=== PATIENT | male | born 1960 | race Two or more races ===

== ENCOUNTER 2018-09-21 10:54 | Inpatient (IN) | payer OTHER ==
[2018-09-21 16:00] VITALS: BMI 31.1
--- NOTE | 2018-09-21 17:25 | HP ---
CIWA Score Nausea/Vomitin-Mild Nausea/No Vomiting Muscle Tremors: 4-Moderate,w/Arms Extend Anxiety: 4-Mod. Anxious/Guarded Agitation: 4-Moderately Restless Paroxysmal Sweats: 3 Orientation: 0-Oriented Tacttile Disturbances: 0-None Auditory Disturbances: 0-None Visual Disturbances: 0-None Headache: 1-Very Mild CIWA-Ar Total Score: 17 - Admission Criteria OASAS Guidelines: Admission for Medically Managed Detox: Requires at least one of the followin. CIWA greater than 12 2. Seizures within the past 24 hours 3. Delirium tremens within the past 24 hours 4. Hallucinations within the past 24 hours 5. Acute intervention needed for co occurring medical disorder 6. Acute intervention needed for co occurring psychiatric disorder 7. Severe withdrawal that cannot be handled at a lower level of care (continued vomiting, continued diarrhea, abnormal vital signs) requiring intravenous medication and/or fluids 8. Admission ROS S - HPI Chief Complaint: I need help with stopping the drinking. Allergies/Adverse Reactions: Allergies Allergy/AdvReac Type Severity Reaction Status Date / Time No Known Allergies Allergy Verified 09/21/18 15:33 History of Present Illness: pt is a 58yrold male with a history of alcohol dependence seeking detox for treatment. Pt is on a MMTP last medicated with 50mg; pending verification. Exam Limitations: No Limitations - Ebola screening Have you traveled outside of the country in the last 21 days: No (N) Have you had contact with anyone from an Ebola affected area: No Have you been sick,other than usual withdrawal symptoms: No Do you have a fever: No - Review of Systems Constitutional: Chills, Diaphoresis, Night Sweats EENT: reports: Tearing, Nose Congestion Respiratory: reports: No Symptoms reported Cardiac: reports: Syncope GI: reports: Diarrhea, Nausea, Poor Appetite, Poor Fluid Intake, Indigestion, Abdominal cramping : reports: No Symptoms Reported Musculoskeletal: reports: Back Pain Integumentary: reports: Flushing, Sweating, Other (two open lesion to left lower leg. pt has some swelling and has clear fluid seeping out.) Neuro: reports: Tingling, Tremors Endocrine: reports: Excessive Sweating, Flushing Hematology: reports: No Symptoms Reported Psychiatric: reports: Judgement Intact, Mood/Affect Appropiate, Orientated x3, Agitated, Anxious Other Systems: Reviewed and Negative Patient History - Patient Medical History Hx Anemia: No Hx Asthma: No Hx Chronic Obstructive Pulmonary Disease (COPD): No Hx Cancer: No Hx Cardiac Disorders: No Hx Congestive Heart Failure: No Hx Hypertension: Yes (ON MEDS.) Hx Hypercholesterolemia: No Hx Pacemaker: No HX Cerebrovascular Accident: No Hx Seizures: No Hx Dementia: No Hx Diabetes: Yes (on metformin ) Hx Gastrointestinal Disorders: Yes (perforated peptic ulcer) Hx Liver Disease: No Hx Genitourinary Disorders: No Hx Sexually Transmitted Disorders: No Hx Renal Disease (ESRD): No Hx Thyroid Disease: No Hx Human Immunodeficiency Virus (HIV): No (negative ) Hx Hepatitis C: Yes (undetectable) Hx Depression: Yes Hx Suicide Attempt: No (pt denies) Hx Bipolar Disorder: Yes (ON SEROQUEL, PAXIL) Hx Schizophrenia: No - Patient Surgical History Past Surgical History: Yes Hx Neurologic Surgery: No Hx Cataract Extraction: No Hx Cardiac Surgery: No Hx Lung Surgery: No Hx Breast Surgery: No Hx Breast Biopsy: No Hx Abdominal Surgery: Yes (surgery for perforated ulcer in 1993) Hx Appendectomy: No Hx Cholecystectomy: No Hx Genitourinary Surgery: No Hx Section: No Hx Orthopedic Surgery: No Anesthesia Reaction: No - PPD History Previous Implant?: Yes Documented Results: Negative w/o proof PPD to be Administered?: Yes - Reproductive History Patient is a Female of Child Bearing Age (11 -55 yrs old): No - Smoking Cessation Smoking history: Current every day smoker Have you smoked in the past 12 months: Yes Aproximately how many cigarettes per day: 20 Cigars Per Day: 0 Hx Chewing Tobacco Use: No Initiated information on smoking cessation: Yes 'Breaking Loose' booklet given: 09/21/18 - Substance & Tx. History Hx Alcohol Use: Yes Hx Substance Use: Yes Substance Use Type: Alcohol, Heroin Hx Substance Use Treatment: Yes (last detox 2 months ago at [place] [facility]; cannot remember name) - Substances abused Alcohol Substance route: Oral Frequency: Daily Amount used: three 6 packs beer Age of first use: 17 Date of last use: 09/21/18 Heroin Substance route: Inhalation Frequency: Daily Amount used: 2 bags Age of first use: 17 Date of last use: 09/21/18 Family Disease History - Family Disease History Family Disease History: Other: Father (alcohol) Admission Physical Exam BHS - Vital Signs Vital Signs: Vital Signs - 24 hr 09/21/18 15:51 Temperature 97.2 F L Pulse Rate 95 H Respiratory 18 Rate Blood Pressure 121/71 - Physical General Appearance: Yes: Appropriately Dressed, Moderate Distress, Obese, Tremorous, Irritable, Sweating, Anxious HEENTM: Yes: Hearing grossly Normal, Normal Voice, Nasal Congestion, Rhinorrhea Respiratory: Yes: Lungs Clear, Normal Breath Sounds, No Respiratory Distress Neck: Yes: No masses,lesions,Nodules Breast: Yes: Breast Exam Deferred Cardiology: Yes: Regular Rhythm, Regular Rate, S1, S2 Abdominal: Yes: Normal Bowel Sounds, Non Tender, Soft Genitourinary: Yes: Within Normal Limits Back: Yes: Normal Inspection Musculoskeletal: Yes: full range of Motion Extremities: Yes: Normal Capillary Refill, Non-Tender, Tremors Neurological: Yes: Fully Oriented, Alert, Normal Response Integumentary: Yes: Normal Color, Diaphoresis Lymphatic: Yes: Within Normal Limits - Diagnostic (1) Essential hypertension Current Visit: Yes Status: Chronic (2) Hepatitis C carrier Current Visit: Yes Status: Chronic (3) mmtp Current Visit: Yes Status: Chronic Comment: pt is on 50mg of methadone; pending verification (4) s/p surgry for perforated peptic ulcer with peritonitis Current Visit: No Status: Chronic (5) syncope alcohol related Current Visit: No Status: Chronic (6) Bipolar I disorder, single manic episode, moderate Current Visit: No Status: Acute (7) Gastroesophageal reflux disease Current Visit: Yes Status: Chronic Qualifiers: Esophagitis presence: without esophagitis Qualified Code(s): K21.9 - Gastro -esophageal reflux disease without esophagitis (8) Nicotine dependence Current Visit: Yes Status: Chronic Qualifiers: Nicotine product type: cigarettes Substance use status: uncomplicated Qualified Code(s): F17.210 - Nicotine dependence, cigarettes, uncomplicated (9) Alcohol dependence with uncomplicated withdrawal Current Visit: Yes Status: Chronic Cleared for Admission [facility] - Detox or Rehab [facility] Level of Care: Medically Managed Detox Regimen/Protocol: Librium Breathalyzer - Breathalyzer Breathalyzer: 0.210 Urine Drug Screen - Test Device Lot number: [id number] Expiration date: 05/26/20 - Control Is test valid?: Yes - Results Drug screen NEGATIVE: No Urine drug screen results: FEN-Fentanyl, MOP-Opiates, MTD-Methadone, BZO- Benzodiazepines Inpatient Rehab Admission - Rehab Decision to Admit Inpatient rehab admission?: No
[2018-09-21] MEDS ORDERED: ACETAMINOPHEN 325 MG TABLET (FP) PO PRN ×2 (17:39)
[2018-09-21] MEDS ORDERED: P-EPHED 60MG/TRIPROLIDI 2.5MG TABLET PO PRN (17:39)
[2018-09-21] MEDS ORDERED: chlordiazePOXIDE HCL 25 MG CAPSULE PO PRN (17:39)
[2018-09-21] MEDS ORDERED: NICOTINE POLACRILEX 4 MG GUM BUC PRN (17:39)
[2018-09-21] MEDS ORDERED: MAGNESIUM HYDROX 2400MG/30ML ORAL SUSPENSION 30 ML CUP PO PRN (17:39)
[2018-09-21] MEDS ORDERED: DICYCLOMINE HCL 10 MG CAPSULE PO PRN (17:39)
[2018-09-21] MEDS ORDERED: MENTHOL/PHENOL 1 EACH UD MM PRN (17:39)
[2018-09-21] MEDS ORDERED: MAGNESIUM CITRATE 300 ML BOTTLE PO PRN (17:39)
[2018-09-21] MEDS ORDERED: hydrOXYzine PAMOATE 25 MG CAPSULE (FP) PO PRN ×2 (17:39→17:43)
[2018-09-21] MEDS ORDERED: BISMUTH SUBSALICYLATE 524 MG/30 ML UD PO PRN (17:39)
[2018-09-21] MEDS ORDERED: IBUPROFEN 400 MG TABLET (FP) PO PRN (17:39)
[2018-09-21] MEDS ORDERED: ONDANSETRON *ODT* 4 MG TABLET SL PRN (17:39)
[2018-09-21] MEDS ORDERED: MAG HYDROX/AL HYDROX/SIMETH 30 ML UNIT-DOSE CUP PO PRN (17:39)
[2018-09-21] MEDS ORDERED: MELATONIN 5 MG TABLETS PO PRN (17:39)
[2018-09-21] MEDS ORDERED: chlordiazePOXIDE HCL 25 MG CAPSULE PO ONE (18:15)
[2018-09-21] MEDS ORDERED: TUBERCULIN PPD 5 TU/0.1ML VIAL ID ONE (18:51)
[2018-09-21] MEDS: BACLOFEN 10 MG TABLET (FP) PO PRN (22:14)
[2018-09-21] MEDS: THIAMINE HCL 100 MG TABLET (FP) PO SCH (22:14)
[2018-09-21] MEDS: chlordiazePOXIDE HCL 25 MG CAPSULE PO SCH (22:14)
[2018-09-21] MEDS: BUDESONIDE/FORMETEROL FUMARATE 160/4.5 mcg INHALER IH SCH (22:15)
[2018-09-21] MEDS: BACITRACIN 0.9 GM PACKET TP SCH (22:15)
[2018-09-22] MEDS: CEPHALEXIN MONOHYDRATE 500 MG CAPSULE (UD) PO SCH ×6 (05:32→23:10)
[2018-09-22] MEDS: chlordiazePOXIDE HCL 25 MG CAPSULE PO SCH ×4 (05:32→22:01)
[2018-09-22] MEDS ORDERED: cloNIDine HCL 0.1 MG TABLET PO ONE (06:42)
--- NOTE | 2018-09-22 06:45 | PN ---
S Progress Note Note: Patient's blood pressure is B/P 161/94. patient is asymptomatic Vital Signs Temperature 97.4 F L 09/22/18 06:34 Pulse Rate 86 09/22/18 06:34 Respiratory Rate 18 09/22/18 06:34 Blood Pressure 161/94 09/22/18 06:34 O2 Sat by Pulse Oximetry (%) action: Clonidine 0.1mg tablet oral ordered
[2018-09-22] MEDS ORDERED: METHADONE HCL 10 MG TABLET PO SCH (07:15)
[2018-09-22] MEDS ORDERED: METHADONE HCL 10 MG TABLET ONE (07:27)
[2018-09-22] MEDS ORDERED: METHADONE HCL 40 MG DISPERSABLE TABLET ONE (07:27)
[2018-09-22] MEDS: METHADONE 40 MG, METHADONE 10 MG PO SCH (07:30)
[2018-09-22] MEDS: metFORMIN HCL 500 MG TABLET (FP) PO SCH ×2 (07:33→17:12)
--- NOTE | 2018-09-22 09:36 | CONSULT ---
[facility] Psychiatric Consult - Data Date of interview: 09/22/18 Admission source: [facility] Identifying data: Patient is a 58 year old male, without children, unemployed, homeless, and is supported by public assistance. This is one of multiple admissions for patient. Patient admitted to for alcohol, opiate, and benzodiazepine dependence. Substance Abuse History: - Smoking Cessation. Smoking history: Current every day smoker. Have you smoked in the past 12 months: Yes. Aproximately how many cigarettes per day: 20. Cigars Per Day: 0. Hx Chewing Tobacco Use: No. Initiated information on smoking cessation: Yes. 'Breaking Loose' booklet given : 09/21/18. - Substance & Tx. History. Hx Alcohol Use: Yes. Hx Substance Use : Yes. Substance Use Type: Alcohol, Heroin. Hx Substance Use Treatment: Yes ( last detox 2 months ago at [facility], [place]; cannot remember name). - Substances abused. Alcohol. Substance route: Oral. Frequency: Daily. Amount used: three 6 packs beer. Age of first use: 17. Date of last use: 09/21. Heroin. Substance route: Inhalation. Frequency: Daily. Amount used: 2 bags. Age of first use: 17. Date of last use: 09/21/18 Psychiatric History: Patient denies h/o psychiatric hospitalization and suicide attempt. He reports h/o outpatient care most recently at the [facility]. States he is prescribed paxil 40mg + Seroquel 100mg. Self reports diagnosis of Depression. Mr. Soto reports most taking his medications two days ago. At present, he reports difficulty sleeping. Physical/Sexual Abuse/Trauma History: denies. Mental Status Exam - Mental Status Exam Alert and Oriented to: Time, Place, Person Cognitive Function: Good Patient Appearance: Well Groomed Mood: Euthymic Affect: Mood Congruent Patient Behavior: Fatigued, Cooperative Speech Pattern: Appropriate Voice Loudness: Moderately Soft/Quiet Thought Process: Goal Oriented Thought Disorder: Not Present Hallucinations: Denies Suicidal Ideation: Denies Homicidal Ideation: Denies Insight/Judgement: Poor Sleep: Poorly Appetite: Fair Muscle strength/Tone: Normal Gait/Station: Normal Psychiatric Findings - Problem List ([place] 1, 2,3) (1) Alcohol dependence with uncomplicated withdrawal Current Visit: Yes Status: Acute (2) Nicotine dependence Current Visit: Yes Status: Chronic Qualifiers: Nicotine product type: cigarettes Substance use status: uncomplicated Qualified Code(s): F17.210 - Nicotine dependence, cigarettes, uncomplicated (3) Mood disorder Current Visit: Yes Status: Chronic - Initial Treatment Plan Initial Treatment Plan: Psychoeducation provided. Detox in progress. Will order Paxil 40mg + Seroquel 100mg HS. Benefits and side effects discussed. Verbal consent given.
[2018-09-22] MEDS: BACITRACIN 0.9 GM PACKET TP SCH ×2 (10:36→21:42)
[2018-09-22] MEDS: NICOTINE 21 MG/24 HOURS TOPICAL PATCH TD SCH (10:36)
[2018-09-22] MEDS: PANTOPRAZOLE 40 MG TABLET (FP) PO SCH (10:36)
[2018-09-22] MEDS: LISINOPRIL 10 MG TABLET (FP) PO SCH (10:36)
[2018-09-22] MEDS: BUDESONIDE/FORMETEROL FUMARATE 160/4.5 mcg INHALER IH SCH ×2 (10:36→21:43)
[2018-09-22] MEDS: PRENATAL VITAMINS W/ FOLIC ACID TABLET (FP) PO SCH (10:36)
[2018-09-22 11:10] LABS: BILIRUBIN,TOTAL 0.3 mg/dL (0.2-1); BLOOD UREA NITROGEN 7.7 mg/dL (7-18); CALCIUM 7.8 mg/dL (8.5-10.1); CREATININE 0.6 mg/dL (0.55-1.3); TOT PROT 6.5 g/dl (6.4-8.2)
[2018-09-22 11:14] LABS: HEMATOCRIT 34.4 % (35.4-49); HEMOGLOBIN 10.9 GM/dL (11.7-16.9); MCH 23.9 pg (25.7-33.7); MCHC 31.7 g/dl (32.0-35.9); MEAN CELL VOLUME 75.4 fl (80-96); MEAN PLT VOLUME 8.5 fl (7.5-11.1); PLATELET COUNT 159 K/MM3 (134-434); RBC 4.56 M/mm3 (4.00-5.60); WHITE BLOOD COUNT 5.1 K/mm3 (4.0-10.0)
--- NOTE | 2018-09-22 13:41 | EKG ---
Test Reason : Blood Pressure : / mmHG Vent. Rate : 078 BPM Atrial Rate : 078 BPM P-R Int : 128 ms QRS Dur : 112 ms QT Int : 416 ms P-R-T Axes : 074 033 060 degrees QTc Int : 474 ms NORMAL SINUS RHYTHM NONSPECIFIC ST AND T WAVE ABNORMALITY PROLONGED QT ABNORMAL ECG NO PREVIOUS ECGS AVAILABLE Confirmed by MARLENI BLAKE, DONELL ([id number]) on 09/22/2018 1:40:59 PM Referred By: CHRISTOPHER ESPAÑA Confirmed By:DONELL YEPEZ MD
--- NOTE | 2018-09-22 14:37 | PN ---
S CIWA - CIWA Score Nausea/Vomitin Muscle Tremors: 2 Anxiety: 2 Agitation: 2 Paroxysmal Sweats: 1-Minimal Palms Moist Orientation: 0-Oriented Tacttile Disturbances: 1-Very Mild Itch/Numbness Auditory Disturbances: 1-Very Mild Visual Disturbances: 0-None Headache: 2-Mild CIWA-Ar Total Score: 13 S Progress Note (SOAP) Subjective: -alert,irritable,anxious,interrupted sleep,tremor Objective: 09/22/18 14:35 Vital Signs Temperature 96.7 F L 09/22/18 13:07 Pulse Rate 87 09/22/18 13:07 Respiratory Rate 16 09/22/18 13:07 Blood Pressure 159/95 09/22/18 13:07 O2 Sat by Pulse Oximetry (%) Laboratory Last Values WBC 5.1 K/mm3 (4.0-10.0) 09/22/18 07:30 RBC 4.56 M/mm3 (4.00-5.60) 09/22/18 07:30 Hgb 10.9 GM/dL (11.7-16.9) L 09/22/18 07:30 Hct 34.4 % (35.4-49) L 09/22/18 07:30 MCV 75.4 fl (80-96) L 09/22/18 07:30 MCH 23.9 pg (25.7-33.7) L D 09/22/18 07:30 MCHC 31.7 g/dl (32.0-35.9) L 09/22/18 07:30 RDW 17.0 % (11.9-15.9) H 09/22/18 07:30 Plt Count 159 K/MM3 (134-434) D 09/22/18 07:30 MPV 8.5 fl (7.5-11.1) D 09/22/18 07:30 Sodium 141 mmol/L (136-145) 09/22/18 07:30 Potassium 4.0 mmol/L (3.5-5.1) 09/22/18 07:30 Chloride 104 mmol/L (98-107) 09/22/18 07:30 Carbon Dioxide 30 mmol/L (21-32) 09/22/18 07:30 Anion Gap 7 MMOL/L (8-16) L 09/22/18 07:30 BUN 7.7 mg/dL (7-18) 09/22/18 07:30 Creatinine 0.6 mg/dL (0.55-1.3) 09/22/18 07:30 Est GFR (CKD-EPI)AfAm 130.27 09/22/18 07:30 Est GFR (CKD-EPI)NonAf 112.40 09/22/18 07:30 POC Glucometer 89 UNITS (80-120) 09/22/18 05:31 Random Glucose 70 mg/dL (74-106) L 09/22/18 07:30 Calcium 7.8 mg/dL (8.5-10.1) L 09/22/18 07:30 Total Bilirubin 0.3 mg/dL (0.2-1) 09/22/18 07:30 AST 106 U/L (15-37) H 09/22/18 07:30 ALT 81 U/L (13-61) H 09/22/18 07:30 Alkaline Phosphatase 131 U/L (45-117) H 09/22/18 07:30 Total Protein 6.5 g/dl (6.4-8.2) 09/22/18 07:30 Albumin 3.0 g/dl (3.4-5.0) L 09/22/18 07:30 RPR Titer Nonreactive (NONREACTIVE) 09/22/18 07:30 Assessment: 09/22/18 14:36 withdrawal symptom Plan: continue detox
[2018-09-22] MEDS: QUEtiapine FUMARATE 100 MG TABLET (FP) PO SCH (21:39)
[2018-09-22] MEDS: THIAMINE HCL 100 MG TABLET (FP) PO SCH (21:39)
[2018-09-22] MEDS: BACLOFEN 10 MG TABLET (FP) PO PRN (21:39)
[2018-09-23] MEDS ORDERED: METHADONE HCL 10 MG TABLET ONE (05:03)
[2018-09-23] MEDS ORDERED: METHADONE HCL 40 MG DISPERSABLE TABLET ONE (05:03)
[2018-09-23] MEDS: METHADONE 40 MG, METHADONE 10 MG PO SCH (05:13)
[2018-09-23] MEDS: CEPHALEXIN MONOHYDRATE 500 MG CAPSULE (UD) PO SCH ×4 (05:13→23:24)
[2018-09-23] MEDS: chlordiazePOXIDE HCL 25 MG CAPSULE PO SCH ×3 (05:13→17:01)
[2018-09-23] MEDS: metFORMIN HCL 500 MG TABLET (FP) PO SCH ×2 (08:05→17:01)
[2018-09-23] MEDS: PRENATAL VITAMINS W/ FOLIC ACID TABLET (FP) PO SCH (10:16)
[2018-09-23] MEDS: PANTOPRAZOLE 40 MG TABLET (FP) PO SCH (10:16)
[2018-09-23] MEDS: BACITRACIN 0.9 GM PACKET TP SCH ×2 (10:16→22:01)
[2018-09-23] MEDS: NICOTINE 21 MG/24 HOURS TOPICAL PATCH TD SCH (10:16)
[2018-09-23] MEDS: BUDESONIDE/FORMETEROL FUMARATE 160/4.5 mcg INHALER IH SCH ×2 (10:18→22:00)
[2018-09-23] MEDS: LISINOPRIL 10 MG TABLET (FP) PO SCH (10:20)
[2018-09-23] MEDS: PARoxetine HCL 20 MG TABLET PO SCH (10:49)
--- NOTE | 2018-09-23 13:52 | PN ---
S CIWA - CIWA Score Nausea/Vomitin Muscle Tremors: 2 Anxiety: 2 Agitation: 1-Slight > Activity Paroxysmal Sweats: No Perspiration Orientation: 0-Oriented Tacttile Disturbances: 1-Very Mild Itch/Numbness Auditory Disturbances: 1-Very Mild Visual Disturbances: 0-None Headache: 1-Very Mild CIWA-Ar Total Score: 10 BHS Progress Note (SOAP) Subjective: alert,irritable,anxious,interrupted sleep,tremor Objective: 09/23/18 13:51 Vital Signs Temperature 98.4 F 09/23/18 09:12 Pulse Rate 120 H 09/23/18 09:12 Respiratory Rate 18 09/23/18 09:12 Blood Pressure 149/91 09/23/18 09:12 O2 Sat by Pulse Oximetry (%) Assessment: 09/23/18 13:51 withdrawal symptom Plan: continue detox
[2018-09-23] MEDS: THIAMINE HCL 100 MG TABLET (FP) PO SCH (22:00)
[2018-09-23] MEDS: chlordiazePOXIDE HCL 10 MG CAPSULE PO SCH (22:00)
[2018-09-23] MEDS: QUEtiapine FUMARATE 100 MG TABLET (FP) PO SCH (22:00)
[2018-09-23] MEDS: BACLOFEN 10 MG TABLET (FP) PO PRN (22:00)
[2018-09-24] MEDS ORDERED: METHADONE HCL 40 MG DISPERSABLE TABLET ONE (04:59)
[2018-09-24] MEDS ORDERED: METHADONE HCL 10 MG TABLET ONE (04:59)
[2018-09-24] MEDS: CEPHALEXIN MONOHYDRATE 500 MG CAPSULE (UD) PO SCH ×3 (05:16→17:53)
[2018-09-24] MEDS: chlordiazePOXIDE HCL 10 MG CAPSULE PO SCH ×4 (05:16→22:06)
[2018-09-24] MEDS: METHADONE 40 MG, METHADONE 10 MG PO SCH (05:16)
[2018-09-24] MEDS: metFORMIN HCL 500 MG TABLET (FP) PO SCH ×2 (06:25→17:05)
[2018-09-24] MEDS: PARoxetine HCL 20 MG TABLET PO SCH (10:03)
[2018-09-24] MEDS: PRENATAL VITAMINS W/ FOLIC ACID TABLET (FP) PO SCH (10:03)
[2018-09-24] MEDS: PANTOPRAZOLE 40 MG TABLET (FP) PO SCH (10:03)
[2018-09-24] MEDS: LISINOPRIL 10 MG TABLET (FP) PO SCH (10:03)
[2018-09-24] MEDS: BUDESONIDE/FORMETEROL FUMARATE 160/4.5 mcg INHALER IH SCH ×2 (10:04→22:10)
[2018-09-24] MEDS: NICOTINE 21 MG/24 HOURS TOPICAL PATCH TD SCH (10:06)
[2018-09-24] MEDS: BACITRACIN 0.9 GM PACKET TP SCH ×2 (10:53→22:06)
--- NOTE | 2018-09-24 15:54 | PN ---
S CIWA - CIWA Score Nausea/Vomitin-No Nausea/No Vomiting Muscle Tremors: 3 Anxiety: 3 Agitation: 1-Slight > Activity Paroxysmal Sweats: No Perspiration Orientation: 0-Oriented Tacttile Disturbances: 2-Mild Itch/Numbness/Burn Auditory Disturbances: 0-None Visual Disturbances: 2-Mild Sensitivity Headache: 0-None Present CIWA-Ar Total Score: 11 BHS Progress Note (SOAP) Subjective: Anxious, Tremors, Fatigue, Poor Appetite. Objective: PATIENT A & O X 3, OBSERVED AMBULATING ON UNIT UNASSISTED. IN NO ACUTE DISTRESS. 09/24/18 15:50 Vital Signs Temperature 96.7 F L 09/24/18 13:10 Pulse Rate 115 H 09/24/18 13:10 Respiratory Rate 18 09/24/18 13:10 Blood Pressure 126/75 09/24/18 13:10 O2 Sat by Pulse Oximetry (%) Laboratory Tests 09/21/18 09/22/18 09/22/18 18:15 05:31 07:30 WBC 5.1 RBC 4.56 Hgb 10.9 L Hct 34.4 L MCV 75.4 L MCH 23.9 L D MCHC 31.7 L RDW 17.0 H Plt Count 159 D MPV 8.5 D Sodium Potassium Chloride Carbon Dioxide Anion Gap BUN Creatinine Est GFR (CKD-EPI)AfAm Est GFR (CKD-EPI)NonAf POC Glucometer 79 89 Random Glucose Calcium Total Bilirubin AST ALT Alkaline Phosphatase Total Protein Albumin RPR Titer 09/22/18 09/22/18 09/22/18 07:30 07:30 16:20 WBC RBC Hgb Hct MCV MCH MCHC RDW Plt Count MPV Sodium 141 Potassium 4.0 Chloride 104 Carbon Dioxide 30 Anion Gap 7 L BUN 7.7 Creatinine 0.6 Est GFR (CKD-EPI)AfAm 130.27 Est GFR (CKD-EPI)NonAf 112.40 POC Glucometer 89 Random Glucose 70 L Calcium 7.8 L Total Bilirubin 0.3 AST 106 H ALT 81 H Alkaline Phosphatase 131 H Total Protein 6.5 Albumin 3.0 L RPR Titer Nonreactive 09/23/18 09/23/18 09/24/18 05:12 16:22 05:15 WBC RBC Hgb Hct MCV MCH MCHC RDW Plt Count MPV Sodium Potassium Chloride Carbon Dioxide Anion Gap BUN Creatinine Est GFR (CKD-EPI)AfAm Est GFR (CKD-EPI)NonAf POC Glucometer 76 105 87 Random Glucose Calcium Total Bilirubin AST ALT Alkaline Phosphatase Total Protein Albumin RPR Titer LABS NOTED. Assessment: 09/24/18 15:52 WITHDRAWAL SYMPTOMS. ELEVATED LIVER ENZYMES. HYPOCALCEMIA. ANEMIA. Plan: CONTINUE DETOX. OSCAL, 500 MG PO BID FOR LOW ADMISSION CALCIUM LEVEL. FEOSOL, 325 MG PO TIDCM FOR ANEMIA NOTED ON DETOX ADMISSION LABORATORY ASSESSMENT.
[2018-09-24] MEDS: FERROUS SO4 325 MG TABLET (FP) PO SCH (17:52)
[2018-09-24] MEDS: BACLOFEN 10 MG TABLET (FP) PO PRN (22:06)
[2018-09-24] MEDS: CALCIUM 500MG/VIT-D 200 UNITS COMBO TABLET (FP) PO SCH (22:06)
[2018-09-24] MEDS: QUEtiapine FUMARATE 100 MG TABLET (FP) PO SCH (22:10)
[2018-09-24] MEDS: THIAMINE HCL 100 MG TABLET (FP) PO SCH (22:26)
[2018-09-25] MEDS: CEPHALEXIN MONOHYDRATE 500 MG CAPSULE (UD) PO SCH ×5 (00:03→23:34)
[2018-09-25] MEDS ORDERED: METHADONE HCL 40 MG DISPERSABLE TABLET ONE (04:59)
[2018-09-25] MEDS ORDERED: METHADONE HCL 10 MG TABLET ONE (04:59)
[2018-09-25] MEDS: METHADONE 40 MG, METHADONE 10 MG PO SCH (05:14)
[2018-09-25] MEDS: metFORMIN HCL 500 MG TABLET (FP) PO SCH ×2 (07:30→17:47)
[2018-09-25] MEDS: FERROUS SO4 325 MG TABLET (FP) PO SCH ×3 (09:04→17:47)
[2018-09-25] MEDS: LISINOPRIL 10 MG TABLET (FP) PO SCH (10:01)
[2018-09-25] MEDS: BUDESONIDE/FORMETEROL FUMARATE 160/4.5 mcg INHALER IH SCH ×2 (10:01→22:09)
[2018-09-25] MEDS: PARoxetine HCL 20 MG TABLET PO SCH (10:01)
[2018-09-25] MEDS: PRENATAL VITAMINS W/ FOLIC ACID TABLET (FP) PO SCH (10:01)
[2018-09-25] MEDS: CALCIUM 500MG/VIT-D 200 UNITS COMBO TABLET (FP) PO SCH ×2 (10:01→22:09)
[2018-09-25] MEDS: PANTOPRAZOLE 40 MG TABLET (FP) PO SCH (10:01)
[2018-09-25] MEDS: BACITRACIN 0.9 GM PACKET TP SCH ×2 (10:01→22:33)
[2018-09-25] MEDS: NICOTINE 21 MG/24 HOURS TOPICAL PATCH TD SCH (10:01)
[2018-09-25] MEDS: chlordiazePOXIDE HCL 10 MG CAPSULE PO SCH ×2 (10:02→22:09)
--- NOTE | 2018-09-25 12:54 | PN ---
S CIWA - CIWA Score Nausea/Vomitin-No Nausea/No Vomiting Muscle Tremors: 2 Anxiety: 4-Mod. Anxious/Guarded Agitation: 3 Paroxysmal Sweats: 1-Minimal Palms Moist Orientation: 0-Oriented Tacttile Disturbances: 0-None Auditory Disturbances: 0-None Visual Disturbances: 0-None Headache: 0-None Present CIWA-Ar Total Score: 10 BHS Progress Note (SOAP) Subjective: Pt c/o anxiety, sweats, leg pain. Pt has hx chronic lower leg edema on/off. Reports right resolved but left slower to resolve. Pt had some redness and abrasion on left lower leg and on antibiotics therapy and bacitracin ointment. Objective: 09/25/18 13:56 Vital Signs 09/25/18 09/25/18 09/25/18 06:23 09:29 13:10 Temperature 98.3 F 97.8 F 97.3 F L Pulse Rate 83 118 H 98 H Respiratory 18 20 20 Rate Blood Pressure 143/88 120/82 117/80 Laboratory Tests 09/21/18 09/22/18 09/22/18 18:15 05:31 07:30 WBC 5.1 RBC 4.56 Hgb 10.9 L Hct 34.4 L MCV 75.4 L MCH 23.9 L D MCHC 31.7 L RDW 17.0 H Plt Count 159 D MPV 8.5 D Sodium Potassium Chloride Carbon Dioxide Anion Gap BUN Creatinine Est GFR (CKD-EPI)AfAm Est GFR (CKD-EPI)NonAf POC Glucometer 79 89 Random Glucose Calcium Total Bilirubin AST ALT Alkaline Phosphatase Total Protein Albumin RPR Titer 09/22/18 09/22/18 09/22/18 07:30 07:30 16:20 WBC RBC Hgb Hct MCV MCH MCHC RDW Plt Count MPV Sodium 141 Potassium 4.0 Chloride 104 Carbon Dioxide 30 Anion Gap 7 L BUN 7.7 Creatinine 0.6 Est GFR (CKD-EPI)AfAm 130.27 Est GFR (CKD-EPI)NonAf 112.40 POC Glucometer 89 Random Glucose 70 L Calcium 7.8 L Total Bilirubin 0.3 AST 106 H ALT 81 H Alkaline Phosphatase 131 H Total Protein 6.5 Albumin 3.0 L RPR Titer Nonreactive 09/23/18 09/23/18 09/24/18 05:12 16:22 05:15 WBC RBC Hgb Hct MCV MCH MCHC RDW Plt Count MPV Sodium Potassium Chloride Carbon Dioxide Anion Gap BUN Creatinine Est GFR (CKD-EPI)AfAm Est GFR (CKD-EPI)NonAf POC Glucometer 76 105 87 Random Glucose Calcium Total Bilirubin AST ALT Alkaline Phosphatase Total Protein Albumin RPR Titer 09/24/18 09/25/18 17:05 05:14 WBC RBC Hgb Hct MCV MCH MCHC RDW Plt Count MPV Sodium Potassium Chloride Carbon Dioxide Anion Gap BUN Creatinine Est GFR (CKD-EPI)AfAm Est GFR (CKD-EPI)NonAf POC Glucometer 115 170 Random Glucose Calcium Total Bilirubin AST ALT Alkaline Phosphatase Total Protein Albumin RPR Titer Assessment: 09/25/18 13:57 withdrawal sx Cellulitis Plan: continue detox elevate left leg in bed continue antibiotics therapy
[2018-09-25] MEDS: THIAMINE HCL 100 MG TABLET (FP) PO SCH (22:09)
[2018-09-25] MEDS: QUEtiapine FUMARATE 100 MG TABLET (FP) PO SCH (22:09)
[2018-09-26] MEDS ORDERED: METHADONE HCL 10 MG TABLET ONE (04:45)
[2018-09-26] MEDS ORDERED: METHADONE HCL 40 MG DISPERSABLE TABLET ONE (04:45)
[2018-09-26] MEDS: CEPHALEXIN MONOHYDRATE 500 MG CAPSULE (UD) PO SCH ×2 (05:07→12:44)
[2018-09-26] MEDS: METHADONE 40 MG, METHADONE 10 MG PO SCH (05:07)
[2018-09-26] MEDS: FERROUS SO4 325 MG TABLET (FP) PO SCH ×2 (07:55→12:44)
[2018-09-26] MEDS: metFORMIN HCL 500 MG TABLET (FP) PO SCH (07:55)
[2018-09-26 09:18] VITALS: BP 118/78; PULSE 125; TEMP 96.6
[2018-09-26] MEDS: CALCIUM 500MG/VIT-D 200 UNITS COMBO TABLET (FP) PO SCH (10:11)
[2018-09-26] MEDS: PARoxetine HCL 20 MG TABLET PO SCH (10:12)
[2018-09-26] MEDS: LISINOPRIL 10 MG TABLET (FP) PO SCH (10:12)
[2018-09-26] MEDS: NICOTINE 21 MG/24 HOURS TOPICAL PATCH TD SCH (10:12)
[2018-09-26] MEDS: PRENATAL VITAMINS W/ FOLIC ACID TABLET (FP) PO SCH (10:12)
[2018-09-26] MEDS: BUDESONIDE/FORMETEROL FUMARATE 160/4.5 mcg INHALER IH SCH (10:12)
[2018-09-26] MEDS: PANTOPRAZOLE 40 MG TABLET (FP) PO SCH (10:12)
[2018-09-26] MEDS: BACITRACIN 0.9 GM PACKET TP SCH (10:13)
--- NOTE | 2018-09-26 13:24 | DS ---
[facility] Detox Discharge Summary Admission Date: 09/21/18 Discharge Date: 09/26/18 - History Present History: Alcohol Dependence, Opioid Dependence, MMTP Additional Comments: PATIENT [facility] ANTIBIOTIC (KEFLEX) STARTED WHILE PATIENT WAS ADMITTED FOR DETOX FOR TREATMENT OF BILATERAL LEG CELLULITIS AND FEOSOL SUPPLEMENT START DURING DETOX ADMISSION FOR TREATMENT OF ANEMIA TO BE CONTINUED FOR FIRST FEW DAYS OF REHAB ADMISSION. PATIENT WAS DISCHARGED FORM DETOX UNIT IN STABLE MEDICAL CONDITION. Pertinent Past History: M.M.T.P., Hep C, History Of Syncope (Alcohol-Related), G.E.R.D., Bipolar I Disorder, Nicotine Dependence, History of Suergery For Treatment of Perforated Peptic Ulcer with Consequent Peritonitis, HTN, Depression, Type II DM, Hypocalcemia, Anemia, Elevated Liver Enzymes, History Of Mood Disorder. - Physical Exam Results Vital Signs: Vital Signs Temperature 96.6 F L 09/26/18 09:18 Pulse Rate 125 H 09/26/18 09:18 Respiratory Rate 18 09/26/18 09:18 Blood Pressure 118/78 09/26/18 09:18 O2 Sat by Pulse Oximetry (%) Pertinent Admission Physical Exam Findings: WITHDRAWAL SYMPTOMS. Laboratory Tests 09/21/18 09/22/18 09/22/18 18:15 05:31 07:30 WBC 5.1 RBC 4.56 Hgb 10.9 L Hct 34.4 L MCV 75.4 L MCH 23.9 L D MCHC 31.7 L RDW 17.0 H Plt Count 159 D MPV 8.5 D Sodium Potassium Chloride Carbon Dioxide Anion Gap BUN Creatinine Est GFR (CKD-EPI)AfAm Est GFR (CKD-EPI)NonAf POC Glucometer 79 89 Random Glucose Calcium Total Bilirubin AST ALT Alkaline Phosphatase Total Protein Albumin RPR Titer 09/22/18 09/22/18 09/22/18 07:30 07:30 16:20 WBC RBC Hgb Hct MCV MCH MCHC RDW Plt Count MPV Sodium 141 Potassium 4.0 Chloride 104 Carbon Dioxide 30 Anion Gap 7 L BUN 7.7 Creatinine 0.6 Est GFR (CKD-EPI)AfAm 130.27 Est GFR (CKD-EPI)NonAf 112.40 POC Glucometer 89 Random Glucose 70 L Calcium 7.8 L Total Bilirubin 0.3 AST 106 H ALT 81 H Alkaline Phosphatase 131 H Total Protein 6.5 Albumin 3.0 L RPR Titer Nonreactive 09/23/18 09/23/18 09/24/18 05:12 16:22 05:15 WBC RBC Hgb Hct MCV MCH MCHC RDW Plt Count MPV Sodium Potassium Chloride Carbon Dioxide Anion Gap BUN Creatinine Est GFR (CKD-EPI)AfAm Est GFR (CKD-EPI)NonAf POC Glucometer 76 105 87 Random Glucose Calcium Total Bilirubin AST ALT Alkaline Phosphatase Total Protein Albumin RPR Titer 09/24/18 09/25/18 09/25/18 17:05 05:14 16:48 WBC RBC Hgb Hct MCV MCH MCHC RDW Plt Count MPV Sodium Potassium Chloride Carbon Dioxide Anion Gap BUN Creatinine Est GFR (CKD-EPI)AfAm Est GFR (CKD-EPI)NonAf POC Glucometer 115 170 113 Random Glucose Calcium Total Bilirubin AST ALT Alkaline Phosphatase Total Protein Albumin RPR Titer 09/26/18 05:12 WBC RBC Hgb Hct MCV MCH MCHC RDW Plt Count MPV Sodium Potassium Chloride Carbon Dioxide Anion Gap BUN Creatinine Est GFR (CKD-EPI)AfAm Est GFR (CKD-EPI)NonAf POC Glucometer 85 Random Glucose Calcium Total Bilirubin AST ALT Alkaline Phosphatase Total Protein Albumin RPR Titer LABS NOTED. - Treatment Hospital Course: Detox Protocol Followed, Detoxed Safely, Responded well, Discharged Condition Good, Rehab Referral Accepted Patient has Accepted a Re[facility] to: [facility] ([place], [place]). - Medication Discharge Medications: Ambulatory Orders Pantoprazole Sodium [Protonix -] 40 mg PO DAILY #30 tablet.ec 12/05/12 Budesonide/Formeterol Fumarate [SYMBICORT 160/4.5mcg -] 1 inh PO BID 09/21/18 Hydroxyzine HCl 50 mg PO PRN 09/21/18 Lisinopril 10 mg PO DAILY 09/21/18 Metformin HCl [Glucophage] 500 mg PO BID 09/21/18 Paroxetine HCl [Paxil -] 40 mg PO DAILY 09/21/18 Quetiapine Fumarate [Seroquel] 100 tab PO HS 09/21/18 - Diagnosis (1) Alcohol dependence with uncomplicated withdrawal Status: Acute (2) Anemia Status: Acute Qualifiers: Anemia type: unspecified type Qualified Code(s): D64.9 - Anemia, unspecified (3) Bipolar I disorder, single manic episode, moderate Status: Acute (4) Elevated liver enzymes Status: Acute (5) Essential hypertension Status: Chronic (6) Hepatitis C carrier Status: Chronic (7) Nicotine dependence Status: Chronic Qualifiers: Nicotine product type: cigarettes Substance use status: uncomplicated Qualified Code(s): F17.210 - Nicotine dependence, cigarettes, uncomplicated (8) mmtp Status: Chronic (9) s/p surgry for perforated peptic ulcer with peritonitis Status: Chronic (10) syncope alcohol related Status: Chronic (11) Hypocalcemia Status: Acute (12) Gastroesophageal reflux disease Status: Chronic Qualifiers: Esophagitis presence: without esophagitis Qualified Code(s): K21.9 - Gastro -esophageal reflux disease without esophagitis (13) Mood disorder Status: Chronic - AMA Did Patient Leave Against Medical Advice: No
== END 2018-09-26 11:22 | disposition other institution (70) | DRG 773 ==
LOC: YASAS 10:54 → Y3N 18:06
PROVIDERS: ADMIT Surgery; ATTEND Surgery
PROC: HZ2ZZZZ Detoxification Services for Substance Abuse Treatment (ICD-10-PCS; principal; 2018-09-21)
DX: F10.230 Alcohol dependence with withdrawal, uncomplicated (principal); F11.20 Opioid dependence, uncomplicated; F17.210 Nicotine dependence, cigarettes, uncomplicated; F31.12 Bipolar disorder, current episode manic without psychotic features, moderate; F39 Unspecified mood [affective] disorder; I10 Essential (primary) hypertension; D64.9 Anemia, unspecified; B18.2 Chronic viral hepatitis C; E83.51 Hypocalcemia; K21.9 Gastro-esophageal reflux disease without esophagitis; L03.116 Cellulitis of left lower limb; R94.5 Abnormal results of liver function studies; E11.9 Type 2 diabetes mellitus without complications; Z68.31 Body mass index [BMI] 31.0-31.9, adult; Z79.84 Long term (current) use of oral hypoglycemic drugs; Z87.11 Personal history of peptic ulcer disease
CPT/HCPCS: 36415; 80053; 82962; 85027; 86593; 93005; 93010; J0475; J0735

== ENCOUNTER 2018-09-26 11:28 | Inpatient (IN) | payer OTHER ==
[2018-09-26] MEDS ORDERED: LOPERAMIDE HCL 2 MG CAPSULE PO PRN (13:34)
[2018-09-26] MEDS ORDERED: MENTHOL/PHENOL 1 EACH UD MM PRN (13:34)
[2018-09-26] MEDS ORDERED: MAGNESIUM CITRATE 300 ML BOTTLE PO PRN (13:34)
[2018-09-26] MEDS ORDERED: MAGNESIUM HYDROX 2400MG/30ML ORAL SUSPENSION 30 ML CUP PO PRN (13:34)
[2018-09-26] MEDS ORDERED: IBUPROFEN 400 MG TABLET (FP) PO PRN (13:34)
[2018-09-26] MEDS ORDERED: MAG HYDROX/AL HYDROX/SIMETH 30 ML UNIT-DOSE CUP PO PRN (13:34)
[2018-09-26] MEDS ORDERED: NICOTINE POLACRILEX 4 MG GUM BUC PRN (13:34)
[2018-09-26] MEDS ORDERED: P-EPHED 60MG/TRIPROLIDI 2.5MG TABLET PO PRN (13:34)
[2018-09-26] MEDS ORDERED: guaiFENesin 200 MG/10 ML 10 ML UNIT-DOSE CUPS PO PRN (13:34)
--- NOTE | 2018-09-26 13:42 | HP ---
[facility] Rehab Assess/Revision - Admission History Ad[facility]hab [facility]: [facility] Date of Admission to Rehab: 09/26/2018 - Vital signs Vital Signs: NOTED; STABLE. - Findings Detox History & Physical reviewed: Yes Concur with findings: Yes Comments/Additional Findings: PATIENT'S MEDICAL / MEDICATION HISTORY REVIEWED PRIOR TO HIS GOING OVER TO REHAB UNIT. ANTIBIOTIC (KEFLEX) STARTED WHILE PATIENT WAS ADMITTED FOR DETOX FOR TREATMENT OF BILATERAL LEG CELLULITIS AND FEOSOL SUPPLEMENT START DURING DETOX ADMISSION FOR TREATMENT OF ANEMIA AND OSCAL SUPPLEMENT STARTED DURING DETOX ADMISSION FOR TREATMENT OF HYPOCALCEMIA TO BE CONTINUED FOR FIRST FEW DAYS OF REHAB ADMISSION. PATIENT WAS DISCHARGED FROM DETOX UNIT TO BE TAKEN OVER TO REHAB UNIT IN STABLE MEDICAL CONITION. Inpatient Rehab Admission - Rehab Decision to Admit Inpatient rehab admission?: Yes - Initial Determination Are CD services needed?: Yes Free of communicable disease: Yes Not in need of hospitalization: Yes - Rehab Admission Criteria Previous failed treatment: Yes Poor recovery environment: Yes Comorbidities: Yes Lacks judgement: No Patient is meeting Inpatient Rehab admission criteria:: Yes
[2018-09-26] MEDS: metFORMIN HCL 500 MG TABLET (FP) PO SCH (16:51)
[2018-09-26] MEDS: FERROUS SO4 325 MG TABLET (FP) PO SCH (17:52)
[2018-09-26] MEDS: CEPHALEXIN MONOHYDRATE 500 MG CAPSULE (UD) PO SCH ×2 (17:54→23:40)
[2018-09-26] MEDS: BUDESONIDE/FORMETEROL FUMARATE 160/4.5 mcg INHALER IH SCH (21:42)
[2018-09-26] MEDS: BACITRACIN 15 GM TUBE TOPICAL OINTMENT TP SCH (21:42)
[2018-09-26] MEDS: THIAMINE HCL 100 MG TABLET (FP) PO SCH (21:44)
[2018-09-26] MEDS: CALCIUM 500MG/VIT-D 200 UNITS COMBO TABLET (FP) PO SCH (21:45)
[2018-09-26] MEDS: MELATONIN 5 MG TABLETS PO PRN (21:45)
[2018-09-27] MEDS ORDERED: METHADONE HCL 40 MG DISPERSABLE TABLET ONE (05:52)
[2018-09-27] MEDS ORDERED: METHADONE HCL 10 MG TABLET ONE (05:52)
[2018-09-27] MEDS: METHADONE 40 MG, METHADONE 10 MG PO SCH (06:00)
[2018-09-27] MEDS: CEPHALEXIN MONOHYDRATE 500 MG CAPSULE (UD) PO SCH ×4 (06:00→23:55)
[2018-09-27] MEDS ORDERED: METHADONE HCL 10 MG TABLET PO SCH (06:00)
[2018-09-27] MEDS: metFORMIN HCL 500 MG TABLET (FP) PO SCH ×2 (07:05→16:53)
[2018-09-27] MEDS: FERROUS SO4 325 MG TABLET (FP) PO SCH ×3 (07:06→18:10)
[2018-09-27] MEDS: CALCIUM 500MG/VIT-D 200 UNITS COMBO TABLET (FP) PO SCH ×2 (09:40→21:51)
[2018-09-27] MEDS: PRENATAL VITAMINS W/ FOLIC ACID TABLET (FP) PO SCH (09:40)
[2018-09-27] MEDS: PANTOPRAZOLE 40 MG TABLET (FP) PO SCH (09:40)
[2018-09-27] MEDS: LISINOPRIL 10 MG TABLET (FP) PO SCH (09:40)
[2018-09-27] MEDS: BUDESONIDE/FORMETEROL FUMARATE 160/4.5 mcg INHALER IH SCH ×2 (09:43→21:51)
[2018-09-27] MEDS ORDERED: PT OWN MED DRAWER 7, Y5N ONE (09:43)
[2018-09-27] MEDS: BACITRACIN 15 GM TUBE TOPICAL OINTMENT TP SCH ×2 (09:44→21:51)
[2018-09-27] MEDS: NICOTINE 21 MG/24 HOURS TOPICAL PATCH TD SCH (09:44)
--- NOTE | 2018-09-27 15:22 | PN ---
[facility] Progress Note Note: Patient was admitted from detox on 09/26/18. He was seen by DAYSI Mathis on 09/22/18 while in detox. He was prescribed Paxil 40 mg/day and Seroquel 100 mg/hs. will continue both medications
[2018-09-27] MEDS ORDERED: PARoxetine HCL 20 MG TABLET PO ONE (15:40)
[2018-09-27] MEDS: THIAMINE HCL 100 MG TABLET (FP) PO SCH (21:51)
[2018-09-27] MEDS: QUEtiapine FUMARATE 100 MG TABLET (FP) PO SCH (21:52)
[2018-09-28] MEDS ORDERED: METHADONE HCL 40 MG DISPERSABLE TABLET ONE (05:44)
[2018-09-28] MEDS ORDERED: METHADONE HCL 10 MG TABLET ONE (05:44)
[2018-09-28] MEDS: METHADONE 40 MG, METHADONE 10 MG PO SCH (06:17)
[2018-09-28] MEDS: CEPHALEXIN MONOHYDRATE 500 MG CAPSULE (UD) PO SCH ×4 (06:17→23:01)
[2018-09-28] MEDS: metFORMIN HCL 500 MG TABLET (FP) PO SCH ×2 (07:06→17:06)
[2018-09-28] MEDS: FERROUS SO4 325 MG TABLET (FP) PO SCH ×3 (07:06→17:06)
[2018-09-28] MEDS: NICOTINE 21 MG/24 HOURS TOPICAL PATCH TD SCH (09:45)
[2018-09-28] MEDS: PANTOPRAZOLE 40 MG TABLET (FP) PO SCH (09:45)
[2018-09-28] MEDS: PARoxetine HCL 20 MG TABLET PO SCH (09:45)
[2018-09-28] MEDS: CALCIUM 500MG/VIT-D 200 UNITS COMBO TABLET (FP) PO SCH ×2 (09:45→21:35)
[2018-09-28] MEDS: LISINOPRIL 10 MG TABLET (FP) PO SCH (09:45)
[2018-09-28] MEDS: PRENATAL VITAMINS W/ FOLIC ACID TABLET (FP) PO SCH (09:45)
[2018-09-28] MEDS: BUDESONIDE/FORMETEROL FUMARATE 160/4.5 mcg INHALER IH SCH ×2 (09:46→21:34)
[2018-09-28] MEDS: BACITRACIN 15 GM TUBE TOPICAL OINTMENT TP SCH ×2 (09:47→21:34)
[2018-09-28] MEDS ORDERED: PT OWN MED DRAWER 7, Y5N ONE ×3 (09:48→20:07)
[2018-09-28] MEDS ORDERED: PNEUMOCOCCAL 23 VACCINE 0.5 ML VIAL IM ONE ×2 (10:59→12:00)
--- NOTE | 2018-09-28 15:56 | CONSULT ---
[facility] Psychiatric Consult - Data Date of interview: 09/28/18 Admission source: [facility] Identifying data: Discussed with RENATO Matta. No new issues or concerns. Request for consult was entered in error. Medications have already been ordered. Refer to notes from Dr Mortensen (09/27/18) and [employer] appliance tech Diana Mathis ( 09/22/18) for details. Brief meeting with the patient : no complaints; benign hospital course; medications are well tolerated; stable mental status; Mr Ybarra expresses motivation for rehabilitative care.
[2018-09-28] MEDS: QUEtiapine FUMARATE 100 MG TABLET (FP) PO SCH (21:35)
[2018-09-28] MEDS: THIAMINE HCL 100 MG TABLET (FP) PO SCH (21:35)
[2018-09-29] MEDS ORDERED: METHADONE HCL 40 MG DISPERSABLE TABLET ONE (03:44)
[2018-09-29] MEDS ORDERED: METHADONE HCL 10 MG TABLET ONE (03:44)
[2018-09-29] MEDS: METHADONE 40 MG, METHADONE 10 MG PO SCH (06:13)
[2018-09-29] MEDS: CEPHALEXIN MONOHYDRATE 500 MG CAPSULE (UD) PO SCH ×3 (06:14→17:42)
[2018-09-29] MEDS: metFORMIN HCL 500 MG TABLET (FP) PO SCH ×2 (06:15→16:51)
[2018-09-29] MEDS: FERROUS SO4 325 MG TABLET (FP) PO SCH ×3 (07:27→17:42)
[2018-09-29] MEDS ORDERED: PT OWN MED DRAWER 7, Y5N ONE (08:38)
[2018-09-29] MEDS: PARoxetine HCL 20 MG TABLET PO SCH (09:40)
[2018-09-29] MEDS: PANTOPRAZOLE 40 MG TABLET (FP) PO SCH (09:40)
[2018-09-29] MEDS: BUDESONIDE/FORMETEROL FUMARATE 160/4.5 mcg INHALER IH SCH ×2 (09:40→21:08)
[2018-09-29] MEDS: LISINOPRIL 10 MG TABLET (FP) PO SCH (09:40)
[2018-09-29] MEDS: NICOTINE 21 MG/24 HOURS TOPICAL PATCH TD SCH (09:41)
[2018-09-29] MEDS: PRENATAL VITAMINS W/ FOLIC ACID TABLET (FP) PO SCH (09:41)
[2018-09-29] MEDS: BACITRACIN 15 GM TUBE TOPICAL OINTMENT TP SCH ×2 (09:41→21:07)
[2018-09-29] MEDS: CALCIUM 500MG/VIT-D 200 UNITS COMBO TABLET (FP) PO SCH ×2 (09:41→21:07)
[2018-09-29] MEDS: MELATONIN 5 MG TABLETS PO PRN (21:07)
[2018-09-29] MEDS: THIAMINE HCL 100 MG TABLET (FP) PO SCH (21:07)
[2018-09-29] MEDS: QUEtiapine FUMARATE 100 MG TABLET (FP) PO SCH (21:07)
[2018-09-30] MEDS: CEPHALEXIN MONOHYDRATE 500 MG CAPSULE (UD) PO SCH ×5 (00:10→23:45)
[2018-09-30] MEDS ORDERED: METHADONE HCL 10 MG TABLET ONE (03:32)
[2018-09-30] MEDS ORDERED: METHADONE HCL 40 MG DISPERSABLE TABLET ONE (03:32)
[2018-09-30] MEDS: METHADONE 40 MG, METHADONE 10 MG PO SCH (06:19)
[2018-09-30] MEDS: metFORMIN HCL 500 MG TABLET (FP) PO SCH ×2 (06:20→16:57)
[2018-09-30] MEDS: FERROUS SO4 325 MG TABLET (FP) PO SCH ×2 (07:40→11:48)
[2018-09-30] MEDS: PANTOPRAZOLE 40 MG TABLET (FP) PO SCH (09:36)
[2018-09-30] MEDS: PRENATAL VITAMINS W/ FOLIC ACID TABLET (FP) PO SCH (09:36)
[2018-09-30] MEDS: LISINOPRIL 10 MG TABLET (FP) PO SCH (09:36)
[2018-09-30] MEDS: PARoxetine HCL 20 MG TABLET PO SCH (09:36)
[2018-09-30] MEDS: NICOTINE 21 MG/24 HOURS TOPICAL PATCH TD SCH (09:37)
[2018-09-30] MEDS: CALCIUM 500MG/VIT-D 200 UNITS COMBO TABLET (FP) PO SCH ×2 (09:37→21:25)
[2018-09-30] MEDS: BACITRACIN 15 GM TUBE TOPICAL OINTMENT TP SCH ×2 (09:38→21:26)
[2018-09-30] MEDS ORDERED: PT OWN MED DRAWER 7, Y5N ONE ×2 (09:38→11:48)
[2018-09-30] MEDS: BUDESONIDE/FORMETEROL FUMARATE 160/4.5 mcg INHALER IH SCH ×2 (09:39→21:25)
[2018-09-30 10:27] LABS: BASO % 0.5 % (0-2.0); EOS % 0.5 % (0-4.5); HEMATOCRIT 37.5 % (35.4-49); HEMOGLOBIN 11.7 GM/dL (11.7-16.9); LYMPH % 16.8 % (8-40); MCHC 31.1 g/dl (32.0-35.9); MEAN CELL VOLUME 77.3 fl (80-96); MEAN PLT VOLUME 8.6 fl (7.5-11.1); MONO % 14.5 % (3.8-10.2); NEUT % 67.7 % (42.8-82.8); PLATELET COUNT 339 K/MM3 (134-434); RBC 4.86 M/mm3 (4.00-5.60); WHITE BLOOD COUNT 7.2 K/mm3 (4.0-10.0)
--- NOTE | 2018-09-30 13:12 | PN ---
S Progress Note (SOAP) Subjective: Bilateral leg swelling, left >right; on Keflex at the present time for bilateral cellulitis. Objective: non-pitting edema, slight redness from ankle to mid-calf. Full weight bearing; ambulating with ease. 09/30/18 13:11 09/30/18 13:11 09/30/18 13:13 Assessment: Cellulitis, lower extremities 09/30/18 13:13 Plan: Continue Keflex. Continue to monitor.
[2018-09-30] MEDS: THIAMINE HCL 100 MG TABLET (FP) PO SCH (21:25)
[2018-09-30] MEDS: MELATONIN 5 MG TABLETS PO PRN (21:25)
[2018-09-30] MEDS: QUEtiapine FUMARATE 100 MG TABLET (FP) PO SCH (21:25)
[2018-10-01] MEDS ORDERED: METHADONE HCL 10 MG TABLET ONE (04:50)
[2018-10-01] MEDS ORDERED: METHADONE HCL 40 MG DISPERSABLE TABLET ONE (04:50)
[2018-10-01] MEDS: CEPHALEXIN MONOHYDRATE 500 MG CAPSULE (UD) PO SCH ×4 (06:09→23:10)
[2018-10-01] MEDS: METHADONE 40 MG, METHADONE 10 MG PO SCH (06:09)
[2018-10-01] MEDS: metFORMIN HCL 500 MG TABLET (FP) PO SCH ×2 (07:12→17:03)
[2018-10-01] MEDS: PARoxetine HCL 20 MG TABLET PO SCH (09:43)
[2018-10-01] MEDS: PANTOPRAZOLE 40 MG TABLET (FP) PO SCH (09:43)
[2018-10-01] MEDS: CALCIUM 500MG/VIT-D 200 UNITS COMBO TABLET (FP) PO SCH (09:43)
[2018-10-01] MEDS: LISINOPRIL 10 MG TABLET (FP) PO SCH (09:43)
[2018-10-01] MEDS: BUDESONIDE/FORMETEROL FUMARATE 160/4.5 mcg INHALER IH SCH ×2 (09:43→21:36)
[2018-10-01] MEDS: PRENATAL VITAMINS W/ FOLIC ACID TABLET (FP) PO SCH (09:43)
[2018-10-01] MEDS: NICOTINE 21 MG/24 HOURS TOPICAL PATCH TD SCH (09:44)
[2018-10-01] MEDS: BACITRACIN 15 GM TUBE TOPICAL OINTMENT TP SCH (09:45)
[2018-10-01] MEDS: MELATONIN 5 MG TABLETS PO PRN (21:37)
[2018-10-01] MEDS: QUEtiapine FUMARATE 100 MG TABLET (FP) PO SCH (21:37)
[2018-10-01] MEDS: THIAMINE HCL 100 MG TABLET (FP) PO SCH (21:37)
[2018-10-02] MEDS ORDERED: METHADONE HCL 10 MG TABLET ONE (04:30)
[2018-10-02] MEDS ORDERED: METHADONE HCL 40 MG DISPERSABLE TABLET ONE (04:30)
[2018-10-02] MEDS: METHADONE 40 MG, METHADONE 10 MG PO SCH (06:02)
[2018-10-02] MEDS: CEPHALEXIN MONOHYDRATE 500 MG CAPSULE (UD) PO SCH ×2 (06:02→13:47)
[2018-10-02] MEDS: metFORMIN HCL 500 MG TABLET (FP) PO SCH ×2 (07:28→17:38)
[2018-10-02] MEDS: LISINOPRIL 10 MG TABLET (FP) PO SCH (10:08)
[2018-10-02] MEDS: NICOTINE 21 MG/24 HOURS TOPICAL PATCH TD SCH (10:08)
[2018-10-02] MEDS: PRENATAL VITAMINS W/ FOLIC ACID TABLET (FP) PO SCH (10:09)
[2018-10-02] MEDS: PARoxetine HCL 20 MG TABLET PO SCH (10:09)
[2018-10-02] MEDS: PANTOPRAZOLE 40 MG TABLET (FP) PO SCH (10:09)
[2018-10-02] MEDS: BUDESONIDE/FORMETEROL FUMARATE 160/4.5 mcg INHALER IH SCH ×2 (10:10→21:19)
[2018-10-02] MEDS: QUEtiapine FUMARATE 100 MG TABLET (FP) PO SCH (21:19)
[2018-10-02] MEDS: MELATONIN 5 MG TABLETS PO PRN (21:19)
[2018-10-02] MEDS: THIAMINE HCL 100 MG TABLET (FP) PO SCH (21:20)
[2018-10-03] MEDS ORDERED: METHADONE HCL 10 MG TABLET ONE (05:59)
[2018-10-03] MEDS ORDERED: METHADONE HCL 40 MG DISPERSABLE TABLET ONE (05:59)
[2018-10-03] MEDS: METHADONE 40 MG, METHADONE 10 MG PO SCH (06:05)
[2018-10-03] MEDS: metFORMIN HCL 500 MG TABLET (FP) PO SCH ×2 (07:40→16:31)
[2018-10-03] MEDS: BUDESONIDE/FORMETEROL FUMARATE 160/4.5 mcg INHALER IH SCH ×2 (09:40→22:38)
[2018-10-03] MEDS: PANTOPRAZOLE 40 MG TABLET (FP) PO SCH (09:41)
[2018-10-03] MEDS: PARoxetine HCL 20 MG TABLET PO SCH (09:41)
[2018-10-03] MEDS: LISINOPRIL 10 MG TABLET (FP) PO SCH (09:41)
[2018-10-03] MEDS: NICOTINE 21 MG/24 HOURS TOPICAL PATCH TD SCH (09:41)
[2018-10-03] MEDS: PRENATAL VITAMINS W/ FOLIC ACID TABLET (FP) PO SCH (09:41)
--- NOTE | 2018-10-03 11:36 | PN ---
[facility] Progress Note Note: PATIENT SEEN TO REVIEW LABS. PATIENT ALSO C/O LBP AND MUSCLE SPASMS. CURRENTLY IN TREATMENT FOR ETOH DEPENDENCE AND HAS HX OF HEP C- NOT TREATED BUT PATIENT REPORTS VIRUS CLEARED ON ITS OWN. Laboratory Tests 09/26/18 09/27/18 09/27/18 16:50 05:59 08:41 WBC RBC Hgb Hct MCV MCH MCHC RDW Plt Count MPV Absolute Neuts (auto) Neutrophils % Lymphocytes % Monocytes % Eosinophils % Basophils % Nucleated RBC % POC Glucometer 94 73 TB (QFT) Incubation TB Test (QFT) Nil 0.03 TB Test (QFT) Mitogen >10.00 TB Test (QFT) Antigen 0.17 TB Test (QFT) Negative TB Positive Criteria 09/27/18 09/27/18 09/28/18 08:45 16:52 06:16 WBC RBC Hgb Hct MCV MCH MCHC RDW Plt Count MPV Absolute Neuts (auto) Neutrophils % Lymphocytes % Monocytes % Eosinophils % Basophils % Nucleated RBC % POC Glucometer 108 75 TB (QFT) Incubation TB Test (QFT) Nil Cancelled TB Test (QFT) Mitogen Cancelled TB Test (QFT) Antigen Cancelled TB Test (QFT) Cancelled TB Positive Criteria Cancelled 09/28/18 09/29/18 09/29/18 17:03 06:14 16:50 WBC RBC Hgb Hct MCV MCH MCHC RDW Plt Count MPV Absolute Neuts (auto) Neutrophils % Lymphocytes % Monocytes % Eosinophils % Basophils % Nucleated RBC % POC Glucometer 101 92 110 TB (QFT) Incubation TB Test (QFT) Nil TB Test (QFT) Mitogen TB Test (QFT) Antigen TB Test (QFT) TB Positive Criteria 09/30/18 09/30/18 09/30/18 06:19 08:30 16:56 WBC 7.2 RBC 4.86 Hgb 11.7 Hct 37.5 MCV 77.3 L MCH 24.0 L MCHC 31.1 L RDW 18.0 H Plt Count 339 D MPV 8.6 Absolute Neuts (auto) 4.9 Neutrophils % 67.7 Lymphocytes % 16.8 Monocytes % 14.5 H Eosinophils % 0.5 Basophils % 0.5 Nucleated RBC % 0 POC Glucometer 83 95 TB (QFT) Incubation TB Test (QFT) Nil TB Test (QFT) Mitogen TB Test (QFT) Antigen TB Test (QFT) TB Positive Criteria 10/01/18 10/01/18 10/02/18 06:08 17:02 06:01 WBC RBC Hgb Hct MCV MCH MCHC RDW Plt Count MPV Absolute Neuts (auto) Neutrophils % Lymphocytes % Monocytes % Eosinophils % Basophils % Nucleated RBC % POC Glucometer 74 88 83 TB (QFT) Incubation TB Test (QFT) Nil TB Test (QFT) Mitogen TB Test (QFT) Antigen TB Test (QFT) TB Positive Criteria 10/03/18 06:06 WBC RBC Hgb Hct MCV MCH MCHC RDW Plt Count MPV Absolute Neuts (auto) Neutrophils % Lymphocytes % Monocytes % Eosinophils % Basophils % Nucleated RBC % POC Glucometer 78 TB (QFT) Incubation TB Test (QFT) Nil TB Test (QFT) Mitogen TB Test (QFT) Antigen TB Test (QFT) TB Positive Criteria Vital Signs Temperature 98.2 F 10/03/18 06:50 Pulse Rate 84 10/03/18 06:50 Respiratory Rate 18 10/03/18 06:50 Blood Pressure 113/79 10/03/18 06:50 O2 Sat by Pulse Oximetry (%) PE: ALERT AND ORIENTED X 3 SKIN WARM AND DRY +PERRLA EOMS INTACT BL LS SPINE + TACTILE TENDERNESS EXT FULL ROM, AMB AD GEOFF AST/ALT ELEVATED (DETOX LABS) 106, 85 A/P: LBP ELEVATED LFTS WILL ORDER LIDOCAINE PATCH 5% DAILY AND REMOVE HS ENCOURAGE ORAL FLUIDS REPEAT CMP IN AM
[2018-10-03] MEDS: LIDOCAINE 5% TOPICAL PATCH TP SCH (13:29)
[2018-10-03] MEDS: MELATONIN 5 MG TABLETS PO PRN (21:29)
[2018-10-03] MEDS: THIAMINE HCL 100 MG TABLET (FP) PO SCH (21:29)
[2018-10-03] MEDS: QUEtiapine FUMARATE 100 MG TABLET (FP) PO SCH (21:29)
[2018-10-03] MEDS: LIDOCAINE PATCH REMOVAL MC SCH (21:30)
[2018-10-04] MEDS ORDERED: METHADONE HCL 10 MG TABLET ONE (03:10)
[2018-10-04] MEDS ORDERED: METHADONE HCL 40 MG DISPERSABLE TABLET ONE (03:10)
[2018-10-04] MEDS: METHADONE 40 MG, METHADONE 10 MG PO SCH (06:24)
[2018-10-04] MEDS: metFORMIN HCL 500 MG TABLET (FP) PO SCH ×2 (06:25→16:25)
[2018-10-04] MEDS: LIDOCAINE 5% TOPICAL PATCH TP SCH (09:44)
[2018-10-04] MEDS: PRENATAL VITAMINS W/ FOLIC ACID TABLET (FP) PO SCH (09:44)
[2018-10-04] MEDS: LISINOPRIL 10 MG TABLET (FP) PO SCH (09:44)
[2018-10-04] MEDS: PARoxetine HCL 20 MG TABLET PO SCH (09:44)
[2018-10-04] MEDS: NICOTINE 21 MG/24 HOURS TOPICAL PATCH TD SCH (09:44)
[2018-10-04] MEDS: PANTOPRAZOLE 40 MG TABLET (FP) PO SCH (09:44)
[2018-10-04] MEDS: BUDESONIDE/FORMETEROL FUMARATE 160/4.5 mcg INHALER IH SCH ×2 (09:45→21:15)
[2018-10-04 12:47] LABS: ALBUMIN 3.5 g/dl (3.4-5.0); BILIRUBIN,TOTAL 0.2 mg/dL (0.2-1); BLOOD UREA NITROGEN 15.8 mg/dL (7-18); CALCIUM 8.9 mg/dL (8.5-10.1); CREATININE 0.8 mg/dL (0.55-1.3); POTASSIUM 4.3 mmol/L (3.5-5.1); TOT PROT 7.3 g/dl (6.4-8.2)
--- NOTE | 2018-10-04 15:47 | PN ---
[facility] Progress Note (SOAP) Subjective: patient wants to discuss lab results. Objective: A+O x3, no neurological deficits noted. 10/04/18 15:45 CBC, BMP 09/30/18 08:30 10/04/18 08:10 10/04/18 15:46 Vital Signs - 24 hr 10/04/18 10/04/18 10/04/18 00:30 03:30 07:10 Temperature 96 F L Pulse Rate 84 Respiratory 18 18 18 Rate Blood Pressure 115/80 Assessment: Review of lab results. 10/04/18 15:46 Plan: Lab results discussed with patient. All questions answered, patient accepted information.
[2018-10-04] MEDS: THIAMINE HCL 100 MG TABLET (FP) PO SCH (21:14)
[2018-10-04] MEDS: LIDOCAINE PATCH REMOVAL MC SCH (21:14)
[2018-10-04] MEDS: QUEtiapine FUMARATE 100 MG TABLET (FP) PO SCH (21:15)
[2018-10-04] MEDS: MELATONIN 5 MG TABLETS PO PRN (21:15)
[2018-10-05] MEDS ORDERED: METHADONE HCL 40 MG DISPERSABLE TABLET ONE (02:46)
[2018-10-05] MEDS ORDERED: METHADONE HCL 10 MG TABLET ONE (02:46)
[2018-10-05] MEDS: METHADONE 40 MG, METHADONE 10 MG PO SCH (06:17)
[2018-10-05] MEDS: metFORMIN HCL 500 MG TABLET (FP) PO SCH ×2 (07:12→18:09)
[2018-10-05] MEDS: LISINOPRIL 10 MG TABLET (FP) PO SCH (10:05)
[2018-10-05] MEDS: PRENATAL VITAMINS W/ FOLIC ACID TABLET (FP) PO SCH (10:05)
[2018-10-05] MEDS: PANTOPRAZOLE 40 MG TABLET (FP) PO SCH (10:05)
[2018-10-05] MEDS: LIDOCAINE 5% TOPICAL PATCH TP SCH (10:06)
[2018-10-05] MEDS: PARoxetine HCL 20 MG TABLET PO SCH (10:06)
[2018-10-05] MEDS: NICOTINE 21 MG/24 HOURS TOPICAL PATCH TD SCH (10:06)
[2018-10-05] MEDS: BUDESONIDE/FORMETEROL FUMARATE 160/4.5 mcg INHALER IH SCH ×2 (10:53→22:13)
[2018-10-05] MEDS: QUEtiapine FUMARATE 100 MG TABLET (FP) PO SCH (22:13)
[2018-10-05] MEDS: MELATONIN 5 MG TABLETS PO PRN (22:13)
[2018-10-05] MEDS: LIDOCAINE PATCH REMOVAL MC SCH (22:13)
[2018-10-05] MEDS: THIAMINE HCL 100 MG TABLET (FP) PO SCH (22:13)
[2018-10-06] MEDS ORDERED: METHADONE HCL 40 MG DISPERSABLE TABLET ONE (05:17)
[2018-10-06] MEDS ORDERED: METHADONE HCL 10 MG TABLET ONE (05:17)
[2018-10-06] MEDS: METHADONE 40 MG, METHADONE 10 MG PO SCH (06:03)
[2018-10-06] MEDS: metFORMIN HCL 500 MG TABLET (FP) PO SCH ×2 (06:57→17:01)
[2018-10-06] MEDS: PRENATAL VITAMINS W/ FOLIC ACID TABLET (FP) PO SCH (09:51)
[2018-10-06] MEDS: PANTOPRAZOLE 40 MG TABLET (FP) PO SCH (09:51)
[2018-10-06] MEDS: LISINOPRIL 10 MG TABLET (FP) PO SCH (09:51)
[2018-10-06] MEDS: PARoxetine HCL 20 MG TABLET PO SCH (09:51)
[2018-10-06] MEDS: BUDESONIDE/FORMETEROL FUMARATE 160/4.5 mcg INHALER IH SCH ×2 (09:52→21:31)
[2018-10-06] MEDS: LIDOCAINE 5% TOPICAL PATCH TP SCH (09:52)
[2018-10-06] MEDS: NICOTINE 21 MG/24 HOURS TOPICAL PATCH TD SCH (09:52)
[2018-10-06] MEDS: QUEtiapine FUMARATE 100 MG TABLET (FP) PO SCH (21:31)
[2018-10-06] MEDS: THIAMINE HCL 100 MG TABLET (FP) PO SCH (21:31)
[2018-10-06] MEDS: MELATONIN 5 MG TABLETS PO PRN (21:31)
[2018-10-06] MEDS: LIDOCAINE PATCH REMOVAL MC SCH (21:33)
[2018-10-07] MEDS ORDERED: METHADONE HCL 10 MG TABLET ONE (03:15)
[2018-10-07] MEDS ORDERED: METHADONE HCL 40 MG DISPERSABLE TABLET ONE (03:15)
[2018-10-07] MEDS: METHADONE 40 MG, METHADONE 10 MG PO SCH (06:06)
[2018-10-07] MEDS: metFORMIN HCL 500 MG TABLET (FP) PO SCH ×2 (07:43→18:12)
[2018-10-07] MEDS: PARoxetine HCL 20 MG TABLET PO SCH (09:39)
[2018-10-07] MEDS: BUDESONIDE/FORMETEROL FUMARATE 160/4.5 mcg INHALER IH SCH ×2 (09:39→21:51)
[2018-10-07] MEDS: PRENATAL VITAMINS W/ FOLIC ACID TABLET (FP) PO SCH (09:39)
[2018-10-07] MEDS: LISINOPRIL 10 MG TABLET (FP) PO SCH (09:39)
[2018-10-07] MEDS: LIDOCAINE 5% TOPICAL PATCH TP SCH (09:40)
[2018-10-07] MEDS: PANTOPRAZOLE 40 MG TABLET (FP) PO SCH (09:40)
[2018-10-07] MEDS: NICOTINE 21 MG/24 HOURS TOPICAL PATCH TD SCH (09:41)
[2018-10-07] MEDS: THIAMINE HCL 100 MG TABLET (FP) PO SCH (21:50)
[2018-10-07] MEDS: QUEtiapine FUMARATE 100 MG TABLET (FP) PO SCH (21:50)
[2018-10-07] MEDS: LIDOCAINE PATCH REMOVAL MC SCH (21:50)
[2018-10-07] MEDS: MELATONIN 5 MG TABLETS PO PRN (21:51)
[2018-10-08] MEDS ORDERED: METHADONE HCL 10 MG TABLET ONE (03:22)
[2018-10-08] MEDS ORDERED: METHADONE HCL 40 MG DISPERSABLE TABLET ONE (03:22)
[2018-10-08] MEDS: METHADONE 40 MG, METHADONE 10 MG PO SCH (06:02)
[2018-10-08] MEDS: metFORMIN HCL 500 MG TABLET (FP) PO SCH ×2 (06:47→17:00)
[2018-10-08] MEDS: BUDESONIDE/FORMETEROL FUMARATE 160/4.5 mcg INHALER IH SCH ×2 (10:30→21:21)
[2018-10-08] MEDS: PARoxetine HCL 20 MG TABLET PO SCH (10:31)
[2018-10-08] MEDS: PRENATAL VITAMINS W/ FOLIC ACID TABLET (FP) PO SCH (10:31)
[2018-10-08] MEDS: LISINOPRIL 10 MG TABLET (FP) PO SCH (10:31)
[2018-10-08] MEDS: LIDOCAINE 5% TOPICAL PATCH TP SCH ×2 (10:31→10:54)
[2018-10-08] MEDS: NICOTINE 21 MG/24 HOURS TOPICAL PATCH TD SCH (10:31)
[2018-10-08] MEDS: PANTOPRAZOLE 40 MG TABLET (FP) PO SCH (10:31)
[2018-10-08] MEDS: THIAMINE HCL 100 MG TABLET (FP) PO SCH (21:21)
[2018-10-08] MEDS: LIDOCAINE PATCH REMOVAL MC SCH (21:21)
[2018-10-08] MEDS: QUEtiapine FUMARATE 100 MG TABLET (FP) PO SCH (21:21)
[2018-10-08] MEDS: MELATONIN 5 MG TABLETS PO PRN (21:22)
[2018-10-09] MEDS ORDERED: METHADONE HCL 10 MG TABLET ONE (05:53)
[2018-10-09] MEDS ORDERED: METHADONE HCL 40 MG DISPERSABLE TABLET ONE (05:53)
[2018-10-09] MEDS: METHADONE 40 MG, METHADONE 10 MG PO SCH (06:16)
[2018-10-09] MEDS: metFORMIN HCL 500 MG TABLET (FP) PO SCH ×2 (07:01→17:05)
[2018-10-09] MEDS: LIDOCAINE 5% TOPICAL PATCH TP SCH (09:49)
[2018-10-09] MEDS: NICOTINE 21 MG/24 HOURS TOPICAL PATCH TD SCH (09:50)
[2018-10-09] MEDS: PARoxetine HCL 20 MG TABLET PO SCH (09:50)
[2018-10-09] MEDS: BUDESONIDE/FORMETEROL FUMARATE 160/4.5 mcg INHALER IH SCH ×2 (09:51→22:21)
[2018-10-09] MEDS: PRENATAL VITAMINS W/ FOLIC ACID TABLET (FP) PO SCH (09:51)
[2018-10-09] MEDS: LISINOPRIL 10 MG TABLET (FP) PO SCH (09:51)
[2018-10-09] MEDS: PANTOPRAZOLE 40 MG TABLET (FP) PO SCH (09:51)
--- NOTE | 2018-10-09 16:27 | PN ---
[facility] Progress Note Note: Patient is scheduled for discharge tomorrow. Scripts for 30 days supply of medications(Paxil 40 mg/day, Seroquel 100 mg/hs) will be electronically transmitted to [facility] at [address] [place] [id number]
[2018-10-09] MEDS: QUEtiapine FUMARATE 100 MG TABLET (FP) PO SCH (22:21)
[2018-10-09] MEDS: LIDOCAINE PATCH REMOVAL MC SCH (22:21)
[2018-10-09] MEDS: THIAMINE HCL 100 MG TABLET (FP) PO SCH (22:21)
[2018-10-09] MEDS: MELATONIN 5 MG TABLETS PO PRN (22:22)
[2018-10-10] MEDS ORDERED: METHADONE HCL 40 MG DISPERSABLE TABLET ONE (03:41)
[2018-10-10] MEDS ORDERED: METHADONE HCL 10 MG TABLET ONE (03:41)
[2018-10-10] MEDS: METHADONE 40 MG, METHADONE 10 MG PO SCH (06:22)
[2018-10-10 07:10] VITALS: BP 126/79; PULSE 89; TEMP 97.8
[2018-10-10] MEDS: metFORMIN HCL 500 MG TABLET (FP) PO SCH (07:57)
[2018-10-10] MEDS: BUDESONIDE/FORMETEROL FUMARATE 160/4.5 mcg INHALER IH SCH (09:26)
[2018-10-10] MEDS: PANTOPRAZOLE 40 MG TABLET (FP) PO SCH (09:26)
[2018-10-10] MEDS: NICOTINE 21 MG/24 HOURS TOPICAL PATCH TD SCH (09:27)
[2018-10-10] MEDS: LIDOCAINE 5% TOPICAL PATCH TP SCH (09:27)
[2018-10-10] MEDS: PARoxetine HCL 20 MG TABLET PO SCH (09:27)
[2018-10-10] MEDS: LISINOPRIL 10 MG TABLET (FP) PO SCH (09:27)
[2018-10-10] MEDS: PRENATAL VITAMINS W/ FOLIC ACID TABLET (FP) PO SCH (09:27)
--- NOTE | 2018-10-10 10:26 | PN ---
[facility] Progress Note Note: PATIENT DISCHARGED FROM REHAB TODAY AND IS SCHEDULED TO FOLLOW UP WITH METHADONE PROGRAM Billy TOMORROW, 10/11/18 AT 8AM. PATIENT STATES HE ACCOMPLISHED ALL REHAB GOALS AND IS MOTIVATED TO MAINTAIN SOBRIETY. PATIENT ENCOURAGED TO CONTINUE GROUP MEETINGS TO PREVENT RELAPSE AND TO FOLLOW UP WITH PCP WITHIN 72 HOURS TO CONTINUE MEDICAL MANAGEMENT AND MONITORING. PATIENT IS MEDICALLY STABLE AND DENIES SI/HI. ALL MEDICAL PRESCRIPTIONS SENT TO PREFERRED PHARMACY. Laboratory Tests 09/26/18 09/27/18 09/27/18 16:50 05:59 08:41 WBC RBC Hgb Hct MCV MCH MCHC RDW Plt Count MPV Absolute Neuts (auto) Neutrophils % Lymphocytes % Monocytes % Eosinophils % Basophils % Nucleated RBC % Sodium Potassium Chloride Carbon Dioxide Anion Gap BUN Creatinine Est GFR (CKD-EPI)AfAm Est GFR (CKD-EPI)NonAf POC Glucometer 94 73 Random Glucose Calcium Total Bilirubin AST ALT Alkaline Phosphatase Total Protein Albumin TB (QFT) Incubation TB Test (QFT) Nil 0.03 TB Test (QFT) Mitogen >10.00 TB Test (QFT) Antigen 0.17 TB Test (QFT) Negative TB Positive Criteria 09/27/18 09/27/18 09/28/18 08:45 16:52 06:16 WBC RBC Hgb Hct MCV MCH MCHC RDW Plt Count MPV Absolute Neuts (auto) Neutrophils % Lymphocytes % Monocytes % Eosinophils % Basophils % Nucleated RBC % Sodium Potassium Chloride Carbon Dioxide Anion Gap BUN Creatinine Est GFR (CKD-EPI)AfAm Est GFR (CKD-EPI)NonAf POC Glucometer 108 75 Random Glucose Calcium Total Bilirubin AST ALT Alkaline Phosphatase Total Protein Albumin TB (QFT) Incubation TB Test (QFT) Nil Cancelled TB Test (QFT) Mitogen Cancelled TB Test (QFT) Antigen Cancelled TB Test (QFT) Cancelled TB Positive Criteria Cancelled 09/28/18 09/29/18 09/29/18 17:03 06:14 16:50 WBC RBC Hgb Hct MCV MCH MCHC RDW Plt Count MPV Absolute Neuts (auto) Neutrophils % Lymphocytes % Monocytes % Eosinophils % Basophils % Nucleated RBC % Sodium Potassium Chloride Carbon Dioxide Anion Gap BUN Creatinine Est GFR (CKD-EPI)AfAm Est GFR (CKD-EPI)NonAf POC Glucometer 101 92 110 Random Glucose Calcium Total Bilirubin AST ALT Alkaline Phosphatase Total Protein Albumin TB (QFT) Incubation TB Test (QFT) Nil TB Test (QFT) Mitogen TB Test (QFT) Antigen TB Test (QFT) TB Positive Criteria 09/30/18 09/30/18 09/30/18 06:19 08:30 16:56 WBC 7.2 RBC 4.86 Hgb 11.7 Hct 37.5 MCV 77.3 L MCH 24.0 L MCHC 31.1 L RDW 18.0 H Plt Count 339 D MPV 8.6 Absolute Neuts (auto) 4.9 Neutrophils % 67.7 Lymphocytes % 16.8 Monocytes % 14.5 H Eosinophils % 0.5 Basophils % 0.5 Nucleated RBC % 0 Sodium Potassium Chloride Carbon Dioxide Anion Gap BUN Creatinine Est GFR (CKD-EPI)AfAm Est GFR (CKD-EPI)NonAf POC Glucometer 83 95 Random Glucose Calcium Total Bilirubin AST ALT Alkaline Phosphatase Total Protein Albumin TB (QFT) Incubation TB Test (QFT) Nil TB Test (QFT) Mitogen TB Test (QFT) Antigen TB Test (QFT) TB Positive Criteria 10/01/18 10/01/18 10/02/18 06:08 17:02 06:01 WBC RBC Hgb Hct MCV MCH MCHC RDW Plt Count MPV Absolute Neuts (auto) Neutrophils % Lymphocytes % Monocytes % Eosinophils % Basophils % Nucleated RBC % Sodium Potassium Chloride Carbon Dioxide Anion Gap BUN Creatinine Est GFR (CKD-EPI)AfAm Est GFR (CKD-EPI)NonAf POC Glucometer 74 88 83 Random Glucose Calcium Total Bilirubin AST ALT Alkaline Phosphatase Total Protein Albumin TB (QFT) Incubation TB Test (QFT) Nil TB Test (QFT) Mitogen TB Test (QFT) Antigen TB Test (QFT) TB Positive Criteria 10/03/18 10/04/18 10/04/18 06:06 06:24 08:10 WBC RBC Hgb Hct MCV MCH MCHC RDW Plt Count MPV Absolute Neuts (auto) Neutrophils % Lymphocytes % Monocytes % Eosinophils % Basophils % Nucleated RBC % Sodium 140 Potassium 4.3 Chloride 105 Carbon Dioxide 27 Anion Gap 9 BUN 15.8 Creatinine 0.8 Est GFR (CKD-EPI)AfAm 115.74 Est GFR (CKD-EPI)NonAf 99.86 POC Glucometer 78 88 Random Glucose 93 Calcium 8.9 Total Bilirubin 0.2 AST 23 ALT 41 Alkaline Phosphatase 105 Total Protein 7.3 Albumin 3.5 TB (QFT) Incubation TB Test (QFT) Nil TB Test (QFT) Mitogen TB Test (QFT) Antigen TB Test (QFT) TB Positive Criteria 10/04/18 10/05/18 10/06/18 16:41 06:18 06:02 WBC RBC Hgb Hct MCV MCH MCHC RDW Plt Count MPV Absolute Neuts (auto) Neutrophils % Lymphocytes % Monocytes % Eosinophils % Basophils % Nucleated RBC % Sodium Potassium Chloride Carbon Dioxide Anion Gap BUN Creatinine Est GFR (CKD-EPI)AfAm Est GFR (CKD-EPI)NonAf POC Glucometer 98 76 84 Random Glucose Calcium Total Bilirubin AST ALT Alkaline Phosphatase Total Protein Albumin TB (QFT) Incubation TB Test (QFT) Nil TB Test (QFT) Mitogen TB Test (QFT) Antigen TB Test (QFT) TB Positive Criteria 10/06/18 10/07/18 10/07/18 17:00 06:06 16:36 WBC RBC Hgb Hct MCV MCH MCHC RDW Plt Count MPV Absolute Neuts (auto) Neutrophils % Lymphocytes % Monocytes % Eosinophils % Basophils % Nucleated RBC % Sodium Potassium Chloride Carbon Dioxide Anion Gap BUN Creatinine Est GFR (CKD-EPI)AfAm Est GFR (CKD-EPI)NonAf POC Glucometer 86 78 89 Random Glucose Calcium Total Bilirubin AST ALT Alkaline Phosphatase Total Protein Albumin TB (QFT) Incubation TB Test (QFT) Nil TB Test (QFT) Mitogen TB Test (QFT) Antigen TB Test (QFT) TB Positive Criteria 10/08/18 10/09/18 10/09/18 06:03 06:17 16:58 WBC RBC Hgb Hct MCV MCH MCHC RDW Plt Count MPV Absolute Neuts (auto) Neutrophils % Lymphocytes % Monocytes % Eosinophils % Basophils % Nucleated RBC % Sodium Potassium Chloride Carbon Dioxide Anion Gap BUN Creatinine Est GFR (CKD-EPI)AfAm Est GFR (CKD-EPI)NonAf POC Glucometer 70 74 78 Random Glucose Calcium Total Bilirubin AST ALT Alkaline Phosphatase Total Protein Albumin TB (QFT) Incubation TB Test (QFT) Nil TB Test (QFT) Mitogen TB Test (QFT) Antigen TB Test (QFT) TB Positive Criteria 10/10/18 06:21 WBC RBC Hgb Hct MCV MCH MCHC RDW Plt Count MPV Absolute Neuts (auto) Neutrophils % Lymphocytes % Monocytes % Eosinophils % Basophils % Nucleated RBC % Sodium Potassium Chloride Carbon Dioxide Anion Gap BUN Creatinine Est GFR (CKD-EPI)AfAm Est GFR (CKD-EPI)NonAf POC Glucometer 81 Random Glucose Calcium Total Bilirubin AST ALT Alkaline Phosphatase Total Protein Albumin TB (QFT) Incubation TB Test (QFT) Nil TB Test (QFT) Mitogen TB Test (QFT) Antigen TB Test (QFT) TB Positive Criteria Vital Signs Temperature 97.8 F 10/10/18 07:09 Pulse Rate 89 10/10/18 07:09 Respiratory Rate 18 10/10/18 07:09 Blood Pressure 126/79 10/10/18 07:09 O2 Sat by Pulse Oximetry (%) Ambulatory Orders Pantoprazole Sodium [Protonix -] 40 mg PO DAILY #30 tablet.ec 12/05/12 Hydroxyzine HCl 50 mg PO PRN 09/21/18 Paroxetine HCl [Paxil -] 40 mg PO DAILY 09/21/18 Quetiapine Fumarate [Seroquel] 100 tab PO HS 09/21/18 Paroxetine HCl [Paxil] 40 mg PO DAILY #30 tablet 10/09/18 Quetiapine Fumarate [Seroquel] 100 mg PO HS #30 tablet 10/09/18 Budesonide/Formeterol Fumarate [SYMBICORT 160/4.5mcg -] 1 inh PO BID #1 inhaler 10/10/18 Lisinopril 10 mg PO DAILY #14 tablet 10/10/18 Metformin HCl [Glucophage] 500 mg PO BID #30 tablet 10/10/18
== END 2018-10-10 09:45 | disposition home or self-care (01) | DRG 772 ==
LOC: YASAS 11:28 → Y3W 11:29
PROVIDERS: ADMIT Neuromusculoskeletal Medicine & OMM; ATTEND Neuromusculoskeletal Medicine & OMM
PROC: HZ42ZZZ Group Counseling for Substance Abuse Treatment, Cognitive-Behavioral (ICD-10-PCS; principal; 2018-09-26)
DX: F10.20 Alcohol dependence, uncomplicated (principal); F11.20 Opioid dependence, uncomplicated; F17.210 Nicotine dependence, cigarettes, uncomplicated; I10 Essential (primary) hypertension; K21.9 Gastro-esophageal reflux disease without esophagitis; R74.0 Nonspecific elevation of levels of transaminase and lactic acid dehydrogenase [LDH]; R94.5 Abnormal results of liver function studies; E11.9 Type 2 diabetes mellitus without complications; E66.9 Obesity, unspecified; Z68.31 Body mass index [BMI] 31.0-31.9, adult; B18.2 Chronic viral hepatitis C; Z79.4 Long term (current) use of insulin
CPT/HCPCS: 36415; 80053; 82962; 85025; 86480; 90732; G0009

== ENCOUNTER 2018-11-09 16:41 | Inpatient (IN) | payer OTHER ==
[2018-11-09 17:11] VITALS: BMI 31.1
--- NOTE | 2018-11-09 20:12 | HP ---
CIWA Score Nausea/Vomitin Muscle Tremors: 2 Anxiety: 2 Agitation: 1-Slight > Activity Paroxysmal Sweats: 2 Orientation: 1-Uncertain about Date Tacttile Disturbances: 1-Very Mild Itch/Numbness Auditory Disturbances: 1-Very Mild Visual Disturbances: 1-Very Mild Sensitivity Headache: 2-Mild CIWA-Ar Total Score: 15 - Admission Criteria OASAS Guidelines: Admission for Medically Managed Detox: Requires at least one of the followin. CIWA greater than 12 2. Seizures within the past 24 hours 3. Delirium tremens within the past 24 hours 4. Hallucinations within the past 24 hours 5. Acute intervention needed for co occurring medical disorder 6. Acute intervention needed for co occurring psychiatric disorder 7. Severe withdrawal that cannot be handled at a lower level of care (continued vomiting, continued diarrhea, abnormal vital signs) requiring intravenous medication and/or fluids 8. Admission ROS S - HPI Chief Complaint: WITHDRAWAL SYMPTOMS Allergies/Adverse Reactions: Allergies Allergy/AdvReac Type Severity Reaction Status Date / Time No Known Allergies Allergy Verified 11/09/18 16:54 History of Present Illness: 58 Y.O. MAN WITH AN EXTENSIVE HISTORY OF ALCOHOL DEPENDENCE IS HERE SEEKING DETOX. HE LAST COMPLETED DETOX HERE ON 09/26/18 AND REHAB ON 10/10/18. LONGEST PERIOD OF SOBRIETY HAS BEEN 1.5 YEARS. HE REPORTS HE'S CURRENTLY [facility] AND STATES HE WAS LAST MEDICATED WITH 80MG OF METHADONE TODAY () AT 80MG (VERIFICATION PENDING). Exam Limitations: No Limitations - Ebola screening Have you traveled outside of the country in the last 21 days: No (N) Have you had contact with anyone from an Ebola affected area: No Do you have a fever: No - Review of Systems Constitutional: Chills, Diaphoresis, Unintentional Wgt. Loss EENT: reports: Blurred Vision, Tearing Respiratory: reports: No Symptoms reported Cardiac: reports: No Symptoms Reported GI: reports: Diarrhea, Nausea : reports: Burning Musculoskeletal: reports: Back Pain Integumentary: reports: No Symptoms Reported Neuro: reports: Headache, Numbness, Other (H/O BLACKOUTS R/T ETOH) Endocrine: reports: Other (PRE-DIABETES) Hematology: reports: Anemia Psychiatric: reports: Anxious, Depressed, other (BIPOLAR, SCHIZOPHRENIA) Other Systems: Reviewed and Negative Patient History - Patient Medical History Hx Anemia: No Hx Asthma: No (DENIES ASTHMA; REPORTS DIFFICULTY BREATHING WHEN HAVING PANIC ATTACKS ) Hx Chronic Obstructive Pulmonary Disease (COPD): No Hx Cancer: No Hx Cardiac Disorders: No Hx Congestive Heart Failure: No Hx Hypertension: Yes Hx Hypercholesterolemia: No Hx Pacemaker: No HX Cerebrovascular Accident: No Hx Seizures: No Hx Dementia: No Hx Diabetes: Yes (PRE-DIABETES) Hx Gastrointestinal Disorders: Yes (PEPTIC ULCER) Hx Liver Disease: No Hx Genitourinary Disorders: No Hx Sexually Transmitted Disorders: No Hx Renal Disease (ESRD): No Hx Thyroid Disease: No Hx Human Immunodeficiency Virus (HIV): No (negative ) Hx Hepatitis C: Yes (undetectable) Hx Depression: Yes Hx Suicide Attempt: No Hx Bipolar Disorder: Yes (ON SEROQUEL, PAXIL) Hx Schizophrenia: Yes - Patient Surgical History Past Surgical History: Yes Hx Neurologic Surgery: No Hx Cataract Extraction: No Hx Cardiac Surgery: No Hx Lung Surgery: No Hx Breast Surgery: No Hx Breast Biopsy: No Hx Abdominal Surgery: Yes (surgery for perforated ulcer in 1993) Hx Appendectomy: No Hx Cholecystectomy: No Hx Genitourinary Surgery: No Hx Section: No Hx Orthopedic Surgery: No Anesthesia Reaction: No - PPD History Previous Implant?: Yes Documented Results: Positive w/o proof Results: TREATED IN 1994 PPD to be Administered?: No - Reproductive History Patient is a Female of Child Bearing Age (11 -55 yrs old): No - Smoking Cessation Smoking history: Current every day smoker Have you smoked in the past 12 months: Yes Aproximately how many cigarettes per day: 20 Cigars Per Day: 0 Hx Chewing Tobacco Use: No Initiated information on smoking cessation: Yes 'Breaking Loose' booklet given: 11/09/18 - Substance & Tx. History Hx Alcohol Use: Yes - Substances abused Alcohol Substance route: Oral Frequency: Daily Amount used: 3x 6 packs 24oz beer Age of first use: 17 Date of last use: 11/09/18 Heroin Substance route: Inhalation Frequency: Daily Amount used: 2 bags Age of first use: 17 Date of last use: 09/21/18 Family Disease History - Family Disease History Family Disease History: Other: Father (alcohol) Admission Physical Exam [facility] - Vital Signs Vital Signs: Vital Signs - 24 hr 11/09/18 16:53 Temperature 100.4 F H Pulse Rate 107 H Respiratory 18 Rate Blood Pressure 83/53 L - Physical General Appearance: Yes: Obese, Tremorous, Irritable, Sweating, Anxious HEENTM: Yes: Hearing grossly Normal, Normocephalic, Normal Voice Respiratory: Yes: Chest Non-Tender, Lungs Clear, Normal Breath Sounds, No Respiratory Distress, No Accessory Muscle Use Neck: Yes: No masses,lesions,Nodules Breast: Yes: Breast Exam Deferred Cardiology: Yes: Regular Rhythm, Tachycardia Abdominal: Yes: Normal Bowel Sounds, Non Tender, Flat, Surgical Scar (NO COMPLAINTS REPORTED) Genitourinary: Yes: Other Back: Yes: Normal Inspection Musculoskeletal: Yes: Gait Steady, Pelvis Stable Extremities: Yes: Normal Capillary Refill, Normal Inspection, Tremors Neurological: Yes: Alert, Normal Mood/Affect, Normal Response Integumentary: Yes: Normal Color, Dry, Warm Lymphatic: Yes: Within Normal Limits - Diagnostic (1) Opioid dependence on agonist therapy Current Visit: Yes Status: Chronic (2) Alcohol dependence with uncomplicated withdrawal Current Visit: Yes Status: Chronic (3) Anemia Current Visit: Yes Status: Suspected Qualifiers: Anemia type: unspecified type Qualified Code(s): D64.9 - Anemia, unspecified (4) Essential hypertension Current Visit: Yes Status: Chronic (5) Gastroesophageal reflux disease Current Visit: Yes Status: Chronic Qualifiers: Esophagitis presence: without esophagitis Qualified Code(s): K21.9 - Gastro -esophageal reflux disease without esophagitis (6) Hepatitis C carrier Current Visit: No Status: Chronic (7) Nicotine dependence Current Visit: Yes Status: Chronic Qualifiers: Nicotine product type: cigarettes Substance use status: uncomplicated Qualified Code(s): F17.210 - Nicotine dependence, cigarettes, uncomplicated (8) syncope alcohol related Current Visit: No Status: Acute (9) Prediabetes Current Visit: Yes Status: Chronic Cleared for Admission S - Detox or Rehab S Level of Care: Medically Managed Detox Regimen/Protocol: Librium Breathalyzer - Breathalyzer Breathalyzer: 0.042 Urine Drug Screen - Test Device Lot number: [id number] Expiration date: 07/27/19 - Control Is test valid?: Yes - Results Drug screen NEGATIVE: No Urine drug screen results: MTD-Methadone, BZO-Benzodiazepines Inpatient Rehab Admission - Rehab Decision to Admit Inpatient rehab admission?: No
[2018-11-09] MEDS ORDERED: NICOTINE POLACRILEX 2 MG GUM BUC PRN (20:19)
[2018-11-09] MEDS ORDERED: MAGNESIUM CITRATE 300 ML BOTTLE PO PRN (20:19)
[2018-11-09] MEDS ORDERED: MENTHOL/PHENOL 1 EACH UD MM PRN (20:19)
[2018-11-09] MEDS ORDERED: MAGNESIUM HYDROX 2400MG/30ML ORAL SUSPENSION 30 ML CUP PO PRN (20:19)
[2018-11-09] MEDS ORDERED: METHOCARBAMOL 500 MG TABLET PO PRN (20:19)
[2018-11-09] MEDS ORDERED: ACETAMINOPHEN 325 MG TABLET (FP) PO PRN ×2 (20:19)
[2018-11-09] MEDS ORDERED: MAG HYDROX/AL HYDROX/SIMETH 30 ML UNIT-DOSE CUP PO PRN (20:19)
[2018-11-09] MEDS ORDERED: hydrOXYzine PAMOATE 25 MG CAPSULE (FP) PO PRN (20:19)
[2018-11-09] MEDS ORDERED: chlordiazePOXIDE HCL 25 MG CAPSULE PO ONE (20:19)
[2018-11-09] MEDS ORDERED: IBUPROFEN 400 MG TABLET (FP) PO PRN (20:19)
[2018-11-09] MEDS ORDERED: chlordiazePOXIDE HCL 25 MG CAPSULE PO PRN (20:19)
[2018-11-09] MEDS ORDERED: MELATONIN 5 MG TABLETS PO PRN (20:19)
[2018-11-09] MEDS ORDERED: ONDANSETRON *ODT* 4 MG TABLET SL PRN (20:19)
[2018-11-09] MEDS ORDERED: BISMUTH SUBSALICYLATE 262 MG/15 ML BTL PO PRN (20:19)
[2018-11-09] MEDS ORDERED: hydrOXYzine HCL 50 MG TABLET PO SCH (20:30)
[2018-11-09] MEDS ORDERED: QUEtiapine FUMARATE 50 MG TABLET PO SCH (22:00)
[2018-11-09] MEDS: BUDESONIDE/FORMETEROL FUMARATE 160/4.5 mcg INHALER IH SCH (22:09)
[2018-11-09] MEDS: RANITIDINE HCL 150 MG TABLET (FP) PO SCH (22:10)
[2018-11-09] MEDS: THIAMINE HCL 100 MG TABLET (FP) PO SCH (22:11)
[2018-11-09] MEDS: metFORMIN HCL 500 MG TABLET (FP) PO SCH (22:11)
[2018-11-09] MEDS: chlordiazePOXIDE HCL 25 MG CAPSULE PO SCH (22:11)
[2018-11-10] MEDS: chlordiazePOXIDE HCL 25 MG CAPSULE PO SCH ×4 (06:42→22:07)
[2018-11-10] MEDS: metFORMIN HCL 500 MG TABLET (FP) PO SCH ×2 (06:42→16:54)
[2018-11-10] MEDS ORDERED: PANTOPRAZOLE 40 MG TABLET (FP) PO SCH (10:00)
[2018-11-10 10:08] LABS: HEMATOCRIT 30.6 % (35.4-49); HEMOGLOBIN 9.9 GM/dL (11.7-16.9); MCH 24.5 pg (25.7-33.7); MCHC 32.4 g/dl (32.0-35.9); MEAN CELL VOLUME 75.5 fl (80-96); MEAN PLT VOLUME 8.1 fl (7.5-11.1); PLATELET COUNT 216 K/MM3 (134-434); RBC 4.06 M/mm3 (4.00-5.60); RDW 21.2 % (11.9-15.9); WHITE BLOOD COUNT 12.5 K/mm3 (4.0-10.0)
[2018-11-10 10:14] LABS: ALBUMIN 2.8 g/dl (3.4-5.0); BILIRUBIN,TOTAL 0.6 mg/dL (0.2-1); BLOOD UREA NITROGEN 12.8 mg/dL (7-18); CALCIUM 8.3 mg/dL (8.5-10.1); CREATININE 0.6 mg/dL (0.55-1.3); TOT PROT 6.5 g/dl (6.4-8.2)
[2018-11-10] MEDS: PRENATAL VITAMINS W/ FOLIC ACID TABLET (FP) PO SCH (10:40)
[2018-11-10] MEDS: METHADONE HCL 40 MG DISPERSABLE TABLET PO SCH (10:40)
[2018-11-10] MEDS: RANITIDINE HCL 150 MG TABLET (FP) PO SCH ×2 (10:41→22:07)
[2018-11-10] MEDS: NICOTINE 14 MG/24 HOURS TOPICAL PATCH TD SCH (10:41)
[2018-11-10] MEDS: LISINOPRIL 10 MG TABLET (FP) PO SCH (10:41)
[2018-11-10] MEDS: BUDESONIDE/FORMETEROL FUMARATE 160/4.5 mcg INHALER IH SCH ×2 (10:41→22:41)
--- NOTE | 2018-11-10 10:42 | PN ---
S CIWA - CIWA Score Nausea/Vomitin-No Nausea/No Vomiting Muscle Tremors: 2 Anxiety: 3 Agitation: 0-Normal Activity Paroxysmal Sweats: 4-Forehead w/Sweat Beads Orientation: 0-Oriented Tacttile Disturbances: 0-None Auditory Disturbances: 0-None Visual Disturbances: 0-None Headache: 2-Mild CIWA-Ar Total Score: 11 S Progress Note (SOAP) Subjective: c/o anxiety, headache, and sweats. Objective: 11/10/18 10:38 Vital Signs 11/10/18 11/10/18 11/10/18 03:34 08:22 09:45 Temperature 102 F H 97.2 F L Pulse Rate 83 94 H Respiratory 18 18 20 Rate Blood Pressure 128/63 142/62 Lab Results WBC 12.5 K/mm3 (4.0-10.0) H 11/10/18 07:00 RBC 4.06 M/mm3 (4.00-5.60) 11/10/18 07:00 Hgb 9.9 GM/dL (11.7-16.9) L 11/10/18 07:00 Hct 30.6 % (35.4-49) L D 11/10/18 07:00 MCV 75.5 fl (80-96) L 11/10/18 07:00 MCHC 32.4 g/dl (32.0-35.9) 11/10/18 07:00 RDW 21.2 % (11.9-15.9) H 11/10/18 07:00 Plt Count 216 K/MM3 (134-434) D 11/10/18 07:00 Sodium 137 mmol/L (136-145) 11/10/18 07:00 Potassium 4.0 mmol/L (3.5-5.1) 11/10/18 07:00 Chloride 105 mmol/L (98-107) 11/10/18 07:00 Carbon Dioxide 25 mmol/L (21-32) 11/10/18 07:00 Anion Gap 7 MMOL/L (8-16) L 11/10/18 07:00 BUN 12.8 mg/dL (7-18) 11/10/18 07:00 Creatinine 0.6 mg/dL (0.55-1.3) 11/10/18 07:00 Random Glucose 99 mg/dL (74-106) 11/10/18 07:00 Calcium 8.3 mg/dL (8.5-10.1) L 11/10/18 07:00 Labs noted. Assessment: 11/10/18 10:38 AOX3, in no respiratory distress. Full ROM, ambulating in the unit. withdrawal symptoms. BILLY 11/10/18 10:41 Plan: continue detox. Ferrous sulfate 325mg po 3times/day Ascorbic acid 500mg po daily
[2018-11-10] MEDS: FERROUS SO4 325 MG TABLET (FP) PO SCH ×2 (11:59→16:54)
--- NOTE | 2018-11-10 12:19 | CONSULT ---
[facility] Psychiatric Consult - Data Date of interview: 11/10/18 Admission source: Self-referred Identifying data: Mr Soto is a 58 years old male, unemployed on public assistance, homeless seeking detox treatment for alcohol and opioid Substance Abuse History: Reports history of alcohol and heroin use. Refer to addiction counselor's summary for further information Medical History: Significant for hypertension, diabetes mellitus, hepatitis C, history of surgery for perforated peptic ulcer. Smokes cigarettes1 ppd Psychiatric History: Patient reports being diagnosed with Bipolar Schizophrenia years ago. Reports that he currently receives outpatient psychiatric treatment at [facility] and he is prescribed Paxil 40 mg/day and Seroquel 100 mg/hs. Denies previous psychiatric hospitalization or suicide attempt. At present, denies experiencing psychotic, manic or depressive symptoms, S/H ideations. However, he reports feeling anxious and sleeping poorly Physical/Sexual Abuse/Trauma History: Denies history of abuse of any type as well as DV relationship Additional Comment: Reports history of previous arrest for "steering" Mental Status Exam - Mental Status Exam Alert and Oriented to: Time, Person Cognitive Function: Fair Patient Appearance: Well Groomed Mood: Anxious Affect: Appropriate Patient Behavior: Cooperative Speech Pattern: Clear Voice Loudness: Normal Thought Process: Intact, Goal Oriented Thought Disorder: Not Present Hallucinations: Denies Suicidal Ideation: Denies Homicidal Ideation: Denies Insight/Judgement: Fair Sleep: Poorly Appetite: Good Muscle strength/Tone: Normal Gait/Station: Normal Psychiatric Findings - Problem List ([place] 1, 2,3) (1) Bipolar disorder Current Visit: Yes Status: Chronic (2) Substance-induced anxiety disorder Current Visit: Yes Status: Acute (3) Substance-induced sleep disorder Current Visit: Yes Status: Acute (4) Alcohol dependence with uncomplicated withdrawal Current Visit: Yes Status: Acute (5) Opioid dependence on agonist therapy Current Visit: Yes Status: Chronic (6) Nicotine dependence Current Visit: Yes Status: Chronic Qualifiers: Nicotine product type: cigarettes Substance use status: uncomplicated Qualified Code(s): F17.210 - Nicotine dependence, cigarettes, uncomplicated (7) Essential hypertension Current Visit: Yes Status: Chronic (8) Gastroesophageal reflux disease Current Visit: Yes Status: Chronic Qualifiers: Esophagitis presence: without esophagitis Qualified Code(s): K21.9 - Gastro -esophageal reflux disease without esophagitis (9) Prediabetes Current Visit: Yes Status: Chronic (10) Anemia Current Visit: Yes Status: Suspected Qualifiers: Anemia type: unspecified type Qualified Code(s): D64.9 - Anemia, unspecified (11) Hepatitis C carrier Current Visit: No Status: Chronic (12) s/p surgry for perforated peptic ulcer with peritonitis Current Visit: No Status: Resolved - Initial Treatment Plan Initial Treatment Plan: 1) Continue Paxil 40 mg po daily and Seroquel 100 mg po HS. 2) Continue inpatient detoxification
[2018-11-10] MEDS: PARoxetine HCL 20 MG TABLET PO SCH (16:16)
[2018-11-10] MEDS: QUEtiapine FUMARATE 100 MG TABLET (FP) PO SCH (22:07)
[2018-11-10] MEDS: THIAMINE HCL 100 MG TABLET (FP) PO SCH (22:08)
[2018-11-11] MEDS: chlordiazePOXIDE HCL 25 MG CAPSULE PO SCH ×4 (05:50→22:18)
[2018-11-11] MEDS: METHADONE HCL 40 MG DISPERSABLE TABLET PO SCH (05:50)
[2018-11-11] MEDS: FERROUS SO4 325 MG TABLET (FP) PO SCH ×3 (07:32→17:23)
[2018-11-11] MEDS: metFORMIN HCL 500 MG TABLET (FP) PO SCH ×2 (07:32→17:23)
[2018-11-11] MEDS: LISINOPRIL 10 MG TABLET (FP) PO SCH (10:08)
[2018-11-11] MEDS: RANITIDINE HCL 150 MG TABLET (FP) PO SCH ×2 (10:08→22:18)
[2018-11-11] MEDS: PARoxetine HCL 20 MG TABLET PO SCH (10:09)
[2018-11-11] MEDS: NICOTINE 14 MG/24 HOURS TOPICAL PATCH TD SCH (10:09)
[2018-11-11] MEDS: PRENATAL VITAMINS W/ FOLIC ACID TABLET (FP) PO SCH (10:09)
[2018-11-11] MEDS: BUDESONIDE/FORMETEROL FUMARATE 160/4.5 mcg INHALER IH SCH ×2 (10:09→22:19)
[2018-11-11] MEDS: ASCORBIC ACID 500 MG TABLET (FP) PO SCH (10:10)
--- NOTE | 2018-11-11 11:45 | PN ---
S CIWA - CIWA Score Nausea/Vomitin-No Nausea/No Vomiting Muscle Tremors: None Anxiety: 3 Agitation: 0-Normal Activity Paroxysmal Sweats: 2 Orientation: 0-Oriented Tacttile Disturbances: 0-None Auditory Disturbances: 0-None Visual Disturbances: 0-None Headache: 1-Very Mild CIWA-Ar Total Score: 6 BHS Progress Note (SOAP) Subjective: c/o sweats, mild headache, and anxiety. Objective: 11/11/18 11:43 Vital Signs 11/11/18 11/11/18 06:00 09:43 Temperature 98.2 F 96.4 F L Pulse Rate 75 128 H Respiratory 18 17 Rate Blood Pressure 125/78 126/76 Assessment: AOX3, in no acute respiratory distress. Full ROM, ambulating in the unit. Plan: continue detox.
[2018-11-11] MEDS: THIAMINE HCL 100 MG TABLET (FP) PO SCH (22:19)
[2018-11-11] MEDS: QUEtiapine FUMARATE 100 MG TABLET (FP) PO SCH (22:19)
[2018-11-12] MEDS ORDERED: chlordiazePOXIDE HCL 10 MG CAPSULE PO PRN
[2018-11-12] MEDS: METHADONE HCL 40 MG DISPERSABLE TABLET PO SCH (06:21)
[2018-11-12] MEDS: metFORMIN HCL 500 MG TABLET (FP) PO SCH ×2 (06:22→17:13)
[2018-11-12] MEDS: chlordiazePOXIDE HCL 10 MG CAPSULE PO SCH ×4 (06:22→22:22)
[2018-11-12] MEDS: PARoxetine HCL 20 MG TABLET PO SCH (10:23)
[2018-11-12] MEDS: LISINOPRIL 10 MG TABLET (FP) PO SCH (10:23)
[2018-11-12] MEDS: ASCORBIC ACID 500 MG TABLET (FP) PO SCH (10:23)
[2018-11-12] MEDS: PRENATAL VITAMINS W/ FOLIC ACID TABLET (FP) PO SCH (10:23)
[2018-11-12] MEDS: RANITIDINE HCL 150 MG TABLET (FP) PO SCH ×2 (10:24→22:22)
[2018-11-12] MEDS: FERROUS SO4 325 MG TABLET (FP) PO SCH ×3 (10:57→17:13)
[2018-11-12] MEDS: BUDESONIDE/FORMETEROL FUMARATE 160/4.5 mcg INHALER IH SCH ×2 (10:57→22:22)
[2018-11-12] MEDS: NICOTINE 14 MG/24 HOURS TOPICAL PATCH TD SCH (10:57)
--- NOTE | 2018-11-12 12:09 | PN ---
S CIWA - CIWA Score Nausea/Vomitin-No Nausea/No Vomiting Muscle Tremors: None Anxiety: 2 Agitation: 0-Normal Activity Paroxysmal Sweats: 3 Orientation: 0-Oriented Tacttile Disturbances: 0-None Auditory Disturbances: 0-None Visual Disturbances: 0-None Headache: 2-Mild CIWA-Ar Total Score: 7 BHS Progress Note (SOAP) Subjective: c/o sweats, anxiety, and headache. Objective: 11/12/18 12:09 Lab Results WBC 12.5 K/mm3 (4.0-10.0) H 11/10/18 07:00 RBC 4.06 M/mm3 (4.00-5.60) 11/10/18 07:00 Hgb 9.9 GM/dL (11.7-16.9) L 11/10/18 07:00 Hct 30.6 % (35.4-49) L D 11/10/18 07:00 MCV 75.5 fl (80-96) L 11/10/18 07:00 MCHC 32.4 g/dl (32.0-35.9) 11/10/18 07:00 RDW 21.2 % (11.9-15.9) H 11/10/18 07:00 Plt Count 216 K/MM3 (134-434) D 11/10/18 07:00 Sodium 137 mmol/L (136-145) 11/10/18 07:00 Potassium 4.0 mmol/L (3.5-5.1) 11/10/18 07:00 Chloride 105 mmol/L (98-107) 11/10/18 07:00 Carbon Dioxide 25 mmol/L (21-32) 11/10/18 07:00 Anion Gap 7 MMOL/L (8-16) L 11/10/18 07:00 BUN 12.8 mg/dL (7-18) 11/10/18 07:00 Creatinine 0.6 mg/dL (0.55-1.3) 11/10/18 07:00 Random Glucose 99 mg/dL (74-106) 11/10/18 07:00 Calcium 8.3 mg/dL (8.5-10.1) L 11/10/18 07:00 Vital Signs 11/12/18 11/12/18 07:35 09:44 Temperature 97.9 F 97.1 F L Pulse Rate 72 115 H Respiratory 18 18 Rate Blood Pressure 143/90 115/86 Labs noted. Assessment: 11/12/18 12:09 AOX3, in no acute distress. Full ROM, ambulating in the unit. Withdrawal symptoms. Plan: continue detox.
[2018-11-12] MEDS ORDERED: cloNIDine HCL 0.1 MG TABLET PO ONE (20:52)
--- NOTE | 2018-11-12 20:53 | PN ---
S Progress Note Note: Patient's blood pressure is B/P 168/107. Patient is asymptomatic Vital Signs Temperature 99.0 F 11/12/18 20:46 Pulse Rate 78 11/12/18 20:46 Respiratory Rate 18 11/12/18 20:46 Blood Pressure 168/107 H 11/12/18 20:46 O2 Sat by Pulse Oximetry (%) Action: Clonidine 0.1mg tablet ordered
[2018-11-12] MEDS: THIAMINE HCL 100 MG TABLET (FP) PO SCH (22:22)
[2018-11-12] MEDS: QUEtiapine FUMARATE 100 MG TABLET (FP) PO SCH (22:22)
[2018-11-13] MEDS: metFORMIN HCL 500 MG TABLET (FP) PO SCH ×2 (05:59→17:11)
[2018-11-13] MEDS: METHADONE HCL 40 MG DISPERSABLE TABLET PO SCH (05:59)
[2018-11-13] MEDS: chlordiazePOXIDE HCL 10 MG CAPSULE PO SCH ×2 (05:59→17:10)
[2018-11-13] MEDS: FERROUS SO4 325 MG TABLET (FP) PO SCH ×3 (07:27→17:10)
[2018-11-13] MEDS: ASCORBIC ACID 500 MG TABLET (FP) PO SCH (10:22)
[2018-11-13] MEDS: NICOTINE 14 MG/24 HOURS TOPICAL PATCH TD SCH (10:22)
[2018-11-13] MEDS: LISINOPRIL 10 MG TABLET (FP) PO SCH (10:22)
[2018-11-13] MEDS: PRENATAL VITAMINS W/ FOLIC ACID TABLET (FP) PO SCH (10:22)
[2018-11-13] MEDS: PARoxetine HCL 20 MG TABLET PO SCH (10:22)
[2018-11-13] MEDS: RANITIDINE HCL 150 MG TABLET (FP) PO SCH ×2 (10:22→22:02)
[2018-11-13] MEDS: BUDESONIDE/FORMETEROL FUMARATE 160/4.5 mcg INHALER IH SCH ×2 (10:56→22:02)
--- NOTE | 2018-11-13 11:42 | EKG ---
Test Reason : Blood Pressure : / mmHG Vent. Rate : 077 BPM Atrial Rate : 077 BPM P-R Int : 120 ms QRS Dur : 108 ms QT Int : 400 ms P-R-T Axes : 070 047 047 degrees QTc Int : 452 ms NORMAL SINUS RHYTHM NORMAL ECG WHEN COMPARED WITH ECG OF 21-SEP-2018 17:44, NONSPECIFIC T WAVE ABNORMALITY NO LONGER EVIDENT IN ANTEROLATERAL LEADS Confirmed by BERTHA BLAKE, VALENTÍN ([id number]) on 11/13/2018 11:42:04 AM Referred By: Yassine Faulkner Confirmed By:VALENTÍN STONE MD
--- NOTE | 2018-11-13 14:04 | PN ---
S CIWA - CIWA Score Nausea/Vomitin-No Nausea/No Vomiting Muscle Tremors: 3 Anxiety: 2 Agitation: 2 Paroxysmal Sweats: 2 Orientation: 0-Oriented Tacttile Disturbances: 0-None Auditory Disturbances: 0-None Visual Disturbances: 0-None Headache: 0-None Present CIWA-Ar Total Score: 9 BHS Progress Note (SOAP) Subjective: stomach ache Objective: 11/13/18 14:03 Vital Signs Temperature 97.5 F L 11/13/18 09:56 Pulse Rate 106 H 11/13/18 09:56 Respiratory Rate 18 11/13/18 09:56 Blood Pressure 100/53 L 11/13/18 09:56 O2 Sat by Pulse Oximetry (%) aaox3 ambulating no acute distress Assessment: 11/13/18 14:03 mild withdrawal sx Plan: continue detox increase fluids MOM/mylanta prn d/c in am
[2018-11-13] MEDS: THIAMINE HCL 100 MG TABLET (FP) PO SCH (22:02)
[2018-11-13] MEDS: QUEtiapine FUMARATE 100 MG TABLET (FP) PO SCH (22:02)
[2018-11-14] MEDS ORDERED: chlordiazePOXIDE HCL 10 MG CAPSULE PO ONE (05:00)
[2018-11-14] MEDS: METHADONE HCL 40 MG DISPERSABLE TABLET PO SCH (05:24)
[2018-11-14] MEDS: FERROUS SO4 325 MG TABLET (FP) PO SCH ×3 (07:01→17:48)
[2018-11-14] MEDS: metFORMIN HCL 500 MG TABLET (FP) PO SCH ×2 (07:01→17:48)
--- NOTE | 2018-11-14 09:54 | DS ---
[facility] Detox Discharge Summary Admission Date: 11/09/18 Discharge Date: 11/14/18 - History Present History: Alcohol Dependence, MMTP - Physical Exam Results Vital Signs: Vital Signs Temperature 97.4 F L 11/14/18 09:38 Pulse Rate 93 H 11/14/18 09:38 Respiratory Rate 18 11/14/18 09:38 Blood Pressure 136/85 11/14/18 09:38 O2 Sat by Pulse Oximetry (%) Pertinent Admission Physical Exam Findings: pt arrived in [facility] Laboratory Tests 11/09/18 11/10/18 11/10/18 20:41 06:40 07:00 WBC 12.5 H RBC 4.06 Hgb 9.9 L Hct 30.6 L D MCV 75.5 L MCH 24.5 L MCHC 32.4 RDW 21.2 H Plt Count 216 D MPV 8.1 Sodium Potassium Chloride Carbon Dioxide Anion Gap BUN Creatinine Est GFR (CKD-EPI)AfAm Est GFR (CKD-EPI)NonAf POC Glucometer 87 107 Random Glucose Calcium Total Bilirubin AST ALT Alkaline Phosphatase Total Protein Albumin RPR Titer 11/10/18 11/10/18 11/10/18 07:00 07:00 16:35 WBC RBC Hgb Hct MCV MCH MCHC RDW Plt Count MPV Sodium 137 Potassium 4.0 Chloride 105 Carbon Dioxide 25 Anion Gap 7 L BUN 12.8 Creatinine 0.6 Est GFR (CKD-EPI)AfAm 130.27 Est GFR (CKD-EPI)NonAf 112.40 POC Glucometer 129 Random Glucose 99 Calcium 8.3 L Total Bilirubin 0.6 AST 87 H ALT 75 H Alkaline Phosphatase 107 Total Protein 6.5 Albumin 2.8 L RPR Titer Nonreactive 11/11/18 11/12/18 11/12/18 17:04 06:23 16:32 WBC RBC Hgb Hct MCV MCH MCHC RDW Plt Count MPV Sodium Potassium Chloride Carbon Dioxide Anion Gap BUN Creatinine Est GFR (CKD-EPI)AfAm Est GFR (CKD-EPI)NonAf POC Glucometer 81 84 109 Random Glucose Calcium Total Bilirubin AST ALT Alkaline Phosphatase Total Protein Albumin RPR Titer 11/13/18 11/13/18 11/14/18 07:54 16:41 05:26 WBC RBC Hgb Hct MCV MCH MCHC RDW Plt Count MPV Sodium Potassium Chloride Carbon Dioxide Anion Gap BUN Creatinine Est GFR (CKD-EPI)AfAm Est GFR (CKD-EPI)NonAf POC Glucometer 85 120 87 Random Glucose Calcium Total Bilirubin AST ALT Alkaline Phosphatase Total Protein Albumin RPR Titer today pt is aaox3 ambulating no acute distress no s/s of withdrawals - Treatment Hospital Course: Detox Protocol Followed, Detoxed Safely, Responded well, Discharged Condition Good, Rehab Referral Accepted Patient has Accepted a Rehab Referral to: referred to inpatient rehab - Medication Discharge Medications: Ambulatory Orders Pantoprazole Sodium [Protonix -] 40 mg PO DAILY #30 tablet.ec 12/05/12 Hydroxyzine HCl 50 mg PO PRN 09/21/18 Paroxetine HCl [Paxil -] 40 mg PO DAILY 09/21/18 Quetiapine Fumarate [Seroquel] 100 tab PO HS 09/21/18 Budesonide/Formeterol Fumarate [SYMBICORT 160/4.5mcg -] 1 inh PO BID #1 inhaler 10/10/18 Lisinopril 10 mg PO DAILY #14 tablet 10/10/18 Metformin HCl [Glucophage] 500 mg PO BID #30 tablet 10/10/18 - Diagnosis (1) Alcohol dependence with uncomplicated withdrawal Current Visit: Yes Status: Chronic (2) Substance-induced anxiety disorder Current Visit: Yes Status: Acute (3) Substance-induced sleep disorder Current Visit: Yes Status: Acute (4) Bipolar disorder Current Visit: Yes Status: Chronic (5) Essential hypertension Current Visit: Yes Status: Chronic (6) Gastroesophageal reflux disease Current Visit: Yes Status: Chronic Qualifiers: Esophagitis presence: without esophagitis Qualified Code(s): K21.9 - Gastro -esophageal reflux disease without esophagitis (7) Nicotine dependence Current Visit: Yes Status: Chronic Qualifiers: Nicotine product type: cigarettes Substance use status: uncomplicated Qualified Code(s): F17.210 - Nicotine dependence, cigarettes, uncomplicated (8) Opioid dependence on agonist therapy Current Visit: Yes Status: Chronic (9) Anemia Current Visit: Yes Status: Suspected Qualifiers: Anemia type: unspecified type Qualified Code(s): D64.9 - Anemia, unspecified (10) Bipolar I disorder, single manic episode, moderate Current Visit: No Status: Acute (11) Elevated liver enzymes Current Visit: No Status: Acute (12) Hypocalcemia Current Visit: No Status: Acute (13) syncope alcohol related Current Visit: No Status: Acute (14) Hepatitis C carrier Current Visit: No Status: Chronic (15) Mood disorder Current Visit: No Status: Chronic (16) mmtp Current Visit: Yes Status: Chronic (17) s/p surgry for perforated peptic ulcer with peritonitis Current Visit: No Status: Resolved - AMA Did Patient Leave Against Medical Advice: No
[2018-11-14] MEDS: LISINOPRIL 10 MG TABLET (FP) PO SCH (10:04)
[2018-11-14] MEDS: PARoxetine HCL 20 MG TABLET PO SCH (10:04)
[2018-11-14] MEDS: ASCORBIC ACID 500 MG TABLET (FP) PO SCH (10:04)
[2018-11-14] MEDS: NICOTINE 14 MG/24 HOURS TOPICAL PATCH TD SCH (10:04)
[2018-11-14] MEDS: PRENATAL VITAMINS W/ FOLIC ACID TABLET (FP) PO SCH (10:04)
[2018-11-14] MEDS: RANITIDINE HCL 150 MG TABLET (FP) PO SCH (10:04)
[2018-11-14] MEDS: BUDESONIDE/FORMETEROL FUMARATE 160/4.5 mcg INHALER IH SCH (10:05)
[2018-11-14 17:09] VITALS: BP 112/67; PULSE 73; TEMP 97.7
[2018-11-14] MEDS ORDERED: QUEtiapine FUMARATE 100 MG TABLET (FP) PO ONE (21:45)
== END 2018-11-14 19:20 | disposition other institution (70) | DRG 773 ==
LOC: YASAS 16:41 → Y6N 20:23
PROVIDERS: ADMIT Surgery; ATTEND Surgery
PROC: HZ2ZZZZ Detoxification Services for Substance Abuse Treatment (ICD-10-PCS; principal; 2018-11-09)
DX: F10.230 Alcohol dependence with withdrawal, uncomplicated (principal); F11.20 Opioid dependence, uncomplicated; F17.210 Nicotine dependence, cigarettes, uncomplicated; F19.280 Other psychoactive substance dependence with psychoactive substance-induced anxiety disorder; F19.282 Other psychoactive substance dependence with psychoactive substance-induced sleep disorder; F39 Unspecified mood [affective] disorder; F30.8 Other manic episodes; R73.03 Prediabetes; I10 Essential (primary) hypertension; K21.9 Gastro-esophageal reflux disease without esophagitis; D64.9 Anemia, unspecified; R94.5 Abnormal results of liver function studies; E83.51 Hypocalcemia; B18.2 Chronic viral hepatitis C; R00.0 Tachycardia, unspecified
CPT/HCPCS: 36415; 71046-TC-FY; 80053; 82962; 85027; 86593; 93005; 93010; J0735

== ENCOUNTER 2018-11-14 19:17 | Inpatient (IN) | payer OTHER ==
--- NOTE | 2018-11-14 12:02 | HP ---
[facility] Rehab Assess/Revision - Admission History Admitted to Rehab from[facility] - Findings Detox History & Physical reviewed: Yes Concur with findings: Yes Inpatient Rehab Admission - Rehab Decision to Admit Inpatient rehab admission?: Yes - Initial Determination Are CD services needed?: Yes Free of communicable disease: Yes Not in need of hospitalization: Yes - Rehab Admission Criteria Previous failed treatment: Yes Poor recovery environment: Yes Comorbidities: Yes Lacks judgement: Yes Patient is meeting Inpatient Rehab admission criteria:: Yes
[~2018-11-14 19:17] MED LIST: ACETAMINOPHEN 325 MG TABLET (FP) PO PRN; IBUPROFEN 400 MG TABLET (FP) PO PRN; LOPERAMIDE HCL 2 MG CAPSULE PO PRN; MAGNESIUM CITRATE 300 ML BOTTLE PO PRN; MAGNESIUM HYDROX 2400MG/30ML ORAL SUSPENSION 30 ML CUP PO PRN; MENTHOL/PHENOL 1 EACH UD MM PRN; NICOTINE POLACRILEX 4 MG GUM BUC PRN; P-EPHED 60MG/TRIPROLIDI 2.5MG TABLET PO PRN; guaiFENesin 200 MG/10 ML 10 ML UNIT-DOSE CUPS PO PRN
[2018-11-14] MEDS: THIAMINE HCL 100 MG TABLET (FP) PO SCH (21:34)
[2018-11-14] MEDS: MELATONIN 5 MG TABLETS PO PRN (21:35)
[2018-11-14] MEDS ORDERED: QUEtiapine FUMARATE 100 MG TABLET (FP) PO ONE (22:00)
[2018-11-15] MEDS: METHADONE HCL 40 MG DISPERSABLE TABLET PO SCH (06:06)
[2018-11-15] MEDS: NICOTINE 21 MG/24 HOURS TOPICAL PATCH TD SCH (09:52)
[2018-11-15] MEDS: PRENATAL VITAMINS W/ FOLIC ACID TABLET (FP) PO SCH (09:52)
--- NOTE | 2018-11-15 10:31 | PN ---
S Progress Note Note: Pt requesting home med lisinopril> ordered metformin- contraindicated in alcoholics> pt states he takes it at home BID, pt states not drinking now so wants at least once a day> ordered, BGM ordered wants zantac 150mg prn
[2018-11-15] MEDS: LISINOPRIL 10 MG TABLET (FP) PO SCH (11:20)
[2018-11-15] MEDS: THIAMINE HCL 100 MG TABLET (FP) PO SCH (21:07)
[2018-11-15] MEDS: MELATONIN 5 MG TABLETS PO PRN (21:08)
[2018-11-15] MEDS: QUEtiapine FUMARATE 100 MG TABLET (FP) PO SCH (21:41)
[2018-11-16] MEDS: METHADONE HCL 40 MG DISPERSABLE TABLET PO SCH (06:00)
[2018-11-16] MEDS: metFORMIN HCL 500 MG TABLET (FP) PO SCH (07:01)
[2018-11-16] MEDS: LISINOPRIL 10 MG TABLET (FP) PO SCH (09:52)
[2018-11-16] MEDS: PRENATAL VITAMINS W/ FOLIC ACID TABLET (FP) PO SCH (09:52)
[2018-11-16] MEDS: NICOTINE 21 MG/24 HOURS TOPICAL PATCH TD SCH (09:53)
--- NOTE | 2018-11-16 11:43 | PN ---
[facility] Progress Note Note: Vital Signs Temperature 98.3 F 11/16/18 06:46 Pulse Rate 87 11/16/18 09:30 Respiratory Rate 18 11/16/18 09:30 Blood Pressure 103/70 11/16/18 09:30 O2 Sat by Pulse Oximetry (%) Patient requested taking paxil at home and while in in-house detox Patient was evaluated by Dr. Ramos 11/10/18 while in detox and recommend : Continue Paxil 40 mg po daily and Seroquel 100 mg po HS, home meds reviewed. Will continue Paxil 40mg as per psych recommendation Continue to monitor
[2018-11-16] MEDS: THIAMINE HCL 100 MG TABLET (FP) PO SCH (21:09)
[2018-11-16] MEDS: QUEtiapine FUMARATE 100 MG TABLET (FP) PO SCH (21:09)
[2018-11-17] MEDS: METHADONE HCL 40 MG DISPERSABLE TABLET PO SCH (05:59)
[2018-11-17] MEDS: metFORMIN HCL 500 MG TABLET (FP) PO SCH (07:31)
[2018-11-17] MEDS: RANITIDINE HCL 150 MG TABLET (FP) PO PRN (08:59)
[2018-11-17] MEDS: LISINOPRIL 10 MG TABLET (FP) PO SCH (09:00)
[2018-11-17] MEDS: PRENATAL VITAMINS W/ FOLIC ACID TABLET (FP) PO SCH (09:00)
[2018-11-17] MEDS: PARoxetine HCL 20 MG TABLET PO SCH (09:00)
[2018-11-17] MEDS: NICOTINE 21 MG/24 HOURS TOPICAL PATCH TD SCH (09:00)
[2018-11-17] MEDS: THIAMINE HCL 100 MG TABLET (FP) PO SCH (21:30)
[2018-11-17] MEDS: QUEtiapine FUMARATE 100 MG TABLET (FP) PO SCH (21:30)
[2018-11-17] MEDS: MAG HYDROX/AL HYDROX/SIMETH 30 ML UNIT-DOSE CUP PO PRN (21:31)
[2018-11-18] MEDS: METHADONE HCL 40 MG DISPERSABLE TABLET PO SCH (06:36)
[2018-11-18] MEDS: metFORMIN HCL 500 MG TABLET (FP) PO SCH (08:07)
[2018-11-18] MEDS: LISINOPRIL 10 MG TABLET (FP) PO SCH (09:57)
[2018-11-18] MEDS: PRENATAL VITAMINS W/ FOLIC ACID TABLET (FP) PO SCH (09:57)
[2018-11-18] MEDS: PARoxetine HCL 20 MG TABLET PO SCH (09:57)
[2018-11-18] MEDS: RANITIDINE HCL 150 MG TABLET (FP) PO PRN (09:58)
[2018-11-18] MEDS: NICOTINE 21 MG/24 HOURS TOPICAL PATCH TD SCH (09:58)
--- NOTE | 2018-11-18 11:29 | PN ---
[facility] Progress Note Note: Patient requested to resume cholesterol medication, however does not know name of medicine. Preferred pharmacy, [facility] [phone] and principal technical writer spoke with pharmacist. As per pharmacy, patient has no record of cholesterol medication ordered. Patient informed by staff of pharmacy information. Vital Signs Period Temp Pulse Resp BP Sys/Mcintyre Pulse Ox Last 24 Hr 98.3 F 83-95 18-20 99-135/62-81
[2018-11-18] MEDS: QUEtiapine FUMARATE 100 MG TABLET (FP) PO SCH (21:30)
[2018-11-18] MEDS: THIAMINE HCL 100 MG TABLET (FP) PO SCH (21:30)
[2018-11-18] MEDS: MAG HYDROX/AL HYDROX/SIMETH 30 ML UNIT-DOSE CUP PO PRN (21:31)
[2018-11-19] MEDS: METHADONE HCL 40 MG DISPERSABLE TABLET PO SCH (06:02)
[2018-11-19] MEDS: metFORMIN HCL 500 MG TABLET (FP) PO SCH (08:13)
[2018-11-19] MEDS: PRENATAL VITAMINS W/ FOLIC ACID TABLET (FP) PO SCH (10:19)
[2018-11-19] MEDS: LISINOPRIL 10 MG TABLET (FP) PO SCH (10:19)
[2018-11-19] MEDS: NICOTINE 21 MG/24 HOURS TOPICAL PATCH TD SCH (10:20)
[2018-11-19] MEDS: PARoxetine HCL 20 MG TABLET PO SCH (10:20)
[2018-11-19] MEDS: RANITIDINE HCL 150 MG TABLET (FP) PO PRN (10:21)
[2018-11-19] MEDS: QUEtiapine FUMARATE 100 MG TABLET (FP) PO SCH (21:11)
[2018-11-19] MEDS: THIAMINE HCL 100 MG TABLET (FP) PO SCH (21:11)
[2018-11-20] MEDS: METHADONE HCL 40 MG DISPERSABLE TABLET PO SCH (05:59)
[2018-11-20] MEDS: metFORMIN HCL 500 MG TABLET (FP) PO SCH (07:32)
[2018-11-20] MEDS: PARoxetine HCL 20 MG TABLET PO SCH (09:21)
[2018-11-20] MEDS: NICOTINE 21 MG/24 HOURS TOPICAL PATCH TD SCH (09:21)
[2018-11-20] MEDS: LISINOPRIL 10 MG TABLET (FP) PO SCH (09:22)
[2018-11-20] MEDS: RANITIDINE HCL 150 MG TABLET (FP) PO PRN (09:22)
[2018-11-20] MEDS: PRENATAL VITAMINS W/ FOLIC ACID TABLET (FP) PO SCH (09:22)
[2018-11-20] MEDS: MELATONIN 5 MG TABLETS PO PRN (21:23)
[2018-11-20] MEDS: THIAMINE HCL 100 MG TABLET (FP) PO SCH (21:23)
[2018-11-20] MEDS: QUEtiapine FUMARATE 100 MG TABLET (FP) PO SCH (21:23)
[2018-11-21] MEDS: METHADONE HCL 40 MG DISPERSABLE TABLET PO SCH (05:51)
[2018-11-21] MEDS: metFORMIN HCL 500 MG TABLET (FP) PO SCH (08:21)
[2018-11-21] MEDS: LISINOPRIL 10 MG TABLET (FP) PO SCH (10:22)
[2018-11-21] MEDS: PRENATAL VITAMINS W/ FOLIC ACID TABLET (FP) PO SCH (10:22)
[2018-11-21] MEDS: PARoxetine HCL 20 MG TABLET PO SCH (10:25)
[2018-11-21] MEDS: NICOTINE 21 MG/24 HOURS TOPICAL PATCH TD SCH (10:28)
[2018-11-21] MEDS: RANITIDINE HCL 150 MG TABLET (FP) PO PRN (21:30)
[2018-11-21] MEDS: QUEtiapine FUMARATE 100 MG TABLET (FP) PO SCH (21:30)
[2018-11-21] MEDS: THIAMINE HCL 100 MG TABLET (FP) PO SCH (21:30)
[2018-11-22] MEDS: METHADONE HCL 40 MG DISPERSABLE TABLET PO SCH (06:01)
[2018-11-22] MEDS: metFORMIN HCL 500 MG TABLET (FP) PO SCH (07:21)
[2018-11-22] MEDS: NICOTINE 21 MG/24 HOURS TOPICAL PATCH TD SCH (09:43)
[2018-11-22] MEDS: PARoxetine HCL 20 MG TABLET PO SCH (09:44)
[2018-11-22] MEDS: PRENATAL VITAMINS W/ FOLIC ACID TABLET (FP) PO SCH (09:44)
[2018-11-22] MEDS: LISINOPRIL 10 MG TABLET (FP) PO SCH (09:44)
[2018-11-22] MEDS: QUEtiapine FUMARATE 100 MG TABLET (FP) PO SCH (21:24)
[2018-11-22] MEDS: THIAMINE HCL 100 MG TABLET (FP) PO SCH (21:24)
[2018-11-23] MEDS: METHADONE HCL 40 MG DISPERSABLE TABLET PO SCH (06:04)
[2018-11-23] MEDS: metFORMIN HCL 500 MG TABLET (FP) PO SCH (06:54)
[2018-11-23] MEDS: PARoxetine HCL 20 MG TABLET PO SCH (09:36)
[2018-11-23] MEDS: PRENATAL VITAMINS W/ FOLIC ACID TABLET (FP) PO SCH (09:36)
[2018-11-23] MEDS: LISINOPRIL 10 MG TABLET (FP) PO SCH (09:36)
[2018-11-23] MEDS: NICOTINE 21 MG/24 HOURS TOPICAL PATCH TD SCH (09:37)
[2018-11-23] MEDS: RANITIDINE HCL 150 MG TABLET (FP) PO PRN (09:37)
[2018-11-23] MEDS ORDERED: BUDESONIDE/FORMETEROL FUMARATE 160/4.5 mcg INHALER IH ONE (14:52)
[2018-11-23] MEDS ORDERED: hydrOXYzine PAMOATE 25 MG CAPSULE (FP) PO PRN (15:44)
--- NOTE | 2018-11-23 15:44 | PN ---
[facility] Progress Note Note: Patient stated he had medications in his belongings that we were not giving him. Review of those medications indicated that he was getting everything except Vistaril and symbicort. Patient claimed he was taking cholestrol medication. Ms. Lavonne NP called pharmacy, which had no record of cholesterol medication. In reviewing his medication, there was a bottle of simvastatin from 2008. Vital Signs Period Temp Pulse Resp BP Sys/Mcintyre Pulse Ox Last 24 Hr 98 F 96-98 18-20 103-111/65-67 The patient was informed that simvastatin would not be prescribed because there was no recent record of any prescription for it. We would not be dispensing the simvastatin in his belongings because of the age. Vistaril and Symbicort were ordered for the patient.
[2018-11-23] MEDS: QUEtiapine FUMARATE 100 MG TABLET (FP) PO SCH (21:21)
[2018-11-23] MEDS: THIAMINE HCL 100 MG TABLET (FP) PO SCH (21:21)
[2018-11-23] MEDS: hydrOXYzine PAMOATE 25 MG CAPSULE (FP) PO PRN (21:22)
[2018-11-24] MEDS: METHADONE HCL 40 MG DISPERSABLE TABLET PO SCH (06:03)
[2018-11-24] MEDS: metFORMIN HCL 500 MG TABLET (FP) PO SCH (06:03)
[2018-11-24] MEDS: BACITRACIN 15 GM TUBE TOPICAL OINTMENT TP SCH ×2 (10:00→10:01)
[2018-11-24] MEDS: PRENATAL VITAMINS W/ FOLIC ACID TABLET (FP) PO SCH (10:01)
[2018-11-24] MEDS: PARoxetine HCL 20 MG TABLET PO SCH (10:01)
[2018-11-24] MEDS: RANITIDINE HCL 150 MG TABLET (FP) PO PRN (10:01)
[2018-11-24] MEDS: hydrOXYzine PAMOATE 25 MG CAPSULE (FP) PO PRN ×2 (10:01→21:33)
[2018-11-24] MEDS: LISINOPRIL 10 MG TABLET (FP) PO SCH (10:01)
[2018-11-24] MEDS: NICOTINE 21 MG/24 HOURS TOPICAL PATCH TD SCH (10:01)
[2018-11-24] MEDS: QUEtiapine FUMARATE 100 MG TABLET (FP) PO SCH (21:31)
[2018-11-24] MEDS: THIAMINE HCL 100 MG TABLET (FP) PO SCH (21:31)
[2018-11-24] MEDS: BUDESONIDE/FORMETEROL FUMARATE 160/4.5 mcg INHALER IH SCH (21:32)
[2018-11-25] MEDS: METHADONE HCL 40 MG DISPERSABLE TABLET PO SCH (06:23)
[2018-11-25] MEDS: metFORMIN HCL 500 MG TABLET (FP) PO SCH (07:02)
[2018-11-25] MEDS: PRENATAL VITAMINS W/ FOLIC ACID TABLET (FP) PO SCH (09:39)
[2018-11-25] MEDS: PARoxetine HCL 20 MG TABLET PO SCH (09:39)
[2018-11-25] MEDS: NICOTINE 21 MG/24 HOURS TOPICAL PATCH TD SCH (09:39)
[2018-11-25] MEDS: LISINOPRIL 10 MG TABLET (FP) PO SCH (09:39)
[2018-11-25] MEDS: BUDESONIDE/FORMETEROL FUMARATE 160/4.5 mcg INHALER IH SCH ×2 (09:40→21:23)
[2018-11-25] MEDS: hydrOXYzine PAMOATE 25 MG CAPSULE (FP) PO PRN ×2 (09:41→21:23)
[2018-11-25] MEDS: BACITRACIN 15 GM TUBE TOPICAL OINTMENT TP SCH (09:42)
[2018-11-25] MEDS: THIAMINE HCL 100 MG TABLET (FP) PO SCH (21:22)
[2018-11-25] MEDS: QUEtiapine FUMARATE 100 MG TABLET (FP) PO SCH (21:22)
[2018-11-26] MEDS: METHADONE HCL 40 MG DISPERSABLE TABLET PO SCH (05:49)
[2018-11-26] MEDS: metFORMIN HCL 500 MG TABLET (FP) PO SCH (06:51)
[2018-11-26] MEDS: PRENATAL VITAMINS W/ FOLIC ACID TABLET (FP) PO SCH (09:32)
[2018-11-26] MEDS: BACITRACIN 15 GM TUBE TOPICAL OINTMENT TP SCH (09:32)
[2018-11-26] MEDS: LISINOPRIL 10 MG TABLET (FP) PO SCH (09:33)
[2018-11-26] MEDS: hydrOXYzine PAMOATE 25 MG CAPSULE (FP) PO PRN ×2 (09:33→21:13)
[2018-11-26] MEDS: BUDESONIDE/FORMETEROL FUMARATE 160/4.5 mcg INHALER IH SCH ×2 (09:33→21:12)
[2018-11-26] MEDS: PARoxetine HCL 20 MG TABLET PO SCH (09:33)
[2018-11-26] MEDS: RANITIDINE HCL 150 MG TABLET (FP) PO PRN (09:34)
[2018-11-26] MEDS: NICOTINE 21 MG/24 HOURS TOPICAL PATCH TD SCH (09:35)
[2018-11-26] MEDS: QUEtiapine FUMARATE 100 MG TABLET (FP) PO SCH (21:13)
[2018-11-26] MEDS: THIAMINE HCL 100 MG TABLET (FP) PO SCH (21:13)
[2018-11-27] MEDS: METHADONE HCL 40 MG DISPERSABLE TABLET PO SCH (05:58)
[2018-11-27] MEDS: metFORMIN HCL 500 MG TABLET (FP) PO SCH (07:05)
[2018-11-27] MEDS: LISINOPRIL 10 MG TABLET (FP) PO SCH (09:58)
[2018-11-27] MEDS: PRENATAL VITAMINS W/ FOLIC ACID TABLET (FP) PO SCH (09:58)
[2018-11-27] MEDS: NICOTINE 21 MG/24 HOURS TOPICAL PATCH TD SCH (09:58)
[2018-11-27] MEDS: PARoxetine HCL 20 MG TABLET PO SCH (09:58)
[2018-11-27] MEDS: RANITIDINE HCL 150 MG TABLET (FP) PO PRN (09:59)
[2018-11-27] MEDS: BACITRACIN 15 GM TUBE TOPICAL OINTMENT TP SCH (10:00)
[2018-11-27] MEDS: BUDESONIDE/FORMETEROL FUMARATE 160/4.5 mcg INHALER IH SCH ×2 (10:00→21:35)
[2018-11-27] MEDS: THIAMINE HCL 100 MG TABLET (FP) PO SCH (21:34)
[2018-11-27] MEDS: QUEtiapine FUMARATE 100 MG TABLET (FP) PO SCH (21:34)
[2018-11-27] MEDS: hydrOXYzine PAMOATE 25 MG CAPSULE (FP) PO PRN (21:34)
[2018-11-28] MEDS: METHADONE HCL 40 MG DISPERSABLE TABLET PO SCH (06:03)
[2018-11-28] MEDS: metFORMIN HCL 500 MG TABLET (FP) PO SCH (06:06)
[2018-11-28] MEDS: NICOTINE 21 MG/24 HOURS TOPICAL PATCH TD SCH (09:28)
[2018-11-28] MEDS: PARoxetine HCL 20 MG TABLET PO SCH (09:28)
[2018-11-28] MEDS: RANITIDINE HCL 150 MG TABLET (FP) PO PRN (09:29)
[2018-11-28] MEDS: BACITRACIN 15 GM TUBE TOPICAL OINTMENT TP SCH (09:29)
[2018-11-28] MEDS: PRENATAL VITAMINS W/ FOLIC ACID TABLET (FP) PO SCH (09:29)
[2018-11-28] MEDS: LISINOPRIL 10 MG TABLET (FP) PO SCH (09:29)
[2018-11-28] MEDS: hydrOXYzine PAMOATE 25 MG CAPSULE (FP) PO PRN ×2 (09:30→21:02)
[2018-11-28] MEDS: BUDESONIDE/FORMETEROL FUMARATE 160/4.5 mcg INHALER IH SCH ×2 (09:31→21:02)
[2018-11-28] MEDS: THIAMINE HCL 100 MG TABLET (FP) PO SCH (21:01)
[2018-11-28] MEDS: QUEtiapine FUMARATE 100 MG TABLET (FP) PO SCH (21:01)
[2018-11-29] MEDS: METHADONE HCL 40 MG DISPERSABLE TABLET PO SCH (06:13)
[2018-11-29] MEDS: metFORMIN HCL 500 MG TABLET (FP) PO SCH (06:14)
[2018-11-29] MEDS: PARoxetine HCL 20 MG TABLET PO SCH (09:41)
[2018-11-29] MEDS: hydrOXYzine PAMOATE 25 MG CAPSULE (FP) PO PRN ×2 (09:41→21:23)
[2018-11-29] MEDS: LISINOPRIL 10 MG TABLET (FP) PO SCH (09:41)
[2018-11-29] MEDS: PRENATAL VITAMINS W/ FOLIC ACID TABLET (FP) PO SCH (09:41)
[2018-11-29] MEDS: BACITRACIN 15 GM TUBE TOPICAL OINTMENT TP SCH (09:41)
[2018-11-29] MEDS: NICOTINE 21 MG/24 HOURS TOPICAL PATCH TD SCH (09:41)
[2018-11-29] MEDS: BUDESONIDE/FORMETEROL FUMARATE 160/4.5 mcg INHALER IH SCH ×2 (09:42→21:22)
[2018-11-29] MEDS: THIAMINE HCL 100 MG TABLET (FP) PO SCH (21:22)
[2018-11-29] MEDS: QUEtiapine FUMARATE 100 MG TABLET (FP) PO SCH (21:22)
[2018-11-30] MEDS: METHADONE HCL 40 MG DISPERSABLE TABLET PO SCH (05:57)
[2018-11-30 06:46] VITALS: TEMP 98.4
[2018-11-30] MEDS: metFORMIN HCL 500 MG TABLET (FP) PO SCH (07:36)
[2018-11-30] MEDS: PARoxetine HCL 20 MG TABLET PO SCH (09:43)
[2018-11-30] MEDS: NICOTINE 21 MG/24 HOURS TOPICAL PATCH TD SCH (09:43)
[2018-11-30] MEDS: LISINOPRIL 10 MG TABLET (FP) PO SCH (09:43)
[2018-11-30] MEDS: PRENATAL VITAMINS W/ FOLIC ACID TABLET (FP) PO SCH (09:43)
[2018-11-30] MEDS: hydrOXYzine PAMOATE 25 MG CAPSULE (FP) PO PRN ×2 (09:45→21:06)
[2018-11-30] MEDS: RANITIDINE HCL 150 MG TABLET (FP) PO PRN (09:45)
[2018-11-30] MEDS: BUDESONIDE/FORMETEROL FUMARATE 160/4.5 mcg INHALER IH SCH ×2 (09:46→23:18)
[2018-11-30] MEDS: BACITRACIN 15 GM TUBE TOPICAL OINTMENT TP SCH (10:53)
--- NOTE | 2018-11-30 14:01 | DS ---
[facility] Rehab Discharge Summary - [facility] Rehab Discharge Summary Admission Date: 11/14/18 Discharge Date: 12/01/18 - History Present History: Alcohol dependence, Opioid dependence Pertinent Past History: 58 Y.O. MAN WITH AN EXTENSIVE HISTORY OF ALCOHOL DEPENDENCE HE LAST COMPLETED DETOX HERE ON 09/26/18 AND REHAB ON 10/10/18. LONGEST PERIOD OF SOBRIETY HAS BEEN 1.5 YEARS. HE REPORTS HE'S CURRENTLY ENROLLED AT [facility]S [facility]. - Discharge Physical Exam Vital Signs: Vital Signs Temperature 98.4 F 11/30/18 06:45 Pulse Rate 95 H 11/30/18 09:30 Respiratory Rate 18 11/30/18 09:30 Blood Pressure 110/79 11/30/18 09:30 O2 Sat by Pulse Oximetry (%) Pertinent Admission Physical Exam Findings: General Appearance: No apparent distress HEENTM: Normocephalic,PERRLA Respiratory: Lungs Clear, Neck:supple Cardiology: s1 s2 Abdominal:+Bowel Sounds Musculoskeletal: Gait Steady, Pelvis Stable, full ROM, full weight bearing Neurological: CN 2-12 intact, no neurological deficits noted Integumentary: Color consistent throughout trunk and extremities, good turgor - Treatment Discharge Condition: Outpatient referral accepted (Patient will return to [facility] for MMTP and [facility] for counseling and social director.) Hospital Course: Patient attended groups, met 1:1 with counselor, was adherent to treatment plan and medication regimen. During his stay in rehab had no significant medical issues. Medically stable for discharge. - Medication Discharge Medications: Ambulatory Orders Hydroxyzine HCl 50 mg PO PRN 09/21/18 Paroxetine HCl [Paxil -] 40 mg PO DAILY 09/21/18 Metformin HCl [Glucophage] 500 mg PO BID #30 tablet 10/10/18 Budesonide/Formeterol Fumarate [SYMBICORT 160/4.5mcg -] 1 inh PO BID #1 inhaler 12/01/18 Lisinopril 10 mg PO DAILY #14 tablet 12/01/18 Pantoprazole Sodium [Protonix -] 40 mg PO DAILY #30 tablet.ec 12/01/18 Paroxetine HCl [Paxil] 40 mg PO DAILY #30 tablet 12/01/18 Quetiapine Fumarate [Seroquel] 100 tab PO HS #30 tablet 12/01/18 - Medication-Assisted Treatment (MAT) Medication-Assisted Treatment (MAT): No MAT Follow-up Referral: Patient will return to [facility] for MMTP - Discharge Instructions Diet, activity, other medical instructions: Diet: as tolerated Activity: as tolerated Other medical instructions: Please keep appointment with aftercare program and make an appointment with PCP within 2 weeks of discharge from rehab. - Diagnosis (1) Alcohol dependence with uncomplicated withdrawal Current Visit: No Status: Chronic - Follow-up Referral Minutes to complete discharge: 20 - AMA Did Patient Leave Against Medical Advice: No
[2018-11-30] MEDS: QUEtiapine FUMARATE 100 MG TABLET (FP) PO SCH (21:06)
[2018-11-30] MEDS: THIAMINE HCL 100 MG TABLET (FP) PO SCH (21:06)
[2018-11-30] MEDS: MELATONIN 5 MG TABLETS PO PRN (21:06)
[2018-12-01] MEDS ORDERED: METHADONE HCL 40 MG DISPERSABLE TABLET PO SCH (06:00)
[2018-12-01 06:39] VITALS: BP 100/66; PULSE 110
[2018-12-01] MEDS: metFORMIN HCL 500 MG TABLET (FP) PO SCH (07:21)
[2018-12-01] MEDS ORDERED: PT OWN MED DRAWER 7, Y5N ONE (08:55)
--- NOTE | 2018-12-01 09:32 | PN ---
[facility] Progress Note Note: Patient is discharged today. Scripts for 30 days supply of medications(Paxil 40 mg/day, Seroquel 100 mg/hs) are electronically transmitted to [facility] [id number] [place] [address]
[2018-12-01] MEDS: PRENATAL VITAMINS W/ FOLIC ACID TABLET (FP) PO SCH (09:36)
[2018-12-01] MEDS: LISINOPRIL 10 MG TABLET (FP) PO SCH (09:36)
[2018-12-01] MEDS: hydrOXYzine PAMOATE 25 MG CAPSULE (FP) PO PRN (09:36)
[2018-12-01] MEDS: BUDESONIDE/FORMETEROL FUMARATE 160/4.5 mcg INHALER IH SCH (09:36)
[2018-12-01] MEDS: PARoxetine HCL 20 MG TABLET PO SCH (09:36)
[2018-12-01] MEDS: BACITRACIN 15 GM TUBE TOPICAL OINTMENT TP SCH (09:37)
[2018-12-01] MEDS: NICOTINE 21 MG/24 HOURS TOPICAL PATCH TD SCH (09:38)
== END 2018-12-01 09:55 | disposition home or self-care (01) | DRG 772 ==
LOC: YASAS 19:17 → Y3W 19:18
PROVIDERS: ADMIT Neuromusculoskeletal Medicine & OMM; ATTEND Neuromusculoskeletal Medicine & OMM
PROC: HZ42ZZZ Group Counseling for Substance Abuse Treatment, Cognitive-Behavioral (ICD-10-PCS; principal; 2018-11-14)
DX: F10.20 Alcohol dependence, uncomplicated (principal); F11.20 Opioid dependence, uncomplicated; F17.210 Nicotine dependence, cigarettes, uncomplicated; D64.9 Anemia, unspecified; K21.9 Gastro-esophageal reflux disease without esophagitis; B18.2 Chronic viral hepatitis C; E66.9 Obesity, unspecified; Z68.31 Body mass index [BMI] 31.0-31.9, adult
CPT/HCPCS: 82962

== ENCOUNTER 2019-04-10 14:02 | Inpatient (IN) | payer OTHER ==
[2019-04-10 15:56] VITALS: BMI 30.5
--- NOTE | 2019-04-10 21:59 | HP ---
CIWA Score Nausea/Vomitin-Mild Nausea/No Vomiting Muscle Tremors: 5 Anxiety: 3 Agitation: 3 Paroxysmal Sweats: 2 Orientation: 3-Disoriented Date>2 days Tacttile Disturbances: 0-None Auditory Disturbances: 0-None Visual Disturbances: 0-None Headache: 3-Moderate CIWA-Ar Total Score: 20 - Admission Criteria OASAS Guidelines: Admission for Medically Managed Detox: Requires at least one of the followin. CIWA greater than 12 2. Seizures within the past 24 hours 3. Delirium tremens within the past 24 hours 4. Hallucinations within the past 24 hours 5. Acute intervention needed for co occurring medical disorder 6. Acute intervention needed for co occurring psychiatric disorder 7. Severe withdrawal that cannot be handled at a lower level of care (continued vomiting, continued diarrhea, abnormal vital signs) requiring intravenous medication and/or fluids 8. Admitting History and Physical - Smoking History Smoking history: Current every day smoker Have you smoked in the past 12 months: Yes Aproximately how many cigarettes per day: 20 - Alcohol/Substance Use Hx Alcohol Use: Yes Admission ROS [facility] - [facility] Chief Complaint: Alcohol withdrawal symptoms Allergies/Adverse Reactions: Allergies Allergy/AdvReac Type Severity Reaction Status Date / Time No Known Allergies Allergy Verified 04/10/19 15:42 History of Present Illness: 58 years old male with a long history of alcohol dependence is seeking admission to detox. Patient reports multiple detox admissions, last at [facility]. His last admission to [facility] was for the period 11/09/2018 - 2018 and he reports insignificant period of sobriety. He has medical history of hypertension, Hep. C, Diabetes Type 2, Anemia, GERD and Psych. history of Bipolar disorder, schizophrenia and depression. He reports intermittent blackouts and denies seizures. His bilateral lower extremities and hands are swollen. Patient reports that he is on methadone 80mg tablet oral daily with [facility]. Dose is yet to be confirmed by the nurse. Exam Limitations: Intoxication - Ebola screening Have you traveled outside of the country in the last 21 days: No Have you had contact with anyone from an Ebola affected area: No Do you have a fever: No - Review of Systems Constitutional: Chills, Diaphoresis, Malaise, Night Sweats EENT: reports: No Symptoms Reported Respiratory: reports: No Symptoms reported Cardiac: reports: No Symptoms Reported GI: reports: Nausea, Poor Fluid Intake, Abdominal cramping : reports: No Symptoms Reported Musculoskeletal: reports: Joint Swelling, Other (bilateral leg pain) Integumentary: reports: Dryness, Flushing Neuro: reports: Headache, Tremors Endocrine: reports: No Symptoms Reported Hematology: reports: No Symptoms Reported Psychiatric: reports: Anxious, Depressed Other Systems: Reviewed and Negative Patient History - Patient Medical History Hx Anemia: No Hx Asthma: No Hx Chronic Obstructive Pulmonary Disease (COPD): No Hx Cancer: No Hx Cardiac Disorders: No Hx Congestive Heart Failure: No Hx Hypertension: Yes (Lisinopril) Hx Hypercholesterolemia: No Hx Pacemaker: No HX Cerebrovascular Accident: No Hx Seizures: No Hx Dementia: No Hx Diabetes: Yes (Metformin) Hx Gastrointestinal Disorders: No Hx Liver Disease: No Hx Genitourinary Disorders: No Hx Sexually Transmitted Disorders: No Hx Renal Disease (ESRD): No Hx Thyroid Disease: No Hx Human Immunodeficiency Virus (HIV): No (Negative 2019) Hx Hepatitis C: Yes (Not treated) Hx Depression: Yes Hx Suicide Attempt: No Hx Bipolar Disorder: Yes (ON SEROQUEL, PAXIL) Hx Schizophrenia: Yes - Patient Surgical History Past Surgical History: Yes Hx Neurologic Surgery: No Hx Cataract Extraction: No Hx Cardiac Surgery: No Hx Lung Surgery: No Hx Breast Surgery: No Hx Breast Biopsy: No Hx Abdominal Surgery: Yes (surgery for perforated ulcer in 1993) Hx Appendectomy: No Hx Cholecystectomy: No Hx Genitourinary Surgery: No Hx Section: No Hx Orthopedic Surgery: No Anesthesia Reaction: No - PPD History Previous Implant?: Yes (PPD POSITIVE. TREATED WITH INH 1994) Implanted On Prior [facility] Admission?: No Results: TREATED IN 1994 PPD to be Administered?: No - Reproductive History Patient is a Female of Child Bearing Age (11 -55 yrs old): No (Male) - Smoking Cessation Smoking history: Current every day smoker Have you smoked in the past 12 months: Yes Aproximately how many cigarettes per day: 20 Cigars Per Day: 0 Hx Chewing Tobacco Use: No Initiated information on smoking cessation: Yes 'Breaking Loose' booklet given: 04/10/19 - Substance & Tx. History Hx Alcohol Use: Yes Hx Substance Use: No Substance Use Type: Alcohol, Prescribed Hx Substance Use Treatment: Yes ([facility]) - Substances abused Alcohol Substance route: Oral Frequency: Daily Amount used: (3) 6 packs 24oz beer Age of first use: 17 Date of last use: 04/10/19 Heroin Substance route: Inhalation Frequency: Daily Amount used: 2 bags Age of first use: 17 Date of last use: 09/21/18 Alprazolam (Xanax) Substance route: Oral Frequency: Daily Amount used: 2 pills Age of first use: 19 Date of last use: 04/09/19 Admission Physical Exam [facility] - Vital Signs Vital Signs: Vital Signs - 24 hr 04/10/19 15:41 Temperature 97.3 F L Pulse Rate 95 H Respiratory 20 Rate Blood Pressure 100/71 - Physical General Appearance: Yes: Moderate Distress, Intoxicated, Tremorous, Irritable, Sweating HEENTM: Yes: Nasal Congestion Respiratory: Yes: Lungs Clear, Normal Breath Sounds, No Respiratory Distress Neck: Yes: Within Normal Limits Breast: Yes: Breast Exam Deferred Cardiology: Yes: Tachycardia Abdominal: Yes: Normal Bowel Sounds, Soft Genitourinary: Yes: Within Normal Limits Back: Yes: Normal Inspection Musculoskeletal: Yes: Joint swelling Extremities: Yes: Tremors, Swelling Neurological: Yes: Confused (unable to remember date and name of present President) Integumentary: Yes: Warm Lymphatic: Yes: Within Normal Limits - Diagnostic (1) Methadone maintenance therapy patient Current Visit: Yes Status: Chronic (2) Alcohol dependence with uncomplicated withdrawal Current Visit: Yes Status: Acute (3) Essential hypertension Current Visit: Yes Status: Chronic (4) Gastroesophageal reflux disease Current Visit: Yes Status: Chronic Qualifiers: Esophagitis presence: without esophagitis Qualified Code(s): K21.9 - Gastro -esophageal reflux disease without esophagitis (5) Hepatitis C carrier Current Visit: Yes Status: Chronic (6) Nicotine dependence Current Visit: Yes Status: Chronic Qualifiers: Nicotine product type: cigarettes Substance use status: in withdrawal Qualified Code(s): F17.213 - Nicotine dependence, cigarettes, with withdrawal (7) Anemia Current Visit: Yes Status: Chronic Qualifiers: Anemia type: unspecified type Qualified Code(s): D64.9 - Anemia, unspecified Cleared for Admission S - Detox or Rehab [facility] Level of Care: Medically Managed Detox Regimen/Protocol: Librium Breathalyzer - Breathalyzer Breathalyzer: 0.183 Urine Drug Screen - Test Device Lot number: [id number] Expiration date: 10/26/20 - Control Is test valid?: Yes - Results Drug screen NEGATIVE: No Urine drug screen results: MTD-Methadone Inpatient Rehab Admission - Rehab Decision to Admit Inpatient rehab admission?: No
[2019-04-10] MEDS ORDERED: MAGNESIUM HYDROX 2400MG/30ML ORAL SUSPENSION 30 ML CUP PO PRN (22:19)
[2019-04-10] MEDS ORDERED: ACETAMINOPHEN 325 MG TABLET (FP) PO PRN ×2 (22:19)
[2019-04-10] MEDS ORDERED: chlordiazePOXIDE HCL 10 MG CAPSULE PO PRN (22:19)
[2019-04-10] MEDS ORDERED: MAG HYDROX/AL HYDROX/SIMETH 30 ML UNIT-DOSE CUP PO PRN (22:19)
[2019-04-10] MEDS ORDERED: MENTHOL/PHENOL 1 EACH UD MM PRN (22:19)
[2019-04-10] MEDS ORDERED: NICOTINE POLACRILEX 2 MG GUM BUC PRN (22:19)
[2019-04-10] MEDS ORDERED: IBUPROFEN 400 MG TABLET (FP) PO PRN (22:19)
[2019-04-10] MEDS ORDERED: METHOCARBAMOL 500 MG TABLET PO PRN (22:19)
[2019-04-10] MEDS ORDERED: MELATONIN 5 MG TABLETS PO PRN (22:19)
[2019-04-10] MEDS ORDERED: MAGNESIUM CITRATE 300 ML BOTTLE PO PRN (22:19)
[2019-04-10] MEDS: chlordiazePOXIDE HCL 25 MG CAPSULE PO SCH (23:33)
[2019-04-11] MEDS: chlordiazePOXIDE HCL 25 MG CAPSULE PO SCH (05:24)
[2019-04-11] MEDS: metFORMIN HCL 500 MG TABLET (FP) PO SCH ×2 (06:13→17:50)
--- NOTE | 2019-04-11 08:10 | CONSULT ---
[facility] Psychiatric Consult - Data Date of interview: 04/11/19 Admission source: Self-referred Identifying data: Mr Soto is a 58 years old male, father of a 22 years old son, unemployed on public assistance, domiciled seeking detox treatment for alcohol, opioid and benzodiazepine Substance Abuse History: Reports history of alcohol and heroin use. Refer to addiction counselor's summary for further information Medical History: Significant for hypertension, diabetes mellitus, hepatitis C, history of surgery for perforated peptic ulcer. Smokes cigarettes1 ppd Psychiatric History: Patient reports being diagnosed with Bipolar Schizophrenia years ago. Reports that he currently receives outpatient psychiatric treatment at [facility] and he is prescribed Paxil, Seroquel, Gabapentin and Ambien. [facility] at [address] [place] [address] in [facility] contacted)[phone]. According to pharmacist, scripts for Paxil 40 mg/day, Gabapentin 600 mg/tid, Seroquel 50 mg/hs, Ambien 10 mg.hs and Vistaril were filled on 03/07/19. Denies previous psychiatric hospitalization or suicide attempt. At present, denies experiencing psychotic, manic symptoms, S/H ideations. However, he reports feeling depressed and sleeping poorly. Patient told procedure writer that he hardly takes Paxil and does not want to take it and Vistaril during this admission Physical/Sexual Abuse/Trauma History: Denies history of abuse of any type as well as DV relationship Additional Comment: Reports history of previous arrest for "steering" Mental Status Exam - Mental Status Exam Alert and Oriented to: Time, Place, Person Cognitive Function: Fair Mood: Depressed Affect: Appropriate Patient Behavior: Cooperative Speech Pattern: Clear Voice Loudness: Normal Thought Process: Intact, Goal Oriented Thought Disorder: Not Present Hallucinations: Denies Suicidal Ideation: Denies Homicidal Ideation: Denies Insight/Judgement: Poor Sleep: Poorly Appetite: Poor Muscle strength/Tone: Normal Gait/Station: Normal Psychiatric Findings - Problem List ([place] 1, 2,3) (1) Bipolar disorder Current Visit: No Status: Chronic (2) Schizoaffective disorder Current Visit: Yes Status: Ruled-out (3) Substance induced mood disorder Current Visit: Yes Status: Acute (4) Substance-induced sleep disorder Current Visit: No Status: Acute (5) Sedative, hypnotic or anxiolytic abuse Current Visit: Yes Status: Acute (6) Alcohol dependence with uncomplicated withdrawal Current Visit: Yes Status: Acute (7) Opioid dependence on agonist therapy Current Visit: No Status: Chronic (8) Nicotine dependence Current Visit: Yes Status: Chronic Qualifiers: Nicotine product type: cigarettes Substance use status: in withdrawal Qualified Code(s): F17.213 - Nicotine dependence, cigarettes, with withdrawal (9) Diabetes mellitus Current Visit: Yes Status: Chronic (10) Anemia Current Visit: Yes Status: Chronic Qualifiers: Anemia type: unspecified type Qualified Code(s): D64.9 - Anemia, unspecified (11) Essential hypertension Current Visit: Yes Status: Chronic (12) Gastroesophageal reflux disease Current Visit: Yes Status: Chronic Qualifiers: Esophagitis presence: without esophagitis Qualified Code(s): K21.9 - Gastro -esophageal reflux disease without esophagitis (13) Hepatitis C carrier Current Visit: Yes Status: Chronic (14) s/p surgry for perforated peptic ulcer with peritonitis Current Visit: No Status: Resolved - Initial Treatment Plan Initial Treatment Plan: 1) Resume Seroquel 50 mg po HS, Gabapentin 600 mg po TID. 2) Start Belsomra 10 mg po HS prn for insomnia. 3) Continue inpatient detoxification
[2019-04-11] MEDS ORDERED: METHADONE HCL 40 MG DISPERSABLE TABLET PO ONE (09:06)
[2019-04-11 09:43] LABS: HEMATOCRIT 35.8 % (35.4-49); HEMOGLOBIN 11.7 GM/dL (11.7-16.9); MCH 26.4 pg (25.7-33.7); MCHC 32.7 g/dl (32.0-35.9); MEAN CELL VOLUME 80.8 fl (80-96); MEAN PLT VOLUME 7.9 fl (7.5-11.1); PLATELET COUNT 233 K/MM3 (134-434); RBC 4.44 M/mm3 (4.00-5.60); RDW 17.1 % (11.9-15.9); WHITE BLOOD COUNT 3.4 K/mm3 (4.0-10.0)
[2019-04-11 10:01] LABS: ALBUMIN 3.2 g/dl (3.4-5.0); BILIRUBIN,TOTAL 0.4 mg/dL (0.2-1); BLOOD UREA NITROGEN 8.2 mg/dL (7-18); CALCIUM 8.5 mg/dL (8.5-10.1); CREATININE 0.6 mg/dL (0.55-1.3); POTASSIUM 4.3 mmol/L (3.5-5.1); TOT PROT 7.3 g/dl (6.4-8.2)
[2019-04-11] MEDS: PANTOPRAZOLE 40 MG TABLET PO SCH (10:08)
[2019-04-11] MEDS: PRENATAL VITAMINS W/ FOLIC ACID TABLET (FP) PO SCH (10:08)
[2019-04-11] MEDS: NICOTINE 21 MG/24 HOURS TOPICAL PATCH TD SCH (10:08)
[2019-04-11] MEDS: LISINOPRIL 10 MG TABLET (FP) PO SCH (10:08)
[2019-04-11] MEDS: BISMUTH SUBSALICYLATE 524 MG/30 ML UD PO PRN (11:01)
--- NOTE | 2019-04-11 11:12 | PN ---
S CIWA - CIWA Score Nausea/Vomitin Muscle Tremors: 2 Anxiety: 2 Agitation: 2 Paroxysmal Sweats: No Perspiration Orientation: 0-Oriented Tacttile Disturbances: 1-Very Mild Itch/Numbness Auditory Disturbances: 0-None Visual Disturbances: 0-None Headache: 2-Mild CIWA-Ar Total Score: 11 S Progress Note (SOAP) Subjective: alert,irritable,anxious,interrupted sleep,tremor,pain in the body and back Objective: 04/11/19 11:08 Vital Signs Temperature 97.9 F 04/11/19 05:00 Pulse Rate 90 04/11/19 05:00 Respiratory Rate 20 04/11/19 05:00 Blood Pressure 160/91 04/11/19 05:00 O2 Sat by Pulse Oximetry (%) Laboratory Last Values WBC 3.4 K/mm3 (4.0-10.0) L 04/11/19 07:20 RBC 4.44 M/mm3 (4.00-5.60) 04/11/19 07:20 Hgb 11.7 GM/dL (11.7-16.9) 04/11/19 07:20 Hct 35.8 % (35.4-49) D 04/11/19 07:20 MCV 80.8 fl (80-96) 04/11/19 07:20 MCH 26.4 pg (25.7-33.7) 04/11/19 07:20 MCHC 32.7 g/dl (32.0-35.9) 04/11/19 07:20 RDW 17.1 % (11.9-15.9) H 04/11/19 07:20 Plt Count 233 K/MM3 (134-434) 04/11/19 07:20 MPV 7.9 fl (7.5-11.1) 04/11/19 07:20 Sodium 134 mmol/L (136-145) L 04/11/19 07:20 Potassium 4.3 mmol/L (3.5-5.1) 04/11/19 07:20 Chloride 99 mmol/L (98-107) 04/11/19 07:20 Carbon Dioxide 29 mmol/L (21-32) 04/11/19 07:20 Anion Gap 7 MMOL/L (8-16) L 04/11/19 07:20 BUN 8.2 mg/dL (7-18) 04/11/19 07:20 Creatinine 0.6 mg/dL (0.55-1.3) 04/11/19 07:20 Est GFR (CKD-EPI)AfAm 130.27 04/11/19 07:20 Est GFR (CKD-EPI)NonAf 112.40 04/11/19 07:20 POC Glucometer 86 UNITS (80-120) 04/11/19 05:26 Random Glucose 75 mg/dL (74-106) 04/11/19 07:20 Calcium 8.5 mg/dL (8.5-10.1) 04/11/19 07:20 Total Bilirubin 0.4 mg/dL (0.2-1) 04/11/19 07:20 AST 76 U/L (15-37) H 04/11/19 07:20 ALT 62 U/L (13-61) H 04/11/19 07:20 Alkaline Phosphatase 151 U/L (45-117) H 04/11/19 07:20 Total Protein 7.3 g/dl (6.4-8.2) 04/11/19 07:20 Albumin 3.2 g/dl (3.4-5.0) L 04/11/19 07:20 RPR Titer Nonreactive (NONREACTIVE) 04/11/19 07:20 Assessment: 04/11/19 11:10 withdrawal symptom Plan: detox changed from librium to ativan regimen due elevation of ast,alt,alkaline phosphatase and history of hepatitis c
--- NOTE | 2019-04-11 12:44 | EKG ---
Test Reason : Blood Pressure : / mmHG Vent. Rate : 089 BPM Atrial Rate : 089 BPM P-R Int : 118 ms QRS Dur : 102 ms QT Int : 392 ms P-R-T Axes : -12 016 015 degrees QTc Int : 476 ms NORMAL SINUS RHYTHM MODERATE VOLTAGE CRITERIA FOR LVH, MAY BE NORMAL VARIANT NONSPECIFIC ST ABNORMALITY ABNORMAL ECG Confirmed by MD MARY, KOFFI ([id number]) on 04/11/2019 12:44:08 PM Referred By: DR DUMONT Confirmed By:KOFFI HERNANDEZ MD
[2019-04-11] MEDS: GABAPENTIN 300 MG CAPSULE PO SCH ×2 (14:17→22:02)
[2019-04-11] MEDS: LORazepam 1 MG TABLET PO PRN (15:08)
[2019-04-11] MEDS: LORazepam 2 MG TABLET PO SCH ×2 (17:49→22:03)
[2019-04-11] MEDS: QUEtiapine FUMARATE 50 MG TABLET PO SCH (22:02)
[2019-04-11] MEDS: THIAMINE HCL 100 MG TABLET (FP) PO SCH (22:02)
[2019-04-11] MEDS: SUVOREXANT 10 MG TABLET PO PRN (22:03)
[2019-04-12] MEDS ORDERED: chlordiazePOXIDE 5 MG CAPSULE PO SCH (05:00)
[2019-04-12] MEDS: GABAPENTIN 300 MG CAPSULE PO SCH ×3 (06:25→21:41)
[2019-04-12] MEDS: LORazepam 2 MG TABLET PO SCH ×4 (06:25→22:34)
[2019-04-12] MEDS: metFORMIN HCL 500 MG TABLET (FP) PO SCH ×2 (06:26→17:43)
[2019-04-12] MEDS: METHADONE HCL 40 MG DISPERSABLE TABLET PO SCH (06:26)
[2019-04-12] MEDS: NICOTINE 21 MG/24 HOURS TOPICAL PATCH TD SCH (10:50)
[2019-04-12] MEDS: PANTOPRAZOLE 40 MG TABLET PO SCH (10:51)
[2019-04-12] MEDS: PRENATAL VITAMINS W/ FOLIC ACID TABLET (FP) PO SCH (10:51)
[2019-04-12] MEDS: LISINOPRIL 10 MG TABLET (FP) PO SCH (10:51)
[2019-04-12] MEDS ORDERED: ALBUTEROL SO4 HFA INHALER IH PRN (14:12)
--- NOTE | 2019-04-12 14:16 | PN ---
S CIWA - CIWA Score Nausea/Vomitin-Mild Nausea/No Vomiting Muscle Tremors: 2 Anxiety: 2 Agitation: 2 Paroxysmal Sweats: No Perspiration Orientation: 0-Oriented Tacttile Disturbances: 1-Very Mild Itch/Numbness Auditory Disturbances: 0-None Visual Disturbances: 0-None Headache: 1-Very Mild CIWA-Ar Total Score: 9 [facility] Progress Note (SOAP) Subjective: alert,irritable,anxious,interrupted sleep,history of bronchitis on albuterol inhaler Objective: 04/12/19 14:15 Vital Signs Temperature 97.5 F L 04/12/19 10:00 Pulse Rate 120 H 04/12/19 10:00 Respiratory Rate 20 04/12/19 10:00 Blood Pressure 144/96 04/12/19 10:00 O2 Sat by Pulse Oximetry (%) Assessment: 04/12/19 14:15 withdrawal symptom Plan: continue detox ativan regimen,albuterol inhaler 2 puffs q 4 hrs prn for wheezing
[2019-04-12] MEDS: QUEtiapine FUMARATE 50 MG TABLET PO SCH (21:41)
[2019-04-12] MEDS: THIAMINE HCL 100 MG TABLET (FP) PO SCH (21:41)
[2019-04-12] MEDS: BISMUTH SUBSALICYLATE 524 MG/30 ML UD PO PRN (21:49)
[2019-04-13] MEDS ORDERED: chlordiazePOXIDE HCL 10 MG CAPSULE PO PRN
[2019-04-13] MEDS ORDERED: chlordiazePOXIDE HCL 10 MG CAPSULE PO SCH (05:00)
[2019-04-13] MEDS: LISINOPRIL 10 MG TABLET (FP) PO SCH ×2 (05:36→09:56)
[2019-04-13] MEDS: LORazepam 1 MG TABLET PO SCH ×4 (05:41→22:18)
[2019-04-13] MEDS: METHADONE HCL 40 MG DISPERSABLE TABLET PO SCH (05:41)
[2019-04-13] MEDS: GABAPENTIN 300 MG CAPSULE PO SCH ×3 (05:43→22:18)
[2019-04-13] MEDS: metFORMIN HCL 500 MG TABLET (FP) PO SCH ×2 (06:10→16:45)
[2019-04-13] MEDS ORDERED: LISINOPRIL 10 MG TABLET (FP) PO ONE (09:25)
--- NOTE | 2019-04-13 09:27 | PN ---
S CIWA - CIWA Score Nausea/Vomitin Muscle Tremors: 2 Anxiety: 2 Agitation: 1-Slight > Activity Paroxysmal Sweats: 2 Orientation: 1-Uncertain about Date Tacttile Disturbances: 2-Mild Itch/Numbness/Burn Auditory Disturbances: 0-None Visual Disturbances: 1-Very Mild Sensitivity Headache: 0-None Present CIWA-Ar Total Score: 13 [facility]HS Progress Note (SOAP) Subjective: Patient c/o of fatigue, interrupted sleep, sweats Objective: 04/13/19 09:27 Vital Signs Temperature 96.6 F L 04/13/19 07:07 Pulse Rate 120 H 04/13/19 07:07 Respiratory Rate 20 04/13/19 07:07 Blood Pressure 156/113 H 04/13/19 07:07 O2 Sat by Pulse Oximetry (%) Laboratory Last Values WBC 3.4 K/mm3 (4.0-10.0) L 04/11/19 07:20 RBC 4.44 M/mm3 (4.00-5.60) 04/11/19 07:20 Hgb 11.7 GM/dL (11.7-16.9) 04/11/19 07:20 Hct 35.8 % (35.4-49) D 04/11/19 07:20 MCV 80.8 fl (80-96) 04/11/19 07:20 MCH 26.4 pg (25.7-33.7) 04/11/19 07:20 MCHC 32.7 g/dl (32.0-35.9) 04/11/19 07:20 RDW 17.1 % (11.9-15.9) H 04/11/19 07:20 Plt Count 233 K/MM3 (134-434) 04/11/19 07:20 MPV 7.9 fl (7.5-11.1) 04/11/19 07:20 Sodium 134 mmol/L (136-145) L 04/11/19 07:20 Potassium 4.3 mmol/L (3.5-5.1) 04/11/19 07:20 Chloride 99 mmol/L (98-107) 04/11/19 07:20 Carbon Dioxide 29 mmol/L (21-32) 04/11/19 07:20 Anion Gap 7 MMOL/L (8-16) L 04/11/19 07:20 BUN 8.2 mg/dL (7-18) 04/11/19 07:20 Creatinine 0.6 mg/dL (0.55-1.3) 04/11/19 07:20 Est GFR (CKD-EPI)AfAm 130.27 04/11/19 07:20 Est GFR (CKD-EPI)NonAf 112.40 04/11/19 07:20 POC Glucometer 116 UNITS (80-120) 04/13/19 05:38 Random Glucose 75 mg/dL (74-106) 04/11/19 07:20 Calcium 8.5 mg/dL (8.5-10.1) 04/11/19 07:20 Total Bilirubin 0.4 mg/dL (0.2-1) 04/11/19 07:20 AST 76 U/L (15-37) H 04/11/19 07:20 ALT 62 U/L (13-61) H 04/11/19 07:20 Alkaline Phosphatase 151 U/L (45-117) H 04/11/19 07:20 Total Protein 7.3 g/dl (6.4-8.2) 04/11/19 07:20 Albumin 3.2 g/dl (3.4-5.0) L 04/11/19 07:20 RPR Titer Nonreactive (NONREACTIVE) 04/11/19 07:20 Assessment: 04/13/19 09:28 Patient is Aox3 no acute distress EENT WNL Full ROM no gait disturbance elevated BP d/t ETOH withdrawal Plan: increase fluids continue detox one time additional dose of lisinopril 10 mg stat Patient to follow upon discharge continue to monitor
[2019-04-13] MEDS: PRENATAL VITAMINS W/ FOLIC ACID TABLET (FP) PO SCH (09:56)
[2019-04-13] MEDS: PANTOPRAZOLE 40 MG TABLET PO SCH (09:56)
[2019-04-13] MEDS: NICOTINE 21 MG/24 HOURS TOPICAL PATCH TD SCH (09:59)
[2019-04-13] MEDS: LORazepam 1 MG TABLET PO PRN ×2 (13:44→21:06)
[2019-04-13] MEDS ORDERED: cloNIDine HCL 0.1 MG TABLET PO ONE (14:03)
[2019-04-13] MEDS ORDERED: METOPROLOL TARTRATE 25 MG TABLET (FP) PO ONE (16:30)
[2019-04-13] MEDS: THIAMINE HCL 100 MG TABLET (FP) PO SCH (22:18)
[2019-04-13] MEDS: QUEtiapine FUMARATE 50 MG TABLET PO SCH (22:18)
[2019-04-14] MEDS ORDERED: LORazepam 0.5 MG TABLET PO PRN
[2019-04-14] MEDS ORDERED: chlordiazePOXIDE HCL 10 MG CAPSULE PO ONE (05:00)
[2019-04-14] MEDS: METHADONE HCL 40 MG DISPERSABLE TABLET PO SCH (05:12)
[2019-04-14] MEDS: LORazepam 0.5 MG TABLET PO SCH ×4 (05:12→22:01)
[2019-04-14] MEDS: GABAPENTIN 300 MG CAPSULE PO SCH ×3 (05:12→21:57)
[2019-04-14] MEDS: metFORMIN HCL 500 MG TABLET (FP) PO SCH ×2 (06:45→17:22)
[2019-04-14] MEDS: NICOTINE 21 MG/24 HOURS TOPICAL PATCH TD SCH (10:11)
[2019-04-14] MEDS: PANTOPRAZOLE 40 MG TABLET PO SCH (10:11)
[2019-04-14] MEDS: PRENATAL VITAMINS W/ FOLIC ACID TABLET (FP) PO SCH (10:11)
[2019-04-14] MEDS: LISINOPRIL 10 MG TABLET (FP) PO SCH (10:11)
--- NOTE | 2019-04-14 11:05 | PN ---
S CIWA - CIWA Score Nausea/Vomitin-No Nausea/No Vomiting Muscle Tremors: 2 Anxiety: 1-Mildly Anxious Agitation: 1-Slight > Activity Paroxysmal Sweats: No Perspiration Orientation: 0-Oriented Tacttile Disturbances: 0-None Auditory Disturbances: 0-None Visual Disturbances: 0-None Headache: 0-None Present CIWA-Ar Total Score: 4 [facility] Progress Note (SOAP) Subjective: tired sweats Objective: 04/14/19 11:04 Vital Signs Temperature 96.9 F L 04/14/19 09:29 Pulse Rate 97 H 04/14/19 09:29 Respiratory Rate 16 04/14/19 09:29 Blood Pressure 144/93 04/14/19 09:29 O2 Sat by Pulse Oximetry (%) aaox3 ambulating no acute distress Assessment: 04/14/19 11:05 withdrawals Plan: continue detox d/c in am
[2019-04-14] MEDS: THIAMINE HCL 100 MG TABLET (FP) PO SCH (21:58)
[2019-04-14] MEDS: QUEtiapine FUMARATE 50 MG TABLET PO SCH (21:58)
[2019-04-14] MEDS: SUVOREXANT 10 MG TABLET PO PRN (21:59)
[2019-04-15] MEDS ORDERED: LORazepam 0.5 MG TABLET PO ONE (05:00)
[2019-04-15] MEDS: GABAPENTIN 300 MG CAPSULE PO SCH (05:37)
[2019-04-15] MEDS: METHADONE HCL 40 MG DISPERSABLE TABLET PO SCH (05:37)
[2019-04-15] MEDS: metFORMIN HCL 500 MG TABLET (FP) PO SCH (06:19)
[2019-04-15 09:25] VITALS: BP 127/94; PULSE 95; TEMP 97.7
--- NOTE | 2019-04-15 18:18 | DS ---
[facility] Detox Discharge Summary Admission Date: 04/10/19 Discharge Date: 04/15/19 - History Present History: Alcohol Dependence, Opioid Dependence, Sedative Dependence, MMTP Additional Comments: PATIENT WILL RETURN TO [facility] ([place], [place]), WHERE HE HAS PREVIOUSLY BEEN A CLIENT, FOR AFTERCARE. PATIENT ALSO REFERRED TO [facility] ([place], [place]) FOR AFTERCARE. PATIENT WAS DISCHARGED FROM DETOX UNIT IN STABLE MEDICAL CONDITION. Pertinent Past History: Hypertension, Hep C, Diabetes Type 2, Anemia, GERD, Bipolar Disorder, Schizophrenia, Depression, MMTP, Nicotine Dependence, Anemia, History of Surgery to Repair Perforated Ulcer with Peritonitis. - Physical Exam Results Vital Signs: Vital Signs Temperature 97.7 F 04/15/19 09:22 Pulse Rate 95 H 04/15/19 09:22 Respiratory Rate 17 04/15/19 09:22 Blood Pressure 127/94 04/15/19 09:22 O2 Sat by Pulse Oximetry (%) Pertinent Admission Physical Exam Findings: WITHDRAWAL SYMPTOMS. Laboratory Tests 04/11/19 04/11/19 04/11/19 05:26 07:20 07:20 WBC 3.4 L RBC 4.44 Hgb 11.7 Hct 35.8 D MCV 80.8 MCH 26.4 MCHC 32.7 RDW 17.1 H Plt Count 233 MPV 7.9 Sodium 134 L Potassium 4.3 Chloride 99 Carbon Dioxide 29 Anion Gap 7 L BUN 8.2 Creatinine 0.6 Est GFR (CKD-EPI)AfAm 130.27 Est GFR (CKD-EPI)NonAf 112.40 POC Glucometer 86 Random Glucose 75 Calcium 8.5 Total Bilirubin 0.4 AST 76 H ALT 62 H Alkaline Phosphatase 151 H Total Protein 7.3 Albumin 3.2 L RPR Titer 04/11/19 04/11/19 04/12/19 07:20 16:36 06:24 WBC RBC Hgb Hct MCV MCH MCHC RDW Plt Count MPV Sodium Potassium Chloride Carbon Dioxide Anion Gap BUN Creatinine Est GFR (CKD-EPI)AfAm Est GFR (CKD-EPI)NonAf POC Glucometer 79 93 Random Glucose Calcium Total Bilirubin AST ALT Alkaline Phosphatase Total Protein Albumin RPR Titer Nonreactive 04/12/19 04/13/19 04/13/19 16:24 05:38 16:37 WBC RBC Hgb Hct MCV MCH MCHC RDW Plt Count MPV Sodium Potassium Chloride Carbon Dioxide Anion Gap BUN Creatinine Est GFR (CKD-EPI)AfAm Est GFR (CKD-EPI)NonAf POC Glucometer 147 116 119 Random Glucose Calcium Total Bilirubin AST ALT Alkaline Phosphatase Total Protein Albumin RPR Titer 04/14/19 04/14/19 04/15/19 05:15 16:37 05:35 WBC RBC Hgb Hct MCV MCH MCHC RDW Plt Count MPV Sodium Potassium Chloride Carbon Dioxide Anion Gap BUN Creatinine Est GFR (CKD-EPI)AfAm Est GFR (CKD-EPI)NonAf POC Glucometer 76 117 96 Random Glucose Calcium Total Bilirubin AST ALT Alkaline Phosphatase Total Protein Albumin RPR Titer LABS NOTED. - Treatment Hospital Course: Detox Protocol Followed, Detoxed Safely, Responded well, Discharged Condition Good Patient has Accepted a Rehab Referral to: [facility] ([place], [place]); [facility] ([place], [place]). - Medication Discharge Medications: Ambulatory Orders Hydroxyzine HCl 50 mg PO PRN PRN 09/21/18 Metformin HCl [Glucophage] 500 mg PO BID #30 tablet 10/10/18 Budesonide/Formeterol Fumarate [SYMBICORT 160/4.5mcg -] 1 inh PO BID #1 inhaler 12/01/18 Lisinopril 10 mg PO DAILY #14 tablet 12/01/18 Pantoprazole Sodium [Protonix -] 40 mg PO DAILY #30 tablet.ec 12/01/18 Paroxetine HCl [Paxil] 40 mg PO DAILY #30 tablet 12/01/18 Quetiapine Fumarate [Seroquel -] 100 tab PO HS #30 tablet 12/01/18 - Diagnosis (1) Alcohol dependence with uncomplicated withdrawal Status: Acute (2) Sedative, hypnotic or anxiolytic abuse Status: Acute (3) Substance-induced anxiety disorder Status: Acute (4) Substance-induced sleep disorder Status: Acute (5) Anemia Status: Chronic Qualifiers: Anemia type: unspecified type Qualified Code(s): D64.9 - Anemia, unspecified (6) Diabetes mellitus Status: Chronic Qualifiers: Diabetes mellitus type: type 2 Diabetes mellitus mcc insulin use: without mcc use Diabetes mellitus complication status: with other specified complication Qualified Code(s): E11.69 - Type 2 diabetes mellitus with other specified complication (7) Essential hypertension Status: Chronic (8) Gastroesophageal reflux disease Status: Chronic Qualifiers: Esophagitis presence: without esophagitis Qualified Code(s): K21.9 - Gastro -esophageal reflux disease without esophagitis (9) Hepatitis C carrier Status: Chronic (10) Methadone maintenance therapy patient Status: Chronic (11) Nicotine dependence Status: Chronic Qualifiers: Nicotine product type: cigarettes Substance use status: in withdrawal Qualified Code(s): F17.213 - Nicotine dependence, cigarettes, with withdrawal (12) s/p surgry for perforated peptic ulcer with peritonitis Status: Resolved (13) Schizoaffective disorder Status: Ruled-out Qualifiers: Schizoaffective disorder type: unspecified Qualified Code(s): F25.9 - Schizoaffective disorder, unspecified - AMA Did Patient Leave Against Medical Advice: No
== END 2019-04-15 09:06 | disposition home or self-care (01) | DRG 773 ==
LOC: YASAS 14:02 → Y6N 22:52
PROVIDERS: ADMIT Allergy & Immunology; ATTEND Allergy & Immunology
PROC: HZ2ZZZZ Detoxification Services for Substance Abuse Treatment (ICD-10-PCS; principal; 2019-04-10)
DX: F10.230 Alcohol dependence with withdrawal, uncomplicated (principal); F10.220 Alcohol dependence with intoxication, uncomplicated; F11.20 Opioid dependence, uncomplicated; F13.10 Sedative, hypnotic or anxiolytic abuse, uncomplicated; F17.213 Nicotine dependence, cigarettes, with withdrawal; F19.24 Other psychoactive substance dependence with psychoactive substance-induced mood disorder; F19.280 Other psychoactive substance dependence with psychoactive substance-induced anxiety disorder; F19.282 Other psychoactive substance dependence with psychoactive substance-induced sleep disorder; F31.9 Bipolar disorder, unspecified; I10 Essential (primary) hypertension; D64.9 Anemia, unspecified; E11.69 Type 2 diabetes mellitus with other specified complication; B18.2 Chronic viral hepatitis C; R00.0 Tachycardia, unspecified; K21.9 Gastro-esophageal reflux disease without esophagitis; Z79.84 Long term (current) use of oral hypoglycemic drugs
CPT/HCPCS: 36415; 71046-TC-FY; 80053; 82962; 85027; 86593; 93005; 93010; J0735

== ENCOUNTER 2019-08-30 10:05 | Inpatient (IN) | payer OTHER ==
[2019-08-30] MEDS ORDERED: LOPERAMIDE HCL 2 MG CAPSULE PO PRN (11:56)
[2019-08-30] MEDS ORDERED: MAG HYDROX/AL HYDROX/SIMETH 30 ML UNIT-DOSE CUP PO PRN (11:56)
[2019-08-30] MEDS ORDERED: MAGNESIUM HYDROX 2400MG/30ML ORAL SUSPENSION 30 ML CUP PO PRN (11:56)
[2019-08-30] MEDS ORDERED: NICOTINE POLACRILEX 2 MG GUM BUC PRN (11:56)
[2019-08-30] MEDS ORDERED: MAGNESIUM CITRATE 300 ML BOTTLE PO PRN (11:56)
[2019-08-30] MEDS ORDERED: P-EPHED 60MG/TRIPROLIDI 2.5MG TABLET PO PRN (11:56)
[2019-08-30] MEDS ORDERED: ACETAMINOPHEN 325 MG TABLET (FP) PO PRN (11:56)
[2019-08-30] MEDS ORDERED: guaiFENesin 200 MG/10 ML 10 ML UNIT-DOSE CUPS PO PRN (11:56)
--- NOTE | 2019-08-30 11:56 | HP ---
[facility] Rehab Assess/Revision - Admission History Admitted to Rehab from: [facility] Date of Admission to Rehab: 08/30/19 - Vital signs Vital Signs: Vital Signs Period Temp Pulse Resp BP Sys/Mcintyre Pulse Ox Last 24 Hr 98.2 F 116 18 93/56 95 - Findings Detox History & Physical reviewed: Yes Concur with findings: Yes Comments/Additional Findings: transferred from detox to rehab admission as per protocol Inpatient Rehab Admission - Rehab Decision to Admit Inpatient rehab admission?: Yes - Initial Determination Are CD services needed?: Yes Free of communicable disease: Yes Not in need of hospitalization: Yes - Rehab Admission Criteria Previous failed treatment: Yes Poor recovery environment: Yes Comorbidities: Yes Lacks judgement: Yes Patient is meeting Inpatient Rehab admission criteria:: Yes
--- NOTE | 2019-08-30 13:22 | PN ---
[facility] Progress Note Note: patient admitted to rehab. PMHx: 59 Y.O. 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 DENIES SEIZURES. DENIES ANY SIGNIFICANT PERIOD OF CLEAN TIME IN THE PAST 12 MONTHS.PMHx: HTN, BiPolar (?), Schizophrenia, Chronic ulcer, left lower leg Vital Signs Period Temp Pulse Resp BP Sys/Mcintyre Pulse Ox Last 24 Hr 98.2 F 116 18 93/56 95 General: no apparent distress Neck: supple Resp: unlabored MSK: Full weight bearing, steady ETOH Rehab Continue rehab treatment Maintain safety Hydration
--- NOTE | 2019-08-30 13:22 | CONSULT ---
[facility] Psychiatric Consult - Data Date of interview: 08/30/19 Admission source: Transfer from [address] [place] [address]. Identifying data: Transition to [address] for this 59 y/o male who sought continuity of care in rehabilitation treatment ([facility] issues : alcohol, opioid, nicotine) that includes management of schizoaffective disorder. Patient is single, no dependents, domiciled, unemployed and supported on Public Assistance. Substance Abuse History: Rediscussed with the patient. [place] profile as follows : Smoking history: Current every day smoker. Have you smoked in the past 12 months: Yes. Aproximately how many cigarettes per day: 10. Cigars Per Day: 0. Hx Chewing Tobacco Use: No. Initiated information on smoking cessation: Yes. 'Breaking Loose' booklet given: 08/25/19. - Substance & Tx. History. Hx Alcohol Use: Yes. Hx Substance Use: Yes. Substance Use Type: Alcohol, Prescribed (MMTP). Hx Substance Use Treatment: Yes ([facility]). - Substances abused. Alcohol. Substance route: Oral. Frequency: Daily. Amount used: 1 CASE BEER -1L VODKA. Age of first use: 17. Date of last use: 08/25/19 Medical History: Medical profile is remarkable for hypertension, diabetes mellitus, hepatitis C and history of abdominal surgery (perforated peptic ulcer + peritonitis) in 1993. No known allergies. Psychiatric History: No change in longitudinal history since my examination of 08/26/19. History remains as follows : no history of psychiatric hospitalizations. He, however, endorses OPD care at [facility] + methadone maintenance (80 mg/day) at [facility] ([facility] in [facility]. Mr Soto states that he has been diagnosed with Bipolar Disorder, Major Depression and Schizophrenia (years ago). He is reportedly prescribed Paxil 40 mg/day + seroquel 100 mg/hs. No history of suicide attempts. Physical/Sexual Abuse/Trauma History: Patient denies history of abuse. Additional Comment: Urine drug screen results: MTD-Methadone. Noted. Mental Status Exam - Mental Status Exam Alert and Oriented to: Time, Place, Person Cognitive Function: Good Patient Appearance: Well Groomed Mood: Hopeful, Euthymic Affect: Appropriate, Normal Range Patient Behavior: Appropriate, Cooperative Speech Pattern: Clear, Appropriate Voice Loudness: Normal Thought Process: Intact, Goal Oriented Thought Disorder: Not Present Hallucinations: Denies Suicidal Ideation: Denies Homicidal Ideation: Denies Insight/Judgement: Fair Sleep: Poorly, Difficulty falling asleep Appetite: Good Gait/Station: Normal Psychiatric Findings - Problem List ([place] 1, 2,3) (1) Alcohol use disorder Current Visit: Yes Status: Chronic (2) Opioid dependence on agonist therapy Current Visit: Yes Status: Chronic (3) Nicotine dependence Current Visit: Yes Status: Chronic Qualifiers: Nicotine product type: cigarettes Substance use status: uncomplicated Qualified Code(s): F17.210 - Nicotine dependence, cigarettes, uncomplicated (4) Substance induced mood disorder Current Visit: Yes Status: Chronic (5) Schizoaffective disorder Current Visit: Yes Status: Chronic Qualifiers: Schizoaffective disorder type: unspecified Qualified Code(s): F25.9 - Schizoaffective disorder, unspecified (6) Insomnia Current Visit: Yes Status: Chronic - Initial Treatment Plan Initial Treatment Plan: Psychoeducation. Group therapy (in accordance with current COVID-19 guidelines : social distancing, hand washing). Supportive and recreational therapy. Motivational counseling. AA/NA meetings. Medications resumed : paxil 20 mg po daily + seroquel 100 mg po hs. Side effects/benefits discussed with patient. Informed consent granted to MD. Viera.
[2019-08-30] MEDS: metFORMIN HCL 500 MG TABLET (FP) PO SCH (16:23)
[2019-08-30] MEDS: THIAMINE HCL 100 MG TABLET (FP) PO SCH (21:01)
[2019-08-30] MEDS: MELATONIN 5 MG TABLETS PO SCH (21:01)
[2019-08-30] MEDS: BACITRACIN 0.9 GM PACKET TP SCH (21:02)
[2019-08-30] MEDS: QUEtiapine FUMARATE 100 MG TABLET (FP) PO SCH (21:02)
[2019-08-30] MEDS: LISINOPRIL 10 MG TABLET (FP) PO SCH (21:02)
[2019-08-30] MEDS ORDERED: QUEtiapine FUMARATE 100 MG TABLET (FP) PO SCH (22:00)
[2019-08-31] MEDS: METHADONE HCL 40 MG DISPERSABLE TABLET PO SCH (06:00)
[2019-08-31] MEDS: metFORMIN HCL 500 MG TABLET (FP) PO SCH ×2 (07:00→16:37)
[2019-08-31] MEDS: LISINOPRIL 10 MG TABLET (FP) PO SCH ×2 (09:51→21:07)
[2019-08-31] MEDS: PARoxetine HCL 20 MG TABLET PO SCH (09:51)
[2019-08-31] MEDS: PRENATAL VITAMINS W/ FOLIC ACID TABLET (FP) PO SCH (09:51)
[2019-08-31] MEDS: BACITRACIN 0.9 GM PACKET TP SCH ×2 (09:51→21:07)
[2019-08-31] MEDS: NICOTINE 21 MG/24 HOURS TOPICAL PATCH TD SCH (09:51)
[2019-08-31] MEDS: hydrOXYzine PAMOATE 25 MG CAPSULE (FP) PO PRN (09:52)
--- NOTE | 2019-08-31 14:15 | PN ---
[facility] Progress Note Note: Pt requesting to see psych for med adjustment - restart Gabapentin 600 mg po tid. Last time taken here on 04/11/19 while in treatment. Vital Signs - 24 hr 08/30/19 08/30/19 08/31/19 20:30 20:57 00:20 Temperature 98.7 F Pulse Rate 85 Respiratory 18 18 Rate Blood Pressure 140/87 O2 Sat by Pulse 95 Oximetry (%) 08/31/19 08/31/19 08/31/19 03:30 06:31 08:15 Temperature 98.7 F 98.6 F Pulse Rate 98 H 92 H Respiratory 18 20 Rate Blood Pressure 133/87 93/54 L O2 Sat by Pulse 96 Oximetry (%) 08/31/19 14:01 Temperature Pulse Rate Respiratory Rate Blood Pressure O2 Sat by Pulse 96 Oximetry (%) alert o x 3 nad oob ambulating with steady gait A:hx Depression P:follow up with psych MD for re-eval. increase po fluids
--- NOTE | 2019-08-31 15:54 | PN ---
Psychiatric Progress Note Vital Signs: Vital Signs Period Temp Pulse Resp BP Sys/Mcintyre Pulse Ox Last 24 Hr 98.6 F-98.7 F 85-98 18-20 93-140/54-87 95-96 Date of Session: 08/31/19 Chief Complaint:: " I take gabapentin 600mg TID." HPI: Patient admitted to [facility] for treatment of alcohol, opioid, and nicotine dependence. Consultation ordered as patient reports taking gabapentin 600mg TID. ROS: Patient is alert +oriented X3. Current Medications: Active Medications Generic Name Dose Route Start Last Admin Trade Name Freq PRN Reason Stop Dose Admin Acetaminophen 650 mg 08/30/19 11:56 Tylenol - PO Q4H PRN FEVER Al Hydroxide/Mg Hydroxide 30 ml 08/30/19 11:56 Mylanta Oral Suspension - PO Q6H PRN DYSPEPSIA Bacitracin 0.9 gm 08/30/19 22:00 08/31/19 09:51 Bacitracin - TP 0.9 gm BID TOYA Administration Guaifenesin 10 ml 08/30/19 11:56 Robitussin - PO Q6H PRN COUGH Hydroxyzine Pamoate 25 mg 08/30/19 11:56 08/31/19 09:52 Vistaril - PO 25 mg Q4H PRN Administration ANXIETY Ibuprofen 400 mg 08/30/19 11:56 Motrin - PO Q6H PRN Pain level 4-6 Lisinopril 10 mg 08/30/19 22:00 08/31/19 09:51 Prinivil PO Not Given BID TOYA Loperamide HCl 4 mg 08/30/19 11:56 Imodium - PO Q6H PRN DIARRHEA Magnesium Citrate 300 ml 08/30/19 11:56 Citroma - PO Q48H PRN CONSTIPATION Magnesium Hydroxide 30 ml 08/30/19 11:56 Milk Of Magnesia - PO DAILY PRN CONSTIPATION Melatonin 5 mg 08/30/19 22:00 08/30/19 21:01 Melatonin PO 5 mg HS TOYA Administration Metformin HCl 500 mg 08/30/19 16:30 08/31/19 07:00 Glucophage - PO 500 mg BIDAC TOYA Administration Methadone HCl 80 mg 08/31/19 06:00 08/31/19 06:00 Dolophine - PO 09/06/19 05:59 80 mg DAILY@0600 TOYA Administration Nicotine 21 mg 08/31/19 10:00 08/31/19 09:51 Nicoderm Patch - TD 21 mg DAILY TOYA Administration Nicotine Polacrilex 2 mg 08/30/19 11:56 Nicorette Gum - BUC Q2H PRN NICOTINE REPLACEMENT RX Paroxetine HCl 20 mg 08/31/19 10:00 08/31/19 09:51 Paxil - PO 20 mg DAILY TOYA Administration Multivit/Folic Acid/Iron 1 tab 08/31/19 10:00 08/31/19 09:51 Vitamins (Sjr) - PO 1 tab DAILY TOYA Administration Pseudoephedrine/Triprolidine 1 combo 08/30/19 11:56 Actifed - PO TID PRN NASAL CONGESTION Quetiapine Fumarate 100 mg 08/30/19 22:00 08/30/19 21:02 Seroquel - PO 100 mg HS TOYA Administration Thiamine HCl 100 mg 08/30/19 22:00 08/30/19 21:01 Vitamin B1 - PO 100 mg HS TOYA Administration Medication(s) Change(s): Yes. Will add Gabapentin 600mg TID. Current Side Effect: No Lab tests ordered: No Lab tests reviewed: Yes Provider note:: Mr. Soto states that he is prescribed gabapentin 600mg TID from his PCP at the [facility] for anxiety, bipolar disorder and back pain. Patient reports taking medications prior to admission and is requsting to resume medications while in rehab. Will order Gabapentin 600mg TID. Benefits and side effects discussed. Verbal consent given. Total face to face time:: 25 Mental Status Exam - Mental Status Exam Alert and Oriented to: Time, Place, Person Cognitive Function: Good Patient Appearance: Well Groomed Mood: Hopeful Affect: Appropriate Patient Behavior: Appropriate, Cooperative Speech Pattern: Appropriate Voice Loudness: Normal Thought Process: Goal Oriented Thought Disorder: Not Present Hallucinations: Denies Suicidal Ideation: Denies Homicidal Ideation: Denies Insight/Judgement: Poor Sleep: Fair Appetite: Fair Muscle strength/Tone: Normal Gait/Station: Normal Psychiatric Treatment Plan - Problem List (1) Alcohol use disorder Current Visit: Yes (2) Nicotine dependence Current Visit: Yes Qualifiers: Nicotine product type: cigarettes Substance use status: uncomplicated Qualified Code(s): F17.210 - Nicotine dependence, cigarettes, uncomplicated (3) Opioid dependence on agonist therapy Current Visit: Yes (4) Schizoaffective disorder Current Visit: Yes Qualifiers: Schizoaffective disorder type: unspecified Qualified Code(s): F25.9 - Schizoaffective disorder, unspecified (5) Insomnia Current Visit: Yes
[2019-08-31] MEDS: QUEtiapine FUMARATE 100 MG TABLET (FP) PO SCH (21:07)
[2019-08-31] MEDS: THIAMINE HCL 100 MG TABLET (FP) PO SCH (21:07)
[2019-08-31] MEDS: MELATONIN 5 MG TABLETS PO SCH (21:07)
[2019-08-31] MEDS: GABAPENTIN 300 MG CAPSULE PO SCH (21:08)
[2019-09-01] MEDS: METHADONE HCL 40 MG DISPERSABLE TABLET PO SCH (06:07)
[2019-09-01] MEDS: GABAPENTIN 300 MG CAPSULE PO SCH ×3 (06:07→21:14)
[2019-09-01] MEDS: metFORMIN HCL 500 MG TABLET (FP) PO SCH ×2 (07:11→17:37)
[2019-09-01] MEDS: NICOTINE 21 MG/24 HOURS TOPICAL PATCH TD SCH (09:37)
[2019-09-01] MEDS: PARoxetine HCL 20 MG TABLET PO SCH (09:38)
[2019-09-01] MEDS: hydrOXYzine PAMOATE 25 MG CAPSULE (FP) PO PRN ×2 (09:38→14:30)
[2019-09-01] MEDS: BACITRACIN 0.9 GM PACKET TP SCH ×2 (09:38→21:15)
[2019-09-01] MEDS: PRENATAL VITAMINS W/ FOLIC ACID TABLET (FP) PO SCH (09:38)
[2019-09-01] MEDS: LISINOPRIL 10 MG TABLET (FP) PO SCH ×2 (09:39→21:14)
[2019-09-01] MEDS: QUEtiapine FUMARATE 100 MG TABLET (FP) PO SCH (21:14)
[2019-09-01] MEDS: MELATONIN 5 MG TABLETS PO SCH (21:14)
[2019-09-01] MEDS: THIAMINE HCL 100 MG TABLET (FP) PO SCH (21:15)
[2019-09-02] MEDS: GABAPENTIN 300 MG CAPSULE PO SCH ×3 (06:26→21:05)
[2019-09-02] MEDS: METHADONE HCL 40 MG DISPERSABLE TABLET PO SCH (06:26)
[2019-09-02] MEDS: metFORMIN HCL 500 MG TABLET (FP) PO SCH ×2 (07:24→16:45)
[2019-09-02] MEDS: BACITRACIN 0.9 GM PACKET TP SCH ×2 (09:35→21:06)
[2019-09-02] MEDS: hydrOXYzine PAMOATE 25 MG CAPSULE (FP) PO PRN ×2 (09:35→13:34)
[2019-09-02] MEDS: PRENATAL VITAMINS W/ FOLIC ACID TABLET (FP) PO SCH (09:36)
[2019-09-02] MEDS: NICOTINE 21 MG/24 HOURS TOPICAL PATCH TD SCH (09:38)
[2019-09-02] MEDS ORDERED: PT OWN MED DRAWER 7, Y5N ONE (09:38)
[2019-09-02] MEDS: LISINOPRIL 10 MG TABLET (FP) PO SCH ×2 (09:54→21:05)
[2019-09-02] MEDS: PARoxetine HCL 20 MG TABLET PO SCH (10:35)
[2019-09-02] MEDS: MELATONIN 5 MG TABLETS PO SCH (21:05)
[2019-09-02] MEDS: QUEtiapine FUMARATE 100 MG TABLET (FP) PO SCH (21:05)
[2019-09-02] MEDS: THIAMINE HCL 100 MG TABLET (FP) PO SCH (21:05)
[2019-09-03] MEDS: METHADONE HCL 40 MG DISPERSABLE TABLET PO SCH (05:55)
[2019-09-03] MEDS: GABAPENTIN 300 MG CAPSULE PO SCH ×3 (05:55→21:01)
[2019-09-03] MEDS: metFORMIN HCL 500 MG TABLET (FP) PO SCH ×2 (07:00→16:17)
[2019-09-03] MEDS: hydrOXYzine PAMOATE 25 MG CAPSULE (FP) PO PRN (09:29)
[2019-09-03] MEDS: BACITRACIN 0.9 GM PACKET TP SCH ×2 (09:29→21:02)
[2019-09-03] MEDS: NICOTINE 21 MG/24 HOURS TOPICAL PATCH TD SCH (09:29)
[2019-09-03] MEDS: PARoxetine HCL 20 MG TABLET PO SCH (09:29)
[2019-09-03] MEDS: PRENATAL VITAMINS W/ FOLIC ACID TABLET (FP) PO SCH (09:30)
[2019-09-03] MEDS: LISINOPRIL 10 MG TABLET (FP) PO SCH ×2 (09:31→21:01)
[2019-09-03] MEDS: QUEtiapine FUMARATE 100 MG TABLET (FP) PO SCH (21:01)
[2019-09-03] MEDS: THIAMINE HCL 100 MG TABLET (FP) PO SCH (21:01)
[2019-09-03] MEDS: MELATONIN 5 MG TABLETS PO SCH (21:01)
[2019-09-04] MEDS: METHADONE HCL 40 MG DISPERSABLE TABLET PO SCH (06:14)
[2019-09-04] MEDS: GABAPENTIN 300 MG CAPSULE PO SCH ×3 (06:14→21:01)
[2019-09-04] MEDS: metFORMIN HCL 500 MG TABLET (FP) PO SCH ×2 (07:01→16:32)
[2019-09-04] MEDS: PRENATAL VITAMINS W/ FOLIC ACID TABLET (FP) PO SCH (09:42)
[2019-09-04] MEDS: PARoxetine HCL 20 MG TABLET PO SCH (09:43)
[2019-09-04] MEDS: BACITRACIN 0.9 GM PACKET TP SCH ×2 (09:43→21:01)
[2019-09-04] MEDS: LISINOPRIL 10 MG TABLET (FP) PO SCH ×2 (09:43→21:01)
[2019-09-04] MEDS: NICOTINE 21 MG/24 HOURS TOPICAL PATCH TD SCH (09:43)
[2019-09-04] MEDS: hydrOXYzine PAMOATE 25 MG CAPSULE (FP) PO PRN (09:44)
[2019-09-04] MEDS: PANTOPRAZOLE 40 MG TABLET PO SCH (10:15)
[2019-09-04] MEDS: TOLNAFTATE 1% CREAM 15 GM TUBE TP SCH ×2 (10:15→21:02)
--- NOTE | 2019-09-04 10:16 | PN ---
JEAN PIERRE Progress Note Note: Patient reported to provider he has hx of acid reflux and is treated with Omeprazole for symptoms. Patient denies nausea, vomiting and diarrhea. He reports having indigestion and having GI surgery years ago. Also c/o dry, itchy feet. Vital Signs Temperature 98.5 F 09/04/19 08:37 Pulse Rate 91 H 09/04/19 09:33 Respiratory Rate 18 09/04/19 09:33 Blood Pressure 110/96 09/04/19 09:33 O2 Sat by Pulse Oximetry (%) 98 09/04/19 06:14 Laboratory Tests 08/30/19 08/31/19 08/31/19 16:22 06:01 16:38 POC Glucometer 104 91 86 09/01/19 09/01/19 09/02/19 06:05 17:06 06:25 POC Glucometer 77 80 84 09/02/19 09/03/19 09/03/19 16:48 05:54 16:15 POC Glucometer 93 65 86 09/04/19 06:18 POC Glucometer 74 PE alert and oriented x 3 skin afebrile, dry in no apparent distress gi non-distended +mid abdominal surgical scar-site intact ext full rom, amb ad sandra no visible tremors A/P GERD Pruritis/dryness of feet will start protonix 40mg po daily tinactin cream bid to feet monitor clinically
[2019-09-04] MEDS: MELATONIN 5 MG TABLETS PO SCH (21:01)
[2019-09-04] MEDS: QUEtiapine FUMARATE 100 MG TABLET (FP) PO SCH (21:01)
[2019-09-04] MEDS: THIAMINE HCL 100 MG TABLET (FP) PO SCH (21:01)
[2019-09-05] MEDS: METHADONE HCL 40 MG DISPERSABLE TABLET PO SCH (06:06)
[2019-09-05] MEDS: GABAPENTIN 300 MG CAPSULE PO SCH ×3 (06:07→21:03)
[2019-09-05] MEDS: metFORMIN HCL 500 MG TABLET (FP) PO SCH ×2 (06:25→16:34)
[2019-09-05] MEDS: BACITRACIN 0.9 GM PACKET TP SCH ×2 (09:56→21:03)
[2019-09-05] MEDS: PRENATAL VITAMINS W/ FOLIC ACID TABLET (FP) PO SCH (09:56)
[2019-09-05] MEDS: NICOTINE 21 MG/24 HOURS TOPICAL PATCH TD SCH (09:57)
[2019-09-05] MEDS: TOLNAFTATE 1% CREAM 15 GM TUBE TP SCH ×2 (09:57→21:04)
[2019-09-05] MEDS: PANTOPRAZOLE 40 MG TABLET PO SCH (09:57)
[2019-09-05] MEDS: LISINOPRIL 10 MG TABLET (FP) PO SCH ×2 (09:57→21:03)
[2019-09-05] MEDS: hydrOXYzine PAMOATE 25 MG CAPSULE (FP) PO PRN (09:57)
[2019-09-05] MEDS: QUEtiapine FUMARATE 100 MG TABLET (FP) PO SCH (21:03)
[2019-09-05] MEDS: THIAMINE HCL 100 MG TABLET (FP) PO SCH (21:03)
[2019-09-05] MEDS: MELATONIN 5 MG TABLETS PO SCH (21:03)
[2019-09-06] MEDS: METHADONE HCL 40 MG DISPERSABLE TABLET PO SCH (05:58)
[2019-09-06] MEDS: GABAPENTIN 300 MG CAPSULE PO SCH ×3 (05:58→21:04)
[2019-09-06] MEDS: metFORMIN HCL 500 MG TABLET (FP) PO SCH ×2 (09:38→16:58)
[2019-09-06] MEDS: PANTOPRAZOLE 40 MG TABLET PO SCH (09:38)
[2019-09-06] MEDS: PRENATAL VITAMINS W/ FOLIC ACID TABLET (FP) PO SCH (09:38)
[2019-09-06] MEDS: LISINOPRIL 10 MG TABLET (FP) PO SCH ×2 (09:39→21:04)
[2019-09-06] MEDS: TOLNAFTATE 1% CREAM 15 GM TUBE TP SCH ×2 (09:39→21:05)
[2019-09-06] MEDS: BACITRACIN 0.9 GM PACKET TP SCH ×2 (09:39→21:04)
[2019-09-06] MEDS: NICOTINE 21 MG/24 HOURS TOPICAL PATCH TD SCH (09:39)
--- NOTE | 2019-09-06 10:25 | PN ---
S Progress Note (SOAP) Subjective: Patient reports hx of anemia, requesting vitamins. Presently on a vitamin as part of his rehab regimen. His labs were taken on 08/25 Hgb/Hct=10.5/32.6 No c/o SOB, thirst, cravings, fatigue. Objective: P/E: General: no apparent distress Skin/Mucous membranes: slightly pale Neuro: no cognitive deficits Lungs: clear Heart: s1 s2 ABD: +BS, non-tender, non-distended 09/06/19 10:26 Assessment: anemia 09/06/19 10:28 Plan: Will repeat CBC, has been on a pre- multivitamin for 2 weeks. If his HGB/HCT is decreased, will start iron.
[2019-09-06] MEDS: MELATONIN 5 MG TABLETS PO SCH (21:04)
[2019-09-06] MEDS: QUEtiapine FUMARATE 100 MG TABLET (FP) PO SCH (21:04)
[2019-09-06] MEDS: THIAMINE HCL 100 MG TABLET (FP) PO SCH (21:04)
[2019-09-07] MEDS: METHADONE HCL 40 MG DISPERSABLE TABLET PO SCH (05:59)
[2019-09-07] MEDS: GABAPENTIN 300 MG CAPSULE PO SCH ×3 (05:59→21:05)
[2019-09-07] MEDS: metFORMIN HCL 500 MG TABLET (FP) PO SCH ×2 (07:26→16:55)
[2019-09-07] MEDS: PANTOPRAZOLE 40 MG TABLET PO SCH (09:34)
[2019-09-07] MEDS: TOLNAFTATE 1% CREAM 15 GM TUBE TP SCH ×2 (09:34→21:50)
[2019-09-07] MEDS: PRENATAL VITAMINS W/ FOLIC ACID TABLET (FP) PO SCH (09:34)
[2019-09-07] MEDS: NICOTINE 21 MG/24 HOURS TOPICAL PATCH TD SCH (09:35)
[2019-09-07] MEDS: LISINOPRIL 10 MG TABLET (FP) PO SCH (09:35)
[2019-09-07] MEDS: BACITRACIN 0.9 GM PACKET TP SCH ×2 (09:35→21:04)
[2019-09-07 10:02] LABS: HEMATOCRIT 37.9 % (35.4-49); HEMOGLOBIN 12.1 GM/dL (11.7-16.9); MCH 26.4 pg (25.7-33.7); MCHC 31.9 g/dl (32.0-35.9); MEAN CELL VOLUME 82.7 fl (80-96); MEAN PLT VOLUME 8.7 fl (7.5-11.1); PLATELET COUNT 620 K/MM3 (134-434); RBC 4.58 M/mm3 (4.00-5.60); RDW 17.7 % (11.9-15.9); WHITE BLOOD COUNT 9.6 K/mm3 (4.0-10.0)
--- NOTE | 2019-09-07 14:30 | PN ---
BHS Progress Note Note: Bp is consistently low in the AM. on Lisinopril b10 mg. BID. Changed to once a day. Will continue to monitor Vital Signs Period Temp Pulse Resp BP Sys/Mcintyre Pulse Ox Last 24 Hr 98 F-98.7 F 88-91 18-20 88-139/50-91 95-98
[2019-09-07] MEDS ORDERED: PT OWN MED DRAWER 7, Y5N ONE (19:23)
[2019-09-07] MEDS: THIAMINE HCL 100 MG TABLET (FP) PO SCH (21:05)
[2019-09-07] MEDS: MELATONIN 5 MG TABLETS PO SCH (21:05)
[2019-09-07] MEDS: QUEtiapine FUMARATE 100 MG TABLET (FP) PO SCH (21:05)
[2019-09-07] MEDS: hydrOXYzine PAMOATE 25 MG CAPSULE (FP) PO PRN (21:05)
[2019-09-08] MEDS: METHADONE HCL 40 MG DISPERSABLE TABLET PO SCH (06:02)
[2019-09-08] MEDS: GABAPENTIN 300 MG CAPSULE PO SCH ×3 (06:02→21:00)
[2019-09-08] MEDS: metFORMIN HCL 500 MG TABLET (FP) PO SCH ×2 (07:26→16:33)
[2019-09-08] MEDS: LISINOPRIL 10 MG TABLET (FP) PO SCH (09:45)
[2019-09-08] MEDS: hydrOXYzine PAMOATE 25 MG CAPSULE (FP) PO PRN ×2 (09:45→13:58)
[2019-09-08] MEDS: PANTOPRAZOLE 40 MG TABLET PO SCH (09:45)
[2019-09-08] MEDS: PRENATAL VITAMINS W/ FOLIC ACID TABLET (FP) PO SCH (09:45)
[2019-09-08] MEDS: BACITRACIN 0.9 GM PACKET TP SCH ×2 (09:46→21:00)
[2019-09-08] MEDS: NICOTINE 21 MG/24 HOURS TOPICAL PATCH TD SCH (09:47)
[2019-09-08] MEDS: TOLNAFTATE 1% CREAM 15 GM TUBE TP SCH ×2 (09:49→21:02)
--- NOTE | 2019-09-08 11:32 | EKG ---
Test Reason : Blood Pressure : / mmHG Vent. Rate : 082 BPM Atrial Rate : 082 BPM P-R Int : 126 ms QRS Dur : 102 ms QT Int : 384 ms P-R-T Axes : 079 032 000 degrees QTc Int : 448 ms NORMAL SINUS RHYTHM NORMAL ECG WHEN COMPARED WITH ECG OF 11-APR-2019 10:04, NONSPECIFIC T WAVE ABNORMALITY NOW EVIDENT IN ANTERIOR LEADS Confirmed by DONELL YEPEZ MD ([id number]) on 09/08/2019 11:31:49 AM Referred By: Confirmed By:DONELL YEPEZ MD
[2019-09-08] MEDS: MELATONIN 5 MG TABLETS PO SCH (21:00)
[2019-09-08] MEDS: QUEtiapine FUMARATE 100 MG TABLET (FP) PO SCH (21:00)
[2019-09-08] MEDS: THIAMINE HCL 100 MG TABLET (FP) PO SCH (21:00)
[2019-09-09] MEDS: METHADONE HCL 40 MG DISPERSABLE TABLET PO SCH (06:13)
[2019-09-09] MEDS: GABAPENTIN 300 MG CAPSULE PO SCH ×3 (06:13→21:00)
[2019-09-09] MEDS: metFORMIN HCL 500 MG TABLET (FP) PO SCH ×2 (07:32→17:09)
[2019-09-09] MEDS: PRENATAL VITAMINS W/ FOLIC ACID TABLET (FP) PO SCH (09:44)
[2019-09-09] MEDS: TOLNAFTATE 1% CREAM 15 GM TUBE TP SCH ×2 (09:44→21:26)
[2019-09-09] MEDS: PANTOPRAZOLE 40 MG TABLET PO SCH (09:44)
[2019-09-09] MEDS: BACITRACIN 0.9 GM PACKET TP SCH ×2 (09:44→21:01)
[2019-09-09] MEDS: NICOTINE 21 MG/24 HOURS TOPICAL PATCH TD SCH (09:46)
[2019-09-09] MEDS: LISINOPRIL 10 MG TABLET (FP) PO SCH (11:48)
[2019-09-09] MEDS: QUEtiapine FUMARATE 100 MG TABLET (FP) PO SCH (21:00)
[2019-09-09] MEDS: THIAMINE HCL 100 MG TABLET (FP) PO SCH (21:00)
[2019-09-09] MEDS: MELATONIN 5 MG TABLETS PO SCH (21:00)
[2019-09-10] MEDS: GABAPENTIN 300 MG CAPSULE PO SCH ×3 (06:09→21:02)
[2019-09-10] MEDS: METHADONE HCL 40 MG DISPERSABLE TABLET PO SCH (06:09)
[2019-09-10] MEDS: metFORMIN HCL 500 MG TABLET (FP) PO SCH ×2 (07:20→17:04)
[2019-09-10] MEDS: PRENATAL VITAMINS W/ FOLIC ACID TABLET (FP) PO SCH (09:23)
[2019-09-10] MEDS: LISINOPRIL 10 MG TABLET (FP) PO SCH (09:23)
[2019-09-10] MEDS: BACITRACIN 0.9 GM PACKET TP SCH ×2 (09:23→21:02)
[2019-09-10] MEDS: TOLNAFTATE 1% CREAM 15 GM TUBE TP SCH ×2 (09:23→21:04)
[2019-09-10] MEDS: PANTOPRAZOLE 40 MG TABLET PO SCH (09:23)
[2019-09-10] MEDS: NICOTINE 21 MG/24 HOURS TOPICAL PATCH TD SCH (09:24)
[2019-09-10] MEDS: hydrOXYzine PAMOATE 25 MG CAPSULE (FP) PO PRN (14:14)
[2019-09-10] MEDS: MELATONIN 5 MG TABLETS PO SCH (21:02)
[2019-09-10] MEDS: QUEtiapine FUMARATE 100 MG TABLET (FP) PO SCH (21:02)
[2019-09-10] MEDS: THIAMINE HCL 100 MG TABLET (FP) PO SCH (21:02)
[2019-09-11] MEDS: GABAPENTIN 300 MG CAPSULE PO SCH ×3 (06:02→21:03)
[2019-09-11] MEDS: METHADONE HCL 40 MG DISPERSABLE TABLET PO SCH (06:02)
[2019-09-11] MEDS: metFORMIN HCL 500 MG TABLET (FP) PO SCH ×2 (07:21→16:43)
[2019-09-11] MEDS: BACITRACIN 0.9 GM PACKET TP SCH ×2 (09:32→21:02)
[2019-09-11] MEDS: PRENATAL VITAMINS W/ FOLIC ACID TABLET (FP) PO SCH (09:32)
[2019-09-11] MEDS: LISINOPRIL 10 MG TABLET (FP) PO SCH (09:32)
[2019-09-11] MEDS: PANTOPRAZOLE 40 MG TABLET PO SCH (09:32)
[2019-09-11] MEDS: hydrOXYzine PAMOATE 25 MG CAPSULE (FP) PO PRN (09:32)
[2019-09-11] MEDS: NICOTINE 21 MG/24 HOURS TOPICAL PATCH TD SCH (09:33)
[2019-09-11] MEDS: TOLNAFTATE 1% CREAM 15 GM TUBE TP SCH ×2 (09:33→21:03)
--- NOTE | 2019-09-11 11:54 | PN ---
S Progress Note Note: Patient evaluated for dry cracked skin of left foot. Vital Signs Temperature 96.5 F L 09/11/19 08:30 Pulse Rate 106 H 09/11/19 08:30 Respiratory Rate 18 09/11/19 08:30 Blood Pressure 135/75 09/11/19 08:30 O2 Sat by Pulse Oximetry (%) 96 09/11/19 06:37 PE left foot, plantar aspect with dry cracked skin and callous. No active bleeding, redness or swelling A/P Dry skin left foot callous Bacitracin TP bid to callous as patient noted picking at skin continue tinactin cream to feet as ordered monitor clinically
[2019-09-11] MEDS: MELATONIN 5 MG TABLETS PO SCH (21:02)
[2019-09-11] MEDS: THIAMINE HCL 100 MG TABLET (FP) PO SCH (21:03)
[2019-09-11] MEDS: QUEtiapine FUMARATE 100 MG TABLET (FP) PO SCH (21:03)
[2019-09-12] MEDS: METHADONE HCL 40 MG DISPERSABLE TABLET PO SCH (05:55)
[2019-09-12] MEDS: GABAPENTIN 300 MG CAPSULE PO SCH ×3 (05:55→21:09)
[2019-09-12] MEDS: metFORMIN HCL 500 MG TABLET (FP) PO SCH ×2 (06:45→16:36)
[2019-09-12] MEDS: BACITRACIN 0.9 GM PACKET TP SCH ×2 (09:36→21:09)
[2019-09-12] MEDS: PANTOPRAZOLE 40 MG TABLET PO SCH (09:36)
[2019-09-12] MEDS: hydrOXYzine PAMOATE 25 MG CAPSULE (FP) PO PRN ×2 (09:36→14:22)
[2019-09-12] MEDS: PRENATAL VITAMINS W/ FOLIC ACID TABLET (FP) PO SCH (09:37)
[2019-09-12] MEDS: NICOTINE 21 MG/24 HOURS TOPICAL PATCH TD SCH (09:37)
[2019-09-12] MEDS: LISINOPRIL 10 MG TABLET (FP) PO SCH (09:39)
[2019-09-12] MEDS: TOLNAFTATE 1% CREAM 15 GM TUBE TP SCH ×2 (09:40→21:10)
[2019-09-12] MEDS: THIAMINE HCL 100 MG TABLET (FP) PO SCH (21:09)
[2019-09-12] MEDS: QUEtiapine FUMARATE 100 MG TABLET (FP) PO SCH (21:09)
[2019-09-12] MEDS: MELATONIN 5 MG TABLETS PO SCH (21:09)
[2019-09-13] MEDS: METHADONE HCL 40 MG DISPERSABLE TABLET PO SCH (06:12)
[2019-09-13] MEDS: GABAPENTIN 300 MG CAPSULE PO SCH ×3 (06:13→21:00)
[2019-09-13] MEDS: metFORMIN HCL 500 MG TABLET (FP) PO SCH ×2 (07:03→16:30)
[2019-09-13] MEDS: PRENATAL VITAMINS W/ FOLIC ACID TABLET (FP) PO SCH (09:50)
[2019-09-13] MEDS: BACITRACIN 0.9 GM PACKET TP SCH ×2 (09:50→21:00)
[2019-09-13] MEDS: LISINOPRIL 10 MG TABLET (FP) PO SCH (09:50)
[2019-09-13] MEDS: PANTOPRAZOLE 40 MG TABLET PO SCH (09:50)
[2019-09-13] MEDS: hydrOXYzine PAMOATE 25 MG CAPSULE (FP) PO PRN ×2 (09:50→13:25)
[2019-09-13] MEDS: TOLNAFTATE 1% CREAM 15 GM TUBE TP SCH ×2 (09:50→21:01)
[2019-09-13] MEDS: NICOTINE 21 MG/24 HOURS TOPICAL PATCH TD SCH (09:50)
[2019-09-13] MEDS: MELATONIN 5 MG TABLETS PO SCH (21:00)
[2019-09-13] MEDS: QUEtiapine FUMARATE 100 MG TABLET (FP) PO SCH (21:00)
[2019-09-13] MEDS: THIAMINE HCL 100 MG TABLET (FP) PO SCH (21:00)
[2019-09-14] MEDS: METHADONE HCL 40 MG DISPERSABLE TABLET PO SCH (06:17)
[2019-09-14] MEDS: GABAPENTIN 300 MG CAPSULE PO SCH ×3 (06:18→21:09)
[2019-09-14] MEDS: metFORMIN HCL 500 MG TABLET (FP) PO SCH ×2 (06:20→16:27)
[2019-09-14] MEDS: PANTOPRAZOLE 40 MG TABLET PO SCH (09:51)
[2019-09-14] MEDS: NICOTINE 21 MG/24 HOURS TOPICAL PATCH TD SCH (09:51)
[2019-09-14] MEDS: PRENATAL VITAMINS W/ FOLIC ACID TABLET (FP) PO SCH (09:51)
[2019-09-14] MEDS: hydrOXYzine PAMOATE 25 MG CAPSULE (FP) PO PRN ×2 (09:51→14:25)
[2019-09-14] MEDS: LISINOPRIL 10 MG TABLET (FP) PO SCH (09:51)
[2019-09-14] MEDS: BACITRACIN 0.9 GM PACKET TP SCH ×2 (09:51→21:08)
[2019-09-14] MEDS: TOLNAFTATE 1% CREAM 15 GM TUBE TP SCH ×2 (09:52→21:09)
[2019-09-14] MEDS ORDERED: PT OWN MED DRAWER 7, Y5N ONE (12:22)
[2019-09-14] MEDS: THIAMINE HCL 100 MG TABLET (FP) PO SCH (21:08)
[2019-09-14] MEDS: MELATONIN 5 MG TABLETS PO SCH (21:08)
[2019-09-14] MEDS: QUEtiapine FUMARATE 100 MG TABLET (FP) PO SCH (21:09)
[2019-09-15] MEDS: GABAPENTIN 300 MG CAPSULE PO SCH ×3 (06:24→21:03)
[2019-09-15] MEDS: METHADONE HCL 40 MG DISPERSABLE TABLET PO SCH (06:24)
[2019-09-15] MEDS: metFORMIN HCL 500 MG TABLET (FP) PO SCH ×2 (06:58→16:51)
[2019-09-15] MEDS: PRENATAL VITAMINS W/ FOLIC ACID TABLET (FP) PO SCH (09:32)
[2019-09-15] MEDS: NICOTINE 21 MG/24 HOURS TOPICAL PATCH TD SCH (09:33)
[2019-09-15] MEDS: PANTOPRAZOLE 40 MG TABLET PO SCH (09:33)
[2019-09-15] MEDS: hydrOXYzine PAMOATE 25 MG CAPSULE (FP) PO PRN ×2 (09:33→13:49)
[2019-09-15] MEDS: BACITRACIN 0.9 GM PACKET TP SCH ×2 (09:33→21:03)
[2019-09-15] MEDS: LISINOPRIL 10 MG TABLET (FP) PO SCH (10:05)
[2019-09-15] MEDS: TOLNAFTATE 1% CREAM 15 GM TUBE TP SCH ×2 (10:29→21:05)
[2019-09-15] MEDS: IBUPROFEN 400 MG TABLET (FP) PO PRN ×2 (13:49→21:03)
[2019-09-15] MEDS: THIAMINE HCL 100 MG TABLET (FP) PO SCH (21:03)
[2019-09-15] MEDS: QUEtiapine FUMARATE 100 MG TABLET (FP) PO SCH (21:03)
[2019-09-15] MEDS: MELATONIN 5 MG TABLETS PO SCH (21:03)
[2019-09-16] MEDS: METHADONE HCL 40 MG DISPERSABLE TABLET PO SCH (06:22)
[2019-09-16] MEDS: GABAPENTIN 300 MG CAPSULE PO SCH ×3 (06:22→21:00)
[2019-09-16] MEDS: metFORMIN HCL 500 MG TABLET (FP) PO SCH ×2 (07:05→17:07)
[2019-09-16] MEDS: hydrOXYzine PAMOATE 25 MG CAPSULE (FP) PO PRN ×2 (10:08→14:57)
[2019-09-16] MEDS: PRENATAL VITAMINS W/ FOLIC ACID TABLET (FP) PO SCH (10:09)
[2019-09-16] MEDS: BACITRACIN 0.9 GM PACKET TP SCH ×2 (10:09→21:00)
[2019-09-16] MEDS: PANTOPRAZOLE 40 MG TABLET PO SCH (10:09)
[2019-09-16] MEDS: IBUPROFEN 400 MG TABLET (FP) PO PRN (10:11)
[2019-09-16] MEDS ORDERED: PT OWN MED DRAWER 7, Y5N ONE (10:11)
[2019-09-16] MEDS: TOLNAFTATE 1% CREAM 15 GM TUBE TP SCH ×2 (10:13→21:00)
[2019-09-16] MEDS: LISINOPRIL 10 MG TABLET (FP) PO SCH (10:13)
[2019-09-16] MEDS: NICOTINE 21 MG/24 HOURS TOPICAL PATCH TD SCH (10:53)
[2019-09-16] MEDS: THIAMINE HCL 100 MG TABLET (FP) PO SCH (20:59)
[2019-09-16] MEDS: MELATONIN 5 MG TABLETS PO SCH (21:00)
[2019-09-16] MEDS: QUEtiapine FUMARATE 100 MG TABLET (FP) PO SCH (21:00)
[2019-09-17] MEDS: METHADONE HCL 40 MG DISPERSABLE TABLET PO SCH (06:06)
[2019-09-17] MEDS: GABAPENTIN 300 MG CAPSULE PO SCH ×3 (06:06→21:05)
[2019-09-17] MEDS: metFORMIN HCL 500 MG TABLET (FP) PO SCH ×2 (07:14→16:53)
[2019-09-17] MEDS: PRENATAL VITAMINS W/ FOLIC ACID TABLET (FP) PO SCH (09:31)
[2019-09-17] MEDS: BACITRACIN 0.9 GM PACKET TP SCH ×2 (09:31→21:05)
[2019-09-17] MEDS: hydrOXYzine PAMOATE 25 MG CAPSULE (FP) PO PRN ×2 (09:31→14:10)
[2019-09-17] MEDS: LISINOPRIL 10 MG TABLET (FP) PO SCH (09:31)
[2019-09-17] MEDS: TOLNAFTATE 1% CREAM 15 GM TUBE TP SCH ×2 (09:32→21:05)
[2019-09-17] MEDS: NICOTINE 21 MG/24 HOURS TOPICAL PATCH TD SCH (09:32)
[2019-09-17] MEDS: PANTOPRAZOLE 40 MG TABLET PO SCH (09:32)
[2019-09-17] MEDS: IBUPROFEN 400 MG TABLET (FP) PO PRN (09:32)
[2019-09-17] MEDS: MELATONIN 5 MG TABLETS PO SCH (21:05)
[2019-09-17] MEDS: QUEtiapine FUMARATE 100 MG TABLET (FP) PO SCH (21:05)
[2019-09-17] MEDS: THIAMINE HCL 100 MG TABLET (FP) PO SCH (21:05)
[2019-09-18] MEDS: METHADONE HCL 40 MG DISPERSABLE TABLET PO SCH (06:02)
[2019-09-18] MEDS: GABAPENTIN 300 MG CAPSULE PO SCH ×3 (06:02→21:43)
[2019-09-18] MEDS: metFORMIN HCL 500 MG TABLET (FP) PO SCH ×2 (07:03→16:26)
--- NOTE | 2019-09-18 09:00 | PN ---
S Progress Note Note: Patient is scheduled for discharge on 09/20/19. Scripts for 30 days supply of Gabapentin 600 mg/tid will be electronically transmitted to [facility], [address] [place] [id number]
[2019-09-18] MEDS: hydrOXYzine PAMOATE 25 MG CAPSULE (FP) PO PRN ×2 (09:48→14:19)
[2019-09-18] MEDS: PANTOPRAZOLE 40 MG TABLET PO SCH (09:48)
[2019-09-18] MEDS: PRENATAL VITAMINS W/ FOLIC ACID TABLET (FP) PO SCH (09:48)
[2019-09-18] MEDS: BACITRACIN 0.9 GM PACKET TP SCH ×2 (09:48→21:43)
[2019-09-18] MEDS: NICOTINE 21 MG/24 HOURS TOPICAL PATCH TD SCH (09:48)
[2019-09-18] MEDS: LISINOPRIL 10 MG TABLET (FP) PO SCH (09:48)
[2019-09-18] MEDS: IBUPROFEN 400 MG TABLET (FP) PO PRN (09:48)
[2019-09-18] MEDS: TOLNAFTATE 1% CREAM 15 GM TUBE TP SCH ×2 (09:49→21:44)
[2019-09-18] MEDS: MELATONIN 5 MG TABLETS PO SCH (21:43)
[2019-09-18] MEDS: THIAMINE HCL 100 MG TABLET (FP) PO SCH (21:43)
[2019-09-18] MEDS: QUEtiapine FUMARATE 100 MG TABLET (FP) PO SCH (21:43)
[2019-09-19] MEDS: METHADONE HCL 40 MG DISPERSABLE TABLET PO SCH (06:13)
[2019-09-19] MEDS: GABAPENTIN 300 MG CAPSULE PO SCH ×3 (06:13→21:17)
[2019-09-19] MEDS: metFORMIN HCL 500 MG TABLET (FP) PO SCH ×2 (07:02→16:30)
--- NOTE | 2019-09-19 09:24 | DS ---
[facility] Rehab Discharge Summary - [facility] Rehab Discharge Summary Admission Date: 08/30/19 Discharge Date: 09/19/19 - History Present History: Alcohol dependence, Opioid dependence Pertinent Past History: 59 Y.O. MALE WITH ALCOHOLISM HERE. CLIENT REFERRED BY ANDIE AFTER BEING SEEN AND CLEARED FOR FALL, FACIAL TRAUMA DUE TO INTOXICATION. CT SCAN NEGATIVE FOR FX. CLIENT REPORTS DAILY ALCOHOL INTAKE. 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 DENIES SEIZURES. DENIES ANY SIGNIFICANT PERIOD OF CLEAN TIME IN THE PAST 12 MONTHS. HE IS ON MMTP AT [employer] REPORTED DOSE 80 MG. LIVES ALONE, UNEMPLOYED, DENIES LEGALS. - Discharge Physical Exam Vital Signs: Vital Signs Temperature 98.6 F 09/19/19 08:13 Pulse Rate 102 H 09/19/19 08:13 Respiratory Rate 18 09/19/19 08:13 Blood Pressure 107/70 09/19/19 08:13 O2 Sat by Pulse Oximetry (%) 96 09/19/19 06:47 Pertinent Admission Physical Exam Findings: Physical General Appearance: No apparent distress HEENTM: EDENTULOUS, normocephalic Respiratory:No Respiratory Distress, No Accessory Muscle Use Neck: Supple, Cardiology:S1, S2 Abdominal: +Bowel Sounds, Musculoskeletal:full range of Motion Neurological: no neurological deficits noted, Motor Strength 5/5 - Treatment Discharge Condition: Outpatient referral accepted (Patient will go to [facility] according to counselor's note. Medically stable for discharge.) Hospital Course: patient attended groups, had 1:1 with his counselor, was seen by the psychiatric service. He was adherent to his medicine regiment and treatment plan. His BP medication was adjusted to prevent hypotension. He was treated for tinea pedis. He also stated he had anemia; although his HCT/HGB were slightly low upon admission, repeat CBC indicated that they were within normal limits and treatment with a vitamin and nutrition was sufficient. - Medication Discharge Medications: Ambulatory Orders Gabapentin 600 mg PO TID #90 tablet 09/18/19 Quetiapine Fumarate [Seroquel -] 100 tab PO HS #30 tablet 09/18/19 Lisinopril 10 mg PO DAILY #30 tablet 09/19/19 Metformin HCl [Glucophage] 500 mg PO BID #60 tablet 09/19/19 Tolnaftate 1% Cream [Tinactin 1% Cream -] 1 applic TP BID #1 tube 09/19/19 - Discharge Instructions Diet, activity, other medical instructions: Diet: as tolerated Activity: as tolerated Other medical instructions: Please follow up with discharge referral. - Diagnosis (1) Alcohol use disorder Current Visit: Yes Status: Chronic - AMA Did Patient Leave Against Medical Advice: No
[2019-09-19] MEDS: NICOTINE 21 MG/24 HOURS TOPICAL PATCH TD SCH (09:49)
[2019-09-19] MEDS: LISINOPRIL 10 MG TABLET (FP) PO SCH (09:49)
[2019-09-19] MEDS: hydrOXYzine PAMOATE 25 MG CAPSULE (FP) PO PRN ×2 (09:49→14:07)
[2019-09-19] MEDS: PANTOPRAZOLE 40 MG TABLET PO SCH (09:49)
[2019-09-19] MEDS: PRENATAL VITAMINS W/ FOLIC ACID TABLET (FP) PO SCH (09:49)
[2019-09-19] MEDS: BACITRACIN 0.9 GM PACKET TP SCH ×2 (09:50→21:17)
[2019-09-19] MEDS: TOLNAFTATE 1% CREAM 15 GM TUBE TP SCH ×2 (09:50→21:17)
[2019-09-19] MEDS: QUEtiapine FUMARATE 100 MG TABLET (FP) PO SCH (21:17)
[2019-09-19] MEDS: THIAMINE HCL 100 MG TABLET (FP) PO SCH (21:17)
[2019-09-19] MEDS: MELATONIN 5 MG TABLETS PO SCH (21:17)
[2019-09-20] MEDS ORDERED: METHADONE HCL 40 MG DISPERSABLE TABLET PO SCH (06:00)
[2019-09-20] MEDS: GABAPENTIN 300 MG CAPSULE PO SCH (06:09)
[2019-09-20] MEDS: metFORMIN HCL 500 MG TABLET (FP) PO SCH (08:26)
[2019-09-20] MEDS: hydrOXYzine PAMOATE 25 MG CAPSULE (FP) PO PRN (09:01)
[2019-09-20] MEDS: PANTOPRAZOLE 40 MG TABLET PO SCH (09:01)
[2019-09-20] MEDS: PRENATAL VITAMINS W/ FOLIC ACID TABLET (FP) PO SCH (09:01)
[2019-09-20] MEDS: LISINOPRIL 10 MG TABLET (FP) PO SCH (09:02)
[2019-09-20] MEDS: TOLNAFTATE 1% CREAM 15 GM TUBE TP SCH (09:03)
[2019-09-20] MEDS: NICOTINE 21 MG/24 HOURS TOPICAL PATCH TD SCH (09:03)
[2019-09-20] MEDS: BACITRACIN 0.9 GM PACKET TP SCH (09:04)
[2019-09-20] MEDS ORDERED: PT OWN MED DRAWER 7, Y5N ONE (09:05)
[2019-09-20 09:20] VITALS: BP 134/70; PULSE 106; TEMP 97.9
== END 2019-09-20 09:25 | disposition home or self-care (01) | DRG 772 ==
LOC: YASAS 10:05 → Y3W 10:08
PROVIDERS: ADMIT Allergy & Immunology; ATTEND Allergy & Immunology
PROC: HZ42ZZZ Group Counseling for Substance Abuse Treatment, Cognitive-Behavioral (ICD-10-PCS; principal; 2019-08-30)
DX: F10.20 Alcohol dependence, uncomplicated (principal); F11.20 Opioid dependence, uncomplicated; F17.210 Nicotine dependence, cigarettes, uncomplicated; F25.9 Schizoaffective disorder, unspecified; F19.24 Other psychoactive substance dependence with psychoactive substance-induced mood disorder; K21.9 Gastro-esophageal reflux disease without esophagitis; I10 Essential (primary) hypertension; E11.9 Type 2 diabetes mellitus without complications; Z79.84 Long term (current) use of oral hypoglycemic drugs; G47.00 Insomnia, unspecified; D64.9 Anemia, unspecified; L85.3 Xerosis cutis; L29.8 Other pruritus; L84 Corns and callosities; B18.2 Chronic viral hepatitis C
CPT/HCPCS: 36415; 82962; 85027; 93005; 93010

== ENCOUNTER 2019-10-30 09:36 | Inpatient (IN) | payer OTHER ==
--- NOTE | 2019-10-30 09:47 | BHS.RME ---
Substance Use & Tx History - Substance Use History Alcohol Substance amount: 3 six packs beers + 1 pint vodka at times Frequency of use: Daily Substance route: Oral Date of Last Use: 10/30/19 Nicotine Substance amount: 1 pack Frequency of use: Daily Substance route: Smoking Date of Last Use: 10/30/19 Physical/Psych/Mental Status - Behavior General Behavior: Increased activity (restlessness, agitation) Eye Contact: Normal - Cooperativeness Cooperativeness: Cooperative - Thinking Thought Processes: Tight, Logical, Goal Directed - Physical Health Problems Is patient presently having any pain?: No Does patient presently have any injuries (include location): No Does patient currently have a fever: No Is patient : No CIWA Nausea/Vomitin-Int. Nausea w/Dry Heave Muscle Tremors: 3 Anxiety: 3 Agitation: 3 Paroxysmal Sweats: 4-Forehead w/Sweat Beads Orientation: 0-Oriented Tacttile Disturbances: 0-None Auditory Disturbances: 0-None Visual Disturbances: 0-None Headache: 2-Mild CIWA-Ar Total Score: 19
[2019-10-30 10:17] VITALS: BMI 28.5
--- NOTE | 2019-10-30 10:18 | HP ---
CIWA Score Nausea/Vomitin-Int. Nausea w/Dry Heave Muscle Tremors: 3 Anxiety: 3 Agitation: 3 Paroxysmal Sweats: 4-Forehead w/Sweat Beads Orientation: 0-Oriented Tacttile Disturbances: 0-None Auditory Disturbances: 0-None Visual Disturbances: 0-None Headache: 2-Mild CIWA-Ar Total Score: 19 - Admission Criteria OASAS Guidelines: Admission for Medically Managed Detox: Requires at least one of the followin. CIWA greater than 12 2. Seizures within the past 24 hours 3. Delirium tremens within the past 24 hours 4. Hallucinations within the past 24 hours 5. Acute intervention needed for co occurring medical disorder 6. Acute intervention needed for co occurring psychiatric disorder 7. Severe withdrawal that cannot be handled at a lower level of care (continued vomiting, continued diarrhea, abnormal vital signs) requiring intravenous medication and/or fluids 8. Admitting History and Physical - Admission Chief Complaint: "I want to go to detox and finish with alcohol. I want to stop." History of Present Illness: 59 year old male with history of alcohol dependence with intoxication. He completed detox and rehab here at [facility] from 08/24-09/19/19 and referred to [facility] for OTP. He is now on opiate agonist therapy at [facility]. He was last medicated there at methadone 100mg daily on 10/30/19. Substance Use & Tx History - Substance Use History Alcohol Substance amount: 3 six packs beers + 1 pint vodka at times Frequency of use: Daily Substance route: Oral Date of Last Use: 10/30/19 Nicotine Substance amount: 1 pack Frequency of use: Daily Substance route: Smoking Date of Last Use: 10/30/19 PMH: HTN, DM, HCV+ Psurg: perforated ulcer 1993 Psych: Depression, Bipolar, Schizophrenia ( Seroquel and Paxil) He is living in [facility] shared with roommate. He has no legal issues. 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 He has poor insight into his alcohol use disorder and lacks judgment. History Source: Patient Limitations to Obtaining History: No Limitations - Past Medical History Cardiovascular: Yes: HTN Hepatobiliary: Yes: Hepatitis C Endocrine: Yes: Diabetes Mellitus - Past Surgical History Additional Past Surgical History: Ulcer Surgery 1993 - Smoking History Smoking history: Current every day smoker Have you smoked in the past 12 months: Yes Aproximately how many cigarettes per day: 10 - Alcohol/Substance Use Hx Alcohol Use: Yes - Social History Usual Living Arrangement: Yes: Other Do you think of yourself as: Straight/Heterosexual ADL: Independent Occupation: Unemployed on [employer] History of Recent Travel: No Admission ROS BHS - HPI Allergies/Adverse Reactions: Allergies Allergy/AdvReac Type Severity Reaction Status Date / Time No Known Allergies Allergy Verified 08/24/19 12:13 Exam Limitations: No Limitations - Ebola screening Have you traveled outside of the country in the last 21 days: No Have you had contact with anyone from an Ebola affected area: No Have you been sick,other than usual withdrawal symptoms: No Do you have a fever: No - Review of Systems Constitutional: Diaphoresis, Unintentional Wgt. Loss EENT: reports: No Symptoms Reported Respiratory: reports: No Symptoms reported Cardiac: reports: No Symptoms Reported GI: reports: No Symptoms Reported : reports: No Symptoms Reported Musculoskeletal: reports: No Symptoms Reported Integumentary: reports: No Symptoms Reported Neuro: reports: No Symptoms reported Endocrine: reports: No Symptoms Reported Hematology: reports: No Symptoms Reported Psychiatric: reports: Judgement Intact, Mood/Affect Appropiate, Orientated x3, Agitated, Anxious Other Systems: Reviewed and Negative Patient History - Patient Medical History Hx Anemia: No Hx Asthma: No Hx Chronic Obstructive Pulmonary Disease (COPD): No Hx Cancer: No Hx Cardiac Disorders: No Hx Congestive Heart Failure: No Hx Hypertension: Yes Hx Hypercholesterolemia: No Hx Pacemaker: No HX Cerebrovascular Accident: No Hx Seizures: No Hx Dementia: No Hx Diabetes: Yes Hx Gastrointestinal Disorders: No Hx Liver Disease: No Hx Genitourinary Disorders: No Hx Sexually Transmitted Disorders: No Hx Renal Disease (ESRD): No Hx Thyroid Disease: No Hx Human Immunodeficiency Virus (HIV): No (Negative 2018) Hx Hepatitis C: Yes (UNDECTABLE W/O TXMENT) Hx Depression: Yes Hx Suicide Attempt: No Hx Bipolar Disorder: Yes (ON SEROQUEL, PAXIL) Hx Schizophrenia: Yes - Patient Surgical History Past Surgical History: Yes Hx Neurologic Surgery: No Hx Cataract Extraction: No Hx Cardiac Surgery: No Hx Lung Surgery: No Hx Breast Surgery: No Hx Breast Biopsy: No Hx Abdominal Surgery: Yes (surgery for perforated ulcer in 1993) Hx Appendectomy: No Hx Cholecystectomy: No Hx Genitourinary Surgery: No Hx Section: No Hx Orthopedic Surgery: No Anesthesia Reaction: No - PPD History Previous Implant?: Yes Documented Results: Negative w/proof Implanted On Prior [facility] Admission?: Yes Date: 09/27/18 Results: 0 mm PPD to be Administered?: Yes - Smoking Cessation Smoking history: Current every day smoker Have you smoked in the past 12 months: Yes Aproximately how many cigarettes per day: 20 Cigars Per Day: 0 Hx Chewing Tobacco Use: No Initiated information on smoking cessation: Yes 'Breaking Loose' booklet given: 10/30/19 - Substances abused Alcohol Substance route: Oral Frequency: Daily Amount used: 3 six pack beers + 1 pint vodka at times Age of first use: 17 Date of last use: 10/30/19 (6AM) Admission Physical Exam S - Physical General Appearance: Yes: Disheveled, Tremorous, Irritable, Sweating, Anxious HEENTM: Yes: EOMI, Hearing grossly Normal, Normal ENT Inspection, Normocephalic, Normal Voice, KEENAN, Pharynx Normal, Tm's normal Respiratory: Yes: Chest Non-Tender, Lungs Clear, Normal Breath Sounds, No Respiratory Distress, No Accessory Muscle Use Neck: Yes: No masses,lesions,Nodules, Supple, Trachea in good position Breast: Yes: Within Normal Limits Cardiology: Yes: Regular Rhythm, Regular Rate, S1, S2 Abdominal: Yes: Normal Bowel Sounds, Non Tender, Soft, Protuberent, Surgical Scar Genitourinary: Yes: Within Normal Limits Back: Yes: Normal Inspection Musculoskeletal: Yes: full range of Motion, Gait Steady, Pelvis Stable Extremities: Yes: Normal Capillary Refill, Normal Inspection, Normal Range of Motion, Non-Tender, Erythema, Other (#3 pitting edema) Neurological: Yes: isotope technologist II-XII NML intact, Fully Oriented, Alert, Motor Strength 5/5, Normal Mood/Affect, Normal Response Integumentary: Yes: Normal Color, Dry, Warm Lymphatic: Yes: Within Normal Limits - Diagnostic (1) Alcohol intoxication Current Visit: No Status: Acute Qualifiers: Complication of substance-induced condition: uncomplicated Qualified Code(s): F10.920 - Alcohol use, unspecified with intoxication, uncomplicated (2) Bipolar I disorder, single manic episode, moderate Current Visit: Yes Status: Acute (3) Edema of all four extremities Current Visit: Yes Status: Acute (4) Elevated liver enzymes Current Visit: Yes Status: Acute (5) Facial pain Current Visit: Yes Status: Acute (6) Facial trauma Current Visit: No Status: Acute Qualifiers: Encounter type: subsequent encounter Qualified Code(s): S09.93XD - Unspecified injury of face, subsequent encounter (7) Diabetes mellitus type II, controlled Current Visit: Yes Status: Chronic Qualifiers: Diabetes mellitus assisted insulin use: without assisted use Diabetes mellitus complication status: without complication Qualified Code(s): E11.9 - Type 2 diabetes mellitus without complications (8) Essential hypertension Current Visit: Yes Status: Chronic (9) Hepatitis C carrier Current Visit: No Status: Chronic (10) History of treatment for tuberculosis Current Visit: No Status: Chronic (11) Methadone maintenance therapy patient Current Visit: Yes Status: Chronic (12) Nicotine dependence Current Visit: Yes Status: Chronic Qualifiers: Nicotine product type: cigarettes Substance use status: uncomplicated Qualified Code(s): F17.210 - Nicotine dependence, cigarettes, uncomplicated (13) s/p surgry for perforated peptic ulcer with peritonitis Current Visit: No Status: Resolved Cleared for Admission S - Detox or Rehab [facility] Level of Care: Medically Managed Detox Regimen/Protocol: Librium Claeared for Rehab Admission: No Screened but not Admitted - Documentation of Visit Screened but not Admitted: No Breathalyzer - Breathalyzer Breathalyzer: 0.187 Urine Drug Screen - Test Device Lot number: [id number] Expiration date: 11/26/20 - Control Is test valid?: Yes - Results Drug screen NEGATIVE: No Urine drug screen results: MTD-Methadone Inpatient Rehab Admission - Rehab Decision to Admit Inpatient rehab admission?: No
[2019-10-30] MEDS ORDERED: ACETAMINOPHEN 325 MG TABLET (FP) PO PRN ×2 (10:29)
[2019-10-30] MEDS ORDERED: NICOTINE POLACRILEX 2 MG GUM BUC PRN (10:29)
[2019-10-30] MEDS ORDERED: MAG HYDROX/AL HYDROX/SIMETH 30 ML UNIT-DOSE CUP PO PRN (10:29)
[2019-10-30] MEDS ORDERED: IBUPROFEN 400 MG TABLET (FP) PO PRN (10:29)
[2019-10-30] MEDS ORDERED: MENTHOL/PHENOL 1 EACH UD MM PRN (10:29)
[2019-10-30] MEDS ORDERED: ONDANSETRON *ODT* 4 MG TABLET SL ONE (10:29)
[2019-10-30] MEDS ORDERED: MAGNESIUM HYDROX 2400MG/30ML ORAL SUSPENSION 30 ML CUP PO PRN (10:29)
[2019-10-30] MEDS ORDERED: BISMUTH SUBSALICYLATE 262 MG/15 ML BTL PO PRN (10:29)
[2019-10-30] MEDS ORDERED: chlordiazePOXIDE HCL 25 MG CAPSULE PO PRN (10:29)
[2019-10-30] MEDS ORDERED: MAGNESIUM CITRATE 300 ML BOTTLE PO PRN (10:29)
[2019-10-30] MEDS: PRENATAL VITAMINS W/ FOLIC ACID TABLET (FP) PO SCH (12:33)
[2019-10-30] MEDS: chlordiazePOXIDE HCL 25 MG CAPSULE PO SCH ×3 (12:33→22:18)
[2019-10-30] MEDS: NICOTINE 7 MG/24 HOURS TOPICAL PATCH TD SCH (12:34)
[2019-10-30] MEDS: BACITRACIN 0.9 GM PACKET TP SCH ×2 (12:34→22:20)
--- NOTE | 2019-10-30 14:24 | CONSULT ---
[facility] Psychiatric Consult - Data Date of interview: 10/30/19 Admission source: [facility] Identifying data: Readmission to [address] [place] [address] for this 59 y/o male, self- referred for detoxification treatment. SOLEDAD issues : alcohol, opioid, nicotine. Patient is single, father of one (21 y/o son living in [facility]), domiciled, unemployed and supported on Public Assistance. Substance Abuse History: Discussed with the patient. SOLEDAD profile as follows : Smoking history: Current every day smoker. Have you smoked in the past 12 months: Yes. Aproximately how many cigarettes per day: 20. Cigars Per Day: 0. Hx Chewing Tobacco Use: No. Initiated information on smoking cessation: Yes. 'Breaking Loose' booklet given: 10/30/19. - Substances abused. Alcohol. Substance route: Oral. Frequency: Daily. Amount used: 3 six pack beers + 1 pint vodka at times. Age of first use: 17. Date of last use: 10/30/19 (6AM) Medical History: Medical profile is remarkable for hypertension, diabetes mellitus, hepatitis C and history of abdominal surgery (perforated peptic ulcer + peritonitis) in 1993. No known allergies. Psychiatric History: Patient denies history of psychiatric hospitalizations. Mr Tate is currently seeing Dr Pimentel at [facility] for medication management (paxil 40 mg/day + seroquel 100 mg/hs). He is also on methadone maintenance (100 mg/day) at [facility] in [facility]. Diagnosed with Bipolar Disorder, Major Depression and Schizophrenia (years ago). No history of suicide attempts. Physical/Sexual Abuse/Trauma History: Patient denies. Additional Comment: Urine drug screen results: MTD-Methadone. Noted. Mental Status Exam - Mental Status Exam Alert and Oriented to: Time, Place, Person Cognitive Function: Good Patient Appearance: Unkempt, Disheveled Mood: Nervous Affect: Mood Congruent, Constricted Patient Behavior: Fatigued, Appropriate, Cooperative Speech Pattern: Clear, Appropriate Voice Loudness: Normal Thought Process: Goal Oriented Thought Disorder: Not Present Hallucinations: Denies Suicidal Ideation: Denies Homicidal Ideation: Denies Insight/Judgement: Poor Sleep: Poorly, Difficulty falling asleep Appetite: Good Gait/Station: Normal Psychiatric Findings - Problem List (New Site 1, 2,3) (1) Alcohol dependence with uncomplicated withdrawal Current Visit: Yes Status: Acute (2) Opioid dependence on agonist therapy Current Visit: Yes Status: Chronic (3) Nicotine dependence Current Visit: Yes Status: Chronic Qualifiers: Nicotine product type: cigarettes Substance use status: uncomplicated Qualified Code(s): F17.210 - Nicotine dependence, cigarettes, uncomplicated (4) Schizoaffective disorder Current Visit: Yes Status: Chronic Qualifiers: Schizoaffective disorder type: unspecified Qualified Code(s): F25.9 - Schizoaffective disorder, unspecified Comment: By history. (5) Insomnia Current Visit: Yes Status: Chronic - Initial Treatment Plan Initial Treatment Plan: Psychoeducation. Sleep hygiene. Detoxification. Resumed, with patient's consent : paxil 20 mg po daily + seroquel 100 mg po hs. Side effects/benefits discussed with patient. Observation.
[2019-10-30] MEDS: hydrOXYzine PAMOATE 25 MG CAPSULE (FP) PO SCH ×3 (15:01→22:17)
[2019-10-30 16:17] LABS: HEMATOCRIT 36.5 % (35.4-49); HEMOGLOBIN 11.7 GM/dL (11.7-16.9); MCH 27.1 pg (25.7-33.7); MEAN CELL VOLUME 84.6 fl (80-96); MEAN PLT VOLUME 8.5 fl (7.5-11.1); PLATELET COUNT 140 K/MM3 (134-434); RBC 4.32 M/mm3 (4.00-5.60); RDW 19.9 % (11.9-15.9)
[2019-10-30 16:33] LABS: ALBUMIN 3.8 g/dl (3.4-5.0); BILIRUBIN,TOTAL 0.7 mg/dL (0.2-1); CALCIUM 8.7 mg/dL (8.5-10.1); CREATININE 0.7 mg/dL (0.55-1.3); TOT PROT 8.2 g/dl (6.4-8.2)
[2019-10-30] MEDS: metFORMIN HCL 500 MG TABLET (FP) PO SCH (16:57)
[2019-10-30] MEDS ORDERED: QUEtiapine FUMARATE 50 MG TABLET ONE (20:45)
[2019-10-30] MEDS ORDERED: METOPROLOL TARTRATE 25 MG TABLET (FP) PO ONE (21:19)
--- NOTE | 2019-10-30 21:19 | PN ---
BHS Progress Note Note: CALL FROM NURSING RE : ELEVATED BP Vital Signs - 24 hr 10/30/19 10/30/19 10/30/19 10:15 11:42 12:30 Temperature 97.8 F 96.8 F L 96.8 F L Pulse Rate 78 77 96 H Respiratory 18 18 18 Rate Blood Pressure 148/90 152/96 162/96 O2 Sat by Pulse 96 Oximetry (%) 10/30/19 16:45 Temperature 97.7 F Pulse Rate 98 H Respiratory 18 Rate Blood Pressure 168/94 O2 Sat by Pulse Oximetry (%) p : METOPROLOL 25 MG X ONCE
[2019-10-30] MEDS: MELATONIN 5 MG TABLETS PO SCH (22:18)
[2019-10-30] MEDS: THIAMINE HCL 100 MG TABLET (FP) PO SCH (22:18)
[2019-10-30] MEDS: TOLNAFTATE 1% CREAM 15 GM TUBE TP SCH (22:21)
[2019-10-30] MEDS: QUEtiapine FUMARATE 100 MG TABLET (FP) PO SCH (22:21)
[2019-10-31] MEDS ORDERED: METHADONE HCL 40 MG DISPERSABLE TABLET ONE (04:10)
[2019-10-31] MEDS ORDERED: METHADONE HCL 10 MG TABLET ONE (04:10)
[2019-10-31] MEDS: hydrOXYzine PAMOATE 25 MG CAPSULE (FP) PO SCH ×5 (05:18→22:31)
[2019-10-31] MEDS: chlordiazePOXIDE HCL 25 MG CAPSULE PO SCH ×2 (05:18→10:04)
[2019-10-31] MEDS: METHADONE 80 MG, METHADONE 20 MG PO SCH (05:18)
[2019-10-31] MEDS ORDERED: METHADONE HCL 10 MG TABLET PO SCH (06:00)
[2019-10-31] MEDS: metFORMIN HCL 500 MG TABLET (FP) PO SCH ×2 (06:16→17:32)
[2019-10-31] MEDS ORDERED: LISINOPRIL 10 MG TABLET (FP) PO SCH (10:00)
[2019-10-31] MEDS: BACITRACIN 0.9 GM PACKET TP SCH ×2 (10:04→22:31)
[2019-10-31] MEDS: NICOTINE 7 MG/24 HOURS TOPICAL PATCH TD SCH (10:04)
[2019-10-31] MEDS: PRENATAL VITAMINS W/ FOLIC ACID TABLET (FP) PO SCH (10:04)
--- NOTE | 2019-10-31 10:47 | PN ---
S CIWA - CIWA Score Nausea/Vomitin-Mild Nausea/No Vomiting Muscle Tremors: 3 Anxiety: 3 Agitation: 1-Slight > Activity Paroxysmal Sweats: 2 Orientation: 0-Oriented Tacttile Disturbances: 1-Very Mild Itch/Numbness Auditory Disturbances: 0-None Visual Disturbances: 2-Mild Sensitivity Headache: 1-Very Mild CIWA-Ar Total Score: 14 BHS Progress Note (SOAP) Subjective: 59 years old male admitted on 10/30/19 for alcohol withdrawal sx management treating with librium detox regiment discontinue isolation precaution discontinue duplication of dietary order received nurse requests for bgm bgm bid ac conjunction with metformin mr lester is non insulin dependent diabetes report to MD or [employer] if needed Objective: 10/31/19 10:50 Vital Signs - 24 hr 10/30/19 10/30/19 10/30/19 11:42 12:30 16:45 Temperature 96.8 F L 96.8 F L 97.7 F Pulse Rate 77 96 H 98 H Respiratory 18 18 18 Rate Blood Pressure 152/96 162/96 168/94 O2 Sat by Pulse 96 Oximetry (%) 10/30/19 10/31/19 10/31/19 20:39 06:08 08:38 Temperature 97.5 F L 97.3 F L 97.1 F L Pulse Rate 115 H 78 80 Respiratory 18 18 18 Rate Blood Pressure 172/93 H 152/91 153/89 O2 Sat by Pulse 94 L 99 Oximetry (%) Laboratory Tests 10/30/19 10/30/19 10/30/19 11:30 11:30 11:30 WBC 4.0 RBC 4.32 Hgb 11.7 Hct 36.5 MCV 84.6 MCH 27.1 MCHC 32.0 RDW 19.9 H Plt Count 140 D MPV 8.5 Sodium 137 Potassium 4.0 Chloride 100 Carbon Dioxide 28 Anion Gap 9 BUN 6.0 L Creatinine 0.7 Est GFR (CKD-EPI)AfAm 121.41 Est GFR (CKD-EPI)NonAf 104.76 POC Glucometer Random Glucose 80 Calcium 8.7 Total Bilirubin 0.7 AST 154 H ALT 88 H Alkaline Phosphatase 199 H Total Protein 8.2 Albumin 3.8 Syphilis Serology Non-reactive COVID-19 (KRISTINA) 10/30/19 10/30/19 10/31/19 11:40 16:20 05:17 WBC RBC Hgb Hct MCV MCH MCHC RDW Plt Count MPV Sodium Potassium Chloride Carbon Dioxide Anion Gap BUN Creatinine Est GFR (CKD-EPI)AfAm Est GFR (CKD-EPI)NonAf POC Glucometer 110 100 Random Glucose Calcium Total Bilirubin AST ALT Alkaline Phosphatase Total Protein Albumin Syphilis Serology COVID-19 (KRISTINA) Not detected ast elevation 10/31/19 10:51 discontinue librium begin ativan for alcohol withdrawal Assessment: 10/31/19 10:52 alcohol withdrawal hypertension non insulin dependent diabetes II 10/31/19 10:53 methadone maintenance program Plan: ativan regiment bgm ordered received methadone 100mg po
[2019-10-31] MEDS ORDERED: LORazepam 1 MG TABLET PO PRN (10:58)
[2019-10-31] MEDS: PARoxetine HCL 20 MG TABLET PO SCH (12:13)
[2019-10-31] MEDS: TOLNAFTATE 1% CREAM 15 GM TUBE TP SCH ×2 (12:14→22:30)
[2019-10-31] MEDS: LORazepam 2 MG TABLET PO SCH ×2 (17:05→22:31)
[2019-10-31] MEDS: QUEtiapine FUMARATE 100 MG TABLET (FP) PO SCH (22:31)
[2019-10-31] MEDS: LISINOPRIL 10 MG TABLET (FP) PO SCH (22:31)
[2019-10-31] MEDS: MELATONIN 5 MG TABLETS PO SCH (22:31)
[2019-10-31] MEDS: THIAMINE HCL 100 MG TABLET (FP) PO SCH (22:31)
[2019-11-01] MEDS ORDERED: METHADONE HCL 40 MG DISPERSABLE TABLET ONE (04:13)
[2019-11-01] MEDS ORDERED: METHADONE HCL 10 MG TABLET ONE (04:13)
[2019-11-01] MEDS ORDERED: chlordiazePOXIDE HCL 25 MG CAPSULE PO SCH (05:00)
[2019-11-01] MEDS: METHADONE 80 MG, METHADONE 20 MG PO SCH (06:27)
[2019-11-01] MEDS: hydrOXYzine PAMOATE 25 MG CAPSULE (FP) PO SCH ×5 (06:27→22:14)
[2019-11-01] MEDS: LORazepam 2 MG TABLET PO SCH ×4 (06:27→22:32)
[2019-11-01] MEDS: metFORMIN HCL 500 MG TABLET (FP) PO SCH ×2 (07:13→17:05)
[2019-11-01] MEDS: LISINOPRIL 10 MG TABLET (FP) PO SCH ×2 (10:55→22:14)
[2019-11-01] MEDS: PARoxetine HCL 20 MG TABLET PO SCH (10:55)
[2019-11-01] MEDS: TOLNAFTATE 1% CREAM 15 GM TUBE TP SCH ×2 (10:56→22:15)
[2019-11-01] MEDS: BACITRACIN 0.9 GM PACKET TP SCH ×2 (10:56→22:14)
[2019-11-01] MEDS: PRENATAL VITAMINS W/ FOLIC ACID TABLET (FP) PO SCH (10:56)
[2019-11-01] MEDS: NICOTINE 7 MG/24 HOURS TOPICAL PATCH TD SCH (10:56)
--- NOTE | 2019-11-01 11:13 | PN ---
S CIWA - CIWA Score Nausea/Vomitin-Mild Nausea/No Vomiting Muscle Tremors: 1-None Visible, but [place] Anxiety: 1-Mildly Anxious Agitation: 1-Slight > Activity Paroxysmal Sweats: 1-Minimal Palms Moist Orientation: 0-Oriented Tacttile Disturbances: 1-Very Mild Itch/Numbness Auditory Disturbances: 0-None Visual Disturbances: 2-Mild Sensitivity Headache: 1-Very Mild CIWA-Ar Total Score: 9 BHS Progress Note (SOAP) Subjective: 59 years old male admitted on 10/30/19 for alcohol withdrawal sx management treating with ativan detox regiment feeling ok today ate breakfast in room tolerating food well mr batista is considering to methadone program for behavior and psychosocial therapies Objective: 11/01/19 11:15 Vital Signs - 24 hr 10/31/19 10/31/19 10/31/19 12:51 16:35 20:33 Temperature 97.3 F L 97.5 F L 97.1 F L Pulse Rate 82 102 H 109 H Respiratory 18 18 18 Rate Blood Pressure 150/94 143/91 156/98 O2 Sat by Pulse 99 98 Oximetry (%) 11/01/19 11/01/19 06:40 08:58 Temperature 97.7 F 97.1 F L Pulse Rate 74 99 H Respiratory 18 18 Rate Blood Pressure 127/88 135/88 O2 Sat by Pulse 97 Oximetry (%) mr batista tolerates lisinopril well and bp appears within acceptable range Laboratory Tests 10/30/19 10/30/19 10/30/19 11:30 11:30 11:30 WBC 4.0 RBC 4.32 Hgb 11.7 Hct 36.5 MCV 84.6 MCH 27.1 MCHC 32.0 RDW 19.9 H Plt Count 140 D MPV 8.5 Sodium 137 Potassium 4.0 Chloride 100 Carbon Dioxide 28 Anion Gap 9 BUN 6.0 L Creatinine 0.7 Est GFR (CKD-EPI)AfAm 121.41 Est GFR (CKD-EPI)NonAf 104.76 POC Glucometer Random Glucose 80 Calcium 8.7 Total Bilirubin 0.7 AST 154 H ALT 88 H Alkaline Phosphatase 199 H Total Protein 8.2 Albumin 3.8 Syphilis Serology Non-reactive COVID-19 (KRISTINA) 10/30/19 10/30/19 10/31/19 11:40 16:20 05:17 WBC RBC Hgb Hct MCV MCH MCHC RDW Plt Count MPV Sodium Potassium Chloride Carbon Dioxide Anion Gap BUN Creatinine Est GFR (CKD-EPI)AfAm Est GFR (CKD-EPI)NonAf POC Glucometer 110 100 Random Glucose Calcium Total Bilirubin AST ALT Alkaline Phosphatase Total Protein Albumin Syphilis Serology COVID-19 (KRISTINA) Not detected 10/31/19 11/01/19 16:36 06:25 WBC RBC Hgb Hct MCV MCH MCHC RDW Plt Count MPV Sodium Potassium Chloride Carbon Dioxide Anion Gap BUN Creatinine Est GFR (CKD-EPI)AfAm Est GFR (CKD-EPI)NonAf POC Glucometer 84 76 Random Glucose Calcium Total Bilirubin AST ALT Alkaline Phosphatase Total Protein Albumin Syphilis Serology COVID-19 (KRISTINA) 11/01/19 11:16 Assessment: 11/01/19 11:17 alcohol withdrawal Plan: ativan regiment
[2019-11-01] MEDS: MELATONIN 5 MG TABLETS PO SCH (22:14)
[2019-11-01] MEDS: QUEtiapine FUMARATE 100 MG TABLET (FP) PO SCH (22:14)
[2019-11-01] MEDS: THIAMINE HCL 100 MG TABLET (FP) PO SCH (22:14)
[2019-11-02] MEDS ORDERED: chlordiazePOXIDE HCL 10 MG CAPSULE PO PRN
[2019-11-02] MEDS ORDERED: METHADONE HCL 40 MG DISPERSABLE TABLET ONE (03:45)
[2019-11-02] MEDS ORDERED: METHADONE HCL 10 MG TABLET ONE (03:45)
[2019-11-02] MEDS ORDERED: chlordiazePOXIDE HCL 10 MG CAPSULE PO SCH (05:00)
[2019-11-02] MEDS: hydrOXYzine PAMOATE 25 MG CAPSULE (FP) PO SCH (05:50)
[2019-11-02] MEDS: LORazepam 1 MG TABLET PO SCH ×4 (05:51→22:23)
[2019-11-02] MEDS: METHADONE 80 MG, METHADONE 20 MG PO SCH (05:51)
--- NOTE | 2019-11-02 06:00 | PN ---
[facility] Progress Note Note: Patient reports that he got up from bed, slipped and fell. Fall was not witnessed. Fall protocol #1 initiated. No injury, bruises, swelling, laceration or redness noted or reported. Patient denies pain or discomfort. Rates pain at 0/10. He is alert and oriented x 3, in no acute distress, ambulates independently and able to move all extremities. Patient refused to go to ER and signed the AMA form. Patient instructed to report pain or discomfort. Vital Signs Temperature 97.1 F L 11/02/19 05:20 Pulse Rate 112 H 11/02/19 05:20 Respiratory Rate 18 11/02/19 05:20 Blood Pressure 152/87 11/02/19 05:20 O2 Sat by Pulse Oximetry (%) 99 11/02/19 05:20 Laboratory Last Values WBC 4.0 K/mm3 (4.0-10.0) 10/30/19 11:30 RBC 4.32 M/mm3 (4.00-5.60) 10/30/19 11:30 Hgb 11.7 GM/dL (11.7-16.9) 10/30/19 11:30 Hct 36.5 % (35.4-49) 10/30/19 11:30 MCV 84.6 fl (80-96) 10/30/19 11:30 MCH 27.1 pg (25.7-33.7) 10/30/19 11:30 MCHC 32.0 g/dl (32.0-35.9) 10/30/19 11:30 RDW 19.9 % (11.9-15.9) H 10/30/19 11:30 Plt Count 140 K/MM3 (134-434) D 10/30/19 11:30 MPV 8.5 fl (7.5-11.1) 10/30/19 11:30 Sodium 137 mmol/L (136-145) 10/30/19 11:30 Potassium 4.0 mmol/L (3.5-5.1) 10/30/19 11:30 Chloride 100 mmol/L (98-107) 10/30/19 11:30 Carbon Dioxide 28 mmol/L (21-32) 10/30/19 11:30 Anion Gap 9 MMOL/L (8-16) 10/30/19 11:30 BUN 6.0 mg/dL (7-18) L 10/30/19 11:30 Creatinine 0.7 mg/dL (0.55-1.3) 10/30/19 11:30 Est GFR (CKD-EPI)AfAm 121.41 10/30/19 11:30 Est GFR (CKD-EPI)NonAf 104.76 10/30/19 11:30 POC Glucometer 99 UNITS (80-120) 11/02/19 05:50 Random Glucose 80 mg/dL (74-106) 10/30/19 11:30 Calcium 8.7 mg/dL (8.5-10.1) 10/30/19 11:30 Total Bilirubin 0.7 mg/dL (0.2-1) 10/30/19 11:30 AST 154 U/L (15-37) H 10/30/19 11:30 ALT 88 U/L (13-61) H 10/30/19 11:30 Alkaline Phosphatase 199 U/L (45-117) H 10/30/19 11:30 Total Protein 8.2 g/dl (6.4-8.2) 10/30/19 11:30 Albumin 3.8 g/dl (3.4-5.0) 10/30/19 11:30 Syphilis Serology Non-reactive (NONREACTIVE) 10/30/19 11:30 COVID-19 (KRISTINA) Not detected (Not Detected) 10/30/19 11:40 Action: Tylenol 650mg tablet oral Q6H prn. Maintain fall and safety precaution
[2019-11-02] MEDS: metFORMIN HCL 500 MG TABLET (FP) PO SCH ×2 (06:05→17:30)
[2019-11-02] MEDS: PARoxetine HCL 20 MG TABLET PO SCH (10:10)
[2019-11-02] MEDS: PRENATAL VITAMINS W/ FOLIC ACID TABLET (FP) PO SCH (10:11)
[2019-11-02] MEDS: LISINOPRIL 10 MG TABLET (FP) PO SCH ×2 (10:11→22:23)
[2019-11-02] MEDS: NICOTINE 7 MG/24 HOURS TOPICAL PATCH TD SCH (10:12)
[2019-11-02] MEDS: TOLNAFTATE 1% CREAM 15 GM TUBE TP SCH ×2 (10:12→22:23)
[2019-11-02] MEDS: BACITRACIN 0.9 GM PACKET TP SCH ×2 (10:12→22:24)
[2019-11-02] MEDS: METHOCARBAMOL 500 MG TABLET PO PRN (11:47)
--- NOTE | 2019-11-02 12:28 | PN ---
[facility] CIWA - CIWA Score Nausea/Vomitin-Mild Nausea/No Vomiting Muscle Tremors: 1-None Visible, but [place] Anxiety: 1-Mildly Anxious Agitation: 1-Slight > Activity Paroxysmal Sweats: 1-Minimal Palms Moist Orientation: 0-Oriented Tacttile Disturbances: 1-Very Mild Itch/Numbness Auditory Disturbances: 0-None Visual Disturbances: 1-Very Mild Sensitivity Headache: 0-None Present CIWA-Ar Total Score: 7 BHS Progress Note (SOAP) Subjective: 59 years old male admitted on 10/30/19 for alcohol withdrawal sx management treating with ativan detox regiment mr batista denies pain from fall No visible injury noted , bruises, swelling, la ceration or redness continue fall protocol ate breakfast and lunch in room tolerated food well Objective: 11/02/19 13:00 Vital Signs - 24 hr 11/01/19 11/01/19 11/02/19 16:35 20:41 05:20 Temperature 97.3 F L 97.3 F L 97.1 F L Pulse Rate 121 H 116 H 112 H Respiratory 18 18 18 Rate Blood Pressure 144/95 146/95 152/87 O2 Sat by Pulse 98 99 Oximetry (%) 11/02/19 11/02/19 11/02/19 07:20 09:20 11:20 Temperature 97.3 F L 97.5 F L 98.2 F Pulse Rate 83 98 H 84 Respiratory 18 18 18 Rate Blood Pressure 148/87 133/84 152/90 O2 Sat by Pulse 98 Oximetry (%) 11/02/19 13:01 bp elevation additional amlodipine 10mg po daily as bp management continue lisinopril 10 mg po bid Laboratory Tests 10/30/19 10/30/19 10/30/19 11:30 11:30 11:30 WBC 4.0 RBC 4.32 Hgb 11.7 Hct 36.5 MCV 84.6 MCH 27.1 MCHC 32.0 RDW 19.9 H Plt Count 140 D MPV 8.5 Sodium 137 Potassium 4.0 Chloride 100 Carbon Dioxide 28 Anion Gap 9 BUN 6.0 L Creatinine 0.7 Est GFR (CKD-EPI)AfAm 121.41 Est GFR (CKD-EPI)NonAf 104.76 POC Glucometer Random Glucose 80 Calcium 8.7 Total Bilirubin 0.7 AST 154 H ALT 88 H Alkaline Phosphatase 199 H Total Protein 8.2 Albumin 3.8 Syphilis Serology Non-reactive COVID-19 (KRISTINA) 10/30/19 10/30/19 10/31/19 11:40 16:20 05:17 WBC RBC Hgb Hct MCV MCH MCHC RDW Plt Count MPV Sodium Potassium Chloride Carbon Dioxide Anion Gap BUN Creatinine Est GFR (CKD-EPI)AfAm Est GFR (CKD-EPI)NonAf POC Glucometer 110 100 Random Glucose Calcium Total Bilirubin AST ALT Alkaline Phosphatase Total Protein Albumin Syphilis Serology COVID-19 (KRISTINA) Not detected 10/31/19 11/01/19 11/01/19 16:36 06:25 16:30 WBC RBC Hgb Hct MCV MCH MCHC RDW Plt Count MPV Sodium Potassium Chloride Carbon Dioxide Anion Gap BUN Creatinine Est GFR (CKD-EPI)AfAm Est GFR (CKD-EPI)NonAf POC Glucometer 84 76 106 Random Glucose Calcium Total Bilirubin AST ALT Alkaline Phosphatase Total Protein Albumin Syphilis Serology COVID-19 (KRISTINA) 11/02/19 05:50 WBC RBC Hgb Hct MCV MCH MCHC RDW Plt Count MPV Sodium Potassium Chloride Carbon Dioxide Anion Gap BUN Creatinine Est GFR (CKD-EPI)AfAm Est GFR (CKD-EPI)NonAf POC Glucometer 99 Random Glucose Calcium Total Bilirubin AST ALT Alkaline Phosphatase Total Protein Albumiren Syphilis Serology COVID-19 (KRISTINA) repeat ast pending 11/02/19 13:05 Assessment: 11/02/19 13:05 alcohol withdrawal Plan: ativan regiment fall precaution #1
[2019-11-02] MEDS: amLODIPine BESYLATE 10 MG TABLET (FP) PO SCH (13:26)
[2019-11-02] MEDS: THIAMINE HCL 100 MG TABLET (FP) PO SCH (22:23)
[2019-11-02] MEDS: QUEtiapine FUMARATE 100 MG TABLET (FP) PO SCH (22:23)
[2019-11-02] MEDS: MELATONIN 5 MG TABLETS PO SCH (22:37)
[2019-11-03] MEDS ORDERED: LORazepam 0.5 MG TABLET PO PRN
[2019-11-03] MEDS ORDERED: METHADONE HCL 10 MG TABLET ONE (03:51)
[2019-11-03] MEDS ORDERED: METHADONE HCL 40 MG DISPERSABLE TABLET ONE (03:51)
[2019-11-03] MEDS ORDERED: chlordiazePOXIDE HCL 10 MG CAPSULE PO SCH (05:00)
[2019-11-03] MEDS: METHADONE 80 MG, METHADONE 20 MG PO SCH (05:58)
[2019-11-03] MEDS: LORazepam 0.5 MG TABLET PO SCH ×4 (05:58→22:13)
[2019-11-03] MEDS: metFORMIN HCL 500 MG TABLET (FP) PO SCH ×2 (06:46→17:39)
--- NOTE | 2019-11-03 09:37 | PN ---
[facility] CIWA - CIWA Score Nausea/Vomitin-No Nausea/No Vomiting Muscle Tremors: None Anxiety: 0-No Anxiety, at Ease Agitation: 0-Normal Activity Paroxysmal Sweats: No Perspiration Orientation: 2-Disoriented Date<2 days Tacttile Disturbances: 0-None Auditory Disturbances: 0-None Visual Disturbances: 0-None Headache: 0-None Present CIWA-Ar Total Score: 2 S Progress Note (SOAP) Subjective: Mr. Soto is doing well. Normal mentation, requesting cane. Will order. Objective: 11/03/19 09:33 Vitals: 146/94, Pulse 84, RR 18, T 97.3 General: No acute distress HEENT: Normocephalic, PERRL, oral mucosa normal appearing Neuro: Oriented to person, place, and to month (not day) MSK: Ambulating slowly and with caution Assessment: 11/03/19 09:37 1. Alcohol detox Day 5, admitted 10/29: Plan for discharge today. Plan: Alcohol detox Day 5, admitted 10/29: Plan for discharge today.
[2019-11-03] MEDS: PARoxetine HCL 20 MG TABLET PO SCH (10:07)
[2019-11-03] MEDS: PRENATAL VITAMINS W/ FOLIC ACID TABLET (FP) PO SCH (10:07)
[2019-11-03] MEDS: LISINOPRIL 10 MG TABLET (FP) PO SCH ×2 (10:07→22:13)
[2019-11-03] MEDS: amLODIPine BESYLATE 10 MG TABLET (FP) PO SCH (10:07)
[2019-11-03] MEDS: BACITRACIN 0.9 GM PACKET TP SCH ×2 (10:08→22:12)
[2019-11-03] MEDS: TOLNAFTATE 1% CREAM 15 GM TUBE TP SCH ×2 (10:08→22:12)
[2019-11-03] MEDS: NICOTINE 7 MG/24 HOURS TOPICAL PATCH TD SCH (10:08)
[2019-11-03] MEDS: QUEtiapine FUMARATE 100 MG TABLET (FP) PO SCH (22:13)
[2019-11-03] MEDS: THIAMINE HCL 100 MG TABLET (FP) PO SCH (22:13)
[2019-11-03] MEDS: MELATONIN 5 MG TABLETS PO SCH (22:13)
[2019-11-04] MEDS ORDERED: METHADONE HCL 10 MG TABLET ONE (03:56)
[2019-11-04] MEDS ORDERED: METHADONE HCL 40 MG DISPERSABLE TABLET ONE (03:57)
[2019-11-04] MEDS ORDERED: LORazepam 0.5 MG TABLET PO ONE (05:00)
[2019-11-04] MEDS ORDERED: chlordiazePOXIDE HCL 10 MG CAPSULE PO ONE (05:00)
[2019-11-04] MEDS: METHADONE 80 MG, METHADONE 20 MG PO SCH (05:18)
[2019-11-04] MEDS: metFORMIN HCL 500 MG TABLET (FP) PO SCH ×2 (06:24→17:31)
[2019-11-04] MEDS: amLODIPine BESYLATE 10 MG TABLET (FP) PO SCH (10:34)
[2019-11-04] MEDS: PRENATAL VITAMINS W/ FOLIC ACID TABLET (FP) PO SCH (10:34)
[2019-11-04] MEDS: TOLNAFTATE 1% CREAM 15 GM TUBE TP SCH ×2 (10:34→22:27)
[2019-11-04] MEDS: LISINOPRIL 10 MG TABLET (FP) PO SCH ×2 (10:34→21:50)
[2019-11-04] MEDS: PARoxetine HCL 20 MG TABLET PO SCH (10:34)
[2019-11-04] MEDS: BACITRACIN 0.9 GM PACKET TP SCH ×2 (10:35→21:51)
[2019-11-04] MEDS: NICOTINE 7 MG/24 HOURS TOPICAL PATCH TD SCH (10:35)
--- NOTE | 2019-11-04 11:48 | PN ---
[facility] Progress Note Note: Pt was seen at bedside alert, verbally responsive, and in no acute respiratory distress. Pt's discharge to rehab today cancelled due to bed unavailability. Pt is on methadone maintenance, unable to discharge pt home at this time. No withdrawal symptoms noted. Pt to continue with his prn meds. Pt will be discharged tomorrow after methadone administration.
[2019-11-04] MEDS: QUEtiapine FUMARATE 100 MG TABLET (FP) PO SCH (21:50)
[2019-11-04] MEDS: THIAMINE HCL 100 MG TABLET (FP) PO SCH (21:50)
[2019-11-04] MEDS: MELATONIN 5 MG TABLETS PO SCH (21:51)
[2019-11-04] MEDS: METHOCARBAMOL 500 MG TABLET PO PRN (22:29)
[2019-11-05] MEDS ORDERED: METHADONE HCL 40 MG DISPERSABLE TABLET ONE (04:09)
[2019-11-05] MEDS ORDERED: METHADONE HCL 10 MG TABLET ONE (04:09)
[2019-11-05] MEDS: METHADONE 80 MG, METHADONE 20 MG PO SCH (05:21)
[2019-11-05] MEDS: metFORMIN HCL 500 MG TABLET (FP) PO SCH (06:20)
--- NOTE | 2019-11-05 08:21 | DS ---
[facility] Detox Discharge Summary Admission Date: 10/30/19 Discharge Date: 11/05/19 - History Present History: Alcohol Dependence Additional Comments: 59 years old male admitted on 10/30/19 for alcohol withdrawal sx management treated with ativan detox regiment seen by psychiatrist gera mccain and alfie taking methadone 100 mg po daily medical history of hypertension treated with lisinopril and amlodipine alert oriented to person and place reoriented to date of week ambulating with cane slow steady General Appearance: Yes: Disheveled, Tremorous, Irritable, Sweating, Anxious HEENTM: Yes: EOMI, Hearing grossly Normal, Normal ENT Inspection, Normocephalic, Normal Voice, KEENAN, Pharynx Normal, Tm's normal Respiratory: Yes: Chest Non-Tender, Lungs Clear, Normal Breath Sounds, No Respiratory Distress, No Accessory Muscle Use Neck: Yes: No masses,lesions,Nodules, Supple, Trachea in good position Breast: Yes: Within Normal Limits Cardiology: Yes: Regular Rhythm, Regular Rate, S1, S2 Abdominal: Yes: Normal Bowel Sounds, Non Tender, Soft, Protuberent, Surgical Scar Genitourinary: Yes: Within Normal Limits Back: Yes: Normal Inspection Musculoskeletal: Yes: full range of Motion, Gait Steady, Pelvis Stable Extremities: Yes: Normal Capillary Refill, Normal Inspection, Normal Range of Motion, Non-Tender, Erythema, Other (#3 pitting edema) Neurological: Yes: switchboard inspector II-XII NML intact, Fully Oriented, Alert, Motor Strength 5/5, Normal Mood/Affect, Normal Response Integumentary: Yes: Normal Color, Dry, Warm Lymphatic: Yes: Within Normal Limits Pertinent Past History: time for discharge 45 minutes transferred order sent from detox to rehab - Physical Exam Results Vital Signs: Vital Signs Temperature 97.6 F 11/05/19 05:33 Pulse Rate 69 11/05/19 05:33 Respiratory Rate 18 11/05/19 05:33 Blood Pressure 148/89 11/05/19 05:33 O2 Sat by Pulse Oximetry (%) 96 11/05/19 05:33 Pertinent Admission Physical Exam Findings: alcohol withdrawal Vital Signs - 24 hr 11/04/19 11/04/19 11/04/19 12:54 16:35 20:35 Temperature 97.3 F L 97.3 F L 97.5 F L Pulse Rate 80 125 H 102 H Respiratory 18 18 18 Rate Blood Pressure 107/71 104/73 102/73 O2 Sat by Pulse 97 97 Oximetry (%) 11/05/19 11/05/19 05:33 08:43 Temperature 97.6 F 97.1 F L Pulse Rate 69 114 H Respiratory 18 20 Rate Blood Pressure 148/89 93/68 O2 Sat by Pulse 96 Oximetry (%) Home Medication List Medication Instructions Recorded Confirmed Type Paroxetine HCl [Paxil -] 40 mg PO DAILY 10/30/19 10/30/19 History Active Medications Generic Name Dose Route Start Last Admin Trade Name Freq PRN Reason Stop Dose Admin Al Hydroxide/Mg Hydroxide 30 ml 10/30/19 10:29 Mylanta Oral Suspension - PO Q6H PRN DYSPEPSIA Amlodipine Besylate 10 mg 11/02/19 13:15 11/05/19 10:10 Norvasc - PO 10 mg DAILY TOYA Administration Bacitracin 0.9 gm 10/30/19 10:45 11/05/19 10:11 Bacitracin - TP 0.9 gm BID TOYA Administration Bismuth Subsalicylate 30 ml 10/30/19 10:29 Pepto-Bismol Liquid - PO Q1H PRN DIARRHEA Eucalyptus/Menthol/Phenol/Sorbitol 1 each 10/30/19 10:29 Cepastat Lozenge - MM 11/05/19 10:30 Q4H PRN SORE THROAT Ibuprofen 400 mg 10/30/19 10:29 11/03/19 11:39 Motrin - PO 400 mg Q6H PRN Administration PAIN LEVEL 1 - 3 Lisinopril 10 mg 10/31/19 22:00 11/05/19 10:10 Prinivil PO 10 mg BID TOYA Administration Magnesium Citrate 300 ml 10/30/19 10:29 Citroma - PO Q48H PRN CONSTIPATION Magnesium Hydroxide 30 ml 10/30/19 10:29 Milk Of Magnesia - PO PRN PRN CONSTIPATION Melatonin 5 mg 10/30/19 22:00 11/04/19 21:51 Melatonin PO 5 mg HS TOYA Administration Metformin HCl 500 mg 10/30/19 16:30 11/05/19 06:20 Glucophage - PO 500 mg BID@0700,1630 TOYA Administration Methadone HCl 80 mg/ Methadone 100 mg 10/31/19 06:00 11/05/19 05:21 HCl 20 mg PO 11/06/19 05:59 100 mg DAILY@0600 TOYA Administration Methocarbamol 500 mg 10/30/19 10:29 11/04/19 22:29 Robaxin - PO 11/05/19 10:30 500 mg Q6H PRN Administration MUSCLE SPASMS Nicotine 7 mg 10/30/19 10:30 11/05/19 10:11 Nicoderm Patch - TD Not Given DAILY TOYA Nicotine Polacrilex 2 mg 10/30/19 10:29 Nicorette Gum - BUC Q2H PRN NICOTINE REPLACEMENT RX Paroxetine HCl 20 mg 10/31/19 10:00 11/05/19 10:11 Paxil - PO 20 mg DAILY TOYA Administration Multivit/Folic Acid/Iron 1 tab 10/30/19 10:30 11/05/19 10:10 Vitamins (Sjr) - PO 1 tab DAILY TOYA Administration Quetiapine Fumarate 100 mg 10/30/19 22:00 11/04/19 21:50 Seroquel - PO 100 mg HS TOYA Administration Thiamine HCl 100 mg 10/30/19 22:00 11/04/19 21:50 Vitamin B1 - PO 100 mg HS TOYA Administration Tolnaftate 1 applic 10/30/19 22:00 11/05/19 10:12 Tinactin 1% Cream - TP Not Given BID TOYA Laboratory Tests 10/30/19 10/30/19 10/30/19 11:30 11:30 11:30 WBC 4.0 RBC 4.32 Hgb 11.7 Hct 36.5 MCV 84.6 MCH 27.1 MCHC 32.0 RDW 19.9 H Plt Count 140 D MPV 8.5 Sodium 137 Potassium 4.0 Chloride 100 Carbon Dioxide 28 Anion Gap 9 BUN 6.0 L Creatinine 0.7 Est GFR (CKD-EPI)AfAm 121.41 Est GFR (CKD-EPI)NonAf 104.76 POC Glucometer Random Glucose 80 Calcium 8.7 Total Bilirubin 0.7 AST 154 H ALT 88 H Alkaline Phosphatase 199 H Total Protein 8.2 Albumin 3.8 Syphilis Serology Non-reactive COVID-19 (KRISTINA) 10/30/19 10/30/19 10/31/19 11:40 16:20 05:17 WBC RBC Hgb Hct MCV MCH MCHC RDW Plt Count MPV Sodium Potassium Chloride Carbon Dioxide Anion Gap BUN Creatinine Est GFR (CKD-EPI)AfAm Est GFR (CKD-EPI)NonAf POC Glucometer 110 100 Random Glucose Calcium Total Bilirubin AST ALT Alkaline Phosphatase Total Protein Albumin Syphilis Serology COVID-19 (KRISTINA) Not detected 10/31/19 11/01/19 11/01/19 16:36 06:25 16:30 WBC RBC Hgb Hct MCV MCH MCHC RDW Plt Count MPV Sodium Potassium Chloride Carbon Dioxide Anion Gap BUN Creatinine Est GFR (CKD-EPI)AfAm Est GFR (CKD-EPI)NonAf POC Glucometer 84 76 106 Random Glucose Calcium Total Bilirubin AST ALT Alkaline Phosphatase Total Protein Albumin Syphilis Serology COVID-19 (KRISTINA) 11/02/19 11/02/19 11/03/19 05:50 16:19 06:00 WBC RBC Hgb Hct MCV MCH MCHC RDW Plt Count MPV Sodium Potassium Chloride Carbon Dioxide Anion Gap BUN Creatinine Est GFR (CKD-EPI)AfAm Est GFR (CKD-EPI)NonAf POC Glucometer 99 95 100 Random Glucose Calcium Total Bilirubin AST ALT Alkaline Phosphatase Total Protein Albumin Syphilis Serology COVID-19 (KRISTINA) 11/03/19 11/04/19 11/04/19 16:44 05:17 16:27 WBC RBC Hgb Hct MCV MCH MCHC RDW Plt Count MPV Sodium Potassium Chloride Carbon Dioxide Anion Gap BUN Creatinine Est GFR (CKD-EPI)AfAm Est GFR (CKD-EPI)NonAf POC Glucometer 94 86 89 Random Glucose Calcium Total Bilirubin AST ALT Alkaline Phosphatase Total Protein Albumin Syphilis Serology COVID-19 (KRISTINA) 11/05/19 06:11 WBC RBC Hgb Hct MCV MCH MCHC RDW Plt Count MPV Sodium Potassium Chloride Carbon Dioxide Anion Gap BUN Creatinine Est GFR (CKD-EPI)AfAm Est GFR (CKD-EPI)NonAf POC Glucometer 103 Random Glucose Calcium Total Bilirubin AST ALT Alkaline Phosphatase Total Protein Albumin Syphilis Serology COVID-19 (KRISTINA) ast elevation - Treatment Hospital Course: Detox Protocol Followed, Detoxed Safely, Responded well, Discharged Condition Good, Rehab Referral Accepted Patient has Accepted [facility] Referral [facility] - Medication Discharge Medications: Ambulatory Orders Quetiapine Fumarate [Seroquel -] 100 tab PO HS #30 tablet 09/18/19 Lisinopril 10 mg PO DAILY #30 tablet 09/19/19 Metformin HCl [Glucophage] 500 mg PO BID #60 tablet 09/19/19 Tolnaftate 1% Cream [Tinactin 1% Cream -] 1 applic TP BID #1 tube 09/19/19 Paroxetine HCl [Paxil -] 40 mg PO DAILY 10/30/19 - Diagnosis (1) Alcohol dependence with uncomplicated withdrawal Current Visit: Yes Status: Acute (2) Elevated liver enzymes Current Visit: Yes Status: Chronic (3) Diabetes mellitus type II, controlled Current Visit: Yes Status: Chronic Qualifiers: Diabetes mellitus usp insulin use: without bed bug exterminator use Diabetes mellitus complication status: without complication Qualified Code(s): E11.9 - Type 2 diabetes mellitus without complications (4) Essential hypertension Current Visit: Yes Status: Chronic (5) Methadone maintenance therapy patient Current Visit: Yes Status: Chronic (6) Nicotine dependence Current Visit: Yes Status: Acute Qualifiers: Nicotine product type: cigarettes Substance use status: in withdrawal Qualified Code(s): F17.213 - Nicotine dependence, cigarettes, with withdrawal (7) Hepatitis C carrier Current Visit: Yes Status: Chronic (8) Substance induced mood disorder Current Visit: Yes Status: Suspected - AMA Did Patient Leave Against Medical Advice: No CIWA Score - CIWA Score Nausea/Vomitin-No Nausea/No Vomiting Muscle Tremors: None Anxiety: 0-No Anxiety, at Ease Agitation: 0-Normal Activity Paroxysmal Sweats: No Perspiration Orientation: 1-Uncertain about Date (date of week) Tacttile Disturbances: 0-None Auditory Disturbances: 0-None Visual Disturbances: 0-None Headache: 0-None Present CIWA-Ar Total Score: 1
[2019-11-05 09:11] VITALS: BP 93/68; PULSE 114; TEMP 97.1
[2019-11-05] MEDS: amLODIPine BESYLATE 10 MG TABLET (FP) PO SCH (10:10)
[2019-11-05] MEDS: PRENATAL VITAMINS W/ FOLIC ACID TABLET (FP) PO SCH (10:10)
[2019-11-05] MEDS: LISINOPRIL 10 MG TABLET (FP) PO SCH (10:10)
[2019-11-05] MEDS: PARoxetine HCL 20 MG TABLET PO SCH (10:11)
[2019-11-05] MEDS: NICOTINE 7 MG/24 HOURS TOPICAL PATCH TD SCH (10:11)
[2019-11-05] MEDS: BACITRACIN 0.9 GM PACKET TP SCH (10:11)
[2019-11-05] MEDS: TOLNAFTATE 1% CREAM 15 GM TUBE TP SCH (10:12)
== END 2019-11-05 11:35 | disposition other institution (70) | DRG 773 ==
LOC: YASAS 09:36 → Y3N 10:29
PROVIDERS: ADMIT Allergy & Immunology; ATTEND Allergy & Immunology
PROC: HZ2ZZZZ Detoxification Services for Substance Abuse Treatment (ICD-10-PCS; principal; 2019-10-30)
DX: F10.230 Alcohol dependence with withdrawal, uncomplicated (principal); F10.220 Alcohol dependence with intoxication, uncomplicated; F11.20 Opioid dependence, uncomplicated; F17.213 Nicotine dependence, cigarettes, with withdrawal; F19.24 Other psychoactive substance dependence with psychoactive substance-induced mood disorder; F25.9 Schizoaffective disorder, unspecified; F30.12 Manic episode without psychotic symptoms, moderate; E11.9 Type 2 diabetes mellitus without complications; I10 Essential (primary) hypertension; R94.5 Abnormal results of liver function studies; B18.2 Chronic viral hepatitis C; G47.00 Insomnia, unspecified; Z86.11 Personal history of tuberculosis; W01.0XXA Fall on same level from slipping, tripping and stumbling without subsequent striking against object, initial encounter; Y93.89 Activity, other specified; Y92.230 Patient room in hospital as the place of occurrence of the external cause
CPT/HCPCS: 36415; 80053; 82962; 85027; 86780; Q0162; U0003

== ENCOUNTER 2019-11-05 11:37 | Inpatient (IN) | payer OTHER ==
--- NOTE | 2019-11-05 10:02 | HP ---
[facility] Re[facility] Assess/Revision - Admission History Admitted to Rehab from: [facility] Date of Admission to Rehab: 11/05/19 - Findings Detox History & Physical reviewed: Yes Concur with findings: Yes Comments/Additional Findings: transferred from detox to rehab admission as per protocol Inpatient Rehab Admission - Rehab Decision to Admit Inpatient rehab admission?: Yes - Initial Determination Are CD services needed?: Yes Free of communicable disease: Yes Not in need of hospitalization: Yes - Rehab Admission Criteria Previous failed treatment: Yes Poor recovery environment: Yes Comorbidities: Yes Lacks judgement: Yes Patient is meeting Inpatient Rehab admission criteria:: Yes
[~2019-11-05 11:37] MED LIST changes: +MAG HYDROX/AL HYDROX/SIMETH 30 ML UNIT-DOSE CUP PO PRN; -MENTHOL/PHENOL 1 EACH UD MM PRN; +NICOTINE POLACRILEX 2 MG GUM BC PRN; -NICOTINE POLACRILEX 4 MG GUM BUC PRN
--- NOTE | 2019-11-05 14:08 | CONSULT ---
[facility] Psychiatric Consult - Data Date of interview: 11/05/19 Admission source: [facility] Identifying data: Patient is a 59 year old male, father of one, unemployed, domiciled, and is supported by public assistance. This is one of multiple admissions for patient. Patient admitted to for treatment of alcohol, opioid, and nicotine dependence. Substance Abuse History: Substance Use & Tx History. - Substance Use History. Alcohol. Substance amount: 3 six packs beers + 1 pint vodka at times. Frequency of use: Daily. Substance route: Oral. Date of Last Use: 10/30/19. Nicotine. Substance amount: 1 pack. Frequency of use: Daily. Substance route: Smoking. Date of Last Use: 10/30/19 Medical History: Medical profile is remarkable for hypertension, diabetes mellitus, hepatitis C and history of abdominal surgery (perforated peptic ulcer + peritonitis) in 1993. Psychiatric History: Mr. Soto denies h/o psychiatric hospitalization and suicide attempt. Patient's history remains consistent. Mr. Soto continues to receive outpatient psychiatric care at the [facility] and is prescribed Paxil 40mg + Seroquel 100mg. He reports a diagnosis of depression, bipolar disorder, and schizophrenia. Patient reports sub-optimal adherence to medications. Patient seen by Dr. Roach in detox and was ordered Paxil 20mg + Seroquel 100mg HS. Patient is requesting an increase in paxil. At present patient reports feeling sad. Physical/Sexual Abuse/Trauma History: denies. Mental Status Exam - Mental Status Exam Alert and Oriented to: Time, Place, Person Cognitive Function: Good Patient Appearance: Well Groomed Mood: Sad Affect: Mood Congruent Patient Behavior: Appropriate, Cooperative Speech Pattern: Appropriate Voice Loudness: Normal Thought Process: Goal Oriented Thought Disorder: Not Present Hallucinations: Denies Suicidal Ideation: Denies Homicidal Ideation: Denies Insight/Judgement: Poor Sleep: Fair Appetite: Fair Muscle strength/Tone: Normal Gait/Station: Normal Psychiatric Findings - Problem List (Gage 1, 2,3) (1) Alcohol use disorder Current Visit: Yes Status: Acute (2) Opioid dependence on agonist therapy Current Visit: Yes Status: Chronic (3) Schizoaffective disorder Current Visit: Yes Status: Chronic Qualifiers: Schizoaffective disorder type: unspecified Qualified Code(s): F25.9 - Schizoaffective disorder, unspecified Comment: By history. - Initial Treatment Plan Initial Treatment Plan: Psychoeducation provided. Rehab in progress. 1) Will d/c paxil 20mg. 2) Will order Paxil 30mg daily + Seroquel 100mg HS. Benefits and side effects discussed. Verbal consent given.
[2019-11-05] MEDS: metFORMIN HCL 500 MG TABLET (FP) PO SCH (16:19)
[2019-11-05] MEDS: THIAMINE HCL 100 MG TABLET (FP) PO SCH (21:05)
[2019-11-05] MEDS: MELATONIN 5 MG TABLETS PO SCH (21:05)
[2019-11-05] MEDS: BACITRACIN 0.9 GM PACKET TP SCH (21:06)
[2019-11-05] MEDS: QUEtiapine FUMARATE 100 MG TABLET (FP) PO SCH (21:06)
[2019-11-05] MEDS: LISINOPRIL 10 MG TABLET (FP) PO SCH (21:06)
[2019-11-05] MEDS: TOLNAFTATE 1% CREAM 15 GM TUBE TP SCH (21:06)
[2019-11-05] MEDS ORDERED: QUEtiapine FUMARATE 100 MG TABLET (FP) PO SCH (22:00)
[2019-11-06] MEDS ORDERED: METHADONE HCL 10 MG TABLET ONE (05:38)
[2019-11-06] MEDS ORDERED: METHADONE HCL 40 MG DISPERSABLE TABLET ONE (05:38)
[2019-11-06] MEDS ORDERED: METHADONE HCL 40 MG DISPERSABLE TABLET PO SCH (06:00)
[2019-11-06] MEDS: METHADONE 80 MG, METHADONE 20 MG PO SCH (06:22)
[2019-11-06] MEDS: metFORMIN HCL 500 MG TABLET (FP) PO SCH (08:10)
[2019-11-06] MEDS ORDERED: PT OWN MED DRAWER 7, Y5N ONE (09:06)
[2019-11-06] MEDS ORDERED: PARoxetine HCL 20 MG TABLET PO SCH (10:00)
[2019-11-06] MEDS: LISINOPRIL 10 MG TABLET (FP) PO SCH ×2 (10:36→21:27)
[2019-11-06] MEDS: amLODIPine BESYLATE 10 MG TABLET (FP) PO SCH (10:36)
[2019-11-06] MEDS: PRENATAL VITAMINS W/ FOLIC ACID TABLET (FP) PO SCH (10:37)
[2019-11-06] MEDS: BACITRACIN 0.9 GM PACKET TP SCH ×2 (10:37→21:27)
[2019-11-06] MEDS: NICOTINE 7 MG/24 HOURS TOPICAL PATCH TD SCH (10:37)
[2019-11-06] MEDS: TOLNAFTATE 1% CREAM 15 GM TUBE TP SCH ×2 (10:38→21:27)
[2019-11-06] MEDS: PARoxetine HCL 10 MG TABLET PO SCH (10:56)
--- NOTE | 2019-11-06 12:52 | PN ---
[facility] Progress Note Note: Laboratory Tests 11/05/19 11/06/19 11/06/19 16:20 06:20 07:32 POC Glucometer 89 56 158 Vital Signs Temperature 99.6 F 11/06/19 08:53 Pulse Rate 102 H 11/06/19 08:53 Respiratory Rate 18 11/06/19 08:53 Blood Pressure 136/70 11/06/19 08:53 O2 Sat by Pulse Oximetry (%) 95 11/06/19 08:53 Patient's blood sugar range 86-158. He is currently on Metformin 500mg bid. States he is noncompliant with meds as outpatient. He denies sx of polyuria, polyphagia and polydypsia. A/P: DM-controlled Will reduced metformin to 500mg po daily continue diet restrictions monitor bgm as ordered
[2019-11-06] MEDS: THIAMINE HCL 100 MG TABLET (FP) PO SCH (21:26)
[2019-11-06] MEDS: QUEtiapine FUMARATE 100 MG TABLET (FP) PO SCH (21:27)
[2019-11-06] MEDS: MELATONIN 5 MG TABLETS PO SCH (21:27)
[2019-11-07] MEDS ORDERED: METHADONE HCL 40 MG DISPERSABLE TABLET ONE (05:37)
[2019-11-07] MEDS ORDERED: METHADONE HCL 10 MG TABLET ONE (05:37)
[2019-11-07] MEDS: METHADONE 80 MG, METHADONE 20 MG PO SCH (05:58)
[2019-11-07] MEDS: metFORMIN HCL 500 MG TABLET (FP) PO SCH (08:07)
[2019-11-07] MEDS: PARoxetine HCL 10 MG TABLET PO SCH (09:52)
[2019-11-07] MEDS: PRENATAL VITAMINS W/ FOLIC ACID TABLET (FP) PO SCH (09:52)
[2019-11-07] MEDS: amLODIPine BESYLATE 10 MG TABLET (FP) PO SCH (09:52)
[2019-11-07] MEDS: BACITRACIN 0.9 GM PACKET TP SCH ×2 (09:54→21:15)
[2019-11-07] MEDS: NICOTINE 7 MG/24 HOURS TOPICAL PATCH TD SCH (09:54)
[2019-11-07] MEDS: LISINOPRIL 10 MG TABLET (FP) PO SCH ×2 (09:54→21:15)
[2019-11-07] MEDS: TOLNAFTATE 1% CREAM 15 GM TUBE TP SCH ×2 (09:54→22:15)
[2019-11-07] MEDS: hydrOXYzine PAMOATE 25 MG CAPSULE (FP) PO PRN ×2 (10:11→16:00)
[2019-11-07] MEDS: MELATONIN 5 MG TABLETS PO SCH (21:15)
[2019-11-07] MEDS: THIAMINE HCL 100 MG TABLET (FP) PO SCH (21:15)
[2019-11-07] MEDS: QUEtiapine FUMARATE 100 MG TABLET (FP) PO SCH (21:15)
[2019-11-08] MEDS ORDERED: METHADONE HCL 10 MG TABLET ONE (05:37)
[2019-11-08] MEDS ORDERED: METHADONE HCL 40 MG DISPERSABLE TABLET ONE (05:38)
[2019-11-08] MEDS: METHADONE 80 MG, METHADONE 20 MG PO SCH (06:26)
[2019-11-08] MEDS: metFORMIN HCL 500 MG TABLET (FP) PO SCH (07:30)
[2019-11-08] MEDS: PRENATAL VITAMINS W/ FOLIC ACID TABLET (FP) PO SCH (09:56)
[2019-11-08] MEDS: BACITRACIN 0.9 GM PACKET TP SCH ×2 (09:56→21:29)
[2019-11-08] MEDS: PARoxetine HCL 10 MG TABLET PO SCH (09:56)
[2019-11-08] MEDS: amLODIPine BESYLATE 10 MG TABLET (FP) PO SCH (09:56)
[2019-11-08] MEDS: NICOTINE 7 MG/24 HOURS TOPICAL PATCH TD SCH (09:56)
[2019-11-08] MEDS: LISINOPRIL 10 MG TABLET (FP) PO SCH ×2 (09:56→21:28)
[2019-11-08] MEDS: TOLNAFTATE 1% CREAM 15 GM TUBE TP SCH ×2 (09:57→21:29)
[2019-11-08] MEDS: hydrOXYzine PAMOATE 25 MG CAPSULE (FP) PO PRN ×2 (09:57→21:28)
[2019-11-08] MEDS: THIAMINE HCL 100 MG TABLET (FP) PO SCH (21:28)
[2019-11-08] MEDS: MELATONIN 5 MG TABLETS PO SCH (21:28)
[2019-11-08] MEDS: QUEtiapine FUMARATE 100 MG TABLET (FP) PO SCH (21:28)
[2019-11-09] MEDS ORDERED: METHADONE HCL 10 MG TABLET ONE (03:35)
[2019-11-09] MEDS ORDERED: METHADONE HCL 40 MG DISPERSABLE TABLET ONE (03:35)
[2019-11-09] MEDS: METHADONE 80 MG, METHADONE 20 MG PO SCH (06:08)
[2019-11-09] MEDS: metFORMIN HCL 500 MG TABLET (FP) PO SCH (06:43)
[2019-11-09] MEDS: LISINOPRIL 10 MG TABLET (FP) PO SCH ×2 (09:55→21:09)
[2019-11-09] MEDS: hydrOXYzine PAMOATE 25 MG CAPSULE (FP) PO PRN ×2 (09:55→14:32)
[2019-11-09] MEDS: amLODIPine BESYLATE 10 MG TABLET (FP) PO SCH (09:55)
[2019-11-09] MEDS: PRENATAL VITAMINS W/ FOLIC ACID TABLET (FP) PO SCH (09:55)
[2019-11-09] MEDS: PARoxetine HCL 10 MG TABLET PO SCH (09:55)
[2019-11-09] MEDS: BACITRACIN 0.9 GM PACKET TP SCH ×2 (09:56→21:09)
[2019-11-09] MEDS: NICOTINE 7 MG/24 HOURS TOPICAL PATCH TD SCH (09:56)
[2019-11-09] MEDS: PANTOPRAZOLE 40 MG TABLET PO SCH (09:57)
[2019-11-09] MEDS: TOLNAFTATE 1% CREAM 15 GM TUBE TP SCH ×2 (10:14→21:50)
--- NOTE | 2019-11-09 14:52 | PN ---
[facility] Progress Note (SOAP) Subjective: patient with rash on face. Objective: P/E general: no apparent distress HEENTM: normocephalic Skin: reddened area around nose, chin in the shape of the KN95 mask. 11/09/19 14:49 11/09/19 14:52 Vital Signs Period Temp Pulse Resp BP Sys/Mcintyre Pulse Ox Last 24 Hr 98 F-98.2 F 72-108 18-18 117-144/62-80 95-99 Assessment: reaction to KN95 mask 11/09/19 14:51 Plan: Hydrocortisone cream ordered surgical mask ordered
[2019-11-09] MEDS ORDERED: PT OWN MED DRAWER 7, Y5N ONE (18:48)
[2019-11-09] MEDS: QUEtiapine FUMARATE 100 MG TABLET (FP) PO SCH (21:09)
[2019-11-09] MEDS: MELATONIN 5 MG TABLETS PO SCH (21:09)
[2019-11-09] MEDS: HYDROCORTISONE 1% TOPICAL CREAM 30 GM TUBE TP PRN (21:09)
[2019-11-09] MEDS: THIAMINE HCL 100 MG TABLET (FP) PO SCH (21:50)
[2019-11-10] MEDS ORDERED: METHADONE HCL 40 MG DISPERSABLE TABLET ONE (05:40)
[2019-11-10] MEDS ORDERED: METHADONE HCL 10 MG TABLET ONE (05:40)
[2019-11-10] MEDS: METHADONE 80 MG, METHADONE 20 MG PO SCH (06:04)
[2019-11-10] MEDS: metFORMIN HCL 500 MG TABLET (FP) PO SCH (07:04)
[2019-11-10] MEDS: LISINOPRIL 10 MG TABLET (FP) PO SCH ×2 (09:52→22:00)
[2019-11-10] MEDS: amLODIPine BESYLATE 10 MG TABLET (FP) PO SCH (09:52)
[2019-11-10] MEDS: PARoxetine HCL 10 MG TABLET PO SCH (09:52)
[2019-11-10] MEDS: PANTOPRAZOLE 40 MG TABLET PO SCH (09:52)
[2019-11-10] MEDS: PRENATAL VITAMINS W/ FOLIC ACID TABLET (FP) PO SCH (09:53)
[2019-11-10] MEDS: TOLNAFTATE 1% CREAM 15 GM TUBE TP SCH ×2 (09:53→22:01)
[2019-11-10] MEDS: NICOTINE 7 MG/24 HOURS TOPICAL PATCH TD SCH (09:53)
[2019-11-10] MEDS: hydrOXYzine PAMOATE 25 MG CAPSULE (FP) PO PRN ×2 (09:53→22:00)
[2019-11-10] MEDS: BACITRACIN 0.9 GM PACKET TP SCH ×2 (09:55→22:01)
[2019-11-10] MEDS: THIAMINE HCL 100 MG TABLET (FP) PO SCH (21:59)
[2019-11-10] MEDS: QUEtiapine FUMARATE 100 MG TABLET (FP) PO SCH (22:00)
[2019-11-10] MEDS: MELATONIN 5 MG TABLETS PO SCH (22:01)
[2019-11-11] MEDS ORDERED: METHADONE HCL 40 MG DISPERSABLE TABLET ONE (05:38)
[2019-11-11] MEDS ORDERED: METHADONE HCL 10 MG TABLET ONE (05:38)
[2019-11-11] MEDS: METHADONE 80 MG, METHADONE 20 MG PO SCH (06:28)
[2019-11-11] MEDS: metFORMIN HCL 500 MG TABLET (FP) PO SCH (07:00)
[2019-11-11] MEDS: BACITRACIN 0.9 GM PACKET TP SCH ×2 (09:38→21:23)
[2019-11-11] MEDS: LISINOPRIL 10 MG TABLET (FP) PO SCH ×2 (09:38→21:23)
[2019-11-11] MEDS: PARoxetine HCL 10 MG TABLET PO SCH (09:38)
[2019-11-11] MEDS: PANTOPRAZOLE 40 MG TABLET PO SCH (09:38)
[2019-11-11] MEDS: amLODIPine BESYLATE 10 MG TABLET (FP) PO SCH (09:38)
[2019-11-11] MEDS: NICOTINE 7 MG/24 HOURS TOPICAL PATCH TD SCH (09:38)
[2019-11-11] MEDS: PRENATAL VITAMINS W/ FOLIC ACID TABLET (FP) PO SCH (09:38)
[2019-11-11] MEDS: TOLNAFTATE 1% CREAM 15 GM TUBE TP SCH ×2 (09:39→21:57)
[2019-11-11] MEDS: hydrOXYzine PAMOATE 25 MG CAPSULE (FP) PO PRN (09:40)
[2019-11-11] MEDS: THIAMINE HCL 100 MG TABLET (FP) PO SCH (21:23)
[2019-11-11] MEDS: QUEtiapine FUMARATE 100 MG TABLET (FP) PO SCH (21:23)
[2019-11-11] MEDS: MELATONIN 5 MG TABLETS PO SCH (21:23)
[2019-11-12] MEDS ORDERED: METHADONE HCL 40 MG DISPERSABLE TABLET ONE (04:42)
[2019-11-12] MEDS ORDERED: METHADONE HCL 10 MG TABLET ONE (04:43)
[2019-11-12] MEDS: METHADONE 80 MG, METHADONE 20 MG PO SCH (06:37)
[2019-11-12] MEDS: metFORMIN HCL 500 MG TABLET (FP) PO SCH (07:25)
[2019-11-12] MEDS: PRENATAL VITAMINS W/ FOLIC ACID TABLET (FP) PO SCH (09:48)
[2019-11-12] MEDS: PARoxetine HCL 10 MG TABLET PO SCH (09:48)
[2019-11-12] MEDS: LISINOPRIL 10 MG TABLET (FP) PO SCH ×2 (09:49→21:34)
[2019-11-12] MEDS: NICOTINE 7 MG/24 HOURS TOPICAL PATCH TD SCH (09:49)
[2019-11-12] MEDS: amLODIPine BESYLATE 10 MG TABLET (FP) PO SCH (09:49)
[2019-11-12] MEDS: BACITRACIN 0.9 GM PACKET TP SCH ×2 (09:50→21:35)
[2019-11-12] MEDS: hydrOXYzine PAMOATE 25 MG CAPSULE (FP) PO PRN ×2 (09:50→17:34)
[2019-11-12] MEDS: TOLNAFTATE 1% CREAM 15 GM TUBE TP SCH ×2 (09:51→21:35)
[2019-11-12] MEDS: PANTOPRAZOLE 40 MG TABLET PO SCH (09:51)
[2019-11-12] MEDS: HYDROCORTISONE 1% TOPICAL CREAM 30 GM TUBE TP PRN (09:52)
[2019-11-12] MEDS: THIAMINE HCL 100 MG TABLET (FP) PO SCH (17:54)
[2019-11-12] MEDS: MELATONIN 5 MG TABLETS PO SCH (21:35)
[2019-11-12] MEDS: QUEtiapine FUMARATE 100 MG TABLET (FP) PO SCH (21:35)
[2019-11-13] MEDS ORDERED: METHADONE HCL 40 MG DISPERSABLE TABLET ONE (05:54)
[2019-11-13] MEDS ORDERED: METHADONE HCL 10 MG TABLET ONE (05:54)
[2019-11-13] MEDS: METHADONE 80 MG, METHADONE 20 MG PO SCH (06:28)
[2019-11-13] MEDS: metFORMIN HCL 500 MG TABLET (FP) PO SCH (06:42)
[2019-11-13] MEDS ORDERED: COLLOIDAL OATMEAL 1 BAR EACH TP PRN (08:44)
[2019-11-13] MEDS ORDERED: PT OWN MED DRAWER 7, Y5N ONE (09:15)
[2019-11-13] MEDS: PRENATAL VITAMINS W/ FOLIC ACID TABLET (FP) PO SCH (09:58)
[2019-11-13] MEDS: amLODIPine BESYLATE 10 MG TABLET (FP) PO SCH (09:58)
[2019-11-13] MEDS: PARoxetine HCL 10 MG TABLET PO SCH (09:58)
[2019-11-13] MEDS: LISINOPRIL 10 MG TABLET (FP) PO SCH ×2 (09:58→21:36)
[2019-11-13] MEDS: BACITRACIN 0.9 GM PACKET TP SCH ×2 (09:59→21:34)
[2019-11-13] MEDS: hydrOXYzine PAMOATE 25 MG CAPSULE (FP) PO PRN ×2 (09:59→14:31)
[2019-11-13] MEDS: NICOTINE 7 MG/24 HOURS TOPICAL PATCH TD SCH (09:59)
[2019-11-13] MEDS: HYDROCORTISONE 1% TOPICAL CREAM 30 GM TUBE TP PRN (10:00)
[2019-11-13] MEDS: TOLNAFTATE 1% CREAM 15 GM TUBE TP SCH ×2 (10:01→21:34)
[2019-11-13] MEDS: PANTOPRAZOLE 40 MG TABLET PO SCH (10:02)
[2019-11-13] MEDS: MELATONIN 5 MG TABLETS PO SCH (21:34)
[2019-11-13] MEDS: THIAMINE HCL 100 MG TABLET (FP) PO SCH (21:34)
[2019-11-13] MEDS: QUEtiapine FUMARATE 100 MG TABLET (FP) PO SCH (21:36)
[2019-11-14] MEDS ORDERED: METHADONE HCL 40 MG DISPERSABLE TABLET ONE (04:45)
[2019-11-14] MEDS ORDERED: METHADONE HCL 10 MG TABLET ONE (04:45)
[2019-11-14] MEDS: METHADONE 80 MG, METHADONE 20 MG PO SCH (06:31)
[2019-11-14] MEDS: metFORMIN HCL 500 MG TABLET (FP) PO SCH (07:08)
[2019-11-14] MEDS: PRENATAL VITAMINS W/ FOLIC ACID TABLET (FP) PO SCH (09:41)
[2019-11-14] MEDS: PARoxetine HCL 10 MG TABLET PO SCH (09:42)
[2019-11-14] MEDS: amLODIPine BESYLATE 10 MG TABLET (FP) PO SCH (09:42)
[2019-11-14] MEDS: LISINOPRIL 10 MG TABLET (FP) PO SCH ×2 (09:42→21:43)
[2019-11-14] MEDS: hydrOXYzine PAMOATE 25 MG CAPSULE (FP) PO PRN ×2 (09:42→16:39)
[2019-11-14] MEDS: BACITRACIN 0.9 GM PACKET TP SCH ×2 (09:42→21:44)
[2019-11-14] MEDS: NICOTINE 7 MG/24 HOURS TOPICAL PATCH TD SCH (09:42)
[2019-11-14] MEDS: PANTOPRAZOLE 40 MG TABLET PO SCH (09:43)
[2019-11-14] MEDS: TOLNAFTATE 1% CREAM 15 GM TUBE TP SCH ×2 (09:43→21:44)
[2019-11-14] MEDS ORDERED: PT OWN MED DRAWER 7, Y5N ONE ×2 (18:53→21:46)
[2019-11-14] MEDS: QUEtiapine FUMARATE 100 MG TABLET (FP) PO SCH (21:43)
[2019-11-14] MEDS: MELATONIN 5 MG TABLETS PO SCH (21:43)
[2019-11-14] MEDS: THIAMINE HCL 100 MG TABLET (FP) PO SCH (21:43)
[2019-11-14] MEDS: HYDROCORTISONE 1% TOPICAL CREAM 30 GM TUBE TP PRN (21:47)
[2019-11-15] MEDS ORDERED: METHADONE HCL 40 MG DISPERSABLE TABLET ONE (05:20)
[2019-11-15] MEDS ORDERED: METHADONE HCL 10 MG TABLET ONE (05:21)
[2019-11-15] MEDS: METHADONE 80 MG, METHADONE 20 MG PO SCH (06:18)
[2019-11-15] MEDS: metFORMIN HCL 500 MG TABLET (FP) PO SCH (07:06)
[2019-11-15] MEDS ORDERED: PT OWN MED DRAWER 7, Y5N ONE ×2 (09:15→21:27)
[2019-11-15] MEDS: BACITRACIN 0.9 GM PACKET TP SCH ×2 (10:07→21:26)
[2019-11-15] MEDS: NICOTINE 7 MG/24 HOURS TOPICAL PATCH TD SCH (10:07)
[2019-11-15] MEDS: amLODIPine BESYLATE 10 MG TABLET (FP) PO SCH (10:07)
[2019-11-15] MEDS: LISINOPRIL 10 MG TABLET (FP) PO SCH ×2 (10:08→21:26)
[2019-11-15] MEDS: PANTOPRAZOLE 40 MG TABLET PO SCH (10:08)
[2019-11-15] MEDS: PARoxetine HCL 10 MG TABLET PO SCH (10:08)
[2019-11-15] MEDS: PRENATAL VITAMINS W/ FOLIC ACID TABLET (FP) PO SCH (10:08)
[2019-11-15] MEDS: TOLNAFTATE 1% CREAM 15 GM TUBE TP SCH ×2 (10:41→21:28)
[2019-11-15] MEDS: hydrOXYzine PAMOATE 25 MG CAPSULE (FP) PO PRN (14:41)
[2019-11-15] MEDS: QUEtiapine FUMARATE 100 MG TABLET (FP) PO SCH (21:26)
[2019-11-15] MEDS: THIAMINE HCL 100 MG TABLET (FP) PO SCH (21:26)
[2019-11-15] MEDS: MELATONIN 5 MG TABLETS PO SCH (21:27)
[2019-11-16] MEDS ORDERED: METHADONE HCL 40 MG DISPERSABLE TABLET ONE (04:11)
[2019-11-16] MEDS ORDERED: METHADONE HCL 10 MG TABLET ONE (04:11)
[2019-11-16] MEDS: METHADONE 80 MG, METHADONE 20 MG PO SCH (05:49)
[2019-11-16] MEDS: metFORMIN HCL 500 MG TABLET (FP) PO SCH (07:00)
[2019-11-16] MEDS: LISINOPRIL 10 MG TABLET (FP) PO SCH ×2 (09:55→21:12)
[2019-11-16] MEDS: hydrOXYzine PAMOATE 25 MG CAPSULE (FP) PO PRN (09:55)
[2019-11-16] MEDS: PARoxetine HCL 10 MG TABLET PO SCH (09:55)
[2019-11-16] MEDS: PANTOPRAZOLE 40 MG TABLET PO SCH (09:55)
[2019-11-16] MEDS: NICOTINE 7 MG/24 HOURS TOPICAL PATCH TD SCH (09:56)
[2019-11-16] MEDS: PRENATAL VITAMINS W/ FOLIC ACID TABLET (FP) PO SCH (09:56)
[2019-11-16] MEDS: amLODIPine BESYLATE 10 MG TABLET (FP) PO SCH (09:56)
[2019-11-16] MEDS: BACITRACIN 0.9 GM PACKET TP SCH ×2 (09:56→21:12)
[2019-11-16] MEDS: TOLNAFTATE 1% CREAM 15 GM TUBE TP SCH ×2 (09:57→21:13)
[2019-11-16] MEDS ORDERED: PT OWN MED DRAWER 7, Y5N ONE (18:28)
[2019-11-16] MEDS: QUEtiapine FUMARATE 100 MG TABLET (FP) PO SCH (21:12)
[2019-11-16] MEDS: MELATONIN 5 MG TABLETS PO SCH (21:12)
[2019-11-16] MEDS: THIAMINE HCL 100 MG TABLET (FP) PO SCH (21:13)
[2019-11-17] MEDS ORDERED: METHADONE HCL 10 MG TABLET ONE (05:36)
[2019-11-17] MEDS ORDERED: METHADONE HCL 40 MG DISPERSABLE TABLET ONE (05:36)
[2019-11-17] MEDS: METHADONE 80 MG, METHADONE 20 MG PO SCH (06:00)
[2019-11-17] MEDS: metFORMIN HCL 500 MG TABLET (FP) PO SCH (06:33)
[2019-11-17] MEDS: PRENATAL VITAMINS W/ FOLIC ACID TABLET (FP) PO SCH (09:44)
[2019-11-17] MEDS: hydrOXYzine PAMOATE 25 MG CAPSULE (FP) PO PRN ×2 (09:45→16:42)
[2019-11-17] MEDS: LISINOPRIL 10 MG TABLET (FP) PO SCH ×2 (09:45→21:35)
[2019-11-17] MEDS: PANTOPRAZOLE 40 MG TABLET PO SCH (09:45)
[2019-11-17] MEDS: PARoxetine HCL 10 MG TABLET PO SCH (09:47)
[2019-11-17] MEDS: amLODIPine BESYLATE 10 MG TABLET (FP) PO SCH (09:48)
[2019-11-17] MEDS: TOLNAFTATE 1% CREAM 15 GM TUBE TP SCH ×2 (09:48→21:35)
[2019-11-17] MEDS: BACITRACIN 0.9 GM PACKET TP SCH ×2 (09:57→21:34)
[2019-11-17] MEDS: NICOTINE 7 MG/24 HOURS TOPICAL PATCH TD SCH (09:57)
[2019-11-17] MEDS ORDERED: PT OWN MED DRAWER 7, Y5N ONE (18:24)
[2019-11-17] MEDS: MELATONIN 5 MG TABLETS PO SCH (21:34)
[2019-11-17] MEDS: THIAMINE HCL 100 MG TABLET (FP) PO SCH (21:35)
[2019-11-17] MEDS: QUEtiapine FUMARATE 100 MG TABLET (FP) PO SCH (21:35)
[2019-11-18] MEDS ORDERED: METHADONE HCL 40 MG DISPERSABLE TABLET ONE (04:04)
[2019-11-18] MEDS ORDERED: METHADONE HCL 10 MG TABLET ONE (04:05)
[2019-11-18] MEDS: metFORMIN HCL 500 MG TABLET (FP) PO SCH (06:28)
[2019-11-18] MEDS: METHADONE 80 MG, METHADONE 20 MG PO SCH (06:28)
[2019-11-18] MEDS ORDERED: PT OWN MED DRAWER 7, Y5N ONE ×2 (08:20→19:46)
[2019-11-18] MEDS: BACITRACIN 0.9 GM PACKET TP SCH ×2 (09:52→21:11)
[2019-11-18] MEDS: amLODIPine BESYLATE 10 MG TABLET (FP) PO SCH (09:52)
[2019-11-18] MEDS: NICOTINE 7 MG/24 HOURS TOPICAL PATCH TD SCH (09:52)
[2019-11-18] MEDS: PANTOPRAZOLE 40 MG TABLET PO SCH (09:53)
[2019-11-18] MEDS: LISINOPRIL 10 MG TABLET (FP) PO SCH ×2 (09:53→21:11)
[2019-11-18] MEDS: PARoxetine HCL 10 MG TABLET PO SCH (09:53)
[2019-11-18] MEDS: PRENATAL VITAMINS W/ FOLIC ACID TABLET (FP) PO SCH (09:53)
[2019-11-18] MEDS: TOLNAFTATE 1% CREAM 15 GM TUBE TP SCH ×2 (09:54→22:16)
[2019-11-18] MEDS: hydrOXYzine PAMOATE 25 MG CAPSULE (FP) PO PRN (11:38)
[2019-11-18] MEDS: QUEtiapine FUMARATE 100 MG TABLET (FP) PO SCH (21:11)
[2019-11-18] MEDS: THIAMINE HCL 100 MG TABLET (FP) PO SCH (21:11)
[2019-11-18] MEDS: MELATONIN 5 MG TABLETS PO SCH (21:11)
[2019-11-19] MEDS ORDERED: METHADONE HCL 40 MG DISPERSABLE TABLET ONE (06:11)
[2019-11-19] MEDS ORDERED: METHADONE HCL 10 MG TABLET ONE (06:11)
[2019-11-19] MEDS: METHADONE 80 MG, METHADONE 20 MG PO SCH (06:17)
[2019-11-19] MEDS: metFORMIN HCL 500 MG TABLET (FP) PO SCH (08:00)
[2019-11-19] MEDS: BACITRACIN 0.9 GM PACKET TP SCH ×2 (09:23→21:22)
[2019-11-19] MEDS: NICOTINE 7 MG/24 HOURS TOPICAL PATCH TD SCH (09:23)
[2019-11-19] MEDS: PRENATAL VITAMINS W/ FOLIC ACID TABLET (FP) PO SCH (09:23)
[2019-11-19] MEDS: PARoxetine HCL 10 MG TABLET PO SCH (09:23)
[2019-11-19] MEDS: PANTOPRAZOLE 40 MG TABLET PO SCH (09:23)
[2019-11-19] MEDS: amLODIPine BESYLATE 10 MG TABLET (FP) PO SCH (09:28)
[2019-11-19] MEDS: LISINOPRIL 10 MG TABLET (FP) PO SCH ×2 (09:28→21:22)
[2019-11-19] MEDS: TOLNAFTATE 1% CREAM 15 GM TUBE TP SCH ×2 (09:28→23:06)
--- NOTE | 2019-11-19 12:52 | PN ---
[facility] Progress Note Note: Patient is scheduled for discharge tomorrow. Scripts for 30 days supply of medications(Seroquel 30 mg/day, Seroquel 100 mg/hs) will be electronically transmitted to [facility], [address] [place] [id number]
[2019-11-19] MEDS: hydrOXYzine PAMOATE 25 MG CAPSULE (FP) PO PRN (16:31)
[2019-11-19] MEDS: THIAMINE HCL 100 MG TABLET (FP) PO SCH (21:21)
[2019-11-19] MEDS: QUEtiapine FUMARATE 100 MG TABLET (FP) PO SCH (21:21)
[2019-11-19] MEDS: MELATONIN 5 MG TABLETS PO SCH (21:22)
[2019-11-20] MEDS ORDERED: METHADONE HCL 10 MG TABLET ONE (05:30)
[2019-11-20] MEDS ORDERED: METHADONE HCL 40 MG DISPERSABLE TABLET ONE (05:30)
[2019-11-20] MEDS ORDERED: METHADONE 80 MG, METHADONE 20 MG PO ONE (06:00)
[2019-11-20 06:46] VITALS: BP 120/80; PULSE 87; TEMP 97.1
[2019-11-20] MEDS: metFORMIN HCL 500 MG TABLET (FP) PO SCH (07:14)
--- NOTE | 2019-11-20 09:35 | DS ---
[facility] Rehab Discharge Summary - [facility] Rehab Discharge Summary Admission Date: 11/05/19 Discharge Date: 11/20/19 - History Present History: MMTP - Discharge Physical Exam Vital Signs: Vital Signs Temperature 97.1 F L 11/20/19 06:00 Pulse Rate 87 11/20/19 06:00 Respiratory Rate 18 11/20/19 06:00 Blood Pressure 120/80 11/20/19 06:00 O2 Sat by Pulse Oximetry (%) 99 11/20/19 06:00 Laboratory Tests 11/05/19 11/06/19 11/06/19 16:20 06:20 07:32 POC Glucometer 89 56 158 AST COVID-19 (KRISTINA) 11/06/19 11/06/19 11/07/19 08:30 16:33 05:57 POC Glucometer 84 95 AST 84 H COVID-19 (KRISTINA) 11/07/19 11/08/19 11/08/19 16:33 06:25 16:19 POC Glucometer 87 68 103 AST COVID-19 (KRISTINA) 11/09/19 11/09/19 11/10/19 06:09 16:26 06:03 POC Glucometer 84 102 82 AST COVID-19 (KRISTINA) 11/10/19 11/11/19 11/11/19 17:00 06:27 17:11 POC Glucometer 83 105 72 AST COVID-19 (KRISTINA) 11/12/19 11/12/19 11/13/19 06:38 16:32 06:29 POC Glucometer 76 110 74 AST COVID-19 (KRISTINA) 11/13/19 11/14/19 11/14/19 16:40 06:30 16:41 POC Glucometer 97 81 76 AST COVID-19 (KRISTINA) 11/15/19 11/15/19 11/16/19 06:17 16:32 05:48 POC Glucometer 75 73 78 AST COVID-19 (KRISTINA) 11/16/19 11/17/19 11/17/19 16:34 05:59 10:30 POC Glucometer 80 75 AST COVID-19 (KRISTINA) Not detected 11/17/19 11/18/19 11/18/19 16:41 06:28 16:34 POC Glucometer 103 86 97 AST COVID-19 (KRISTINA) 11/19/19 11/19/1920 06:18 16:27 06:02 POC Glucometer 80 72 85 AST COVID-19 (KRISTINA) ROS: DENIES SHAKES, SWEATS, BODY ACHES, ALCOHOL AND OPIOD CRAVINGS PE: ALERT AND ORIENTED X 3 SKIN WARM AND DRY +PERRLA, EOMS INTACT BL GI ND, NT EXT FULL ROM, AMB AD GEOFF NO TREMORS DENIES SI/HI A/[facility] IS MEDICALLY STABLE FOR D/C AFTERCARE ARRANGED FOR [facility] - Treatment Discharge Condition: Discharge condition good Hospital Course: PATIENT D/C FROM REHAB TODAY FOR ALCOHOL DEPENDENCE. HE IS DISCHARGE BACK TO OT, [facility], WITH DR. ZELAYA. PATIENT IS TO BE REINSTATED TODAY AND STATES HE IS MOTIVATED TO MAINTAIN SOBRIETY. DURING COURSE OF TREATMENT, HE ATTENDED 1:1 SESSIONS WITH COUNSELOR AND GROUP MEETINGS. HE WAS ALSO EVALUATED AND TREATED BY PSYCH TEAM. PATIENT IS MEDICALLY STABLE FOR DISCHARGE AND DENIES SI/HI. MEDICALLY ADVISED TO CONTINUE WITH OTP SERVICES TO MAINTAIN SOBRIETY AND FOLLOW UP WITH PCP RECOMMENDED. Ambulatory Orders Metformin HCl [Glucophage] 500 mg PO BID #60 tablet 09/19/19 Tolnaftate 1% Cream [Tinactin 1% Cream -] 1 applic TP BID #1 tube 09/19/19 Quetiapine Fumarate [Seroquel -] 100 mg PO HS 11/05/19 Paroxetine HCl [Paxil] 30 mg PO DAILY #30 tablet 11/19/19 Quetiapine Fumarate [Seroquel -] 100 mg PO HS #30 tablet 11/19/19 Amlodipine Besylate [Norvasc -] 10 mg PO DAILY #14 tablet 11/20/19 Lisinopril 10 mg PO DAILY #14 tablet 11/20/19 metFORMIN HCL [Glucophage -] 500 mg PO DAILY@0700 #14 tablet 11/20/19 - Medication Discharge Medications: Ambulatory Orders Metformin HCl [Glucophage] 500 mg PO BID #60 tablet 09/19/19 Tolnaftate 1% Cream [Tinactin 1% Cream -] 1 applic TP BID #1 tube 09/19/19 Quetiapine Fumarate [Seroquel -] 100 mg PO HS 11/05/19 Paroxetine HCl [Paxil] 30 mg PO DAILY #30 tablet 11/19/19 Quetiapine Fumarate [Seroquel -] 100 mg PO HS #30 tablet 11/19/19 Amlodipine Besylate [Norvasc -] 10 mg PO DAILY #14 tablet 11/20/19 Lisinopril 10 mg PO DAILY #14 tablet 11/20/19 metFORMIN HCL [Glucophage -] 500 mg PO DAILY@0700 #14 tablet 11/20/19 - Medication-Assisted Treatment (MAT) Medication-Assisted Treatment (MAT): Yes MAT Follow-up Referral: AFTERCARE ARRANGED FOR [facility], REINSTATEMENT TO PROGRAM TO BE DONE LATER TODAY. - Discharge Instructions Diet, activity, other medical instructions: Diet: REG TOLERATED Activity: AD GEOFF TOLERATED Other medical instructions: F/U WITH PCP RECOMMENDED - Follow-up Referral Minutes to complete discharge: 40 - AMA Did Patient Leave Against Medical Advice: No
[2019-11-20] MEDS: PRENATAL VITAMINS W/ FOLIC ACID TABLET (FP) PO SCH (09:38)
[2019-11-20] MEDS: PARoxetine HCL 10 MG TABLET PO SCH (09:39)
[2019-11-20] MEDS: amLODIPine BESYLATE 10 MG TABLET (FP) PO SCH (09:39)
[2019-11-20] MEDS: LISINOPRIL 10 MG TABLET (FP) PO SCH (09:39)
[2019-11-20] MEDS: BACITRACIN 0.9 GM PACKET TP SCH (09:39)
[2019-11-20] MEDS: NICOTINE 7 MG/24 HOURS TOPICAL PATCH TD SCH (09:39)
[2019-11-20] MEDS: PANTOPRAZOLE 40 MG TABLET PO SCH (09:39)
[2019-11-20] MEDS: TOLNAFTATE 1% CREAM 15 GM TUBE TP SCH (09:41)
[2019-11-20] MEDS: HYDROCORTISONE 1% TOPICAL CREAM 30 GM TUBE TP PRN (09:41)
== END 2019-11-20 09:47 | disposition home or self-care (01) | DRG 772 ==
LOC: YASAS 11:37 → Y3W 11:38
PROVIDERS: ADMIT Allergy & Immunology; ATTEND Allergy & Immunology
PROC: HZ42ZZZ Group Counseling for Substance Abuse Treatment, Cognitive-Behavioral (ICD-10-PCS; principal; 2019-11-05)
DX: F10.20 Alcohol dependence, uncomplicated (principal); F11.20 Opioid dependence, uncomplicated; F17.210 Nicotine dependence, cigarettes, uncomplicated; F25.9 Schizoaffective disorder, unspecified; F31.9 Bipolar disorder, unspecified; I10 Essential (primary) hypertension; E11.9 Type 2 diabetes mellitus without complications; Z79.84 Long term (current) use of oral hypoglycemic drugs; B18.2 Chronic viral hepatitis C; L53.8 Other specified erythematous conditions; L98.8 Other specified disorders of the skin and subcutaneous tissue; Z87.19 Personal history of other diseases of the digestive system; Z98.890 Other specified postprocedural states; Z56.0 Unemployment, unspecified
CPT/HCPCS: 36415; 82962; 84450; U0003

== ENCOUNTER 2020-01-08 17:02 | Inpatient (IN) | payer OTHER ==
--- OUTSIDE RECORDS SUMMARY | 2020-01-08 17:17 | XMS ---
:1960 Author Organization [facility] Support Name Relationship Address Phone MARC COLORADO [place] [address] UE Unavailable Unavailable Unavailable LOLA LLAMAS SELF / SAME PATIENT 1988 [place] [address] MARC [place] Other [place] [address] Re-disclosure Warning The records that you are about to access may contain information from federally- assisted alcohol or drug abuse programs. If such information is present, then the following federally mandated warning applies: This information has been disclosed to you from records protected by federal confidentiality rules (42 CFR part 2). The federal rules prohibit you from making any further disclosure of this information unless further disclosure is expressly permitted by the written consent of the person to whom it pertains or as otherwise permitted by 42 CFR part 2. A general authorization for the release of medical or other information is NOT sufficient for this purpose. The Federal rules restrict any use of the information to criminally investigate or prosecute any alcohol or drug abuse patient.The records that you are about to access may contain highly sensitive health information, the redisclosure of which is protected by Article 27-F of the [facility] Public Health law. If you continue you may haveaccess to information: Regarding HIV / AIDS; Provided by facilities licensed or operated by the [facility] Office of Mental Health; or Provided by the [facility] Office for People With Developmental Disabilities. If such information is present, then the following [facility] mandated warning applies: This information has been disclosed to you from confidential records which are protected by state law. State law prohibits you from making any further disclosure of this information without the specific written consent of the person to whom it pertains, or as otherwise permitted by law. Any unauthorized further disclosure in violation of state law may result in a fine or shelter sentence or both. A general authorization for the release of medical or other information is NOT sufficient authorization for further disclosure. Insurance Providers Payer name Policy type Policy ID Covered Covered alliance party's Policy P augie / Coverage alliance party ID relationship to [employer] Inf ormation type givens BEACON [id number] SP [id number] [employer] METRO PLUS [id number] SP [id number] HEALTH PLAN [employer] [id number] SP [id number] [employer] MEDICAID [id number] SP [id number] Results ID Date Data Source [id number] 11/17/2019 10:30:00 AM EDT [facility] Name Value Range Interpretation Description Data Sup porting Code Source(s) Document(s ) SARS [facility] coronavirus 2 RNA This lab was ordered by [facility] Ac ct Bill Inter and reported by [facility]. ID Date Data Source [id number] 10/30/2019 11:40:00 AM EDT [facility] Name Value Range Interpretation Description Data Sup porting Code Source(s) Document(s ) SARS [facility] coronavirus 2 RNA This lab was ordered by [facility] Ac ct Bill Inter and reported by [facility]. Procedure
[2020-01-08 22:09] VITALS: BMI 27.1
--- NOTE | 2020-01-08 23:13 | HP ---
CIWA Score Nausea/Vomitin-No Nausea/No Vomiting Muscle Tremors: 4-Moderate,w/Arms Extend Anxiety: 4-Mod. Anxious/Guarded Agitation: 4-Moderately Restless Paroxysmal Sweats: 3 Orientation: 1-Uncertain about Date Tacttile Disturbances: 0-None Auditory Disturbances: 0-None Visual Disturbances: 0-None Headache: 0-None Present CIWA-Ar Total Score: 16 - Admission Criteria OASAS Guidelines: Admission for Medically Managed Detox: Requires at least one of the followin. CIWA greater than 12 2. Seizures within the past 24 hours 3. Delirium tremens within the past 24 hours 4. Hallucinations within the past 24 hours 5. Acute intervention needed for co occurring medical disorder 6. Acute intervention needed for co occurring psychiatric disorder 7. Severe withdrawal that cannot be handled at a lower level of care (continued vomiting, continued diarrhea, abnormal vital signs) requiring intravenous medication and/or fluids 8. Admitting History and Physical - Past Medical History Cardiovascular: Yes: HTN Hepatobiliary: Yes: Hepatitis C Endocrine: Yes: Diabetes Mellitus - Smoking History Smoking history: Current every day smoker Have you smoked in the past 12 months: Yes Aproximately how many cigarettes per day: 20 - Alcohol/Substance Use Hx Alcohol Use: Yes - Social History ADL: Independent Occupation: Unemployed on [employer] History of Recent Travel: No Admission ROS [facility] Chief Complaint: here for alcohol, klonopin detox. c/o withdrawal sx's Allergies/Adverse Reactions: Allergies Allergy/AdvReac Type Severity Reaction Status Date / Time No Known Allergies Allergy Verified 11/05/19 11:57 History of Present Illness: HERE FOR ALCOHOL, KLONOPIN DETOX. REFERR[facility] AFTER PRESENTING THERE WITH C/O C.P. AND BLACKING OUT. HE HAS SINCE BEEN CLEARED AND REFERRED FOR DETOX. CXR NEG FOR ACUTE DISEASE. SRUTHI COVID DONE TODAY NEGATIVE. HE ALSO HAD A NEGATIVE HEAD CT SCAN. SEE ATTACHED DOCUMENTS. HE PRESENTS TODAY WITH C/O WITHDRAWAL SX'S. SEEKING DETOX. HE REPORTS DAILY ALCOHOL AND BENZO ABUSE. LAST USE 1 NIGHT AGO. + HX/O BLACKOUTS, DENIES HX/O SEIZURES. HE IS ALSO ON MMTP AT [facility] WITH A REPORTED DOSE O F 100 MG. LDM TODAY. DENIES ANY SIGNIFICANT PERIOD OF CLEAN TIME IN THE PAST 12 MONTHS EXCEPT WHILE HOSPITALIZED/ INPATIENT TXMENT. LIVES ALONE, UNEMPLOYED, DENIES LEGALS Exam Limitations: No Limitations - Ebola screening Have you traveled outside of the country in the last 21 days: No Have you had contact with anyone from an Ebola affected area: No Have you been sick,other than usual withdrawal symptoms: No Do you have a fever: No - Review of Systems Constitutional: Chills, Loss of Appetite, Night Sweats, Changes in sleep EENT: reports: Dental Problems (MISSING TEETH) Respiratory: reports: No Symptoms reported Cardiac: reports: No Symptoms Reported GI: reports: No Symptoms Reported : reports: No Symptoms Reported Musculoskeletal: reports: No Symptoms Reported Integumentary: reports: Dryness (OF BLE) Neuro: reports: Tremors, Unsteady Gait (AMBUALTES WITH CANE), Other (BLACK OUTS FROM BENZO ABUSE AND INTOXICATION) Endocrine: reports: No Symptoms Reported Hematology: reports: No Symptoms Reported Psychiatric: reports: Orientated x3, Anxious, Depressed (DENIES SI/HI/AVH) Other Systems: Reviewed and Negative Patient History - Patient Medical History Hx Anemia: No Hx Asthma: No Hx Chronic Obstructive Pulmonary Disease (COPD): No Hx Cancer: No Hx Cardiac Disorders: No Hx Congestive Heart Failure: No Hx Hypertension: Yes (LISINOPRIL) Hx Hypercholesterolemia: No Hx Pacemaker: No HX Cerebrovascular Accident: No Hx Seizures: No Hx Dementia: No Hx Diabetes: Yes (PRE DM) Hx Gastrointestinal Disorders: Yes Hx Liver Disease: No Hx Genitourinary Disorders: No Hx Sexually Transmitted Disorders: No Hx Renal Disease (ESRD): No Hx Thyroid Disease: No Hx Human Immunodeficiency Virus (HIV): No (Negative 2018) Hx Hepatitis C: Yes (UNDECTABLE W/O TXMENT) Hx Depression: No Hx Suicide Attempt: No Hx Bipolar Disorder: Yes (ON SEROQUEL, PAXIL) Hx Schizophrenia: Yes Other Medical History: DENIES - Patient Surgical History Past Surgical History: Yes Hx Neurologic Surgery: No Hx Cataract Extraction: No Hx Cardiac Surgery: No Hx Lung Surgery: No Hx Breast Surgery: No Hx Breast Biopsy: No Hx Abdominal Surgery: Yes (surgery for perforated ulcer in 1993) Hx Appendectomy: No Hx Cholecystectomy: No Hx Genitourinary Surgery: No Hx Section: No Hx Orthopedic Surgery: No Anesthesia Reaction: No - PPD History Previous Implant?: Yes Documented Results: Negative w/proof Implanted On Prior [facility] Admission?: Yes Date: 01/08/20 Results: NGE CXR PPD to be Administered?: No - Smoking Cessation Smoking history: Current every day smoker Have you smoked in the past 12 months: Yes Aproximately how many cigarettes per day: 10 Cigars Per Day: 0 Hx Chewing Tobacco Use: No Initiated information on smoking cessation: Yes 'Breaking Loose' booklet given: 01/08/20 - Substance & Tx. History Hx Alcohol Use: Yes Hx Substance Use: Yes Substance Use Type: Alcohol, Tranquilizers (KLONOPINS) Hx Substance Use Treatment: Yes ([facility]) - Substances abused Alcohol Other (specify): BEER Substance route: Oral Frequency: Daily Amount used: 2-3/ 6 PACK Age of first use: 17 Date of last use: 01/07/20 Benzodiazepine (Klonopin) Substance route: Oral Frequency: Daily Amount used: 3MG Age of first use: 23 Date of last use: 01/07/20 Admission Physical Exam S - Vital Signs Vital Signs: Vital Signs - 24 hr 01/08/20 22:08 Temperature 99.0 F Pulse Rate 102 H Respiratory 18 Rate Blood Pressure 143/93 - Physical General Appearance: Yes: Moderate Distress, Tremorous, Anxious HEENTM: Yes: EOMI, Normocephalic, Normal Voice, KEENAN, Other (EDENTULOUS RESOLVING ECCHYMOSIS TO OTH EYE NT TO TOUCH) Respiratory: Yes: Chest Non-Tender, Lungs Clear, Normal Breath Sounds, No Respiratory Distress, No Accessory Muscle Use Neck: Yes: No masses,lesions,Nodules, Supple, Trachea in good position Breast: Yes: Breasts Symetrical Abdominal: Yes: Non Tender, Soft, Increased Bowel Sounds, Surgical Scar Genitourinary: Yes: Within Normal Limits Back: Yes: Normal Inspection Musculoskeletal: Yes: full range of Motion, Other (AMBUALTES WITH CANE) Extremities: Yes: Normal Capillary Refill, Normal Range of Motion, Non-Tender, Tremors Neurological: Yes: Fully Oriented, Alert, Motor Strength 5/5, Depressed Affect Integumentary: Yes: Dry (DRY SKIN DERMATITIS WITH FLAKING, SCABBY SKIN), Warm Lymphatic: Yes: Within Normal Limits - Diagnostic (1) Sedative, hypnotic or anxiolytic dependence, uncomplicated Current Visit: Yes Status: Acute (2) HTN (hypertension) Current Visit: Yes Status: Chronic Qualifiers: Hypertension type: essential hypertension Qualified Code(s): I10 - Essential (primary) hypertension (3) Risk for falls Current Visit: Yes Status: Acute (4) Ambulates with cane Current Visit: Yes Status: Chronic (5) Status post fall Current Visit: Yes Status: Acute (6) Ecchymosis of right eye Current Visit: Yes Status: Acute Qualifiers: Encounter type: subsequent encounter Qualified Code(s): S05.11XD - Contusion of eyeball and orbital tissues, right eye, subsequent encounter (7) Dry skin dermatitis Current Visit: Yes Status: Chronic (8) Alcohol dependence with uncomplicated withdrawal Current Visit: Yes Status: Acute (9) Nicotine dependence Current Visit: Yes Status: Chronic Qualifiers: Nicotine product type: cigarettes Substance use status: in withdrawal Qualified Code(s): F17.213 - Nicotine dependence, cigarettes, with withdrawal (10) Diabetes mellitus Current Visit: Yes Status: Chronic Qualifiers: Diabetes mellitus type: type 2 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 Diabetes mellitus complication status: with other specified complication Qualified Code(s): E11.69 - Type 2 diabetes mellitus with other specified complication (11) Methadone maintenance therapy patient Current Visit: No Status: Chronic (12) Opioid dependence on agonist therapy Current Visit: No Status: Chronic Cleared for Admission S - Detox or Rehab [facility] Level of Care: Medically Managed Detox Regimen/Protocol: Ativan Claeared for Rehab Admission: No Breathalyzer - Breathalyzer Breathalyzer: 0 Urine Drug Screen - Test Device Lot number: [id number] Expiration date: 11/26/20 - Control Is test valid?: Yes - Results Drug screen NEGATIVE: No Urine drug screen results: MTD-Methadone, BZO-Benzodiazepines Inpatient Rehab Admission - Rehab Decision to Admit Inpatient rehab admission?: No
[2020-01-08] MEDS ORDERED: P-EPHED 60MG/TRIPROLIDI 2.5MG TABLET PO PRN (23:27)
[2020-01-08] MEDS ORDERED: BISMUTH SUBSALICYLATE 524 MG/30 ML UD PO PRN (23:27)
[2020-01-08] MEDS ORDERED: ACETAMINOPHEN 325 MG TABLET (FP) PO PRN ×2 (23:27)
[2020-01-08] MEDS ORDERED: DICYCLOMINE HCL 10 MG CAPSULE PO PRN (23:27)
[2020-01-08] MEDS ORDERED: hydrOXYzine PAMOATE 25 MG CAPSULE (FP) PO PRN (23:27)
[2020-01-08] MEDS ORDERED: IBUPROFEN 400 MG TABLET (FP) PO PRN (23:27)
[2020-01-08] MEDS ORDERED: MENTHOL/PHENOL 1 EACH UD MM PRN (23:27)
[2020-01-08] MEDS ORDERED: LORazepam 1 MG TABLET PO PRN (23:27)
[2020-01-08] MEDS ORDERED: MAGNESIUM HYDROX 2400MG/30ML ORAL SUSPENSION 30 ML CUP PO PRN (23:27)
[2020-01-08] MEDS ORDERED: ONDANSETRON *ODT* 4 MG TABLET SL PRN (23:27)
[2020-01-08] MEDS ORDERED: MAGNESIUM CITRATE 300 ML BOTTLE PO PRN (23:27)
[2020-01-08] MEDS ORDERED: NICOTINE POLACRILEX 2 MG GUM BUC PRN (23:27)
[2020-01-08] MEDS ORDERED: guaiFENesin 200 MG/10 ML 10 ML UNIT-DOSE CUPS PO PRN (23:27)
[2020-01-08] MEDS ORDERED: MAG HYDROX/AL HYDROX/SIMETH 30 ML UNIT-DOSE CUP PO PRN (23:27)
--- OUTSIDE RECORDS SUMMARY | 2020-01-08 23:35 | XMS ---
:1960 Author Organization [facility] Support Name Relationship Address Phone MARC COLORADO OTHER RELATIONSHIP DIRECTOR [place] [address] UE Unavailable Unavailable Unavailable LOLA LLAMAS SELF / SAME PATIENT 1988 [facility] [address] MARC COLORADO Other DIRECTOR OF ELEMENTARY [place] [address] Re-disclosure Warning The records that you are [...] is protected by Article 27-F of the [facility] Public Health law. If you continue you may haveaccess to information: Regarding HIV / AIDS; Provided by facilities licensed or operated by the [facility] Office of Mental Health; or Provided by the [facility] Office for People With Developmental Disabilities. If such information is present, then the following [facility] mandated warning applies: This information has [...] law may result in a fine or nursing home sentence or both. A general authorization for the release of medical or other information is NOT sufficient authorization for further disclosure. Insurance Providers Payer name Policy type Policy ID Covered Covered alliance party's Policy P augie / Coverage alliance party ID relationship to [employer] Inf ormation type givens BEACON [id number] SP [id number] [employer] PLUS [id number] SP [id number] HEALTH PLAN [employer] [id number] SP [id number] [employer] MEDICAID [id number] SP [id number] Results ID Date Data Source [id number] 11/17/2019 10:30:00 AM EDT [facility] Name Value Range Interpretation Description Data Sup porting Code Source(s) Document(s ) SARS [facility] coronavirus 2 RNA This lab was ordered by [facility] Ac ct Bill Inter and reported by [facility]. ID Date Data Source [id number] 10/30/2019 11:40:00 AM EDT [facility] Name Value Range Interpretation Description Data Sup porting Code Source(s) Document(s ) SARS [facility] coronavirus 2 RNA This lab was ordered by [facility] Ac ct Bill Inter and reported by [facility]. Procedure
[2020-01-09] MEDS: LORazepam 2 MG TABLET PO SCH ×5 (01:15→22:22)
[2020-01-09] MEDS ORDERED: METHADONE HCL 10 MG TABLET PO ONE (08:34)
[2020-01-09] MEDS ORDERED: METHADONE 80 MG, METHADONE 20 MG PO ONE (08:48)
[2020-01-09] MEDS ORDERED: METHADONE HCL 10 MG TABLET ONE (08:58)
[2020-01-09] MEDS ORDERED: METHADONE HCL 40 MG DISPERSABLE TABLET ONE (08:59)
[2020-01-09] MEDS: NICOTINE 14 MG/24 HOURS TOPICAL PATCH TD SCH (10:23)
[2020-01-09] MEDS: PRENATAL VITAMINS W/ FOLIC ACID TABLET (FP) PO SCH (10:23)
--- NOTE | 2020-01-09 10:32 | CONSULT ---
[facility] Psychiatric Consult - Data Date of interview: 01/09/20 Admission source: [facility]/ [facility] Identifying data: Mr Soto is a 59 years old male, father of a 23 years old son, unemployed on public assistance, domiciled living in supportive housing seeking detox treatment for alcohol, opioid and benzodiazepine Substance Abuse History: Reports history of alcohol, heroin and klonopin use. Refer to addiction counselor's summary for further information Medical History: Significant for hypertension, diabetes mellitus, history of hepatitis C and surgery for perforated peptic ulcer. Smokes 10 cigarettes daily Psychiatric History: Patient is known for multiple previous admissions to this facility. He reports being diagnosed with Bipolar Schizophrenia years ago but denies previous psychiatric hospitalization or suicidal attempt. Reports that he still receives outpatient psychiatric treatment with Dr Pimentel at [facility] and he is now prescribed only Seroquel 100 mg/hs. Claims that he no longer takes Paxil. He used to be on Gabapentin and Ambien as well in the past. At present, denies experiencing psychotic, manic symptoms, S/H ideations. However, he reports feeling mildly depressed and sleeping poorly. Patient requests to continue taking Seroquel Physical/Sexual Abuse/Trauma History: Denies history of abuse of any type as well as DV relationship Additional Comment: Reports history of previous arrest for "steering" Mental Status Exam - Mental Status Exam Alert and Oriented to: Time, Place, Person Cognitive Function: Fair Patient Appearance: Disheveled Mood: Depressed (mildly) Affect: Appropriate Patient Behavior: Cooperative Speech Pattern: Clear Voice Loudness: Normal Thought Process: Intact, Goal Oriented Thought Disorder: Not Present Hallucinations: Denies Suicidal Ideation: Denies Homicidal Ideation: Denies Insight/Judgement: Poor Sleep: Poorly Appetite: Poor Muscle strength/Tone: Normal Gait/Station: Normal Psychiatric Findings - Problem List ([place] 1, 2,3) (1) Bipolar disorder Current Visit: No Status: Chronic (2) Schizoaffective disorder Current Visit: No Status: Ruled-out Qualifiers: Schizoaffective disorder type: unspecified Qualified Code(s): F25.9 - Schizoaffective disorder, unspecified Comment: By history. 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 use: without terminal superintendent use Diabetes mellitus complication status: with other specified complication Qualified Code(s): E11.69 - Type 2 diabetes mellitus with other specified complication (10) HTN (hypertension) Current Visit: Yes Status: Chronic Qualifiers: Hypertension type: essential hypertension Qualified Code(s): I10 - Essential (primary) hypertension (11) Gastroesophageal reflux disease Current Visit: No Status: Chronic Qualifiers: Esophagitis presence: without esophagitis Qualified Code(s): K21.9 - Gastro-esophageal reflux disease without esophagitis (12) s/p surgry for perforated peptic ulcer with peritonitis Current Visit: No Status: Resolved - Initial Treatment Plan Initial Treatment Plan: 1) Continue Seroquel 100 mg po HS. 2) Continue inpatient detoxification
--- NOTE | 2020-01-09 11:07 | PN ---
S CIWA - CIWA Score Nausea/Vomitin-No Nausea/No Vomiting Muscle Tremors: 3 Anxiety: 2 Agitation: 2 Paroxysmal Sweats: 2 Orientation: 0-Oriented Tacttile Disturbances: 0-None Auditory Disturbances: 0-None Visual Disturbances: 0-None Headache: 0-None Present CIWA-Ar Total Score: 9 BHS Progress Note (SOAP) Subjective: sweat irritable interrupted sleep Objective: 01/09/20 11:06 Vital Signs Temperature 98.8 F 01/09/20 08:36 Pulse Rate 77 01/09/20 08:36 Respiratory Rate 18 01/09/20 08:36 Blood Pressure 149/96 01/09/20 08:36 O2 Sat by Pulse Oximetry (%) 97 01/09/20 08:36 Laboratory Tests 01/09/20 07:15 POC Glucometer 84 rest of labs pending aaox3 sitting up eating breakfast no acute distress Assessment: 01/09/20 11:07 withdrawals Plan: continue detox
[2020-01-09 11:49] LABS: HEMATOCRIT 34.9 % (35.4-49); MCH 26.3 pg (25.7-33.7); MCHC 31.6 g/dl (32.0-35.9); MEAN CELL VOLUME 83.4 fl (80-96); MEAN PLT VOLUME 7.8 fl (7.5-11.1); PLATELET COUNT 664 K/MM3 (134-434); RBC 4.19 M/mm3 (4.00-5.60); RDW 15.9 % (11.9-15.9); WHITE BLOOD COUNT 6.9 K/mm3 (4.0-10.0)
[2020-01-09 12:00] LABS: ALBUMIN 2.7 g/dl (3.4-5.0); BILIRUBIN,TOTAL 0.4 mg/dL (0.2-1); BLOOD UREA NITROGEN 5.3 mg/dL (7-18); CALCIUM 8.5 mg/dL (8.5-10.1); CREATININE 0.5 mg/dL (0.55-1.3); POTASSIUM 4.5 mmol/L (3.5-5.1); TOT PROT 6.5 g/dl (6.4-8.2)
[2020-01-09] MEDS ORDERED: FLU VACCINE (FLULAVAL) PF 60 MCG/0.5 ML SYRINGE 2020-2021 IM ONE (12:00)
[2020-01-09] MEDS: METHOCARBAMOL 500 MG TABLET PO PRN ×2 (12:11→17:52)
[2020-01-09] MEDS: QUEtiapine FUMARATE 100 MG TABLET (FP) PO SCH (22:22)
[2020-01-09] MEDS: MELATONIN 5 MG TABLETS PO SCH (22:22)
[2020-01-09] MEDS: THIAMINE HCL 100 MG TABLET (FP) PO SCH (22:22)
[2020-01-10] MEDS ORDERED: METHADONE HCL 10 MG TABLET ONE (05:33)
[2020-01-10] MEDS ORDERED: METHADONE HCL 40 MG DISPERSABLE TABLET ONE (05:34)
[2020-01-10] MEDS ORDERED: METHADONE HCL 40 MG DISPERSABLE TABLET PO SCH (06:00)
[2020-01-10] MEDS: LORazepam 1 MG TABLET PO SCH ×4 (07:03→22:02)
[2020-01-10] MEDS: METHADONE 80 MG, METHADONE 20 MG PO SCH (07:04)
[2020-01-10] MEDS: amLODIPine BESYLATE 10 MG TABLET (FP) PO SCH (10:32)
[2020-01-10] MEDS: LISINOPRIL 10 MG TABLET PO SCH (10:32)
[2020-01-10] MEDS: NICOTINE 14 MG/24 HOURS TOPICAL PATCH TD SCH (10:32)
[2020-01-10] MEDS: PRENATAL VITAMINS W/ FOLIC ACID TABLET (FP) PO SCH (10:32)
--- NOTE | 2020-01-10 11:28 | PN ---
[facility] CIWA - CIWA Score Nausea/Vomitin-No Nausea/No Vomiting Muscle Tremors: 3 Anxiety: 2 Agitation: 3 Paroxysmal Sweats: 3 Orientation: 0-Oriented Tacttile Disturbances: 0-None Auditory Disturbances: 0-None Visual Disturbances: 0-None Headache: 0-None Present CIWA-Ar Total Score: 11 S Progress Note (SOAP) Subjective: sweats body aches leg pain i want my neurontin interrupted sleep Objective: 01/10/20 11:33 Vital Signs Temperature 98.8 F 01/10/20 08:18 Pulse Rate 78 01/10/20 08:18 Respiratory Rate 16 01/10/20 08:18 Blood Pressure 143/83 01/10/20 08:18 O2 Sat by Pulse Oximetry (%) 97 01/10/20 08:18 Laboratory Tests 01/08/20 01/09/20 01/09/20 07:30 07:00 07:15 WBC 6.9 RBC 4.19 Hgb 11.0 L Hct 34.9 L MCV 83.4 MCH 26.3 MCHC 31.6 L RDW 15.9 D Plt Count 664 H D MPV 7.8 Sodium Potassium Chloride Carbon Dioxide Anion Gap BUN Creatinine Est GFR (CKD-EPI)AfAm Est GFR (CKD-EPI)NonAf POC Glucometer 84 Random Glucose Calcium Total Bilirubin AST ALT Alkaline Phosphatase Total Protein Albumin Syphilis Serology Non-reactive 01/09/20 01/09/20 01/10/20 07:30 16:33 07:08 WBC RBC Hgb Hct MCV MCH MCHC RDW Plt Count MPV Sodium 138 Potassium 4.5 Chloride 101 Carbon Dioxide 31 Anion Gap 6 L BUN 5.3 L Creatinine 0.5 L Est GFR (CKD-EPI)AfAm 139.42 Est GFR (CKD-EPI)NonAf 120.29 POC Glucometer 114 138 Random Glucose 80 Calcium 8.5 Total Bilirubin 0.4 AST 49 H ALT 107 H Alkaline Phosphatase 125 H Total Protein 6.5 Albumin 2.7 L Syphilis Serology labs noted aaox3 ambulating no acute distress Assessment: 01/10/20 11:33 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 pt will be started on 100mg tid prn while in our facility. pt was made aware he will need to follow up with his PCP for review of his medication and purpose for continuing such medication. pt in agreement Plan: continue detox gabapentin 100mg tid prn increase fluids
[2020-01-10] MEDS: GABAPENTIN 100 MG CAPSULE PO PRN (13:16)
[2020-01-10] MEDS: MELATONIN 5 MG TABLETS PO SCH (22:02)
[2020-01-10] MEDS: THIAMINE HCL 100 MG TABLET (FP) PO SCH (22:02)
[2020-01-10] MEDS: QUEtiapine FUMARATE 100 MG TABLET (FP) PO SCH (22:02)
[2020-01-10] MEDS: TOLNAFTATE 1% CREAM 15 GM TUBE TP SCH (22:04)
[2020-01-11] MEDS ORDERED: LORazepam 0.5 MG TABLET PO PRN
[2020-01-11] MEDS: LORazepam 0.5 MG TABLET PO SCH ×4 (05:44→22:13)
[2020-01-11] MEDS ORDERED: METHADONE HCL 40 MG DISPERSABLE TABLET ONE (05:46)
[2020-01-11] MEDS ORDERED: METHADONE HCL 10 MG TABLET ONE (05:46)
[2020-01-11] MEDS: METHADONE 80 MG, METHADONE 20 MG PO SCH (05:46)
[2020-01-11] MEDS: GABAPENTIN 100 MG CAPSULE PO PRN (09:58)
[2020-01-11] MEDS: LISINOPRIL 10 MG TABLET PO SCH (09:58)
[2020-01-11] MEDS: amLODIPine BESYLATE 10 MG TABLET (FP) PO SCH (09:58)
[2020-01-11] MEDS: PRENATAL VITAMINS W/ FOLIC ACID TABLET (FP) PO SCH (09:59)
[2020-01-11] MEDS: NICOTINE 14 MG/24 HOURS TOPICAL PATCH TD SCH (09:59)
[2020-01-11] MEDS: TOLNAFTATE 1% CREAM 15 GM TUBE TP SCH ×2 (09:59→22:12)
--- NOTE | 2020-01-11 11:27 | PN ---
S CIWA - CIWA Score Nausea/Vomitin-No Nausea/No Vomiting Muscle Tremors: 2 Anxiety: 1-Mildly Anxious Agitation: 2 Paroxysmal Sweats: 1-Minimal Palms Moist Orientation: 0-Oriented Tacttile Disturbances: 0-None Auditory Disturbances: 0-None Visual Disturbances: 0-None Headache: 0-None Present CIWA-Ar Total Score: 6 BHS Progress Note (SOAP) Subjective: lower leg wound sweats Objective: 01/11/20 11:23 Vital Signs Temperature 97.7 F 01/11/20 08:58 Pulse Rate 76 01/11/20 08:58 Respiratory Rate 16 01/11/20 08:58 Blood Pressure 137/90 01/11/20 08:58 O2 Sat by Pulse Oximetry (%) 97 01/11/20 08:58 Laboratory Tests 01/08/20 01/09/20 01/09/20 07:30 07:00 07:15 WBC 6.9 RBC 4.19 Hgb 11.0 L Hct 34.9 L MCV 83.4 MCH 26.3 MCHC 31.6 L RDW 15.9 D Plt Count 664 H D MPV 7.8 Sodium Potassium Chloride Carbon Dioxide Anion Gap BUN Creatinine Est GFR (CKD-EPI)AfAm Est GFR (CKD-EPI)NonAf POC Glucometer 84 Random Glucose Calcium Total Bilirubin AST ALT Alkaline Phosphatase Total Protein Albumin Syphilis Serology Non-reactive 01/09/20 01/09/20 01/10/20 07:30 16:33 07:08 WBC RBC Hgb Hct MCV MCH MCHC RDW Plt Count MPV Sodium 138 Potassium 4.5 Chloride 101 Carbon Dioxide 31 Anion Gap 6 L BUN 5.3 L Creatinine 0.5 L Est GFR (CKD-EPI)AfAm 139.42 Est GFR (CKD-EPI)NonAf 120.29 POC Glucometer 114 138 Random Glucose 80 Calcium 8.5 Total Bilirubin 0.4 AST 49 H ALT 107 H Alkaline Phosphatase 125 H Total Protein 6.5 Albumin 2.7 L Syphilis Serology 01/10/20 01/11/20 16:40 05:45 WBC RBC Hgb Hct MCV MCH MCHC RDW Plt Count MPV Sodium Potassium Chloride Carbon Dioxide Anion Gap BUN Creatinine Est GFR (CKD-EPI)AfAm Est GFR (CKD-EPI)NonAf POC Glucometer 118 172 Random Glucose Calcium Total Bilirubin AST ALT Alkaline Phosphatase Total Protein Albumin Syphilis Serology labs noted aaox3 ambulating no acute distress Assessment: 01/11/20 11:24 withdrawals skin to lower legs assessed; mild erythema noted and two open wounds at right leg with serous sanguineous fluid noted. Pt states he has had this for a long time and was hospitalized for this and he never followed up with [facility] after discharge. will order oral and topical ABX. pt was advised to see his PCP or follow up with his aftercare discharge instruction from [facility] after his detox is complete. pt in agreement. Plan: continue detox d/c in am
[2020-01-11] MEDS: SULFAMETHOXAZOLE/TRIMETHOPRIM 800MG/160MG D.S. TABLET PO SCH ×2 (11:59→22:13)
[2020-01-11] MEDS: BACITRACIN 0.9 GM PACKET TP SCH ×2 (11:59→22:12)
[2020-01-11 15:00] LABS: URINE APPEARANCE CLEAR; URINE BILIRUBIN NEGATIVE (NEGATIVE); URINE COLOR YELLOW; URINE GLUCOSE (UA) NEGATIVE (NEGATIVE); URINE KETONE NEGATIVE (NEGATIVE); URINE LEUK ESTERASE NEGATIVE (NEGATIVE); URINE NITRITE NEGATIVE (NEGATIVE); URINE PROTEIN NEGATIVE (NEGATIVE); URINE UROBILINOGEN 0.2 mg/dL (0.2-1.0)
[2020-01-11] MEDS: MELATONIN 5 MG TABLETS PO SCH (22:13)
[2020-01-11] MEDS: THIAMINE HCL 100 MG TABLET (FP) PO SCH (22:13)
[2020-01-11] MEDS: QUEtiapine FUMARATE 100 MG TABLET (FP) PO SCH (22:13)
[2020-01-11 23:46] VITALS: BP 149/88; PULSE 65; TEMP 97.1
[2020-01-12] MEDS ORDERED: METHADONE HCL 10 MG TABLET ONE (03:18)
[2020-01-12] MEDS ORDERED: METHADONE HCL 40 MG DISPERSABLE TABLET ONE (03:19)
[2020-01-12] MEDS ORDERED: LORazepam 0.5 MG TABLET PO ONE (05:00)
[2020-01-12] MEDS: METHADONE 80 MG, METHADONE 20 MG PO SCH (05:47)
--- NOTE | 2020-01-12 09:06 | DS ---
[facility] Detox Discharge Summary Admission Date: 01/08/20 Discharge Date: 01/12/20 - History Present History: Alcohol Dependence, Sedative Dependence, MMTP - Physical Exam Results Vital Signs: Vital Signs Temperature 97.1 F L 01/11/20 20:48 Pulse Rate 65 01/11/20 20:48 Respiratory Rate 18 01/11/20 20:48 Blood Pressure 149/88 01/11/20 20:48 O2 Sat by Pulse Oximetry (%) 98 01/11/20 20:48 Pertinent Admission Physical Exam Findings: Vital Signs Temperature 97.1 F L 01/11/20 20:48 Pulse Rate 65 01/11/20 20:48 Respiratory Rate 18 01/11/20 20:48 Blood Pressure 149/88 01/11/20 20:48 O2 Sat by Pulse Oximetry (%) 98 01/11/20 20:48 Laboratory Tests 01/08/20 01/09/20 01/09/20 07:30 07:00 07:15 WBC 6.9 RBC 4.19 Hgb 11.0 L Hct 34.9 L MCV 83.4 MCH 26.3 MCHC 31.6 L RDW 15.9 D Plt Count 664 H D MPV 7.8 Sodium Potassium Chloride Carbon Dioxide Anion Gap BUN Creatinine Est GFR (CKD-EPI)AfAm Est GFR (CKD-EPI)NonAf POC Glucometer 84 Random Glucose Calcium Total Bilirubin AST ALT Alkaline Phosphatase Total Protein Albumin Urine Color Urine Appearance Urine pH Ur Specific [place] Urine Protein Urine Glucose (UA) Urine Ketones Urine Blood Urine Nitrite Urine Bilirubin Urine Urobilinogen Ur Leukocyte Esterase Syphilis Serology Non-reactive 01/09/20 01/09/20 01/10/20 07:30 16:33 07:08 WBC RBC Hgb Hct MCV MCH MCHC RDW Plt Count MPV Sodium 138 Potassium 4.5 Chloride 101 Carbon Dioxide 31 Anion Gap 6 L BUN 5.3 L Creatinine 0.5 L Est GFR (CKD-EPI)AfAm 139.42 Est GFR (CKD-EPI)NonAf 120.29 POC Glucometer 114 138 Random Glucose 80 Calcium 8.5 Total Bilirubin 0.4 AST 49 H ALT 107 H Alkaline Phosphatase 125 H Total Protein 6.5 Albumin 2.7 L Urine Color Urine Appearance Urine pH Ur Specific [place] Urine Protein Urine Glucose (UA) Urine Ketones Urine Blood Urine Nitrite Urine Bilirubin Urine Urobilinogen Ur Leukocyte Esterase Syphilis Serology 01/10/20 01/11/20 01/11/20 16:40 05:45 13:15 WBC RBC Hgb Hct MCV MCH MCHC RDW Plt Count MPV Sodium Potassium Chloride Carbon Dioxide Anion Gap BUN Creatinine Est GFR (CKD-EPI)AfAm Est GFR (CKD-EPI)NonAf POC Glucometer 118 172 Random Glucose Calcium Total Bilirubin AST ALT Alkaline Phosphatase Total Protein Albumin Urine Color Yellow Urine Appearance Clear Urine pH 7.0 Ur Specific [place] 1.010 Urine Protein Negative Urine Glucose (UA) Negative Urine Ketones Negative Urine Blood Negative Urine Nitrite Negative Urine Bilirubin Negative Urine Urobilinogen 0.2 Ur Leukocyte Esterase Negative Syphilis Serology 01/11/20 01/12/20 16:50 05:42 WBC RBC Hgb Hct MCV MCH MCHC RDW Plt Count MPV Sodium Potassium Chloride Carbon Dioxide Anion Gap BUN Creatinine Est GFR (CKD-EPI)AfAm Est GFR (CKD-EPI)NonAf POC Glucometer 96 81 Random Glucose Calcium Total Bilirubin AST ALT Alkaline Phosphatase Total Protein Albumin Urine Color Urine Appearance Urine pH Ur Specific [place] Urine Protein Urine Glucose (UA) Urine Ketones Urine Blood Urine Nitrite Urine Bilirubin Urine Urobilinogen Ur Leukocyte Esterase Syphilis Serology labs noted aaox3 ambulating no acute distress lungs CTA - Treatment Hospital Course: Detox Protocol Followed, Detoxed Safely, Responded well, Discharged Condition Good, Rehab Referral Accepted - Medication Discharge Medications: Ambulatory Orders Tolnaftate 1% Cream [Tinactin 1% Cream -] 1 applic TP BID #1 tube 09/19/19 Quetiapine Fumarate [Seroquel -] 100 mg PO HS #30 tablet 11/19/19 Amlodipine Besylate [Norvasc -] 10 mg PO DAILY #14 tablet 11/20/19 Lisinopril 10 mg PO DAILY #14 tablet 11/20/19 metFORMIN HCL [Glucophage -] 500 mg PO DAILY@0700 #14 tablet 11/20/19 Omeprazole Magnesium [Prilosec Otc] 20 mg PO AM 01/08/20 - Diagnosis (1) Alcohol dependence with uncomplicated withdrawal Current Visit: Yes Status: Acute (2) Ecchymosis of right eye Current Visit: Yes Status: Acute Qualifiers: Encounter type: subsequent encounter Qualified Code(s): S05.11XD - Contusion of eyeball and orbital tissues, right eye, subsequent encounter (3) Risk for falls Current Visit: Yes Status: Acute (4) Sedative, hypnotic or anxiolytic dependence, uncomplicated Current Visit: Yes Status: Acute (5) Status post fall Current Visit: Yes Status: Acute (6) Ambulates with cane Current Visit: Yes Status: Chronic (7) Diabetes mellitus Current Visit: Yes Status: Chronic Qualifiers: Diabetes mellitus type: type 2 Diabetes mellitus custodial insulin use: without custodial use Diabetes mellitus complication status: with other specified complication Qualified Code(s): E11.69 - Type 2 diabetes mellitus with other specified complication (8) Dry skin dermatitis Current Visit: Yes Status: Chronic (9) HTN (hypertension) Current Visit: Yes Status: Chronic Qualifiers: Hypertension type: essential hypertension Qualified Code(s): I10 - Essential (primary) hypertension (10) Nicotine dependence Current Visit: Yes Status: Chronic Qualifiers: Nicotine product type: cigarettes Substance use status: in withdrawal Qualified Code(s): F17.213 - Nicotine dependence, cigarettes, with withdrawal (11) Nicotine dependence Current Visit: Yes Status: Chronic (12) Alcohol intoxication Current Visit: No Status: Acute Qualifiers: Complication of substance-induced condition: uncomplicated Qualified Code(s): F10.920 - Alcohol use, unspecified with intoxication, uncomplicated (13) Alcohol use disorder Current Visit: No Status: Acute (14) Bipolar I disorder, single manic episode, moderate Current Visit: No Status: Acute (15) Edema of all four extremities Current Visit: No Status: Acute (16) Facial pain Current Visit: No Status: Acute (17) Facial trauma Current Visit: No Status: Acute Qualifiers: Encounter type: subsequent encounter Qualified Code(s): S09.93XD - Unspecified injury of face, subsequent encounter (18) Fall Current Visit: No Status: Acute Qualifiers: Encounter type: initial encounter Qualified Code(s): W19.XXXA - Unspecified fall, initial encounter (19) Hypocalcemia Current Visit: No Status: Acute (20) Sedative, hypnotic or anxiolytic abuse Current Visit: No Status: Acute (21) Status post fall Current Visit: No Status: Acute (22) Substance induced mood disorder Current Visit: No Status: Acute (23) Substance-induced sleep disorder Current Visit: No Status: Acute (24) syncope alcohol related Current Visit: No Status: Acute (25) Alcohol use disorder Current Visit: No Status: Chronic (26) Anemia Current Visit: No Status: Chronic Qualifiers: Anemia type: unspecified type Qualified Code(s): D64.9 - Anemia, unspecified (27) Bipolar disorder Current Visit: No Status: Chronic (28) Diabetes mellitus type II, controlled Current Visit: No Status: Chronic Qualifiers: Diabetes mellitus director long term care insulin use: without custodial use Diabetes mellitus complication status: without complication Qualified Code(s): E11.9 - Type 2 diabetes mellitus without complications (29) Elevated liver enzymes Current Visit: No Status: Chronic (30) Essential hypertension Current Visit: No Status: Chronic (31) Gastroesophageal reflux disease Current Visit: No Status: Chronic Qualifiers: Esophagitis presence: without esophagitis Qualified Code(s): K21.9 - Gastro-esophageal reflux disease without esophagitis (32) Hepatitis C carrier Current Visit: No Status: Chronic (33) History of prediabetes Current Visit: No Status: Chronic (34) History of treatment for tuberculosis Current Visit: No Status: Chronic (35) Insomnia Current Visit: No Status: Chronic (36) Methadone maintenance therapy patient Current Visit: No Status: Chronic (37) Mood disorder Current Visit: No Status: Chronic (38) Non compliance w medication regimen Current Visit: No Status: Chronic (39) Non-pitting edema Current Visit: No Status: Chronic (40) Opioid dependence on agonist therapy Current Visit: No Status: Chronic (41) Ulcer of left lower extremity Current Visit: No Status: Chronic Qualifiers: Non-pressure ulcer stage: unspecified non-pressure ulcer stage Qualified Code(s): L97.929 - Non-pressure chronic ulcer of unspecified part of left lower leg with unspecified severity (42) mmtp Current Visit: No Status: Chronic (43) Substance-induced anxiety disorder Current Visit: No Status: Suspected (44) s/p surgry for perforated peptic ulcer with peritonitis Current Visit: No Status: Resolved (45) Schizoaffective disorder Current Visit: No Status: Ruled-out Qualifiers: Schizoaffective disorder type: unspecified Qualified Code(s): F25.9 - Schizoaffective disorder, unspecified - AMA Did Patient Leave Against Medical Advice: No
== END 2020-01-12 09:57 | disposition home or self-care (01) | DRG 773 ==
LOC: YASAS 17:02 → Y6N 23:32
PROVIDERS: ADMIT Allergy & Immunology; ATTEND Allergy & Immunology
PROC: HZ2ZZZZ Detoxification Services for Substance Abuse Treatment (ICD-10-PCS; principal; 2020-01-08)
DX: F10.230 Alcohol dependence with withdrawal, uncomplicated (principal); F13.20 Sedative, hypnotic or anxiolytic dependence, uncomplicated; F11.20 Opioid dependence, uncomplicated; F17.210 Nicotine dependence, cigarettes, uncomplicated; F19.282 Other psychoactive substance dependence with psychoactive substance-induced sleep disorder; F19.24 Other psychoactive substance dependence with psychoactive substance-induced mood disorder; F31.9 Bipolar disorder, unspecified; I10 Essential (primary) hypertension; E11.69 Type 2 diabetes mellitus with other specified complication; Z79.84 Long term (current) use of oral hypoglycemic drugs; L85.3 Xerosis cutis; D64.9 Anemia, unspecified; Z87.19 Personal history of other diseases of the digestive system; Z99.89 Dependence on other enabling machines and devices; Z91.81 History of falling
CPT/HCPCS: 36415; 80053; 81003; 82962; 85027; 86780

== ENCOUNTER 2020-08-08 12:52 | Emergency (ER) | payer OTHER ==
[2020-08-08] MEDS ORDERED: THIAMINE HCL 200 MG/2 ML VIAL IVPB ONE (13:24)
[2020-08-08] MEDS ORDERED: LACTATED RINGERS SOLUTION 1,000 ML IV STA (13:24)
[2020-08-08 13:25] VITALS: TEMP 98; BMI 27.1
[2020-08-08] MEDS ORDERED: DEXTROSE 50%-WATER - 25 GM/50 ML VIAL IVPUSH ONE (14:05)
[2020-08-08] MEDS ORDERED: THIAMINE HCL 200 MG/2 ML VIAL ONE (14:08)
[2020-08-08] MEDS ORDERED: DEXTROSE 50%-WATER 25 GM/50 ML DISP.SYRIN ONE (14:11)
[2020-08-08 14:15] LABS: BASO % 0.5 % (0-2.0); EOS % 0.7 % (0-4.5); HEMATOCRIT 33.6 % (35.4-49); MCH 27.3 pg (25.7-33.7); MCHC 32.6 g/dl (32.0-35.9); MEAN CELL VOLUME 83.6 fl (80-96); MEAN PLT VOLUME 8.1 fl (7.5-11.1); MONO % 9.8 % (3.8-10.2); PLATELET COUNT 183 K/MM3 (134-434); RBC 4.01 M/mm3 (4.00-5.60); RDW 19.5 % (11.9-15.9); WHITE BLOOD COUNT 3.6 K/mm3 (4.0-10.0)
[2020-08-08 14:26] LABS: INR 1.03 (0.83-1.09); PROTHROMBIN TIME (PATIENT) 12.4 SEC (9.7-13.0)
[2020-08-08 14:28] LABS: ACTIVATED PTT 32.7 SECONDS (25.2-36.5)
[2020-08-08 14:47] LABS: ALBUMIN 3.5 g/dl (3.4-5.0)
[2020-08-08 14:48] LABS: BLOOD UREA NITROGEN 7.7 mg/dL (7-18)
[2020-08-08 14:50] LABS: CREATININE 0.5 mg/dL (0.55-1.3)
[2020-08-08 14:52] LABS: BILIRUBIN,TOTAL 0.4 mg/dL (0.2-1); TOT PROT 7.6 g/dl (6.4-8.2)
[2020-08-08 16:30] VITALS: BP 140/83; PULSE 90
== END 2020-08-08 18:13 | disposition home or self-care (01) ==
LOC: JER 12:52
PROC: 3E033NZ Introduction of Analgesics, Hypnotics, Sedatives into Peripheral Vein, Percutaneous Approach (ICD-10-PCS; principal; 2020-08-08)
PROC: 3E033GC Introduction of Other Therapeutic Substance into Peripheral Vein, Percutaneous Approach (ICD-10-PCS; 2020-08-08)
PROC: 3E0337Z Introduction of Electrolytic and Water Balance Substance into Peripheral Vein, Percutaneous Approach (ICD-10-PCS; 2020-08-08)
DX: F10.920 Alcohol use, unspecified with intoxication, uncomplicated (principal)
CPT/HCPCS: 36415; 71045-TC-FY; 80053; 80307; 82550; 82553; 82962; 84484; 85025; 85610; 85730; 93005; 93010; 99285-25; C9803; U0003; U0005

== ENCOUNTER 2024-02-09 12:18 | Inpatient (IN) | payer OTHER ==
[2024-02-09 13:14] VITALS: BMI 25.0
[2024-02-09] MEDS ORDERED: DICYCLOMINE HCL 10 MG CAPSULE PO PRN (13:46)
[2024-02-09] MEDS ORDERED: guaiFENesin 600 MG TABLET.ER (FP) PO PRN (13:46)
[2024-02-09] MEDS ORDERED: IBUPROFEN 400 MG TABLET (FP) PO PRN (13:46)
[2024-02-09] MEDS ORDERED: LOPERAMIDE HCL 2 MG CAPSULE PO PRN (13:46)
[2024-02-09] MEDS ORDERED: POLYETHYLENE GLYCOL (HEALTHYLAX) 3350 17 GM PACKET PO PRN (13:46)
[2024-02-09] MEDS ORDERED: ONDANSETRON *ODT* 4 MG TABLET SL PRN (13:46)
[2024-02-09] MEDS ORDERED: MAG HYDROX/AL HYDROX/SIMETH 30 ML UNIT-DOSE CUP PO PRN (13:46)
[2024-02-09] MEDS ORDERED: MAGNESIUM HYDROX 2400MG/30ML ORAL SUSPENSION 30 ML CUP PO PRN (13:46)
[2024-02-09] MEDS ORDERED: NALOXONE (NARCAN) HCL 4 MG/0.1 ML SPRAY NS PRN (13:46)
[2024-02-09] MEDS ORDERED: BISMUTH SUBSALICYLATE 262 MG/15 ML BTL PO PRN (13:46)
[2024-02-09] MEDS ORDERED: BENZOCAINE/MENTHOL (CHLORASEPTIC ) LOZENGE MM PRN (13:46)
[2024-02-09] MEDS ORDERED: BENZONATATE 200 MG CAPSULE PO PRN (13:46)
[2024-02-09] MEDS ORDERED: IBUPROFEN 600 MG TABLET (FP) PO PRN (13:46)
[2024-02-09] MEDS: PRENATAL VITAMINS W/ FOLIC ACID TABLET (FP) PO SCH (15:42)
[2024-02-09] MEDS: NICOTINE 7 MG/24 HOURS TOPICAL PATCH TD SCH (15:42)
[2024-02-09] MEDS: INSULIN ASPART SLIDING SCALE (NOVOLOG) 1 VIAL SQ SCH (18:06)
[2024-02-09] MEDS: METHOCARBAMOL 500 MG TABLET PO PRN (18:11)
[2024-02-09] MEDS: ACETAMINOPHEN 325 MG TABLET (FP) PO PRN (18:12)
[2024-02-09] MEDS: SULFAMETHOXAZOLE/TRIMETHOPRIM 800MG/160MG D.S. TABLET PO SCH (23:39)
[2024-02-09] MEDS: MELATONIN 5 MG TABLETS PO SCH (23:39)
[2024-02-09] MEDS: THIAMINE 100 MG TABLET PO SCH (23:39)
[2024-02-10] MEDS ORDERED: methaDONE HCL 10 MG TABLET PO SCH (08:45)
[2024-02-10] MEDS: methaDONE 80 MG, methaDONE 20 MG PO SCH (09:21)
[2024-02-10] MEDS ORDERED: chlordiazePOXIDE HCL 25 MG CAPSULE PO PRN (09:47)
[2024-02-10] MEDS: chlordiazePOXIDE HCL 25 MG CAPSULE PO SCH (10:35)
[2024-02-10 12:47] LABS: HEMATOCRIT 32.1 % (35.4-49); HEMOGLOBIN 10.3 GM/dL (11.7-16.9); MCH 25.9 pg (25.7-33.7); MCHC 32.2 g/dl (32.0-35.9); MEAN CELL VOLUME 80.3 fl (80-96); MEAN PLT VOLUME 7.8 fl (7.5-11.1); PLATELET COUNT 355 10^3/uL (134-434); RDW 18.9 % (11.9-15.9)
[2024-02-10 12:55] LABS: CHLORIDE 105 mmol/L (98-107); POTASSIUM 4.3 mmol/L (3.5-5.1); SODIUM 139 mmol/L (136-145)
[2024-02-10 13:06] LABS: ANION GAP 6 mmol/L (4-13); BLOOD UREA NITROGEN 12.1 mg/dL (7-18); CALCIUM 8.5 mg/dL (8.5-10.1); CO2 28 mmol/L (21-32); GLUCOSE,RANDOM 121 mg/dL (74-106)
[2024-02-10 13:08] LABS: SGPT/ALT 26 U/L (13-61)
[2024-02-10 13:09] LABS: ALK PHOS 129 U/L (45-117); CREATININE 0.7 mg/dL (0.55-1.3); SGOT/AST 22 U/L (15-37)
[2024-02-10 13:11] LABS: BILIRUBIN,TOTAL 0.4 mg/dL (0.2-1); TOT PROT 6.5 g/dl (6.4-8.2)
[2024-02-10] MEDS: FUROSEMIDE 20 MG TABLET (FP) PO SCH (13:17)
[2024-02-10] MEDS: ASPIRIN COATED 81 MG TABLET.EC PO SCH (13:18)
[2024-02-10] MEDS: amLODIPine BESYLATE 5 MG TABLET (FP) PO SCH (13:18)
[2024-02-10] MEDS: metFORMIN HCL 500 MG TABLET (FP) PO SCH (16:56)
[2024-02-10] MEDS: PANTOPRAZOLE 20 MG TABLET PO SCH (22:01)
[2024-02-10] MEDS: QUEtiapine FUMARATE 50 MG TABLET PO SCH (22:02)
[2024-02-10] MEDS: CARVEDILOL 3.125 MG TABLET (FP) PO SCH (22:02)
[2024-02-11] MEDS: ATORVASTATIN CA 10 MG TABLET (FP) PO SCH (09:12)
[2024-02-11] MEDS: VITAMINS A AND D TOPICAL OINTMENT TP ONE (15:35)
[2024-02-11] MEDS: VITAMINS A AND D TOPICAL OINTMENT TP SCH (22:03)
[2024-02-12] MEDS: chlordiazePOXIDE HCL 25 MG CAPSULE PO SCH (06:04)
[2024-02-12] MEDS: hydrOXYzine PAMOATE 25 MG CAPSULE (FP) PO PRN (09:39)
[2024-02-13] MEDS: chlordiazePOXIDE HCL 10 MG CAPSULE PO SCH (05:15)
[2024-02-13] MEDS: chlordiazePOXIDE HCL 10 MG CAPSULE PO PRN (18:41)
[2024-02-13] MEDS: DOXYCYCLINE HYCLATE 100 MG TABLET PO ONE (22:37)
[2024-02-13] MEDS: AMOX TR/POT CLAV 875MG/125MG TABLETS (FP) PO ONE (22:37)
[2024-02-14] MEDS: chlordiazePOXIDE HCL 10 MG CAPSULE PO SCH (05:40)
[2024-02-14] MEDS: AMOX TR/POT CLAV 875MG/125MG TABLETS (FP) PO SCH (07:14)
[2024-02-14] MEDS ORDERED: NALOXONE (NYS OPIOID OVERDOSE PROGRAM) 4 MG/0.1 ML SPRAY NS PRN (09:45)
[2024-02-14] MEDS: DOXYCYCLINE HYCLATE 100 MG TABLET PO SCH (09:58)
[2024-02-15] MEDS: chlordiazePOXIDE HCL 10 MG CAPSULE PO ONE (05:37)
[2024-02-15 09:19] VITALS: BP 98/62; PULSE 79
[2024-02-15 11:48] VITALS: RESP 17; TEMP 98
== END 2024-02-15 11:21 | disposition other institution (70) | DRG 773 ==
LOC: YASAS 12:18 → Y3N 15:19 → Y3E 02-15 11:29
PROVIDERS: ADMIT Allergy & Immunology; ATTEND Surgery
PROC: HZ2ZZZZ Detoxification Services for Substance Abuse Treatment (ICD-10-PCS; principal; 2024-02-09)
DX: F10.230 Alcohol dependence with withdrawal, uncomplicated (principal); F11.20 Opioid dependence, uncomplicated; F17.210 Nicotine dependence, cigarettes, uncomplicated; F30.12 Manic episode without psychotic symptoms, moderate; I10 Essential (primary) hypertension; E78.5 Hyperlipidemia, unspecified; E11.9 Type 2 diabetes mellitus without complications; Z79.84 Long term (current) use of oral hypoglycemic drugs; J18.9 Pneumonia, unspecified organism; L03.115 Cellulitis of right lower limb; L03.116 Cellulitis of left lower limb; Z99.89 Dependence on other enabling machines and devices; Z59.01 Sheltered homelessness
CPT/HCPCS: 36415; 71045-TC-FY; 80053; 80305; 80307; 82962; 85027; 86780; 87811